=== PATIENT | female | born 1970 | race African-American/Black ===

== ENCOUNTER 2016-06-04 11:02 | Emergency (ER) | payer MEDICARE, MEDICAID ==
[2016-06-04] MEDS ORDERED: ASPIRIN 81 MG TABLET, CHEWABLE PO ONE (11:30)
--- NOTE | 2016-06-04 11:31 | ER Document Report ---
ED Medical Screen (RME) - General Stated Complaint: CHEST PAIN Time seen by provider: 11:28 Mode of Arrival: Wheelchair Information source: Patient TRAVEL OUTSIDE OF THE [place] IN LAST 30 DAYS: No - HPI Patient complains to provider of: CHEST PAIN, VOMITING AND DIARRHEA Onset: Other - CHEST PAIN THIS WEEKEND, VOMTING, DIARRHEA YESTERDAY Onset/Duration: Sudden Quality of pain: Pressure Severity: Moderate Pain Level: 4 Associated Symptoms: Chest pain, Diarrhea, Nausea, Shortness of breath, Vomiting. denies: Fever Exacerbated by: Denies Relieved by: Denies Similar symptoms previously: Yes Recently seen / treated by doctor: Yes - DIALYSIS YESTERDAY - Related Data Smoking: Non-smoker Frequency of alcohol use: None Drug Abuse: None Pertinent History: DM I HTN KIDNEY DISEASE/DIALYSIS Allergies/Adverse Reactions: sulfamethoxazole [From Septra] Allergy (Severe, Verified 06/04/16 11:31) Hives trimethoprim [From Septra] Allergy (Severe, Verified 06/04/16 11:31) Hives adhesive tape [Adhesive Tape] Adverse Reaction (Verified 06/04/16 11:31) Bruising/Rash Past Medical History - Past Medical History Cardiac Medical History: Reports: Hx Hypercholesterolemia, Hx Hypertension Denies: Hx Coronary Artery Disease, Hx Heart Attack Pulmonary Medical History: Denies: Hx Asthma, Hx Bronchitis, Hx COPD, Hx Pneumonia Neurological Medical History: Denies: Hx Cerebrovascular Accident, Hx Seizures Endocrine Medical History: Reports: Hx Diabetes Mellitus Type 1, Hx Diabetes Mellitus Type 2 Renal/ Medical History: Reports: Hx End Stage Renal Disease, Hx Hemodialysis, Hx Renal Insufficiency Musculoskeltal Medical History: Denies Hx Arthritis Skin Medical History: Reports Hx MRSA Psychiatric Medical History: Reports: Hx Depression Traumatic Medical History: Reports: Hx Fractures - Right ankle fracture Infectious Medical History: Reports: Hx MRSA Past Surgical History: Reports: Hx Section, Hx Cholecystectomy, Hx Orthopedic Surgery - ORIF right ankle with subsequent MRSA infection and Right BKA., Hx Tubal Ligation, Hx Vascular Surgery - Right forearm AV fistula. PermCath right subclavian.. Denies: Hx Hysterectomy - Immunizations Hx Diphtheria, Pertussis, Tetanus Vaccination: Yes
--- NOTE | 2016-06-04 14:39 | ER Document Report ---
ED General <JIM VILLAREAL - Last Filed: 06/04/16 22:23> - General Mode of Arrival: Wheelchair Information source: Patient TRAVEL OUTSIDE OF THE [place] IN LAST 30 DAYS: No - HPI Onset: Other - 3 days Onset/Duration: Persistent, Waxing and waning - Diarrhea chest pain Quality of pain: Pressure Pain Level: 2 Associated symptoms: Chest pain, Nonproductive cough, Diarrhea, Nausea, Vomiting. denies: Fever Exacerbated by: Denies Relieved by: Denies Similar symptoms previously: Yes Recently seen / treated by doctor: No <ENRIQUE,AYDENLIOR - Last Filed: 06/07/16 07:21> - General Chief Complaint: Vomiting/Diarrhea Stated Complaint: CHEST PAIN Notes: Patient presents with a three-day history of vomiting and diarrhea. Patient states that she's vomited 3 times today and had numerous episodes of diarrhea. Patient also reports chest pain off and on since Friday that she describes as a pressure. Patient does report mild cough. Patient denies any urinary symptoms or fever. Patient reports some abdominal cramping that worsens prior to diarrhea and then improves. Patient states that her vomiting and diarrhea is what primarily brought her in. She reports that she has had a stress test a few months ago that was normal and had a heart catheterization one or 2 years ago that was normal as well. Patient states procedures were done in [place]. (ALLEY NUNEZ) - Related Data Allergies/Adverse Reactions: sulfamethoxazole [From Septra] Allergy (Severe, Verified 06/04/16 11:31) Hives trimethoprim [From Septra] Allergy (Severe, Verified 06/04/16 11:31) Hives adhesive tape [Adhesive Tape] Adverse Reaction (Verified 06/04/16 11:31) Bruising/Rash Past Medical History - General Information source: Patient - Social History Smoking Status: Unknown if Ever Smoked Chew tobacco use (# tins/day): No Frequency of alcohol use: None Drug Abuse: None Occupation: none Lives with: Family Family History: Reviewed & Not Pertinent Patient has suicidal ideation: No Patient has homicidal ideation: No - Past Medical History Cardiac Medical History: Reports: Hx Hypercholesterolemia, Hx Hypertension Denies: Hx Coronary Artery Disease, Hx Heart Attack Pulmonary Medical History: Denies: Hx Asthma, Hx Bronchitis, Hx COPD, Hx Pneumonia Neurological Medical History: Denies: Hx Cerebrovascular Accident, Hx Seizures Endocrine Medical History: Reports: Hx Diabetes Mellitus Type 1, Hx Diabetes Mellitus Type 2 Renal/ Medical History: Reports: Hx End Stage Renal Disease, Hx Hemodialysis, Hx Renal Insufficiency Musculoskeltal Medical History: Denies Hx Arthritis Skin Medical History: Reports Hx MRSA Psychiatric Medical History: Reports: Hx Depression Traumatic Medical History: Reports: Hx Fractures - Right ankle fracture Infectious Medical History: Reports: Hx MRSA Past Surgical History: Reports: Hx Section, Hx Cholecystectomy, Hx Orthopedic Surgery - ORIF right ankle with subsequent MRSA infection and Right BKA., Hx Tubal Ligation, Hx Vascular Surgery - Right forearm AV fistula. PermCath right subclavian.. Denies: Hx Hysterectomy - Immunizations Hx Diphtheria, Pertussis, Tetanus Vaccination: Yes Hx Pneumococcal Vaccination: 07/04/10 <ALLEY NUNEZ - Last Filed: 06/07/16 07:21> Review of Systems - Review of Systems Constitutional: No symptoms reported. denies: Fever, Recent illness EENT: No symptoms reported Cardiovascular: Chest pain. denies: Dyspnea Respiratory: Cough. denies: Short of breath Gastrointestinal: Abdominal pain, Diarrhea, Nausea, Vomiting. denies: Constipation, Blood streaked bowels Genitourinary: No symptoms reported. denies: Dysuria, Flank pain Female Genitourinary: No symptoms reported Musculoskeletal: No symptoms reported. denies: Back pain Skin: No symptoms reported Hematologic/Lymphatic: No symptoms reported Neurological/Psychological: No symptoms reported <ALLEY NUNEZ - Last Filed: 06/07/16 07:21> Physical Exam - General General appearance: Appears well, Alert In distress: None - HEENT Head: Normocephalic, Atraumatic Eyes: Normal Conjunctiva: Normal Nasal: Normal Mouth/Lips: Normal Mucous membranes: Normal Pharynx: Normal Neck: Normal, Supple. No: Lymphadenopathy - Respiratory Respiratory status: No respiratory distress Chest status: Tender Breath sounds: Normal. No: Rales, Rhonchi, Stridor, Wheezing Chest palpation: Tender - Anterior chest wall tenderness with palpation - Cardiovascular Rhythm: Regular Heart sounds: S1 appreciated, S2 appreciated Murmur: No - Abdominal Inspection: Morbidly Obese Distension: No distension Bowel sounds: Normal Tenderness: Nontender - Back Back: Normal, Nontender. No: CVA tenderness, Vertebra tenderness - Extremities General upper extremity: Normal strength, Other - Patient with AV fistula right forearm, left antecubital area General lower extremity: Normal strength, Other - Patient with right BKA - Neurological Neuro grossly intact: Yes Cognition: Normal Alondra Coma Scale Eye Opening: Spontaneous Alondra Coma Scale Verbal: Oriented Alondra Coma Scale Motor: Obeys Commands [place] Coma Scale Total: 15 - Psychological Associated symptoms: Normal affect, Normal mood - Skin Skin Temperature: Warm Skin Moisture: Dry Skin Color: Normal <ALLEY NUNEZ - Last Filed: 06/07/16 07:21> - Vital signs Vitals: Pulse Ox 99 06/04/16 14:30 Course - Laboratory Result Diagrams: 06/04/16 15:20 06/04/16 15:20 <JIM VILLAREAL - Last Filed: 06/04/16 22:23> - Laboratory Result Diagrams: 06/04/16 15:20 06/04/16 15:20 - Diagnostic Test Radiology reviewed: Reports reviewed - EKG Interpretation by Me EKG shows normal: Sinus rhythm Rate: Normal When compared to previous EKG there are: No significant change <ALLEY NUNEZ - Last Filed: 06/07/16 07:21> - Re-evaluation Re-evalutation: Repeat troponin is negative, I reevaluated patient, blood pressure has normalized, patient denies any current symptoms, she states she is ready to go home. She requests something for nausea and also for pain to take tonight, I did agree to give her a dose pack to go home with in addition to taking nausea medications, I advised her not to take them frequently to completely stop diarrhea because it is possible she has a viral syndrome and she needs to have some bowel movements/diarrhea during this course. Patient smiling, well- appearing, states she will follow closely with her provider, states she'll return if she worsens in any way. (JIM VILLAREAL) 06/04/16 14:30 Dr Ceballos to bedside to evaluate for possible IV access, recommends consultation with anesthesiology for peripheral IV placement. Consulted with anesthesiologist who states that they're in the middle of multiple surgical cases, and advises consultation with surgeon for IV access. Consulted with Dr. Wilder regarding patient presentation and need for IV access. Dr. Wilder agrees to come in and evaluate patient for IV access. 06/04/16 15:16 Dr Wilder to bedside for evaluation, recommends having a nurse attempt a peripheral IV stick on her right upper extremity above her old fistula site. 06/04/16 17:39 Patient states that abdominal pain has resolved at present but she still continues with some nausea. Patient reports that chest discomfort seems mildly worse. Vital signs continues stable. Patient very tender with palpation of sternal chest area. Medications ordered. 06/04/16 18:26 Patient reports that chest discomfort has completely resolved. Patient states that she did not take her morning blood pressure medication due to her vomiting. Patient's current blood pressure 170s over 90s. 06/04/16 18:33 Reviewed patient's list of medications as well as her dosages with patient. 06/04/16 19:12 Vital signs stable, bedside report and handoff given to Lay BENTLEY (ALLEY NUNEZ) - Vital Signs Vital signs: Temp Pulse Resp BP Pulse Ox 98.0 F 18 113/86 H 96 06/04/16 20:45 06/04/16 20:01 06/04/16 20:01 06/04/16 20:01 - Laboratory Laboratory results interpreted by me: 06/04/16 06/04/16 06/04/16 15:20 15:20 15:20 WBC 11.4 H Hgb 10.7 L Hct 34.0 L MCH 25.8 L MCHC 31.6 L RDW 16.6 H Absolute Neutrophils 8.3 H BUN 35 H Creatinine 6.66 H Est GFR ( Amer) 8 L Est GFR (Non-Af Amer) 7 L Glucose 244 H POC Glucose Calcium 7.5 L AST 12 L Lipase 458.0 H 06/04/16 19:02 WBC Hgb Hct MCH MCHC RDW Absolute Neutrophils BUN Creatinine Est GFR ( Amer) Est GFR (Non-Af Amer) Glucose POC Glucose 196 H Calcium AST Lipase 06/04/16 06/04/16 06/04/16 15:20 15:20 15:20 WBC 11.4 H Hgb 10.7 L Hct 34.0 L MCH 25.8 L MCHC 31.6 L RDW 16.6 H Absolute Neutrophils 8.3 H BUN 35 H Creatinine 6.66 H Est GFR ( Amer) 8 L Est GFR (Non-Af Amer) 7 L Glucose 244 H POC Glucose Calcium 7.5 L AST 12 L Lipase 458.0 H 06/04/16 19:02 WBC Hgb Hct MCH MCHC RDW Absolute Neutrophils BUN Creatinine Est GFR ( Amer) Est GFR (Non-Af Amer) Glucose POC Glucose 196 H Calcium AST Lipase 06/07/16 07:21 Labs- Entire Visit 06/04/16 06/04/16 06/04/16 15:20 15:20 15:20 WBC 11.4 H RBC 4.15 Hgb 10.7 L Hct 34.0 L MCV 82 MCH 25.8 L MCHC 31.6 L RDW 16.6 H Plt Count 241 Seg Neutrophils % 73.4 Lymphocytes % 19.2 Monocytes % 4.4 Eosinophils % 2.3 Basophils % 0.7 Absolute Neutrophils 8.3 H Absolute Lymphocytes 2.2 Absolute Monocytes 0.5 Absolute Eosinophils 0.3 Absolute Basophils 0.1 PT 13.0 INR 0.95 Sodium 138.8 Potassium 4.2 Chloride 99 Carbon Dioxide 23 Anion Gap 17 BUN 35 H Creatinine 6.66 H Est GFR ( Amer) 8 L Est GFR (Non-Af Amer) 7 L Glucose 244 H POC Glucose Calcium 7.5 L Total Bilirubin 0.5 Direct Bilirubin 0.0 AST 12 L ALT 10 Alkaline Phosphatase 80 Creatine Kinase 105 CK-MB (CK-2) Troponin I Total Protein 7.6 Albumin 4.0 Lipase 06/04/16 06/04/16 06/04/16 15:20 15:20 19:02 WBC RBC Hgb Hct MCV MCH MCHC RDW Plt Count Seg Neutrophils % Lymphocytes % Monocytes % Eosinophils % Basophils % Absolute Neutrophils Absolute Lymphocytes Absolute Monocytes Absolute Eosinophils Absolute Basophils PT INR Sodium Potassium Chloride Carbon Dioxide Anion Gap BUN Creatinine Est GFR ( Amer) Est GFR (Non-Af Amer) Glucose POC Glucose 196 H Calcium Total Bilirubin Direct Bilirubin AST ALT Alkaline Phosphatase Creatine Kinase CK-MB (CK-2) 0.33 Troponin I < 0.012 Total Protein Albumin Lipase 458.0 H 06/04/16 19:10 WBC RBC Hgb Hct MCV MCH MCHC RDW Plt Count Seg Neutrophils % Lymphocytes % Monocytes % Eosinophils % Basophils % Absolute Neutrophils Absolute Lymphocytes Absolute Monocytes Absolute Eosinophils Absolute Basophils PT INR Sodium Potassium Chloride Carbon Dioxide Anion Gap BUN Creatinine Est GFR ( Amer) Est GFR (Non-Af Amer) Glucose POC Glucose Calcium Total Bilirubin Direct Bilirubin AST ALT Alkaline Phosphatase Creatine Kinase CK-MB (CK-2) Troponin I < 0.012 Total Protein Albumin Lipase (ALLEY NUNEZ) Discharge <JIM VILLAREAL - Last Filed: 06/04/16 22:23> <ALLEY NUNEZ - Last Filed: 06/07/16 07:21> - Discharge Clinical Impression: Vomiting and diarrhea Chest pain Qualifiers: Chest pain type: unspecified Qualified Code(s): R07.9 - Chest pain, unspecified Condition: Stable Disposition: HOME, SELF-CARE Additional Instructions: The workup today did not show any heart or lung abnormalities. Rest, take the phenergan for nausea, take the medpack if needed for pain. Follow up with Primary Care. Return to the ED for any concerning or worsening symptoms including uncontrollable vomiting, difficulty breathing, severe pain, etc. Prescriptions: Promethazine HCl [Phenergan 25 mg Tablet] 1 - 2 tab PO Q6H PRN #20 tablet PRN Reason: Referrals: NICKY BARBOZA MD [Primary Care Provider] - Follow up as needed
[2016-06-04 15:33] LABS: ABSOLUTE BASOPHILS # (AUTO) 0.1 10^3/uL (0.0-0.2); ABSOLUTE EOSINOPHILS # (AUTO) 0.3 10^3/uL (0.0-0.6); ABSOLUTE LYMPHOCYTES (AUTO) 2.2 10^3/uL (0.5-4.7); ABSOLUTE MONOCYTES (AUTO) 0.5 10^3/uL (0.1-1.4); ABSOLUTE NEUT (AUTO) 8.3 10^3/uL (1.7-8.2); BASOPHILS % (AUTO) 0.7 % (0-2); EOSINOPHILS % (AUTO) 2.3 % (0-6); HEMOGLOBIN 10.7 g/dL (12.0-15.5); HGB HCT DIFFERENCE -1.9; LYMPHOCYTES % (AUTO) 19.2 % (13-45); MEAN CORPUSCULAR HEMOGLOBIN 25.8 pg (27.0-33.4); MEAN CORPUSCULAR HGB CONC 31.6 g/dL (32.0-36.0); MEAN CORPUSCULAR VOLUME 82 fl (80-97); MONOCYTES % (AUTO) 4.4 % (3-13); RED BLOOD COUNT 4.15 10^6/uL (3.72-5.28); RED CELL DISTRIBUTION WIDTH 16.6 % (11.5-14.0); SEGMENTED NEUTROPHILS % (AUTO) 73.4 % (42-78); WHITE BLOOD COUNT 11.4 10^3/uL (4.0-10.5)
[2016-06-04 15:46] LABS: ALANINE AMINOTRANSFERASE 10 U/L (9-52); ALKALINE PHOSPHATASE 80 U/L (38-126); ANION GAP 17 (5-19); ASPARTATE AMINO TRANSFERASE 12 U/L (14-36); BILIRUBIN,TOTAL 0.5 mg/dL (0.2-1.3); BLOOD UREA NITROGEN 35 mg/dL (7-20); CALCIUM 7.5 mg/dL (8.4-10.2); CARBON DIOXIDE 23 mmol/L (22-30); CHLORIDE 99 mmol/L (98-107); CREATINE KINASE 105 U/L (30-135); CREATININE RESULT 6.66 mg/dL (0.52-1.25); GLUCOSE 244 mg/dL (75-110); POTASSIUM 4.2 mmol/L (3.6-5.0); SODIUM 138.8 mmol/L (137-145); TOTAL PROTEIN 7.6 g/dL (6.3-8.2)
[2016-06-04 15:58] LABS: CREATINE KINASE MB 0.33 ng/mL (<4.55)
[2016-06-04 15:59] LABS: TROPONIN I < 0.012 ng/mL
[2016-06-04] MEDS ORDERED: ONDANSETRON HCL INJ/PF 4 MG/2 ML SDV IV ONE (17:27)
[2016-06-04] MEDS ORDERED: MORPHINE SULFATE 10 MG/ML INJ IV ONE (17:35)
[2016-06-04] MEDS ORDERED: CARVEDILOL 12.5 MG TABLET PO ONE (18:32)
[2016-06-04] MEDS ORDERED: HYDRALAZINE HCL 25 MG TABLET PO ONE (18:32)
--- NOTE | 2016-06-04 18:32 | EKG REPORT ---
SEVERITY:- BORDERLINE ECG - SINUS RHYTHM BORDERLINE PROLONGED QT INTERVAL : Confirmed by: Otilio Lacy MD 04-Jun-2016 18:31:29
[2016-06-04] MEDS ORDERED: HYDROCODONE/ACETAMINOPHEN 5-325 MG 6 TAB/DSPK PO PRN (20:07)
[2016-06-04] MEDS ORDERED: ONDANSETRON ODT 4 MG TAB (6 TAB/DSPK) PO PRN (20:11)
[2016-06-05 05:40] VITALS: BP 113/86
--- NOTE | 2016-06-05 08:31 | EKG REPORT ---
SEVERITY:- BORDERLINE ECG - SINUS RHYTHM BORDERLINE PROLONGED QT INTERVAL : Confirmed by: Otilio Lacy MD 05-Jun-2016 08:31:12
== END 2016-06-04 20:50 | disposition home or self-care (01) ==
LOC: ER 11:02
DX: R11.2 Nausea with vomiting, unspecified (principal); R19.7 Diarrhea, unspecified; R07.89 Other chest pain; R05 Cough; R10.9 Unspecified abdominal pain; I12.0 Hypertensive chronic kidney disease with stage 5 chronic kidney disease or end stage renal disease; E11.22 Type 2 diabetes mellitus with diabetic chronic kidney disease; N18.6 End stage renal disease; Z99.2 Dependence on renal dialysis; Z88.1 Allergy status to other antibiotic agents; Z86.14 Personal history of Methicillin resistant Staphylococcus aureus infection; Z89.511 Acquired absence of right leg below knee; Z79.899 Other long term (current) drug therapy
CPT/HCPCS: 93005; 99285; 96374; 96375; 36415; 82553; 82962; 82550; 83690; 85025; 85610; 80053; 84484; 71010; 93010; A9270 ×5; J2270; J2405; C1751; C1769

== ENCOUNTER 2016-07-26 14:47 | Emergency (ER) | payer MEDICARE, MEDICAID ==
[2016-07-26 14:52] VITALS: BP 141/101
[2016-07-26] MEDS ORDERED: OXYCODONE-ACETAMINOPHEN 5-325 MG TABLET PO ONE (15:33)
--- NOTE | 2016-07-26 15:35 | ER Document Report ---
ED Medical Screen (RME) - General Chief Complaint: Headache Stated Complaint: HEADACHES AND BLURRED VISION Notes: This 46-year-old female patient on hemodialysis comes emergency room complaining of headache for 5 days. She was seen 5 days ago and never diagnosed with urinary tract infection. She has continued to have headache. Headache starts in the posterior neck and shoulders and goes up over the top of her head and feels like her scalp is being squeezed and burning. She did dialyze today. Brief exam shows posterior cervical muscles and scalp muscles are quite tender to palpate consistent with a muscle tension/contraction headache. I have greeted and performed a rapid initial assessment of this patient. A comprehensive ED assessment and evaluation of the patient, analysis of test results and completion of the medical decision making process will be conducted by additional ED providers. TRAVEL OUTSIDE OF THE [place] IN LAST 30 DAYS: No - Related Data Allergies/Adverse Reactions: sulfamethoxazole [From Septra] Allergy (Severe, Verified 07/26/16 15:30) Hives trimethoprim [From Septra] Allergy (Severe, Verified 07/26/16 15:30) Hives adhesive tape [Adhesive Tape] Adverse Reaction (Verified 07/26/16 15:30) Bruising/Rash Past Medical History - Past Medical History Cardiac Medical History: Reports: Hx Hypercholesterolemia, Hx Hypertension Denies: Hx Coronary Artery Disease, Hx Heart Attack Pulmonary Medical History: Denies: Hx Asthma, Hx Bronchitis, Hx COPD, Hx Pneumonia Neurological Medical History: Denies: Hx Cerebrovascular Accident, Hx Seizures Endocrine Medical History: Reports: Hx Diabetes Mellitus Type 1, Hx Diabetes Mellitus Type 2 Renal/ Medical History: Reports: Hx End Stage Renal Disease, Hx Hemodialysis, Hx Renal Insufficiency. Denies: Hx Peritoneal Dialysis Musculoskeltal Medical History: Denies Hx Arthritis Skin Medical History: Reports Hx MRSA Psychiatric Medical History: Reports: Hx Depression Traumatic Medical History: Reports: Hx Fractures - Right ankle fracture Infectious Medical History: Reports: Hx MRSA Past Surgical History: Reports: Hx Section, Hx Cholecystectomy, Hx Orthopedic Surgery - ORIF right ankle with subsequent MRSA infection and Right BKA., Hx Tubal Ligation, Hx Vascular Surgery - Right forearm AV fistula. PermCath right subclavian.. Denies: Hx Hysterectomy - Immunizations Hx Diphtheria, Pertussis, Tetanus Vaccination: Yes Physical Exam - Vital signs Vitals: Temp Pulse Resp BP Pulse Ox 98.8 F 87 16 141/101 H 100 07/26/16 14:51 07/26/16 14:51 07/26/16 14:51 07/26/16 14:51 07/26/16 14:51 Course - Vital Signs Vital signs: Temp Pulse Resp BP Pulse Ox 98.8 F 87 16 141/101 H 100 07/26/16 14:51 07/26/16 14:51 07/26/16 14:51 07/26/16 14:51 07/26/16 14:51
[2016-07-26 16:29] LABS: ABSOLUTE BASOPHILS # (AUTO) 0.1 10^3/uL (0.0-0.2); ABSOLUTE EOSINOPHILS # (AUTO) 0.2 10^3/uL (0.0-0.6); ABSOLUTE LYMPHOCYTES (AUTO) 1.5 10^3/uL (0.5-4.7); ABSOLUTE MONOCYTES (AUTO) 0.4 10^3/uL (0.1-1.4); ABSOLUTE NEUT (AUTO) 6.1 10^3/uL (1.7-8.2); BASOPHILS % (AUTO) 0.8 % (0-2); EOSINOPHILS % (AUTO) 2.5 % (0-6); HEMATOCRIT 34.8 % (36.0-47.0); HEMOGLOBIN 11.1 g/dL (12.0-15.5); HGB HCT DIFFERENCE -1.5; LYMPHOCYTES % (AUTO) 18.4 % (13-45); MEAN CORPUSCULAR HEMOGLOBIN 26.4 pg (27.0-33.4); MEAN CORPUSCULAR VOLUME 82 fl (80-97); MONOCYTES % (AUTO) 4.3 % (3-13); RED BLOOD COUNT 4.22 10^6/uL (3.72-5.28); RED CELL DISTRIBUTION WIDTH 15.8 % (11.5-14.0); WHITE BLOOD COUNT 8.2 10^3/uL (4.0-10.5)
[2016-07-26 16:44] LABS: ALANINE AMINOTRANSFERASE 10 U/L (9-52); ALKALINE PHOSPHATASE 90 U/L (38-126); ANION GAP 17 (5-19); ASPARTATE AMINO TRANSFERASE 11 U/L (14-36); BILIRUBIN,DIRECT 0.5 mg/dL (0.0-0.4); BILIRUBIN,TOTAL 0.5 mg/dL (0.2-1.3); BLOOD UREA NITROGEN 22 mg/dL (7-20); CALCIUM 8.2 mg/dL (8.4-10.2); CARBON DIOXIDE 23 mmol/L (22-30); CHLORIDE 99 mmol/L (98-107); CREATININE RESULT 4.63 mg/dL (0.52-1.25); GLUCOSE 268 mg/dL (75-110); POTASSIUM 4.2 mmol/L (3.6-5.0); SODIUM 139.3 mmol/L (137-145); TOTAL PROTEIN 7.5 g/dL (6.3-8.2)
--- NOTE | 2016-07-26 18:49 | ER Document Report ---
HPI - HPI Patient complains to provider of: headache for 5 days Onset: Other - 5 days Onset/Duration: Gradual Pain Level: 4 Context: 46-year-old female complaining of a gradual onset of a posterior occipital headache Friday after dialysis that extends to posterior occiput.l Her neck also is sore. She was pivoted by Dr. Hung who felt that it was a muscle contraction headache. the patient said that she was supposed to get a head CT scan. She is a dialysis patient and she went today. No fever or chills. no Chest pain or shortness of breath. No nausea vomiting diarrhea. No abdominal pain. No paresthesias. No visual disturbance. Associated Symptoms: None Exacerbated by: Movement - of neck Relieved by: Other - Tylenol dose the headache Similar symptoms previously: Yes Recently seen / treated by doctor: Yes - she saw Dr. Lorenz on Friday who thought that it may be related to the urin - ROS ROS below otherwise negative: Yes Systems Reviewed and Negative: Yes All other systems reviewed and negative - REPRODUCTIVE Reproductive: DENIES: : - DERM Skin Color: Normal Past Medical History - General Information source: Patient - Social History Smoking Status: Never Smoker Frequency of alcohol use: None Drug Abuse: None Lives with: Family Family History: Reviewed & Not Pertinent Patient has suicidal ideation: No Patient has homicidal ideation: No - Past Medical History Cardiac Medical History: Reports: Hx Hypercholesterolemia, Hx Hypertension Endocrine Medical History: Reports: Hx Diabetes Mellitus Type 1, Hx Diabetes Mellitus Type 2 Renal/ Medical History: Reports: Hx End Stage Renal Disease, Hx Hemodialysis, Hx Renal Insufficiency Skin Medical History: Reports Hx MRSA Psychiatric Medical History: Reports: Hx Depression Traumatic Medical History: Reports: Hx Fractures - Right ankle fracture Infectious Medical History: Reports: Hx MRSA Past Surgical History: Reports: Hx Section, Hx Cholecystectomy, Hx Orthopedic Surgery - ORIF right ankle with subsequent MRSA infection and Right BKA., Hx Tubal Ligation, Hx Vascular Surgery - Right forearm AV fistula. PermCath right subclavian.. Denies: Hx Hysterectomy - Immunizations Hx Diphtheria, Pertussis, Tetanus Vaccination: Yes Hx Pneumococcal Vaccination: 07/04/10 Vertical Provider Document - CONSTITUTIONAL Agree With Documented VS: Yes Exam Limitations: No Limitations - INFECTION CONTROL TRAVEL OUTSIDE OF THE [place] IN LAST 30 DAYS: No - HEENT HEENT: Normocephalic, PERRLA - NECK Neck: Supple - Tender bilateral trapezius muscles to the occipital insertion. negative: Lymphadenopathy-Left, Lymphadenopathy-Right - RESPIRATORY Respiratory: Breath Sounds Normal, No Respiratory Distress O2 Sat by Pulse Oximetry: 100 - CARDIOVASCULAR Cardiovascular: Regular Rate, Regular Rhythm - BACK Back: Normal Inspection - MUSCULOSKELETAL/EXTREMETIES Musculoskeletal/Extremeties: MAEW, FROM, Tender - See above - NEURO Level of Consciousness: Awake, Alert, Appropriate Motor/Sensory: No Motor Deficit, No Sensory Deficit, Other - Gait stable - DERM Integumentary: Warm, Dry Course - Re-evaluation Re-evalutation: 07/26/16 18:57 ct of head is negative., Headache level 3/5. I added Benadryl and Reglan to be given at this time. I will give her referral to neurologist. - Vital Signs Vital signs: Temp Pulse Resp BP Pulse Ox 98.8 F 87 16 141/101 H 100 07/26/16 14:51 07/26/16 14:51 07/26/16 14:51 07/26/16 14:51 07/26/16 14:51 - Laboratory Result Diagrams: 07/26/16 16:21 07/26/16 16:21 Laboratory results interpreted by me: 07/26/16 07/26/16 16:21 16:21 Hgb 11.1 L Hct 34.8 L MCH 26.4 L RDW 15.8 H BUN 22 H Creatinine 4.63 H Est GFR ( Amer) 12 L Est GFR (Non-Af Amer) 10 L Glucose 268 H Calcium 8.2 L Direct Bilirubin 0.5 H AST 11 L Discharge - Discharge Clinical Impression: Neck muscle strain Qualifiers: Encounter type: initial encounter Qualified Code(s): S16.1XXA - Strain of muscle, fascia and tendon at neck level, initial encounter Headache Qualifiers: Headache type: unspecified Headache chronicity pattern: acute headache Intractability: not intractable Qualified Code(s): R51 - Headache Condition: Good Disposition: HOME, SELF-CARE Instructions: Headache ([facility]), Oral Narcotic Medication ([facility]), Use of Diphenhydramine, Reglan ([facility]), Warm Packs ([facility]) Additional Instructions: warm compress and massage to neck soft pillow to readjust for neck comfort copy of negative ct scan See neurologist referral given Return to the emergency room if worsening symptoms Please complete the patient satisfaction survey if you get one, and return it.. If you do not receive a survey, then you can go to the [facility] website, [email or web address] and place your comments about your very good care. Thank you very much. It was a pleasure being your medical provider today. Prescriptions: Oxycodone HCl/Acetaminophen [Percocet 5-325 mg Tablet] 1 - 2 tab PO ASDIR PRN # 10 tablet PRN Reason: Referrals: NIXON HESS MD [ACTIVE STAFF] - 07/29/16
[2016-07-26] MEDS ORDERED: METOCLOPRAMIDE HCL 10 MG TABLET PO ONE (18:56)
[2016-07-26] MEDS ORDERED: DIPHENHYDRAMINE HCL 25 MG CAPSULE PO ONE (18:56)
== END 2016-07-26 19:17 | disposition home or self-care (01) ==
LOC: ER 14:47
DX: S16.1XXA Strain of muscle, fascia and tendon at neck level, initial encounter (principal); R51 Headache; X58.XXXA Exposure to other specified factors, initial encounter; E78.00 Pure hypercholesterolemia, unspecified; E11.22 Type 2 diabetes mellitus with diabetic chronic kidney disease; I12.0 Hypertensive chronic kidney disease with stage 5 chronic kidney disease or end stage renal disease; N18.6 End stage renal disease; Z99.2 Dependence on renal dialysis; Z86.14 Personal history of Methicillin resistant Staphylococcus aureus infection; Z98.51 Tubal ligation status
CPT/HCPCS: 99284; 36415; 85025; 80053; 70450; A9270 ×3

== ENCOUNTER 2016-09-29 21:26 | Emergency (ER) | payer MEDICARE, MEDICAID ==
[2016-09-29] MEDS ORDERED: DIPHENHYDRAMINE HCL 50 MG/ML VIAL IV ONE (22:15)
[2016-09-29] MEDS ORDERED: METOCLOPRAMIDE HCL INJ/PF 10 MG/2 ML SDV IV ONE (22:15)
--- NOTE | 2016-09-29 22:18 | ER Document Report ---
ED General - General Chief Complaint: Dizziness, GUADALUPE Stated Complaint: HEAD PAIN/DIZZY Time Seen by Provider: 09/29/16 22:09 Notes: Patient is a 46-year-old female who presents with complaint of posterior headache and some dizziness. Patient says she can get these headaches off and on now for many months. She has been seen here in the past for them and referred her neurologist. She says she has not yet called the neurologist. She has had CT scan of brain which is negative. She says the headaches seem to be gradually got more intense. This headache has been ongoing since yesterday. She says now she certainly gets some dizziness so she with headaches. She says sometimes she has a vertigo or spinning type sensation. Sometimes she just feels "dizzy. No weakness or numbness into her arms or legs. No blurred vision. No vomiting. No diarrhea. No fevers. No recent trauma to her head or neck. She is on dialysis. Her last dialysis was Friday. Her dialysis is typically Friday. TRAVEL OUTSIDE OF THE [place] IN LAST 30 DAYS: No - Related Data Allergies/Adverse Reactions: sulfamethoxazole [From Septra] Allergy (Severe, Verified 07/26/16 15:30) Hives trimethoprim [From Septra] Allergy (Severe, Verified 07/26/16 15:30) Hives adhesive tape [Adhesive Tape] Adverse Reaction (Verified 07/26/16 15:30) Bruising/Rash Past Medical History - Social History Smoking Status: Unknown if Ever Smoked Frequency of alcohol use: None Drug Abuse: None Family History: Reviewed & Not Pertinent - Past Medical History Cardiac Medical History: Reports: Hx Hypercholesterolemia, Hx Hypertension Denies: Hx Coronary Artery Disease, Hx Heart Attack Pulmonary Medical History: Denies: Hx Asthma, Hx Bronchitis, Hx COPD, Hx Pneumonia Neurological Medical History: Denies: Hx Cerebrovascular Accident, Hx Seizures Endocrine Medical History: Reports: Hx Diabetes Mellitus Type 1, Hx Diabetes Mellitus Type 2 Renal/ Medical History: Reports: Hx End Stage Renal Disease, Hx Hemodialysis, Hx Renal Insufficiency. Denies: Hx Peritoneal Dialysis Musculoskeltal Medical History: Denies Hx Arthritis Skin Medical History: Reports Hx MRSA Psychiatric Medical History: Reports: Hx Depression Traumatic Medical History: Reports: Hx Fractures - Right ankle fracture Infectious Medical History: Reports: Hx MRSA Past Surgical History: Reports: Hx Section, Hx Cholecystectomy, Hx Orthopedic Surgery - ORIF right ankle with subsequent MRSA infection and Right BKA., Hx Tubal Ligation, Hx Vascular Surgery - Right forearm AV fistula. PermCath right subclavian.. Denies: Hx Hysterectomy - Immunizations Hx Diphtheria, Pertussis, Tetanus Vaccination: Yes Hx Pneumococcal Vaccination: 07/04/10 Review of Systems - Review of Systems Notes: My Normal Review Basic REVIEW OF SYSTEMS: CONSTITUTIONAL : Denies fever, chills, or sweats. Denies recent illness. RESPIRATORY: Denies cough, cold, or chest congestion. Denies shortness of breath, difficulty breathing, or wheezing. GASTROINTESTINAL: Denies abdominal pain. Denies nausea, vomiting, or diarrhea. Denies constipation. Last BM: MUSCULOSKELETAL: Denies neck or back pain or joint pain or swelling. SKIN: Denies rash or skin lesions. NEUROLOGICAL: Denies altered mental status or loss of consciousness. Has a headache. Denies weakness or paralysis or loss of use of either side. Denies problems with gait or speech. Denies sensory or motor loss. ALL OTHER SYSTEMS REVIEWED AND NEGATIVE. Physical Exam - Vital signs Vitals: Temp Pulse Resp BP Pulse Ox 98.8 F 95 20 150/90 H 97 09/29/16 21:31 09/29/16 21:31 09/29/16 21:31 09/29/16 21:31 09/29/16 21:31 - Notes Notes: General Appearance: Well nourished, alert, cooperative, no acute distress, no obvious discomfort. Well-appearing. Vitals: reviewed, See vital signs table. Head: no swelling or tenderness to the head Eyes: PERRL, EOMI, Conjuctiva clear Mouth: No decreasd moisture Neck: Supple, majority of his neck is nontender to palpation. Patient does have some tenderness to palpation at the base of the occiput. Lungs: No wheezing, No rales, No rhonci, No accessory muscle use, good air exchange bilaterally. Heart: Normal rate, Regular rythm, No murmur, no rub Abdomen: Normal BS, soft, No rigidity, No abdominal tenderness, No guarding, no rebound, no abdominal masses, no organomegaly Extremities: strength 5/5 in all extremities, amputation of right lower leg. Good pulses in all extremities, no swelling or tenderness in the extremities, no edema. Skin: warm, dry, appropriate color, no rash Neuro: speech clear, oriented x 3, normal affect, responds appropriately to questions. Cranial nerves II through XII are intact. Distal sensation intact. Patient was lower extremities without difficulty. No pronator drift. Normal finger-nose- to finger. Cerebellar signs intact on exam. Course - Re-evaluation Re-evalutation: 09/29/16 23:19 Patient says headache is almost completely gone. She says she still has just one small spot that is still bothering her. I will give her a small dose of morphine hopefully get rid of the remainder of the headache. - Vital Signs Vital signs: Temp Pulse Resp BP Pulse Ox 98.8 F 95 19 125/96 H 93 09/29/16 21:31 09/29/16 21:31 09/30/16 00:00 09/29/16 22:42 09/30/16 00:00 - Transfer of Care Notes: 09/30/16 00:47 Patient headache is resolved. When her headache is resolved her dizziness is resolved. She had a CT scan last week which is negative. I do not suspect cerebellar stroke at this time being that the patient has complete resolution of her symptoms with treatment of her headache and also because her cerebellar exam is negative. I did not test gait because the patient has a right above-the -knee amputation and therefore cannot walk. I strongly encouraged the patient again to follow-up with the neurologist to further workup the etiology behind her recurrent headaches. Encouraged to return to ER if she has worsening headache, fevers, vomiting, or new focal neurologic deficits. Patient agrees with plan will be discharged home. Dictation of this chart was performed using voice recognition software; therefore, there may be some unintended grammatical errors. Discharge - Discharge Clinical Impression: Dizziness Head ache Qualifiers: Headache type: unspecified Headache chronicity pattern: episodic headache Intractability: not intractable Qualified Code(s): R51 - Headache Condition: Good Disposition: HOME, SELF-CARE Additional Instructions: HEADACHE: The physician does not feel that the headache you are experiencing has a serious underlying cause. Most headaches are due to emotional stress, with resultant muscle tension (tension headache). Occasionally, headaches are secondary to changes in the blood vessels of the scalp (vascular headache and migraine headache). Sometimes, a headache is the first symptom of another developing illness, such as a viral infection. You have no evidence of stroke, bleeding, meningitis, or other serious cause of your headache. The treatment of headaches varies with the severity and cause of the pain. Not all headaches need pain shots. In fact, there is evidence that using narcotics for headaches may make them worse in the long run. The physician will determine the therapy that's in your best interest. If you develop a fever, if the headache is different from any you've previously experienced, or if the headache progressively worsens, then call your physician at once or go to the emergency room. REGLAN (METOCLOPRAMIDE): Reglan has been prescribed. This medicine affects the stomach and intestines. It can be used to treat nausea and vomiting, to prevent reflux of stomach acid up into the esophagus, or to increase the contractions of the stomach and intestines. It is often prescribed for esophagitis, and for paralysis of the stomach in diabetics. Reglan can cause either mild restlessness or drowsiness. You should contact the doctor at once if you become extremely restless, anxious, or cannot sleep, or if you develop uncontrollable motions of the lips, tongue, or jaw. Do not take alcohol with this medicine. Do not drive or operate machinery until you have been taking this medicine long enough to know how it affects you. Call the doctor if you develop abdominal pains, lightheadedness, black stool, or blood in the stool or vomitus. FOLLOW-UP CARE: If you have been referred to a physician for follow-up care, call the physician s office for an appointment as you were instructed or within the next two days. If you experience worsening or a significant change in your symptoms, notify the physician immediately or return to the Emergency Department at any time for re-evaluation. Please return to the ER immediately if you have worsening headaches not responding to benadryl and reglan, fevers, or worsening dizziness. Please follow up with the neurologist (either Dr. Hess or Dr. Tyson). Prescriptions: Metoclopramide HCl [Reglan 10 mg Tablet] 0.5 tab PO ASDIR PRN #25 tablet PRN Reason: Referrals: CHARO BARBOZA MD [Primary Care Provider] - Follow up in 3-5 days MARTHA TYSON MD [EMERITUS] - Follow up in 3-5 days NIXON HESS MD [ACTIVE STAFF] - Follow up in 3-5 days
[2016-09-29] MEDS ORDERED: MORPHINE SULFATE 10 MG/ML INJ IV ONE (23:19)
[2016-09-30 01:18] VITALS: BP 133/65
== END 2016-09-30 01:15 | disposition home or self-care (01) ==
LOC: ER 21:26
DX: R51 Headache (principal); R42 Dizziness and giddiness; N18.6 End stage renal disease; Z99.2 Dependence on renal dialysis; Z89.611 Acquired absence of right leg above knee
CPT/HCPCS: 99284; 96374; 96375; J1200; J2765; J2270

== ENCOUNTER 2016-12-18 18:49 | Emergency (ER) | payer MEDICARE, MEDICAID ==
--- NOTE | 2016-12-18 19:28 | ER Document Report ---
ED Medical Screen (RME) - General Chief Complaint: Weakness Stated Complaint: TROUBLE BREATHING Time Seen by Provider: 12/18/16 19:26 Mode of Arrival: Wheelchair Information source: Patient TRAVEL OUTSIDE OF THE [place] IN LAST 30 DAYS: No - HPI Patient complains to provider of: weakness; SOB Onset: This afternoon - pt with ESRD had full HD earlier today -- went home and felt weak and SOB - Related Data Allergies/Adverse Reactions: sulfamethoxazole [From Septra] Allergy (Severe, Verified 12/18/16 19:03) Hives trimethoprim [From Septra] Allergy (Severe, Verified 12/18/16 19:03) Hives adhesive tape [Adhesive Tape] Adverse Reaction (Verified 12/18/16 19:03) Bruising/Rash Past Medical History - Past Medical History Cardiac Medical History: Reports: Hx Hypercholesterolemia, Hx Hypertension Denies: Hx Coronary Artery Disease, Hx Heart Attack Pulmonary Medical History: Denies: Hx Asthma, Hx Bronchitis, Hx COPD, Hx Pneumonia Neurological Medical History: Denies: Hx Cerebrovascular Accident, Hx Seizures Endocrine Medical History: Reports: Hx Diabetes Mellitus Type 1, Hx Diabetes Mellitus Type 2 Renal/ Medical History: Reports: Hx End Stage Renal Disease, Hx Hemodialysis, Hx Renal Insufficiency. Denies: Hx Peritoneal Dialysis Musculoskeltal Medical History: Denies Hx Arthritis Skin Medical History: Reports Hx MRSA Psychiatric Medical History: Reports: Hx Depression Traumatic Medical History: Reports: Hx Fractures - Right ankle fracture Infectious Medical History: Reports: Hx MRSA Past Surgical History: Reports: Hx Section, Hx Cholecystectomy, Hx Orthopedic Surgery - ORIF right ankle with subsequent MRSA infection and Right BKA., Hx Tubal Ligation, Hx Vascular Surgery - Right forearm AV fistula. PermCath right subclavian.. Denies: Hx Hysterectomy - Immunizations Hx Diphtheria, Pertussis, Tetanus Vaccination: Yes Physical Exam - Vital signs Vitals: Temp Pulse Resp BP Pulse Ox 98.7 F 94 14 150/91 H 98 12/18/16 19:03 12/18/16 19:03 12/18/16 19:03 12/18/16 19:03 12/18/16 19:03 Course - Vital Signs Vital signs: Temp Pulse Resp BP Pulse Ox 98.7 F 94 14 150/91 H 98 12/18/16 19:03 12/18/16 19:03 12/18/16 19:03 12/18/16 19:03 12/18/16 19:03
[2016-12-18 20:16] LABS: ABSOLUTE BASOPHILS # (AUTO) 0.1 10^3/uL (0.0-0.2); ABSOLUTE EOSINOPHILS # (AUTO) 0.3 10^3/uL (0.0-0.6); ABSOLUTE LYMPHOCYTES (AUTO) 1.7 10^3/uL (0.5-4.7); ABSOLUTE MONOCYTES (AUTO) 0.4 10^3/uL (0.1-1.4); ABSOLUTE NEUT (AUTO) 7.3 10^3/uL (1.7-8.2); BASOPHILS % (AUTO) 0.6 % (0-2); EOSINOPHILS % (AUTO) 2.9 % (0-6); HEMATOCRIT 36.7 % (36.0-47.0); HEMOGLOBIN 11.9 g/dL (12.0-15.5); LYMPHOCYTES % (AUTO) 17.5 % (13-45); MEAN CORPUSCULAR HEMOGLOBIN 27.3 pg (27.0-33.4); MEAN CORPUSCULAR HGB CONC 32.4 g/dL (32.0-36.0); MEAN CORPUSCULAR VOLUME 84 fl (80-97); MONOCYTES % (AUTO) 3.8 % (3-13); RED BLOOD COUNT 4.35 10^6/uL (3.72-5.28); RED CELL DISTRIBUTION WIDTH 15.5 % (11.5-14.0); SEGMENTED NEUTROPHILS % (AUTO) 75.2 % (42-78); WHITE BLOOD COUNT 9.6 10^3/uL (4.0-10.5)
--- NOTE | 2016-12-18 20:25 | RADIOLOGY REPORT (SQ) ---
EXAM DESCRIPTION: CHEST PA/LAT COMPLETED DATE/TIME: 12/18/2016 8:18 pm REASON FOR STUDY: SOB COMPARISON: 06/04/2016 EXAM PARAMETERS: NUMBER OF VIEWS: two views TECHNIQUE: Digital Frontal and Lateral radiographic views of the chest acquired. RADIATION DOSE: NA LIMITATIONS: none FINDINGS: LUNGS AND PLEURA: No opacities, masses or pneumothorax. No pleural effusion. MEDIASTINUM AND HILAR STRUCTURES: No masses or contour abnormalities. HEART AND VASCULAR STRUCTURES: Heart normal size. No evidence for failure. BONES: No acute findings. HARDWARE: None in the chest. OTHER: No other significant finding. IMPRESSION: NO SIGNIFICANT RADIOGRAPHIC FINDING IN THE CHEST. TECHNICAL DOCUMENTATION: JOB ID: [id number] [employer]- All Rights Reserved
[2016-12-18 20:37] LABS: ALANINE AMINOTRANSFERASE 18 U/L (9-52); ALBUMIN 4.2 g/dL (3.5-5.0); ALKALINE PHOSPHATASE 82 U/L (38-126); ANION GAP 15 (5-19); ASPARTATE AMINO TRANSFERASE 13 U/L (14-36); BILIRUBIN,DIRECT 0.4 mg/dL (0.0-0.4); BILIRUBIN,TOTAL 0.4 mg/dL (0.2-1.3); BLOOD UREA NITROGEN 25 mg/dL (7-20); CALCIUM 9.9 mg/dL (8.4-10.2); CARBON DIOXIDE 24 mmol/L (22-30); CHLORIDE 97 mmol/L (98-107); CREATINE KINASE 82 U/L (30-135); GLUCOSE 221 mg/dL (75-110); POTASSIUM 4.7 mmol/L (3.6-5.0); SODIUM 135.9 mmol/L (137-145); TOTAL PROTEIN 7.6 g/dL (6.3-8.2)
[2016-12-18 20:47] LABS: CREATINE KINASE MB 0.41 ng/mL (<4.55); TROPONIN I < 0.012 ng/mL
--- NOTE | 2016-12-18 22:58 | EKG REPORT ---
SEVERITY:- BORDERLINE ECG - SINUS RHYTHM PROBABLE LEFT ATRIAL ABNORMALITY : Confirmed by: Jah Reed 18-Dec-2016 22:58:01
--- NOTE | 2016-12-18 23:17 | ER Document Report ---
ED General - General Chief Complaint: Weakness Stated Complaint: TROUBLE BREATHING Time Seen by Provider: 12/18/16 19:26 Mode of Arrival: Wheelchair Notes: Patient is a 46-year-old female who presents with complaint of body aches that started immediately after dialysis. She says she gets these symptoms frequently after dialysis however they usually go away within a few hours and this time they have continued on longer throughout the day. She says dialysis is a normal amount of dialysis today. She does not remember any complications during dialysis. She denies any vomiting but did have some nausea. She says with the body aches she does have some chest tightness. She denies any recent fevers or infections. She has no other complaints at this time. TRAVEL OUTSIDE OF THE [place] IN LAST 30 DAYS: No - Related Data Allergies/Adverse Reactions: sulfamethoxazole [From Septra] Allergy (Severe, Verified 12/18/16 19:03) Hives trimethoprim [From Septra] Allergy (Severe, Verified 12/18/16 19:03) Hives adhesive tape [Adhesive Tape] Adverse Reaction (Verified 12/18/16 19:03) Bruising/Rash Past Medical History - General Information source: Patient - Social History Smoking Status: Never Smoker Chew tobacco use (# tins/day): No Frequency of alcohol use: None Drug Abuse: None Family History: Reviewed & Not Pertinent - Past Medical History Cardiac Medical History: Reports: Hx Hypercholesterolemia, Hx Hypertension Denies: Hx Coronary Artery Disease, Hx Heart Attack Pulmonary Medical History: Denies: Hx Asthma, Hx Bronchitis, Hx COPD, Hx Pneumonia Neurological Medical History: Denies: Hx Cerebrovascular Accident, Hx Seizures Endocrine Medical History: Reports: Hx Diabetes Mellitus Type 1, Hx Diabetes Mellitus Type 2 Renal/ Medical History: Reports: Hx End Stage Renal Disease, Hx Hemodialysis, Hx Renal Insufficiency. Denies: Hx Peritoneal Dialysis Musculoskeltal Medical History: Denies Hx Arthritis Skin Medical History: Reports Hx MRSA Psychiatric Medical History: Reports: Hx Depression Traumatic Medical History: Reports: Hx Fractures - Right ankle fracture Infectious Medical History: Reports: Hx MRSA Past Surgical History: Reports: Hx Section, Hx Cholecystectomy, Hx Orthopedic Surgery - ORIF right ankle with subsequent MRSA infection and Right BKA., Hx Tubal Ligation, Hx Vascular Surgery - Right forearm AV fistula. PermCath right subclavian.. Denies: Hx Hysterectomy - Immunizations Hx Diphtheria, Pertussis, Tetanus Vaccination: Yes Hx Pneumococcal Vaccination: 07/04/10 Review of Systems - Review of Systems Notes: My Normal Review Basic REVIEW OF SYSTEMS: CONSTITUTIONAL : Denies fever, chills, or sweats. Denies recent illness. EENT: Denies eye, ear, throat, or mouth pain or symptoms. Denies nasal or sinus congestion. CARDIOVASCULAR: Chest tightness. RESPIRATORY: Denies cough, cold, or chest congestion. Denies shortness of breath, difficulty breathing, or wheezing. GASTROINTESTINAL: Denies abdominal pain. Denies nausea, vomiting, or diarrhea. Denies constipation. Last BM: MUSCULOSKELETAL: Body aches. SKIN: Denies rash or skin lesions. NEUROLOGICAL: Denies altered mental status or loss of consciousness. Denies headache. Denies weakness or paralysis or loss of use of either side. Denies problems with gait or speech. Denies sensory or motor loss. ALL OTHER SYSTEMS REVIEWED AND NEGATIVE. Physical Exam - Vital signs Vitals: Temp Pulse Resp BP Pulse Ox 98.7 F 94 14 150/91 H 98 12/18/16 19:03 12/18/16 19:03 12/18/16 19:03 12/18/16 19:03 12/18/16 19:03 - Notes Notes: General Appearance: Well nourished, alert, cooperative, no acute distress, no obvious discomfort. No apparent. Vitals: reviewed, See vital signs table. Head: no swelling or tenderness to the head Eyes: PERRL, EOMI, Conjuctiva clear Mouth: No decreasd moisture Throat: No tonsillar inflammation, No airway obstruction, No lymphadenopathy Lungs: No wheezing, No rales, No rhonci, No accessory muscle use, good air exchange bilaterally. Heart: Normal rate, Regular rythm, No murmur, no rub Abdomen: Normal BS, soft, No rigidity, No abdominal tenderness, No guarding, no rebound, no abdominal masses, no organomegaly Extremities: good pulses in upper extremities, no swelling or tenderness in the extremities, Skin: warm, dry, appropriate color, no rash Neuro: speech clear, oriented x 3, normal affect, responds appropriately to questions. Course - Re-evaluation Re-evalutation: 12/19/16 05:29 Patient's blood work is normal-appearing. Patient will be discharged home. I suspect that she may have had too much fluid taken off during dialysis. Vital signs are normal at this time. She is gradually started to feel improved. I do not suspect coronary disease. Her cardiac enzymes are negative. Patient encouraged to return to ER immediately if she has worsening of her symptoms, difficulty breathing, or feels unwell. Patient agrees with plan and will be discharged home. Dictation of this chart was performed using voice recognition software; therefore, there may be some unintended grammatical errors. - Vital Signs Vital signs: Temp Pulse Resp BP Pulse Ox 98.7 F 94 14 112/65 100 12/18/16 19:03 12/18/16 19:03 12/18/16 19:03 12/18/16 23:38 12/18/16 23:38 - Laboratory Result Diagrams: 12/18/16 20:00 12/18/16 20:00 Laboratory results interpreted by me: 12/18/16 12/18/16 12/18/16 20:00 20:00 20:00 Hgb 11.9 L RDW 15.5 H Sodium 135.9 L Chloride 97 L BUN 25 H Creatinine 5.70 H Est GFR ( Amer) 10 L Est GFR (Non-Af Amer) 8 L Glucose 221 H AST 13 L NT-Pro-B Natriuret Pep 1930 H Discharge - Discharge Clinical Impression: ESRD (end stage renal disease), Body aches Condition: Good Disposition: HOME, SELF-CARE Additional Instructions: PLease return to the ER tomorrow if you have worsening pain, difficulty breathing, fever,s or feel that you are worsening. Please continue with your dialysis on Friday and be sure to tell them how you felt today after dialysis in case the corporate travel expert wants to make any adjustments. Referrals: NICKY BARBOZA MD [Primary Care Provider] - Follow up as needed
[2016-12-18 23:42] VITALS: BP 112/65
== END 2016-12-18 23:42 | disposition home or self-care (01) ==
LOC: ER 18:49
DX: N18.6 End stage renal disease (principal); R53.1 Weakness; M79.1 Myalgia; Z99.2 Dependence on renal dialysis
CPT/HCPCS: 36415; 71020; 80053; 82550; 82553; 83880; 84484; 85025; 93005; 93010; 99285

== ENCOUNTER 2016-12-26 00:01 | Emergency (ER) | payer MEDICARE, MEDICAID ==
[2016-12-26] MEDS ORDERED: DOXYCYCLINE HYCLATE 100 MG TABLET PO ONE (04:14)
[2016-12-26] MEDS ORDERED: LIDOCAINE 1% INJ-PF (10 MG/ML) 30 ML SDV INJ ONE (04:14)
[2016-12-26] MEDS ORDERED: OXYCODONE-ACETAMINOPHEN 5-325 MG TABLET PO ONE ×2 (04:14→05:02)
--- NOTE | 2016-12-26 04:16 | ER Document Report ---
ED General - General Chief Complaint: Abscess Stated Complaint: POSSIBLE BOILS Time Seen by Provider: 12/26/16 04:02 Notes: Patient is a 46-year-old female comes emergency department for chief complaint of "boils" on her groin areas and also a very sore anus with possible hemorrhoids. She states that she had a lot of diarrhea, has been seen by gastroenterology, diarrhea has improved but now her rectum is very sore and she thinks she has hemorrhoids. She states she is regular with her insulin and does not believe her blood sugars have been elevated. She denies any fever or chills, denies vomiting. She states some of the boils are draining. She has had these many times in the past. Past medical history of type 2 diabetes, hypertension, and right BKA. TRAVEL OUTSIDE OF THE [place] IN LAST 30 DAYS: No - Related Data Allergies/Adverse Reactions: sulfamethoxazole [From Septra] Allergy (Severe, Verified 12/18/16 19:03) Hives trimethoprim [From Septra] Allergy (Severe, Verified 12/18/16 19:03) Hives adhesive tape [Adhesive Tape] Adverse Reaction (Verified 12/18/16 19:03) Bruising/Rash Past Medical History - General Information source: Patient - Social History Smoking Status: Never Smoker Frequency of alcohol use: None Drug Abuse: None Lives with: Family Family History: Reviewed & Not Pertinent Patient has suicidal ideation: No Patient has homicidal ideation: No - Past Medical History Cardiac Medical History: Reports: Hx Hypercholesterolemia, Hx Hypertension Denies: Hx Coronary Artery Disease, Hx Heart Attack Pulmonary Medical History: Denies: Hx Asthma, Hx Bronchitis, Hx COPD, Hx Pneumonia Neurological Medical History: Denies: Hx Cerebrovascular Accident, Hx Seizures Endocrine Medical History: Reports: Hx Diabetes Mellitus Type 2 Renal/ Medical History: Reports: Hx End Stage Renal Disease, Hx Hemodialysis, Hx Renal Insufficiency. Denies: Hx Peritoneal Dialysis Musculoskeltal Medical History: Denies Hx Arthritis Skin Medical History: Reports Hx MRSA Psychiatric Medical History: Reports: Hx Depression Traumatic Medical History: Reports: Hx Fractures - Right ankle fracture Infectious Medical History: Reports: Hx MRSA Past Surgical History: Reports: Hx Section, Hx Cholecystectomy, Hx Orthopedic Surgery - ORIF right ankle with subsequent MRSA infection and Right BKA., Hx Tubal Ligation, Hx Vascular Surgery - Right forearm AV fistula. PermCath right subclavian.. Denies: Hx Hysterectomy - Immunizations Hx Diphtheria, Pertussis, Tetanus Vaccination: Yes Hx Pneumococcal Vaccination: 07/04/10 Review of Systems - Review of Systems Constitutional: No symptoms reported EENT: No symptoms reported Cardiovascular: No symptoms reported Respiratory: No symptoms reported Gastrointestinal: See HPI Genitourinary: No symptoms reported Female Genitourinary: No symptoms reported Musculoskeletal: No symptoms reported Skin: See HPI Hematologic/Lymphatic: No symptoms reported Neurological/Psychological: No symptoms reported Physical Exam - Vital signs Vitals: Temp Pulse Resp BP Pulse Ox 99.2 F 94 18 130/70 H 97 12/26/16 00:46 12/26/16 00:46 12/26/16 00:46 12/26/16 00:46 12/26/16 00:46 Interpretation: Normal - General General appearance: Appears well, Alert In distress: None - HEENT Head: Normocephalic, Atraumatic Eyes: Normal Conjunctiva: Normal Extraocular movements intact: Yes Eyelashes: Normal Pupils: PERRL Nasal: Normal Mouth/Lips: Normal Mucous membranes: Normal Pharynx: Normal Neck: Normal - Respiratory Respiratory status: No respiratory distress Chest status: Nontender Breath sounds: Normal. No: Decreased air movement Chest palpation: Normal - Cardiovascular Rhythm: Regular. No: Tachycardia Heart sounds: Normal auscultation, S1 appreciated, S2 appreciated Murmur: No - Abdominal Inspection: Normal Distension: No distension Bowel sounds: Normal Tenderness: Nontender. No: Tender, Guarding Organomegaly: No organomegaly - Rectal Stool: No: Black, Bloody Hemorrhoids: Internal. No: External, Anal fissure, Mass - Back Back: Normal, Nontender. No: Tender - Extremities General upper extremity: Normal inspection, Nontender, Normal color, Normal ROM , Normal temperature General lower extremity: Other - right BKA - Neurological Neuro grossly intact: Yes Cognition: Normal Orientation: AAOx4 [place] Coma Scale Eye Opening: Spontaneous [place] Coma Scale Verbal: Oriented [place] Coma Scale Motor: Obeys Commands [place] Coma Scale Total: 15 Speech: Normal Motor strength normal: LUE, RUE, LLE, RLE Sensory: Normal - Psychological Associated symptoms: Normal affect, Normal mood - Skin Skin Temperature: Warm Skin Moisture: Dry Skin Color: Normal Skin irregularity: Abscess - Patient has 3 abscesses on the groin, 2 on the right and one on the left, 2 of them are already draining slightly, one on the right is indurated but not draining. No surrounding cellulitis. Course - Re-evaluation Re-evalutation: Rectal examination is unremarkable, shows an internal hemorrhoid but no concerning abnormalities otherwise. Patient with multiple abscesses of the groin. Patient actually tolerated incision and drainage extremely well. One abscess packed. No fever, tachycardia, or hypotension. Started on doxycycline. I did provide patient with pain management because of multiple painful abscesses. Discussed abscess care, follow-up recommendations, and return precautions. Patient states that she will have these evaluated in the next couple of days and she will return if she worsens in any way. - Vital Signs Vital signs: Temp Pulse Resp BP Pulse Ox 98.4 F 84 16 126/68 H 97 12/26/16 06:05 12/26/16 06:05 12/26/16 06:05 12/26/16 06:05 12/26/16 06:05 Procedures - Incision and Drainage Right groin #1 Type: Single Anesthetic type: 1% Lidocaine mL's of anesthetic: 1 I&D procedure: Shurclens applied - Surgical cleanser Incision Method: Incision made by scalpel - Moderate amount of purulent drainage , cleaned, explored, dressed. Tanya PCT present during procedure Right groin #2 Type: Single Anesthetic type: 1% Lidocaine mL's of anesthetic: 4 Blade size: 11 I&D procedure: Shurclens applied - Surgical cleanser, Iodoform packing placed Incision Method: Incision made by scalpel - Large amount of purulent drainage, cleaned, explored, dressed. Tanya PCT present during procedure Left groin Type: Single Anesthetic type: 1% Lidocaine mL's of anesthetic: 1 I&D procedure: Shurclens applied - surgical cleanser Incision Method: Incision made by scalpel - Moderate amount of purulent drainage , cleaned, explored, dressed. Tanya PCT present during procedure Discharge - Discharge Clinical Impression: Abscess, Internal hemorrhoid Condition: Stable Disposition: HOME, SELF-CARE Additional Instructions: Packing in the right groin area needs to come out in 2 days. Keep absorbing dressing over the draining areas, clean with soap and water, keep dry. Take doxycycline as prescribed. Follow up with your provider closely for a recheck of the healing abscess areas. Return to the ED for any concerning symptoms - spreading redness, fever, vomiting, etc. Prescriptions: Morphine Sulfate [Morphine Ir 15 Mg Tablet] 15 mg PO Q4HP PRN #12 tablet PRN Reason: Doxycycline Hyclate 100 mg PO BID #14 capsule Referrals: NICKY BARBOZA MD [Primary Care Provider] - Follow up as needed
[2016-12-26 06:25] VITALS: BP 126/68
== END 2016-12-26 06:05 | disposition home or self-care (01) ==
LOC: ER 00:01
PROC: 0Y963ZZ Drainage of Left Inguinal Region, Percutaneous Approach (ICD-10-PCS; principal; 2016-12-26)
PROC: 0Y953ZZ Drainage of Right Inguinal Region, Percutaneous Approach (ICD-10-PCS; 2016-12-26)
DX: L02.214 Cutaneous abscess of groin (principal); K64.8 Other hemorrhoids; R19.7 Diarrhea, unspecified; E11.22 Type 2 diabetes mellitus with diabetic chronic kidney disease; I12.0 Hypertensive chronic kidney disease with stage 5 chronic kidney disease or end stage renal disease; N18.6 End stage renal disease; Z99.2 Dependence on renal dialysis; Z88.1 Allergy status to other antibiotic agents; Z86.14 Personal history of Methicillin resistant Staphylococcus aureus infection; Z89.511 Acquired absence of right leg below knee
CPT/HCPCS: 99283; 10061; A6266; A9270 ×2; J3490

== ENCOUNTER → 2016-12-28 | Outpatient (CLI) | payer MEDICARE, MEDICAID | LOC: OD 09:56 | PROVIDERS: ATTEND Physician Assistant Medical | DX: E87.5 Hyperkalemia (principal) | CPT/HCPCS: 36415; 84132 ==

== ENCOUNTER 2017-01-23 22:36 | Inpatient (IN) | payer MEDICARE, MEDICAID ==
[2017-01-23] MEDS ORDERED: OXYCODONE-ACETAMINOPHEN 5-325 MG TABLET PO ONE (23:38)
[2017-01-23] MEDS ORDERED: FAMOTIDINE 20 MG TABLET PO ONE (23:39)
[2017-01-23] MEDS ORDERED: PROMETHAZINE HCL 25 MG TABLET PO ONE (23:39)
--- NOTE | 2017-01-23 23:40 | ER Document Report ---
ED General - General Chief Complaint: Back Pain Stated Complaint: BACK PAIN,DIFFICULTY BREATHING Time Seen by Provider: 01/23/17 23:28 Notes: Patient is a 46-year-old female that comes emergency department for chief complaint of flank pain on both sides, abdominal discomfort intermittently, and a sensation of difficulty breathing when lying flat. When sitting up or moving she denies dyspnea, she denies chest pain, she denies cough, fever, vomiting. She also states she is belching frequently, she states she was started on Reglan and Imodium and has stopped having normal bowel movements regularly. She is a dialysis patient, had dialysis on Friday, is due Friday, also has history of diabetes, hypertension, right BKA. TRAVEL OUTSIDE OF THE [place] IN LAST 30 DAYS: No - Related Data Allergies/Adverse Reactions: sulfamethoxazole [From Decra] Allergy (Severe, Verified 12/18/16 19:03) Hives trimethoprim [From Decra] Allergy (Severe, Verified 12/18/16 19:03) Hives adhesive tape [Adhesive Tape] Adverse Reaction (Verified 12/18/16 19:03) Bruising/Rash Past Medical History - General Information source: Patient - Social History Smoking Status: Never Smoker Frequency of alcohol use: None Drug Abuse: None Lives with: Family Family History: Reviewed & Not Pertinent Patient has suicidal ideation: No Patient has homicidal ideation: No - Past Medical History Cardiac Medical History: Reports: Hx Hypercholesterolemia, Hx Hypertension Denies: Hx Coronary Artery Disease, Hx Heart Attack Pulmonary Medical History: Denies: Hx Asthma, Hx Bronchitis, Hx COPD, Hx Pneumonia Neurological Medical History: Denies: Hx Cerebrovascular Accident, Hx Seizures Endocrine Medical History: Reports: Hx Diabetes Mellitus Type 1, Hx Diabetes Mellitus Type 2 Renal/ Medical History: Reports: Hx End Stage Renal Disease, Hx Hemodialysis, Hx Renal Insufficiency. Denies: Hx Peritoneal Dialysis Musculoskeltal Medical History: Denies Hx Arthritis Skin Medical History: Reports Hx MRSA Psychiatric Medical History: Reports: Hx Depression Traumatic Medical History: Reports: Hx Fractures - Right ankle fracture Infectious Medical History: Reports: Hx MRSA Past Surgical History: Reports: Hx Section, Hx Cholecystectomy, Hx Orthopedic Surgery - ORIF right ankle with subsequent MRSA infection and Right BKA., Hx Tubal Ligation, Hx Vascular Surgery - Right forearm AV fistula. PermCath right subclavian.. Denies: Hx Hysterectomy - Immunizations Hx Diphtheria, Pertussis, Tetanus Vaccination: Yes Hx Pneumococcal Vaccination: 07/04/10 Review of Systems - Review of Systems Constitutional: No symptoms reported EENT: No symptoms reported Cardiovascular: No symptoms reported Respiratory: No symptoms reported Gastrointestinal: See HPI Genitourinary: See HPI Female Genitourinary: No symptoms reported Musculoskeletal: No symptoms reported Skin: No symptoms reported Hematologic/Lymphatic: No symptoms reported Neurological/Psychological: No symptoms reported Physical Exam - Vital signs Vitals: Temp Pulse Resp BP Pulse Ox 98.8 F 107 H 19 183/81 H 99 01/23/17 23:08 01/23/17 23:08 01/23/17 23:08 01/23/17 23:08 01/23/17 23:08 Interpretation: Normal - General General appearance: Appears well, Alert In distress: None - Patient calm and well-appearing on my exam - HEENT Head: Normocephalic, Atraumatic Eyes: Normal Pupils: PERRL - Respiratory Respiratory status: No respiratory distress Chest status: Nontender Breath sounds: Normal Chest palpation: Normal - Cardiovascular Rhythm: Regular. No: Tachycardia Heart sounds: Normal auscultation, S1 appreciated, S2 appreciated Murmur: No - Abdominal Inspection: Normal Distension: No distension Bowel sounds: Normal Tenderness: Tender - Very mild generalized tenderness with no guarding, rigidity , or rebound tenderness. No: Guarding Organomegaly: No organomegaly - Back Back: Normal, Nontender. No: Tender, CVA tenderness - Extremities General upper extremity: Normal inspection, Nontender, Normal color, Normal ROM , Normal temperature General lower extremity: Other - Right BKA - Neurological Neuro grossly intact: Yes Cognition: Normal Orientation: AAOx4 [place] Coma Scale Eye Opening: Spontaneous [place] Coma Scale Verbal: Oriented [place] Coma Scale Motor: Obeys Commands [place] Coma Scale Total: 15 Speech: Normal Motor strength normal: LUE, RUE, LLE, RLE Sensory: Normal - Psychological Associated symptoms: Normal affect, Normal mood - Skin Skin Temperature: Warm Skin Moisture: Dry Skin Color: Normal Course - Re-evaluation Re-evalutation: Patient is not tachycardic on my exam. She is well-appearing. X-ray does not show any vascular congestion, no concerning findings on acute abdominal series, patient wanted this because of uncertain status with bowel movements along with taking Imodium. Recommended she not take Imodium for now. Soft unremarkable abdomen with minimal generalized tenderness which is mild. No leukocytosis, patient is not tachycardic on my exam, no fever or hypotension. No evidence of acute abdominal abnormality. Chemistry shows elevated potassium at 6.7, there are mildly peaked T waves, as a result patient given 10 units of insulin along with calcium gluconate, withholding dextrose at this time because of glucose greater than 250 ( rechecked just prior to administration of medication). Discussed with Dr. Diego, recommended recheck of potassium levels to help with disposition. Urine as showing infection, patient's examination, history, presentation does not suggest obstructive pathology such as a stone. Given Keflex antibiotic. Potassium is actually elevated compared to prior, now at 7.1. Will call and speak with Dr. Fernandez, patient's rn long term care. 01/24/17 04:40 Called and spoke with Dr. Fernandez, patient's rn long term care, recommendation is for an additional 10 units of insulin along with dextrose, additional calcium gluconate, albuterol nebulizer, and admission to the hospital for dialysis. He states he will call to arrange this to be performed. Called and spoke with Dr. Lorenz, patient's primary provider, he will admit the patient to the hospital. - Vital Signs Vital signs: Temp Pulse Resp BP Pulse Ox 98.8 F 107 H 17 158/86 H 100 01/23/17 23:08 01/23/17 23:08 01/24/17 04:00 01/24/17 01:38 01/24/17 04:00 - Laboratory Result Diagrams: 01/24/17 00:09 01/24/17 03:46 Laboratory results interpreted by me: 01/24/17 01/24/17 01/24/17 00:09 00:37 01:59 RBC 3.68 L Hgb 10.3 L Hct 31.4 L RDW 15.8 H Sodium Potassium 6.7 H* BUN 41 H Creatinine 7.10 H Est GFR ( Amer) 8 L Est GFR (Non-Af Amer) 6 L Glucose 312 H POC Glucose 265 H AST 12 L Albumin 3.4 L Lipase 381.3 H Urine Protein Urine Glucose (UA) Urine Blood Ur Leukocyte Esterase 01/24/17 01/24/17 02:05 03:46 RBC Hgb Hct RDW Sodium 136.7 L Potassium 7.1 H* BUN 42 H Creatinine 7.31 H Est GFR ( Amer) 7 L Est GFR (Non-Af Amer) 6 L Glucose 268 H POC Glucose AST Albumin Lipase Urine Protein 100 H Urine Glucose (UA) >=500 H Urine Blood SMALL H Ur Leukocyte Esterase LARGE H Discharge - Discharge Clinical Impression: Flank pain, Hyperkalemia, ESRD (end stage renal disease) Urinary tract infection Qualifiers: Urinary tract infection type: site unspecified Hematuria presence: without hematuria Qualified Code(s): N39.0 - Urinary tract infection, site not specified Condition: Serious Disposition: ADMITTED INPATIENT Admitting Provider: Lorenz Unit Admitted: ICU
[2017-01-24 00:19] LABS: ABSOLUTE BASOPHILS # (AUTO) 0.1 10^3/uL (0.0-0.2); ABSOLUTE EOSINOPHILS # (AUTO) 0.4 10^3/uL (0.0-0.6); ABSOLUTE LYMPHOCYTES (AUTO) 2.1 10^3/uL (0.5-4.7); ABSOLUTE MONOCYTES (AUTO) 0.4 10^3/uL (0.1-1.4); ABSOLUTE NEUT (AUTO) 6.5 10^3/uL (1.7-8.2); BASOPHILS % (AUTO) 0.9 % (0-2); EOSINOPHILS % (AUTO) 3.9 % (0-6); HEMATOCRIT 31.4 % (36.0-47.0); HEMOGLOBIN 10.3 g/dL (12.0-15.5); HGB HCT DIFFERENCE -0.5; LYMPHOCYTES % (AUTO) 21.9 % (13-45); MEAN CORPUSCULAR HEMOGLOBIN 27.9 pg (27.0-33.4); MEAN CORPUSCULAR HGB CONC 32.8 g/dL (32.0-36.0); MEAN CORPUSCULAR VOLUME 85 fl (80-97); MONOCYTES % (AUTO) 4.7 % (3-13); RED BLOOD COUNT 3.68 10^6/uL (3.72-5.28); RED CELL DISTRIBUTION WIDTH 15.8 % (11.5-14.0); SEGMENTED NEUTROPHILS % (AUTO) 68.6 % (42-78); WHITE BLOOD COUNT 9.5 10^3/uL (4.0-10.5)
[2017-01-24 01:05] LABS: ALANINE AMINOTRANSFERASE 17 U/L (9-52); ALBUMIN 3.4 g/dL (3.5-5.0); ALKALINE PHOSPHATASE 69 U/L (38-126); ANION GAP 13 (5-19); ASPARTATE AMINO TRANSFERASE 12 U/L (14-36); BILIRUBIN,DIRECT 0.4 mg/dL (0.0-0.4); BILIRUBIN,TOTAL 0.4 mg/dL (0.2-1.3); BLOOD UREA NITROGEN 41 mg/dL (7-20); CALCIUM 9.1 mg/dL (8.4-10.2); CARBON DIOXIDE 23 mmol/L (22-30); CHLORIDE 102 mmol/L (98-107); GLUCOSE 312 mg/dL (75-110); LIPASE 381.3 U/L (23-300); SODIUM 137.9 mmol/L (137-145); TOTAL PROTEIN 6.6 g/dL (6.3-8.2)
[2017-01-24 01:07] LABS: POTASSIUM 6.7 mmol/L (3.6-5.0)
--- NOTE | 2017-01-24 01:38 | RADIOLOGY REPORT (SQ) ---
EXAM DESCRIPTION: ACUTE ABDOMEN SERIES COMPLETED DATE/TIME: 01/24/2017 1:21 am REASON FOR STUDY: orthopnea, ?vascular congestion; abd pain COMPARISON: Chest x-ray 06/04/2016. Abdominal x-ray 01/24/2015. CT abdomen and pelvis 01/13/2016. NUMBER OF VIEWS: Three views. TECHNIQUE: Frontal chest, supine abdomen and upright/decubitus abdomen radiographic images acquired. LIMITATIONS: None. FINDINGS: CHEST: Lungs clear of infiltrates. FREE AIR: None. BOWEL GAS PATTERN: Nonobstructive pattern. No dilated loops or air fluid levels. CALCIFICATIONS: No suspicious calcifications. HARDWARE: None in the abdomen. SOFT TISSUES: No gross mass or suggestion of organomegaly. BONES: Degenerative changes in the spine . IMPRESSION: Nonobstructive bowel gas pattern. TECHNICAL DOCUMENTATION: JOB ID: [id number] 2010 [employer]- All Rights Reserved
[2017-01-24] MEDS ORDERED: CALCIUM GLUCONATE 1000 MG/10 ML INJ IV ONE ×2 (01:47→04:51)
[2017-01-24] MEDS ORDERED: INSULIN REG, HUMAN 100 UNIT/ML 3 ML VIAL (PYX) IV ONE ×2 (01:47→04:51)
[2017-01-24 03:12] LABS: APPEARANCE,URINE CLOUDY; BILIRUBIN,URINE NEGATIVE (NEGATIVE); GLUCOSE, URINE >=500 mg/dL (NEGATIVE); KETONES,URINE NEGATIVE (NEGATIVE); LEUKOCYTE ESTERASE,URINE LARGE (NEGATIVE); NITRITE,URINE NEGATIVE (NEGATIVE); PROTEIN,URINE 100 mg/dL (NEGATIVE); UROBILINOGEN,URINE NEGATIVE mg/dL (<2.0)
[2017-01-24 04:20] LABS: ANION GAP 13 (5-19); BLOOD UREA NITROGEN 42 mg/dL (7-20); CALCIUM 9.2 mg/dL (8.4-10.2); CARBON DIOXIDE 22 mmol/L (22-30); CHLORIDE 102 mmol/L (98-107); CREATININE RESULT 7.31 mg/dL (0.52-1.25); GLUCOSE 268 mg/dL (75-110); SODIUM 136.7 mmol/L (137-145)
[2017-01-24 04:28] LABS: POTASSIUM 7.1 mmol/L (3.6-5.0)
[2017-01-24] MEDS ORDERED: DEXTROSE 50%-WATER 25 GM/50 ML DISP.SYRIN IV ONE (04:51)
[2017-01-24] MEDS ORDERED: ALBUTEROL SULFATE 0.083% NEB 2.5 MG/3 ML AMPUL NEB ONE (04:51)
[2017-01-24] MEDS ORDERED: CEPHALEXIN 500 MG CAPSULE PO ONE (04:51)
[2017-01-24] MEDS ORDERED: INSULIN REG, HUMAN 100 UNIT/ML 3 ML VIAL (PYX) ONE (05:31)
[2017-01-24] MEDS ORDERED: ACETAMINOPHEN 325 MG TABLET PO PRN (06:20)
[2017-01-24] MEDS ORDERED: IPRATROPIUM/ALBUTEROL 0.5-2.5 MG/3 ML AMPUL NEB PRN (06:20)
[2017-01-24] MEDS ORDERED: ONDANSETRON HCL INJ/PF 4 MG/2 ML SDV IV PRN (06:20)
[2017-01-24] MEDS ORDERED: DEXTROSE 40% GEL 15 GM TUBE PO PRN ×2 (06:26)
[2017-01-24] MEDS ORDERED: GLUCAGON,HUMAN RECOMB 1 MG INJ IM PRN (06:26)
[2017-01-24] MEDS ORDERED: DEXTROSE 50%-WATER 25 GM/50 ML DISP.SYRIN IV PRN ×2 (06:26)
--- NOTE | 2017-01-24 07:47 | RADIOLOGY REPORT (SQ) ---
EXAM DESCRIPTION: CT ABD/PELVIS NO ORAL OR IV COMPLETED DATE/TIME: 01/24/2017 7:14 am REASON FOR STUDY: abd pain , left lower quadrant pain. Prior cholecystectomy. COMPARISON: CT abdomen and pelvis 01/13/2016, 11/07/2015. TECHNIQUE: CT scan of the abdomen and pelvis performed without intravenous or oral contrast. Images reviewed with lung, soft tissue, and bone windows. Reconstructed coronal and sagittal MPR images revi ewed. All images stored on PACS. All CT scanners at this facility use dose modulation, iterative reconstruction, and/or weight based d osing when appropriate to reduce radiation dose to as low as reasonably achievable (ALARA). [facility]: Dose Right [facility]: CareDose [facility]: Dose Right [facility]: Teradose 4D [facility]: [employer] RADIATION DOSE: Up-to-date CT equipment and radiation dose reduction techniques were employed. CTDIv ol: 27.2 mGy. DLP: 1493 mGy-cm.mGy. LIMITATIONS: None. FINDINGS: LOWER CHEST: No consolidation or pleural effusion. NON-CONTRASTED LIVER, SPLEEN, ADRENALS: Evaluation limited by lack of IV contrast. The liver is enla rged measuring 21.6 cm on craniocaudal dimension. There is a 1.4 cm fat density nodule at the right adrenal gland, probably a small myelolipoma. PANCREAS: No peripancreatic inflammatory changes. GALLBLADDER: Surgically absent. RIGHT KIDNEY AND URETER: Assessment for masses limited by lack of IV contrast. No significant calci fications. No hydronephrosis or hydroureter. LEFT KIDNEY AND URETER: Assessment for masses limited by lack of IV contrast. No significant calcif ications. No hydronephrosis or hydroureter. AORTA AND RETROPERITONEUM: No abdominal aortic aneurysm. No retroperitoneal masses or hemorrhage. BOWEL AND PERITONEAL CAVITY: No dilated bowel loops or inflammatory changes. No free fluid. APPENDIX: Normal. PELVIS, BLADDER, AND ABDOMINAL WALL:The urinary bladder is partially distended. The uterus has a lob ulated contour, suggestive of fibroids no free fluid. There is a small fat containing right inguinal hernia. BONES: Degenerative changes in the spine. IMPRESSION: No acute findings in the abdomen or pelvis on unenhanced CT. Hepatomegaly. Small right adrenal myelolipoma. Fibroid uterus. COMMENT: Quality ID # [id number]: Final reports with documentation of one or more dose reduction techniques (e.g., Automated exposure control, adjustment of the mA and/or kV according to patient size, use of iterative reconstruction technique) TECHNICAL DOCUMENTATION: JOB ID: [id number] 2010 [employer]- All Rights Reserved
[2017-01-24] MEDS ORDERED: HEPARIN SOD (PORCINE) 1,000 UNIT/ML 10 ML VIAL IV PRN (09:29)
[2017-01-24] MEDS ORDERED: NORMAL SALINE 200 ML IV PRN (09:29)
--- NOTE | 2017-01-24 10:17 | PDOC CONSULTATION ---
Consultation Consult Date: 01/24/17 Consult reason:: Severe hyperkalemia and heart failure for urgent hemodialysis History of Present Illness Admission Date/PCP: 01/24/17 06:20 NICKY BARBOZA MD History of Present Illness: SEGUN NG is a 46 year old female with a history of ESRD on hemodialysis in the background of hypertension and diabetes mellitus was admitted yesterday with history of bilateral flank pains and shortness of breath with exertion of a days duration.Patient has been having diarrhea for quite a few months and was recently seen by GI at [place] who began on Reglan and Imodium.This then led to severe constipation over the last 1 week or so. Patient has had history of noncompliance with diet and medications and fluids but of lately has been trying harder.She denies any history of chest pain no history of any fevers chills or riders Currently she is on dialysis in the ICU where she was admitted because of early congestive heart failure and severe hyperkalemia of 7.1 with early EKG changes.Undergoing dialysis without any issues. Orders were discussed with the treating nurse Monica. 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 PermCath right subclavian. Denies: Hysterectomy Social History Lives with: Family Smoking Status: Never Smoker Frequency of Alcohol Use: None Hx Recreational Drug Use: No Drugs: None Hx Prescription Drug Abuse: No - Advance Directive Resuscitation Status: Full Code Family History Parental Family History Reviewed: Yes - Negative for ESRD Children Family History Reviewed: No Sibling(s) Family History Reviewed.: No Medication/Allergy Home Medications: Clonidine HCl [Catapres 0.2 mg Tablet] 0.2 mg PO DAILY 10/20/17 Hydralazine HCl [Apresoline 50 mg Tablet] 50 mg PO Q8 01/24/17 Losartan Potassium [Cozaar 100 mg Tablet] 100 mg PO DAILY 01/24/17 Metoclopramide HCl [Reglan] 5 mg PO ACHS 01/24/17 Promethazine HCl 12.5 mg PO Q6HP PRN 01/24/17 Allergies/Adverse Reactions: sulfamethoxazole [From Septra] Allergy (Severe, Verified 12/18/16 19:03) Hives trimethoprim [From Septra] Allergy (Severe, Verified 12/18/16 19:03) Hives adhesive tape [Adhesive Tape] Adverse Reaction (Verified 12/18/16 19:03) Bruising/Rash Review of Systems Constitutional: PRESENT: fatigue, weakness. ABSENT: fever(s), headache(s), night sweats Cardiovascular: PRESENT: dyspnea on exertion. ABSENT: chest pain, edema, orthropnea, palpitations Respiratory: PRESENT: cough. ABSENT: dyspnea, hemoptysis Gastrointestinal: PRESENT: abdominal pain, bloating, constipation, nausea. ABSENT: diarrhea, dysphagia, heartburn, hematemesis, hematochezia, melena, vomiting Genitourinary: ABSENT: dysuria, hematuria Integumentary: ABSENT: erythema, lesions, pruritus, rash Neurological: ABSENT: confusion, convulsions, dizziness Hematologic/Lymphatic: ABSENT: easy bruising, lymphadenopathy Physical Exam Vital Signs: Temp Pulse Resp BP Pulse Ox 98.8 F 94 17 159/65 H 97 01/23/17 23:08 01/24/17 07:58 01/24/17 06:00 01/24/17 06:00 01/24/17 06:00 General appearance: PRESENT: no acute distress, obese Eye exam: PRESENT: conjunctiva pink, EOMI, PERRLA. ABSENT: scleral icterus Ear exam: PRESENT: normal external ear exam Mouth exam: PRESENT: moist, neck supple Neck exam: ABSENT: lymphadenopathy, meningismus, tenderness, thyromegaly, tracheal deviation Respiratory exam: PRESENT: clear to auscultation alexandr, crackles - Fine, in the basis, symmetrical. ABSENT: rhonchi, stridor Cardiovascular exam: PRESENT: +S1, +S2, systolic murmur GI/Abdominal exam: PRESENT: normal bowel sounds, soft. ABSENT: diminished bowel sounds, organomegaly, tenderness Extremities exam: PRESENT: pedal edema Neurological exam: PRESENT: alert, awake, oriented to person, oriented to place , oriented to time Skin exam: PRESENT: dry. ABSENT: cyanosis, erythema, mottled, pallor, petechiae , rash Results Impressions: Acute Abdomen Series 01/23/17 23:37 IMPRESSION: Nonobstructive bowel gas pattern. Abdomen/Pelvis CT 01/24/17 00:00 IMPRESSION: No acute findings in the abdomen or pelvis on unenhanced CT. Hepatomegaly. Small right adrenal myelolipoma. Fibroid uterus. Assessment & Plan - Diagnosis (1) Congestive heart failure Plan: Clinically she has mild early fluid overload in association with constipation that is severe producing her dyspnea on exertion.Should respond to hemodialysis.After dialysis and ultrafiltration she should be on a laxative regimen which should help her bowels and that should also help her with her dyspnea. (2) ESRD (end stage renal disease) Plan: Urgent hemodialysis has been instituted for severe hyperkalemia of 7.1 with early EKG changes and early congestive heart failure she is going to go on a 1K bath for 3-1/2 hours. Orders were discussed with Monica the treating dialysis nurse. Dialysis is being supervised to ensure safe and smooth procedure. Vital signs are stable. Labs were reviewed with patient and the nurse. (4) Hyperkalemia Plan: Combination of dietary indiscretion and constipation. She should respond to urgent hemodialysis. (5) Diabetes Plan: Advised tight diabetic control. 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 I do not believe Reglan would be an appropriate medication for this patient started recently by GI. Advised her to hold it off and bring it to my attention about the dosing. Differentials here in the face of a negative colonoscopy would include diabetic enteropathy, small bowel bacterial overgrowth and such to produce chronic diarrhea.Appropriate treatments to regulate these disorders should be undertaken or at least thought off.I do not believe Reglan would be an appropriate choice given the fact that it is better used for upper bowel enteropathy rather than lower bowels especially given his neurotoxicity in the face of ESRD. (6) Constipation Plan: Iatrogenic. Treat appropriately. Withhold Imodium.
--- NOTE | 2017-01-24 12:30 | EKG REPORT ---
SEVERITY:- BORDERLINE ECG - SINUS TACHYCARDIA BORDERLINE R WAVE PROGRESSION, ANTERIOR LEADS : Confirmed by: Grazyna Kathleen MD 24-Jan-2017 12:29:21
--- NOTE | 2017-01-24 13:06 | PDOC H&P ---
History of Present Illness Admission Date/PCP: 01/24/17 06:20 NICKY BARBOZA MD Patient complains of: Flank painAnd constipations History of Present Illness: SEGUN NG is a 46 year old female with a history of ESRD on hemodialysis in the background of hypertension and diabetes mellitus was admitted yesterday with history of bilateral flank pains and shortness of breath with exertion of a days duration.Patient has been having diarrhea for quite a few months and was recently seen by GI at [place] who began on Reglan and Imodium.This then led to severe constipation over the last 1 week or so. Patient has had history of noncompliance with diet and medications and fluids but of lately has been trying harder.She denies any history of chest pain no history of any fevers chills or riders Currently she is on dialysis in the ICU where she was admitted because of early congestive heart failure and severe hyperkalemia of 7.1 with early EKG changes.Undergoing dialysis without any issues. Orders were discussed with the treating nurse Monica. Patient also have a several GI workup doneFor the gastroparesis including to Dr. Burnham here locally and patient see the [place] Patient's currently denied any chest pain without any shortness of the breath Since just finished the dialysis when I saw the patient in ICU Patient's last potassium was 5.9 Past Medical History Cardiac Medical History: Reports: Hyperlipidema, Hypertension Denies: Coronary Artery Disease, Myocardial Infarction Pulmonary Medical History: Denies: Asthma, Bronchitis, Chronic Obstructive Pulmonary Disease (COPD), Pneumonia Neurological Medical History: Denies: Seizures Endocrine Medical History: Reports: Diabetes Mellitus Type 2 Renal/ Medical History: Reports: End Stage Renal Disease Musculoskeltal Medical History: Denies: Arthritis Psychiatric Medical History: Reports: Depression Hematology: Reports: Anemia Infectious Medical History: Reports: Methicillin-Resistant Staph Aureus Past Surgical History Past Surgical History: Reports: Section, Cholecystectomy, Orthopedic Surgery - ORIF right ankle with subsequent MRSA infection and Right BKA., Tubal Ligation, Vascular Surgery - Right forearm AV fistula. PermCath right subclavian. Denies: Hysterectomy Social History Lives with: Family Smoking Status: Never Smoker Frequency of Alcohol Use: None Hx Recreational Drug Use: No Drugs: None Hx Prescription Drug Abuse: No - Advance Directive Resuscitation Status: Full Code Family History Family History: Reviewed & Not Pertinent Parental Family History Reviewed: Yes Children Family History Reviewed: Yes Sibling(s) Family History Reviewed.: Yes Medication/Allergy Home Medications: RX: Clonidine HCl [Catapres 0.2 mg Tablet] 0.2 mg PO DAILY 01/24/17 RX: Hydralazine HCl [Apresoline 50 mg Tablet] 50 mg PO Q8 01/24/17 RX: Losartan Potassium [Cozaar 100 mg Tablet] 100 mg PO DAILY 01/24/17 RX: Metoclopramide HCl [Reglan] 5 mg PO ACHS 01/24/17 RX: Promethazine HCl 12.5 mg PO Q6HP PRN 01/24/17 Allergies/Adverse Reactions: sulfamethoxazole [From ] Allergy (Severe, Verified 12/18/16 19:03) Hives trimethoprim [From ] Allergy (Severe, Verified 12/18/16 19:03) Hives adhesive tape [Adhesive Tape] Adverse Reaction (Verified 12/18/16 19:03) Bruising/Rash Review of Systems Constitutional: ABSENT: chills, fever(s), headache(s), weight gain, weight loss Eyes: ABSENT: visual disturbances Ears: ABSENT: hearing changes Cardiovascular: PRESENT: dyspnea on exertion. ABSENT: chest pain, edema, orthropnea, palpitations Respiratory: ABSENT: cough, hemoptysis Gastrointestinal: PRESENT: constipation, nausea, vomiting. ABSENT: abdominal pain, diarrhea, hematemesis, hematochezia Genitourinary: ABSENT: dysuria, hematuria Musculoskeletal: ABSENT: joint swelling Integumentary: ABSENT: rash, wounds Neurological: ABSENT: abnormal gait, abnormal speech, confusion, dizziness, focal weakness, syncope Psychiatric: ABSENT: anxiety, depression, homidical ideation, suicidal ideation Endocrine: ABSENT: cold intolerance, heat intolerance, menstrual abnormalities, polydipsia, polyuria Hematologic/Lymphatic: ABSENT: easy bleeding, easy bruising, lymphadenopathy Physical Exam Vital Signs: Temp Pulse Resp BP Pulse Ox 98.0 F 98 14 167/84 H 100 01/24/17 07:58 01/24/17 11:46 01/24/17 11:46 01/24/17 07:58 01/24/17 11:46 Intake & Output 01/23/17 01/24/17 01/25/17 06:59 06:59 06:59 Output Total 0 Balance 0 Weight 137.4 kg General appearance: PRESENT: no acute distress, well-developed, well-nourished Head exam: PRESENT: atraumatic, normocephalic Eye exam: PRESENT: conjunctiva pink, EOMI, PERRLA. ABSENT: scleral icterus Ear exam: PRESENT: normal external ear exam Mouth exam: PRESENT: moist, tongue midline Neck exam: PRESENT: full ROM. ABSENT: carotid bruit, JVD, lymphadenopathy, thyromegaly Respiratory exam: PRESENT: clear to auscultation alexandr Cardiovascular exam: PRESENT: RRR. ABSENT: diastolic murmur, rubs, systolic murmur Pulses: PRESENT: normal dorsalis pedis pul, +2 pedal pulses bilateral Vascular exam: PRESENT: normal capillary refill GI/Abdominal exam: PRESENT: normal bowel sounds, soft. ABSENT: distended, guarding, mass, organolmegaly, rebound, tenderness Rectal exam: PRESENT: deferred Extremities exam: ABSENT: pedal edema Neurological exam: PRESENT: alert, awake, oriented to person, oriented to place , oriented to time, oriented to situation, CN II-XII grossly intact. ABSENT: motor sensory deficit Psychiatric exam: PRESENT: appropriate affect, normal mood. ABSENT: homicidal ideation, suicidal ideation Skin exam: PRESENT: dry, intact, warm. ABSENT: cyanosis, rash Results Laboratory Results: 01/24/17 08:40 01/24/17 08:40 Potassium 5.9 H D Impressions: Acute Abdomen Series 01/23/17 23:37 IMPRESSION: Nonobstructive bowel gas pattern. Abdomen/Pelvis CT 01/24/17 00:00 IMPRESSION: No acute findings in the abdomen or pelvis on unenhanced CT. Hepatomegaly. Small right adrenal myelolipoma. Fibroid uterus. Assessment & Plan - Diagnosis (1) Congestive heart failure Qualifiers: Congestive heart failure type: diastolic Is this a current diagnosis for this admission?: Yes Plan: Most likely to overload pretty much resolved after the dialysis we will get the 2D echo today with his hyperkalemia EKG change (2) Constipation Qualifiers: Constipation type: other constipation type Qualified Code(s): K59.09 - Other constipation Is this a current diagnosis for this admission?: Yes Plan: Most likely due to the Reglan and the Imodium currently hold the medications and give her Colace and MiraLAX as needed (3) ESRD (end stage renal disease) Is this a current diagnosis for this admission?: Yes Plan: Currently on hemodialysis Urgently per nephrology (4) Hyperkalemia Is this a current diagnosis for this admission?: Yes Plan: Status post hemodialysis now will recheck the 2 hours the potassiums (5) Urinary tract infection Qualifiers: Urinary tract infection type: site unspecified Hematuria presence: without hematuria Qualified Code(s): N39.0 - Urinary tract infection, site not specified Is this a current diagnosis for this admission?: Yes Plan: We will wait for the urine culture and give IV Rocephin (6) Diabetes Qualifiers: Diabetes mellitus type: type 2 Is this a current diagnosis for this admission?: Yes Plan: Continues to Lantus and sliding scale (7) Gastroparesis Is this a current diagnosis for this admission?: Yes Plan: With ongoing chronic problems with the medication side effect will continues to hold the Reglan and continues Zofran and omeprazole (8) Hypertension Qualifiers: Hypertension type: essential hypertension Qualified Code(s): I10 - Essential (primary) hypertension Is this a current diagnosis for this admission?: Yes Plan: We continues to hold the losartan due to the hyperkalemia and continues to other medications - Time Time Spent: 30 to 50 Minutes Medications reviewed and adjusted accordingly: Yes Anticipated discharge: Home Within: Other - Inpatient Certification Medical Necessity: Need Close Monitoring Due to Risk of Patient Decompensation, Need for IV Antibiotics Post Hospital Care: D/C Courtroom Clerk Documentation - Plan Summary Plan Summary: Discussed with the patient about the all the test reports and follow-up plans discussed with the ICU nurse about to check the 2 hours potassiums after finishing the dialysis and repeat the EKG and order the echocardiogram
[2017-01-24] MEDS: HEPARIN SOD (PORCINE) 5,000 UNIT/ML 1 ML SYRINGE SUBCUT SCH ×2 (13:18→21:12)
[2017-01-24] MEDS: DOCUSATE SODIUM 100 MG CAPSULE PO SCH ×2 (13:26→17:34)
[2017-01-24] MEDS ORDERED: CEFTRIAXONE 1 GM/D5W RTU 1 GM/50 ML RTUPB IV ONE (13:30)
[2017-01-24] MEDS: HYDRALAZINE HCL 50 MG TABLET PO SCH ×2 (14:48→21:12)
[2017-01-24 15:53] LABS: ANION GAP 13 (5-19); CALCIUM 8.8 mg/dL (8.4-10.2); CARBON DIOXIDE 30 mmol/L (22-30); CHLORIDE 96 mmol/L (98-107); CREATININE RESULT 3.98 mg/dL (0.52-1.25); GLUCOSE 208 mg/dL (75-110); SODIUM 138.7 mmol/L (137-145)
[2017-01-24 16:23] LABS: BLOOD UREA NITROGEN 20 mg/dL (7-20); POTASSIUM 4.5 mmol/L (3.6-5.0)
[2017-01-24] MEDS: INSULIN LISPRO 100 UNIT/ML 3 ML VIAL SUBCUT PRN ×2 (17:34→21:12)
[2017-01-24] MEDS: LANSOPRAZOLE 15 MG TAB.RAP.DR PO SCH (17:34)
--- NOTE | 2017-01-24 18:13 | XCELERA REPORT ---
[address] [address] Transthoracic Echocardiogram Report Name: SEGNU NG I Age: 46 yrs Gender: Female : 1970 Patient Status: Inpatient Patient Location: ICU^[id number]^A Study Date: 01/24/2017 01:14 PM Height: 65 in Weight: 302 lb BSA: 2.4 m2 Procedure: A complete two-dimensional transthoracic echocardiogram was performed (2D, M-mode, spectral and color flow Doppler). The study was technically difficult with many images being suboptimal in quality. Reason For Study: ekg chage/chf/esrd Ordering Physician: NICKY BARBOZA Performed By: Aisha aRo Interpretation Summary The left ventricular ejection fraction is normal. There is moderate concentric left ventricular hypertrophy. The left ventricle is grossly normal size. Doppler measurements suggest pseudonormalized left ventricular relaxation, which is associated with grade II/IV or mild to moderate diastolic dysfunction Wall motion cannot be accurately commented on, but no definite regional wall motion abnormalities noted. The right ventricle is mildly dilated. The left atrium is mildly dilated. The right atrium is normal in size There is a trace amount of mitral regurgitation There is no mitral valve stenosis. There is no aortic valve stenosis No aortic regurgitation is present. There is a trace or physiologic amount of tricuspid regurgitation Tricuspid regurgitation jet envelope not well defined to measure RV systolic pressure accurately. The aortic root is not well visualized. The inferior vena cava was not well visualized Minimal pericardial effusion. MMode/2D Measurements & Calculations RVDd: 3.1 cm LVIDd: 3.8 cm FS: 36.0 % Ao root diam: 2.5 cm IVSd: 1.5 cm LVIDs: 2.4 cm EDV(Teich): 62.6 ml LVPWd: 1.5 cm ESV(Teich): 21.0 ml Ao root area: 4.7 cm2 EF(Teich): 66.4 % LA dimension: 3.7 cm Doppler Measurements & Calculations MV E max joby: MV P1/2t max joby: Ao V2 max: LV V1 max P.7 cm/sec 126.5 cm/sec 150.7 cm/sec 6.6 mmHg MV A max joby: MV P1/2t: 57.3 msec Ao max PG: LV V1 max: 169.7 cm/sec 9.1 mmHg 128.3 cm/sec MV E/A: 0.75 MVA(P1/2t): 3.8 cm2 MV dec slope: 646.3 cm/sec2 PA V2 max: 108.6 cm/sec PA max P.7 mmHg Left Ventricle The left ventricle is grossly normal size. There is moderate concentric left ventricular hypertrophy. The left ventricular ejection fraction is normal. Doppler measurements suggest pseudonormalized left ventricular relaxation, which is associated with grade II/IV or mild to moderate diastolic dysfunction. Wall motion cannot be accurately commented on, but no definite regional wall motion abnormalities noted. Right Ventricle The right ventricle is mildly dilated. There is normal right ventricular wall thickness. The right ventricular systolic function is normal. Atria The right atrium is normal in size. The left atrium is mildly dilated. Interarterial septum not well visualized and not well dopplered. Cannot comment on ASD/PFO presence. Mitral Valve There is mild mitral annular calcification. There is no mitral valve stenosis. There is a trace amount of mitral regurgitation. Aortic Valve The aortic valve is not well visualized secondary to technical limitations. There is no aortic valve stenosis. No aortic regurgitation is present. Tricuspid Valve The tricuspid valve is not well visualized secondary to technical limitations. There is no tricuspid stenosis. There is a trace or physiologic amount of tricuspid regurgitation. Tricuspid regurgitation jet envelope not well defined to measure RV systolic pressure accurately. Pulmonic Valve The pulmonic valve is not well visualized. Great Vessels The aortic root is not well visualized. The inferior vena cava was not well visualized. Effusions Minimal pericardial effusion. : NICKY BARBOZA > Jah Reed
[2017-01-25 04:59] LABS: ABSOLUTE BASOPHILS # (AUTO) 0.1 10^3/uL (0.0-0.2); ABSOLUTE EOSINOPHILS # (AUTO) 0.4 10^3/uL (0.0-0.6); ABSOLUTE LYMPHOCYTES (AUTO) 2.5 10^3/uL (0.5-4.7); ABSOLUTE MONOCYTES (AUTO) 0.6 10^3/uL (0.1-1.4); ABSOLUTE NEUT (AUTO) 6.6 10^3/uL (1.7-8.2); BASOPHILS % (AUTO) 1.2 % (0-2); EOSINOPHILS % (AUTO) 3.5 % (0-6); HEMATOCRIT 30.6 % (36.0-47.0); HEMOGLOBIN 9.8 g/dL (12.0-15.5); HGB HCT DIFFERENCE -1.2; LYMPHOCYTES % (AUTO) 24.3 % (13-45); MEAN CORPUSCULAR HEMOGLOBIN 27.3 pg (27.0-33.4); MEAN CORPUSCULAR HGB CONC 32.1 g/dL (32.0-36.0); MEAN CORPUSCULAR VOLUME 85 fl (80-97); MONOCYTES % (AUTO) 5.5 % (3-13); RED CELL DISTRIBUTION WIDTH 15.2 % (11.5-14.0); SEGMENTED NEUTROPHILS % (AUTO) 65.5 % (42-78); WHITE BLOOD COUNT 10.1 10^3/uL (4.0-10.5)
[2017-01-25 05:14] LABS: ALANINE AMINOTRANSFERASE 27 U/L (9-52); ALBUMIN 3.4 g/dL (3.5-5.0); ALKALINE PHOSPHATASE 83 U/L (38-126); ANION GAP 14 (5-19); ASPARTATE AMINO TRANSFERASE 12 U/L (14-36); BILIRUBIN,DIRECT 0.4 mg/dL (0.0-0.4); BILIRUBIN,TOTAL 0.4 mg/dL (0.2-1.3); BLOOD UREA NITROGEN 31 mg/dL (7-20); CALCIUM 8.7 mg/dL (8.4-10.2); CARBON DIOXIDE 28 mmol/L (22-30); CHLORIDE 98 mmol/L (98-107); CREATININE RESULT 5.57 mg/dL (0.52-1.25); GLUCOSE 253 mg/dL (75-110); SODIUM 139.5 mmol/L (137-145); TOTAL PROTEIN 6.6 g/dL (6.3-8.2)
[2017-01-25] MEDS: HYDRALAZINE HCL 50 MG TABLET PO SCH (05:44)
[2017-01-25] MEDS: HEPARIN SOD (PORCINE) 5,000 UNIT/ML 1 ML SYRINGE SUBCUT SCH (05:44)
[2017-01-25] MEDS: LANSOPRAZOLE 15 MG TAB.RAP.DR PO SCH (05:44)
[2017-01-25] MEDS: INSULIN LISPRO 100 UNIT/ML 3 ML VIAL SUBCUT PRN ×2 (09:02→13:05)
[2017-01-25] MEDS: DOCUSATE SODIUM 100 MG CAPSULE PO SCH (09:14)
[2017-01-25] MEDS ORDERED: CLONIDINE HCL 0.2 MG TABLET PO SCH (10:00)
--- NOTE | 2017-01-25 10:42 | EKG REPORT ---
SEVERITY:- BORDERLINE ECG - SINUS TACHYCARDIA BORDERLINE PROLONGED QT INTERVAL : Confirmed by: Grazyna Kathleen MD 25-Jan-2017 10:41:36
--- NOTE | 2017-01-25 11:22 | PDOC DISCHARGE SUMMARY ---
General - Admit/Disc Date/PCP Admission Date/Primary Care Provider: 01/24/17 06:20 NICKY BARBOZA MD Discharge Date: 01/25/17 - Discharge Diagnosis (1) Congestive heart failure Is this a current diagnosis for this admission?: Yes Summary: Patient echocardiogram is currently all stable (2) Constipation Is this a current diagnosis for this admission?: Yes Summary: Continues use the Colace and MiraLAX and stop the Imodium and the Reglan (3) ESRD (end stage renal disease) Is this a current diagnosis for this admission?: Yes Summary: Currently on hemodialysis (4) Hyperkalemia Is this a current diagnosis for this admission?: Yes Summary: Currently all resolved (5) Urinary tract infection Is this a current diagnosis for this admission?: Yes Summary: Culture is negative (6) Diabetes Is this a current diagnosis for this admission?: Yes Summary: Continues to Lantus 40 units twice a day (7) Gastroparesis Is this a current diagnosis for this admission?: Yes Summary: Use of as needed Zofran do not use any Reglan (8) Hypertension Is this a current diagnosis for this admission?: Yes Summary: Currently hold the losartan with the recent hyperkalemia follow with the Dr. Fernandez on a Friday - Additional Information Resuscitation Status: Full Code Discharge Activity: Activity As Tolerated Home Medications: Clonidine HCl [Catapres 0.2 mg Tablet] 0.2 mg PO DAILY 01/24/17 Hydralazine HCl [Apresoline 50 mg Tablet] 50 mg PO Q8 01/24/17 Metoclopramide HCl [Reglan] 5 mg PO ACHS 01/24/17 Promethazine HCl 12.5 mg PO Q6HP PRN 01/24/17 Cephalexin Monohydrate [Keflex 500 mg Capsule] 500 mg PO BID #10 capsule Insulin Glargine,Hum.rec.anlog [Lantus Solostar] 40 unit SQ BID #3 insuln.pen History of Present Illness History of Present Illness: SEGUN NG is a 46 year old female with a history of ESRD on hemodialysis in the background of hypertension and diabetes mellitus was admitted yesterday with history of bilateral flank pains and shortness of breath with exertion of a days duration.Patient has been having diarrhea for quite a few months and was recently seen by GI at [facility] who began on Reglan and Imodium.This then led to severe constipation over the last 1 week or so. Patient has had history of noncompliance with diet and medications and fluids but of lately has been trying harder.She denies any history of chest pain no history of any fevers chills or riders Currently she is on dialysis in the ICU where she was admitted because of early congestive heart failure and severe hyperkalemia of 7.1 with early EKG changes.Undergoing dialysis without any issues. Orders were discussed with the treating nurse Monica. Patient also have a several GI workup doneFor the gastroparesis including to Dr. Burnham here locally and patient see the [facility] Patient's currently denied any chest pain without any shortness of the breath Since just finished the dialysis when I saw the patient in ICU Patient's last potassium was 5.9 Hospital Course Hospital Course: This is a 46-year-old female with multiple medical problem as able with the history of the gastroparesis came to the emergency departments with the complaint of nausea vomiting and constipations issues with the recent start of Imodium and the Reglan by the GI. An initial x-ray and a CT of the abdomen and pelvis was all stable Patients underwent for the hemodialysis and also underwent for the echocardiogram was all stable pt otherwise doing well some mild EKG changes due to the hyperkalemia is currently all stable pt denied any chest pain denied any shortness of the breath Patient at this point so discharged home with the stable conditions as per discussed with the nephrology okay to discharge and follow Friday Physical Exam Vital Signs: Temp Pulse Resp BP Pulse Ox 98.1 F 97 16 112/52 L 100 01/25/17 07:35 01/25/17 08:59 01/25/17 08:59 01/25/17 07:35 01/25/17 08:59 Intake & Output 01/24/17 01/25/17 01/26/17 06:59 06:59 06:59 Intake Total 170 Output Total 4100 Balance -3930 Weight 137.4 kg 137.4 kg General appearance: PRESENT: no acute distress, well-developed, well-nourished Head exam: PRESENT: atraumatic, normocephalic Eye exam: PRESENT: conjunctiva pink, EOMI, PERRLA. ABSENT: scleral icterus Ear exam: PRESENT: normal external ear exam Mouth exam: PRESENT: moist, tongue midline Neck exam: PRESENT: full ROM. ABSENT: carotid bruit, JVD, lymphadenopathy, thyromegaly Respiratory exam: PRESENT: clear to auscultation alexandr Cardiovascular exam: PRESENT: RRR. ABSENT: diastolic murmur, rubs, systolic murmur Pulses: PRESENT: normal dorsalis pedis pul, +2 pedal pulses bilateral Vascular exam: PRESENT: normal capillary refill GI/Abdominal exam: PRESENT: normal bowel sounds, soft. ABSENT: distended, guarding, mass, organolmegaly, rebound, tenderness Rectal exam: PRESENT: deferred Extremities exam: PRESENT: right BKA Neurological exam: PRESENT: alert, awake, oriented to person, oriented to place , oriented to time, oriented to situation, CN II-XII grossly intact. ABSENT: motor sensory deficit Psychiatric exam: PRESENT: appropriate affect, normal mood. ABSENT: homicidal ideation, suicidal ideation Skin exam: PRESENT: dry, intact, warm. ABSENT: cyanosis, rash Results Laboratory Results: 01/25/17 04:35 01/25/17 04:35 01/24/17 01/25/17 01/25/17 15:26 04:35 04:35 WBC 10.1 RBC 3.60 L Hgb 9.8 L Hct 30.6 L MCV 85 MCH 27.3 MCHC 32.1 RDW 15.2 H Plt Count 210 Seg Neutrophils % 65.5 Lymphocytes % 24.3 Monocytes % 5.5 Eosinophils % 3.5 Basophils % 1.2 Absolute Neutrophils 6.6 Absolute Lymphocytes 2.5 Absolute Monocytes 0.6 Absolute Eosinophils 0.4 Absolute Basophils 0.1 Sodium 138.7 139.5 Potassium 4.5 D 5.0 Chloride 96 L 98 Carbon Dioxide 30 28 Anion Gap 13 14 BUN 20 D 31 H Creatinine 3.98 H 5.57 H Est GFR ( Amer) 15 L 10 L Est GFR (Non-Af Amer) 12 L 8 L Glucose 208 H 253 H Calcium 8.8 8.7 Total Bilirubin 0.4 AST 12 L ALT 27 Alkaline Phosphatase 83 Total Protein 6.6 Albumin 3.4 L Impressions: Acute Abdomen Series 01/23/17 23:37 IMPRESSION: Nonobstructive bowel gas pattern. Abdomen/Pelvis CT 01/24/17 00:00 IMPRESSION: No acute findings in the abdomen or pelvis on unenhanced CT. Hepatomegaly. Small right adrenal myelolipoma. Fibroid uterus. Plan Time Spent: Greater than 30 Minutes - Discussed with the patient and the family at the bedside with all conditions all test results and all follow-up a low potassium diet and hold the losartan and the Reglan and Imodium Use of Colace and MiraLAX [id number]
[2017-01-25] MEDS ORDERED: CEFTRIAXONE 1 GM/D5W RTU 1 GM/50 ML RTUPB IV SCH (12:00)
[2017-01-25 13:23] VITALS: BP 143/63
== END 2017-01-25 14:13 | disposition home or self-care (01) | DRG 291 ==
LOC: ER 22:36 → UNDOADMIN 01-24 05:15 → EH 01-24 05:15 → ICU 01-24 08:24 → 4S 01-24 14:21
PROVIDERS: ADMIT Family Medicine; ATTEND Family Medicine
PROC: 5A1D70Z Performance of Urinary Filtration, Intermittent, Less than 6 Hours Per Day (ICD-10-PCS; principal; 2017-01-24)
DX: I13.2 Hypertensive heart and chronic kidney disease with heart failure and with stage 5 chronic kidney disease, or end stage renal disease (principal); N18.6 End stage renal disease; N39.0 Urinary tract infection, site not specified; I50.9 Heart failure, unspecified; I12.0 Hypertensive chronic kidney disease with stage 5 chronic kidney disease or end stage renal disease; E87.5 Hyperkalemia; E11.22 Type 2 diabetes mellitus with diabetic chronic kidney disease; E78.5 Hyperlipidemia, unspecified; E78.00 Pure hypercholesterolemia, unspecified; I10 Essential (primary) hypertension; F32.9 Major depressive disorder, single episode, unspecified; K59.00 Constipation, unspecified; E11.43 Type 2 diabetes mellitus with diabetic autonomic (poly)neuropathy; K31.84 Gastroparesis; Z89.511 Acquired absence of right leg below knee; Z99.2 Dependence on renal dialysis; Z86.14 Personal history of Methicillin resistant Staphylococcus aureus infection; Z88.2 Allergy status to sulfonamides; Z88.8 Allergy status to other drugs, medicaments and biological substances
CPT/HCPCS: 36415; 74022; 74176; 80048; 80053; 81001; 82962; 83690; 84132; 85025; 87040; 87086; 93005; 93010; 93306; 96365; 99285; J0610; J0696; J1644; J1815; J2405; J3490

== ENCOUNTER 2017-03-05 05:40 | Emergency (ER) | payer MEDICARE, MEDICAID ==
--- NOTE | 2017-03-05 06:21 | ER Document Report ---
ED Cardiac - General Chief Complaint: Chest Pain Stated Complaint: DIFFICULTY BREATHING, CHEST PAIN Time Seen by Provider: 03/05/17 06:03 Notes: Is a 46-year-old female, past medical history ESRD (MWF), who presents with several days of a dry cough and a burning substernal sensation. She has chronic GI issues with chronic nausea, vomiting and diarrhea. She follows with GI for this. Patient's uncle earlier today that she did not want to go to dialysis this morning because of the stress. Patient had a full course of dialysis 2 days ago. She denies fevers, cough, hemoptysis, back pain, abdominal pain, increased swelling or headache. TRAVEL OUTSIDE OF THE [place] IN LAST 30 DAYS: No - Related Data Allergies/Adverse Reactions: sulfamethoxazole [From Decra] Allergy (Severe, Verified 12/18/16 19:03) Hives trimethoprim [From Decra] Allergy (Severe, Verified 12/18/16 19:03) Hives adhesive tape [Adhesive Tape] Adverse Reaction (Verified 12/18/16 19:03) Bruising/Rash Past Medical History - General Information source: Patient - Social History Smoking Status: Unknown if Ever Smoked Family History: Reviewed & Not Pertinent - Past Medical History Cardiac Medical History: Reports: Hx Hypercholesterolemia, Hx Hypertension Denies: Hx Coronary Artery Disease, Hx Heart Attack Pulmonary Medical History: Denies: Hx Asthma, Hx Bronchitis, Hx COPD, Hx Pneumonia Neurological Medical History: Denies: Hx Cerebrovascular Accident, Hx Seizures Endocrine Medical History: Reports: Hx Diabetes Mellitus Type 1, Hx Diabetes Mellitus Type 2 Renal/ Medical History: Reports: Hx End Stage Renal Disease, Hx Hemodialysis, Hx Renal Insufficiency. Denies: Hx Peritoneal Dialysis Musculoskeltal Medical History: Denies Hx Arthritis Skin Medical History: Reports Hx MRSA Psychiatric Medical History: Reports: Hx Depression Traumatic Medical History: Reports: Hx Fractures - Right ankle fracture Infectious Medical History: Reports: Hx MRSA Past Surgical History: Reports: Hx Section, Hx Cholecystectomy, Hx Orthopedic Surgery - ORIF right ankle with subsequent MRSA infection and Right BKA., Hx Tubal Ligation, Hx Vascular Surgery - Right forearm AV fistula. PermCath right subclavian.. Denies: Hx Hysterectomy - Immunizations Hx Diphtheria, Pertussis, Tetanus Vaccination: Yes Hx Pneumococcal Vaccination: 07/04/10 Review of Systems - Review of Systems Notes: REVIEW OF SYSTEMS: CONSTITUTIONAL: -fevers, -chills EENT: -eye pain, -difficulty swallowing, -nasal congestion CARDIOVASCULAR: +chest pain, -syncope. RESPIRATORY: +cough, +SOB GASTROINTESTINAL: +epigastric abdominal pain, +nausea, -vomiting, -diarrhea MUSCULOSKELETAL: -back pain, -neck pain SKIN: -rash or skin lesions. HEMATOLOGIC: -easy bruising or bleeding. LYMPHATIC: -swollen, enlarged glands. NEUROLOGICAL: -altered mental status or loss of consciousness, -headache, - neurologic symptoms PSYCHIATRIC: -anxiety, -depression. ALL OTHER SYSTEMS REVIEWED AND NEGATIVE. Physical Exam - Vital signs Vitals: Temp Pulse Resp BP Pulse Ox 97.9 F 98 20 208/94 H 99 03/05/17 05:50 03/05/17 05:50 03/05/17 05:50 03/05/17 05:50 03/05/17 05:50 - Notes Notes: PHYSICAL EXAMINATION: GENERAL: Well-appearing, well-nourished and in no acute distress. HEAD: Atraumatic, normocephalic. EYES: Pupils equal round and reactive to light, extraocular movements intact, sclera anicteric, conjunctiva are normal. ENT: nares patent, oropharynx clear without exudates. Moist mucous membranes. NECK: Normal range of motion, supple without lymphadenopathy LUNGS: No respiratory distress. Breath sounds clear to auscultation bilaterally and equal. No wheezes rales or rhonchi. HEART: Regular rate and rhythm without murmurs ABDOMEN: Soft, nontender, normoactive bowel sounds. No guarding, no rebound. No masses appreciated. EXTREMITIES: No edema. NEUROLOGICAL: Cranial nerves grossly intact. Normal speech, normal gait. Normal sensory and motor exams. PSYCH: Normal mood, normal affect. SKIN: Warm, Dry, normal turgor, no rashes or lesions noted. Course - Re-evaluation Re-evalutation: Patient is in no respiratory distress. Her chest x-ray does not show any evidence of fluid overload or pneumonia. Labs are unremarkable and EKG does not show ischemic or hyperkalemic changes. Patient's chest pain is described as a burning substernal pain that feels similar to her prior reflux episodes. Her lipase is elevated, but she has no epigastric tenderness, her pain is under control and she is able to eat and drink without pain. Looking through prior records, her lipase is frequently elevated. Patient has no signs of pancreatitis at this time. She has dialysis scheduled this morning, so will send to outpatient dialysis upon discharge. Instructed her to follow with her primary care for further evaluation and treatment. - Vital Signs Vital signs: Temp Pulse Resp BP Pulse Ox 97.9 F 98 27 H 202/83 H 100 03/05/17 05:50 03/05/17 05:50 03/05/17 07:09 03/05/17 07:09 03/05/17 07:09 - Laboratory Result Diagrams: 03/05/17 06:45 03/05/17 06:45 Laboratory results interpreted by me: 03/05/17 03/05/17 06:45 06:45 WBC 10.6 H RBC 3.48 L Hgb 9.6 L Hct 29.5 L RDW 14.7 H Carbon Dioxide 20 L BUN 36 H Creatinine 7.34 H Est GFR ( Amer) 7 L Est GFR (Non-Af Amer) 6 L Glucose 275 H Calcium 8.0 L AST 10 L Albumin 3.4 L Lipase 722.2 H - Diagnostic Test Radiology reviewed: Image reviewed, Reports reviewed Radiology results interpreted by me: CXR: NAD - EKG Interpretation by Me EKG shows normal: Sinus rhythm, J[place], Intervals, QRS Complexes, ST-T Waves Rate: Normal When compared to previous EKG there are: No significant change Additional EKG results interpreted by me: No hyperkalemic changes. Discharge - Discharge Clinical Impression: Shortness of breath Chest pain Qualifiers: Chest pain type: unspecified Qualified Code(s): R07.9 - Chest pain, unspecified Condition: Stable Disposition: HOME, SELF-CARE Additional Instructions: SHORTNESS OF BREATH OR DYSPNEA: You were evaluated for shortness of breath, or dyspnea. Dyspnea has many causes, and some are more serious than others. Sometimes it's impossible to diagnose the cause of dyspnea with the tests that are available on an emergency basis. Based on our evaluation today, you do not need hospitalization now. We found no evidence of pneumonia, collapsed lung, blood clots in the lung, tumors , or heart failure. Causes of non-specific dyspnea can include asthma or bronchospasm, hyperventilation, emotional distress, heart disease, emphysema, fibrosis of the lung, and stiffness of the chest wall. In healthy individuals with a single episode, it's sometimes reasonable to do nothing but wait to see if the problem occurs again. Additional tests used to evaluate dyspnea can include cardiac stress testing, echocardiography, pulmonary function testing, CAT scan of the chest, bronchoscopy or pulmonary biopsy. Return if shortness of breath persists or worsens, or if you develop chest pain, fever, cough, confusion, or fainting. NORMAL EXAM AND WORKUP: At this time, your examination and workup show no significant abnormality. No significant abnormal physical findings were noted. All laboratory, EKG, and imaging (x-ray, CT scans, ultrasound) studies that were ordered show no significant abnormality. Although your examination and all studies that were ordered showed no significant abnormal finding, there are no examinations and no studies that are 100% accurate. There is always the possibility that some abnormality could exist and not be detected with physical examination or within the limits and capabilities of laboratory and other studies. You should return or follow up as you were instructed on your visit today for further evaluation if your symptoms do not resolve. FOLLOW-UP CARE: If you have been referred to a physician for follow-up care, call the physician s office for an appointment as you were instructed or within the next two days. If you experience worsening or a significant change in your symptoms, notify the physician immediately or return to the Emergency Department at any time for re-evaluation. CHEST PAIN OF UNCLEAR CAUSE: The exact cause of your chest pain isn't clear. Fortunately, there is no evidence of a dangerous medical condition. Further testing may be required to find the source of the pain. Most often, we find that this pain is coming from the chest wall -- the muscles or rib joints in the chest. But chest pain can come from the lung and lung lining, the esophagus, the heart valves or heart lining, and even the stomach or gallbladder. Rest. Eat lightly until the pain is gone. We may prescribe medicine for pain and inflammation. You should call the physician immediately if the pain radiates to the shoulder, jaw or arms; if you start to run a fever or develop a cough; or if you develop shortness of breath, or other new or alarming symptoms. NORMAL EXAM AND WORKUP: At this time, your examination and workup show no significant abnormality. No significant abnormal physical findings were noted. All laboratory, EKG, and imaging (x-ray, CT scans, ultrasound) studies that were ordered show no significant abnormality. Although your examination and all studies that were ordered showed no significant abnormal finding, there are no examinations and no studies that are 100% accurate. There is always the possibility that some abnormality could exist and not be detected with physical examination or within the limits and capabilities of laboratory and other studies. You should return or follow up as you were instructed on your visit today for further evaluation if your symptoms do not resolve. CHEST WALL PAIN: Your chest pain may be coming from the chest wall. This is often caused by straining the muscles or joints in the chest during physical activity, direct trauma, coughing, or vigorous vomiting. Persons with arthritis are especially prone to this type of pain, due to inflammation of the cartilage joints near the breast bone. Occasionally, no cause can be found. Rest from strenuous physical activity. This kind of chest pain is usually made worse by movement of the chest. Depending on the symptoms, we may prescribe medicine for pain, muscle relaxation, and antiinflammatory effects. If the pain is new, and seems to be due to muscle strain, cold packs can help. Otherwise, apply gentle warmth to the painful area for 15 minutes every hour or two. You should call contact the doctor immediately if things change. Further evaluation is needed if you develop a fever or cough, if the nature of the pain changes, or if you become short of breath. ANGINA EPISODE: Your physician has diagnosed the pain you experienced as an episode of angina. Angina occurs when a portion of the heart muscle temporarily lacks oxygen. It does not cause any permanent heart damage, but serves as a warning. Hospitalization is not necessary now. Evaluation of your cardiac condition , and medical therapy for angina will be necessary. It's important you be sure to keep all appointments and take medication exactly as prescribed. Angina is usually treated with a type of "nitrate" medication. This is available as ointment, pills, or sublingual (under the tongue) tablets. Depending on your clinical situation, other medications may be added to help control angina. These may include beta blockers or calcium blockers. If episodes of angina are occurring with increased frequency, or if chest pain lasts longer than 15 minutes or does not respond to nitroglycerin, you must seek emergency medical care immediately. ACID REFLUX DISEASE (GERD): Gastro-Esophageal Reflux Disease (GERD) is caused by stomach acid refluxing back up into the esophagus. The valve at the end of the esophagus may be weak. This is common in persons with a hiatal hernia. GERD symptoms can include indigestion, chest pain, heartburn, or food "sticking." Certain foods, alcohol, and aspirin can make GERD worse. Treatment depends on the severity. Usually, antacids or acid-suppressing medicines are used. When the esophagus is acutely inflamed, the physician will often prescribe membrane-protective drugs such as Carafate. Some patients benefit from medication such as Reglan that tightens the valve at the top of the stomach. Avoid those foods that bring on your symptoms. For many people, these foods are coffee, chocolate, onions, garlic, and carbonated drinks. Don't use alcohol, aspirin, caffeine, or tobacco. Don't eat late at night -- within 4 hours of bedtime. Don't over-eat. If necessary, elevate the head of your bed about 4 inches so that stomach acid will not roll up into your esophagus. Call the doctor if you develop severe chest pain, inability to swallow fluids, fever, or worsening symptoms. FOLLOW-UP CARE: If you have been referred to a physician for follow-up care, call the physician s office for an appointment as you were instructed or within the next two days. If you experience worsening or a significant change in your symptoms, notify the physician immediately or return to the Emergency Department at any time for re-evaluation. Referrals: NICKY BARBOZA MD [Primary Care Provider] - Follow up as needed
[2017-03-05] MEDS ORDERED: ONDANSETRON 4 MG TAB.RAPDIS PO ONE (06:31)
[2017-03-05 07:14] VITALS: BP 202/83
[2017-03-05 07:21] LABS: ABSOLUTE BASOPHILS # (AUTO) 0.1 10^3/uL (0.0-0.2); ABSOLUTE EOSINOPHILS # (AUTO) 0.4 10^3/uL (0.0-0.6); ABSOLUTE LYMPHOCYTES (AUTO) 1.7 10^3/uL (0.5-4.7); ABSOLUTE MONOCYTES (AUTO) 0.4 10^3/uL (0.1-1.4); ABSOLUTE NEUT (AUTO) 8.1 10^3/uL (1.7-8.2); BASOPHILS % (AUTO) 0.6 % (0-2); EOSINOPHILS % (AUTO) 3.3 % (0-6); HEMATOCRIT 29.5 % (36.0-47.0); HEMOGLOBIN 9.6 g/dL (12.0-15.5); HGB HCT DIFFERENCE -0.7; MEAN CORPUSCULAR HEMOGLOBIN 27.6 pg (27.0-33.4); MEAN CORPUSCULAR HGB CONC 32.6 g/dL (32.0-36.0); MEAN CORPUSCULAR VOLUME 85 fl (80-97); MONOCYTES % (AUTO) 3.8 % (3-13); RED BLOOD COUNT 3.48 10^6/uL (3.72-5.28); RED CELL DISTRIBUTION WIDTH 14.7 % (11.5-14.0); SEGMENTED NEUTROPHILS % (AUTO) 76.3 % (42-78); WHITE BLOOD COUNT 10.6 10^3/uL (4.0-10.5)
[2017-03-05 07:39] LABS: ALANINE AMINOTRANSFERASE 19 U/L (9-52); ALBUMIN 3.4 g/dL (3.5-5.0); ALKALINE PHOSPHATASE 77 U/L (38-126); ANION GAP 16 (5-19); ASPARTATE AMINO TRANSFERASE 10 U/L (14-36); BILIRUBIN,DIRECT 0.4 mg/dL (0.0-0.4); BILIRUBIN,TOTAL 0.4 mg/dL (0.2-1.3); BLOOD UREA NITROGEN 36 mg/dL (7-20); CARBON DIOXIDE 20 mmol/L (22-30); CHLORIDE 102 mmol/L (98-107); CREATININE RESULT 7.34 mg/dL (0.52-1.25); GLUCOSE 275 mg/dL (75-110); LIPASE 722.2 U/L (23-300); SODIUM 137.6 mmol/L (137-145); TOTAL PROTEIN 6.6 g/dL (6.3-8.2)
--- NOTE | 2017-03-05 07:39 | RADIOLOGY REPORT (SQ) ---
EXAM DESCRIPTION: CHEST PA/LAT COMPLETED DATE/TIME: 03/05/2017 7:12 am REASON FOR STUDY: chest pain COMPARISON: Chest x-ray 12/18/2016. EXAM PARAMETERS: NUMBER OF VIEWS: two views TECHNIQUE: Digital Frontal and Lateral radiographic views of the chest acquired. RADIATION DOSE: NA LIMITATIONS: none FINDINGS: LUNGS AND PLEURA: No consolidation, pneumothorax or pleural effusion. MEDIASTINUM AND HILAR STRUCTURES: No masses or contour abnormalities. HEART AND VASCULAR STRUCTURES: Heart normal size. No evidence for failure. BONES: No acute findings. HARDWARE: None in the chest. IMPRESSION: No acute radiographic finding in the chest. TECHNICAL DOCUMENTATION: JOB ID: [id number] [employer]- All Rights Reserved
--- NOTE | 2017-03-05 08:21 | EKG REPORT ---
SEVERITY:- BORDERLINE ECG - SINUS RHYTHM BORDERLINE R WAVE PROGRESSION, ANTERIOR LEADS BORDERLINE PROLONGED QT INTERVAL : Confirmed by: Otilio Lacy MD 05-Mar-2017 08:21:17
== END 2017-03-05 08:15 | disposition home or self-care (01) ==
LOC: ER 05:40
DX: R07.89 Other chest pain (principal); R06.02 Shortness of breath; R05 Cough; R10.13 Epigastric pain; R11.2 Nausea with vomiting, unspecified; R19.7 Diarrhea, unspecified; I12.0 Hypertensive chronic kidney disease with stage 5 chronic kidney disease or end stage renal disease; E11.22 Type 2 diabetes mellitus with diabetic chronic kidney disease; N18.6 End stage renal disease; Z99.2 Dependence on renal dialysis; Z88.1 Allergy status to other antibiotic agents; Z86.14 Personal history of Methicillin resistant Staphylococcus aureus infection; Z90.49 Acquired absence of other specified parts of digestive tract
CPT/HCPCS: 93005; 99285; 36415; 83690; 85025; 80053; 84484; 71020; 93010; A9270; S0119

== ENCOUNTER 2017-04-03 18:36 | Emergency (ER) | payer MEDICARE, MEDICAID ==
[2017-04-03] MEDS ORDERED: OXYCODONE-ACETAMINOPHEN 5-325 MG TABLET PO ONE ×2 (18:47→23:43)
[2017-04-03] MEDS ORDERED: ONDANSETRON 4 MG TAB.RAPDIS PO ONE (18:47)
--- NOTE | 2017-04-03 18:51 | ER Document Report ---
ED Medical Screen (RME) - General Chief Complaint: Abdominal Pain Stated Complaint: SIDE PAIN Time Seen by Provider: 04/03/17 18:43 Notes: 46-year-old female patient reports waking up this morning with nausea vomiting right lower quadrant pain going into the back. Blood pressure is elevated here, however it is commonly elevated at this level when she is seen here. She is a Friday dialysis patient. She did have a noncontrast CT scan of the abdomen and pelvis just over 2 months ago, there was no nephrolithiasis, and no aortic aneurysm seen. Her liver was enlarged. I have greeted and performed a rapid initial assessment of this patient. A comprehensive ED assessment and evaluation of the patient, analysis of test results and completion of the medical decision making process will be conducted by additional ED providers. TRAVEL OUTSIDE OF THE [place] IN LAST 30 DAYS: No - Related Data Allergies/Adverse Reactions: sulfamethoxazole [From Decra] Allergy (Severe, Verified 12/18/16 19:03) Hives trimethoprim [From Decra] Allergy (Severe, Verified 12/18/16 19:03) Hives adhesive tape [Adhesive Tape] Adverse Reaction (Verified 12/18/16 19:03) Bruising/Rash Past Medical History - Social History Chew tobacco use (# tins/day): No Frequency of alcohol use: None Drug Abuse: None - Past Medical History Cardiac Medical History: Reports: Hx Hypercholesterolemia, Hx Hypertension Denies: Hx Coronary Artery Disease, Hx Heart Attack Pulmonary Medical History: Denies: Hx Asthma, Hx Bronchitis, Hx COPD, Hx Pneumonia Neurological Medical History: Denies: Hx Cerebrovascular Accident, Hx Seizures Endocrine Medical History: Reports: Hx Diabetes Mellitus Type 1, Hx Diabetes Mellitus Type 2 Renal/ Medical History: Reports: Hx End Stage Renal Disease, Hx Hemodialysis, Hx Renal Insufficiency. Denies: Hx Peritoneal Dialysis Musculoskeltal Medical History: Denies Hx Arthritis Skin Medical History: Reports Hx MRSA Psychiatric Medical History: Reports: Hx Depression Traumatic Medical History: Reports: Hx Fractures - Right ankle fracture Infectious Medical History: Reports: Hx MRSA Past Surgical History: Reports: Hx Section, Hx Cholecystectomy, Hx Orthopedic Surgery - ORIF right ankle with subsequent MRSA infection and Right BKA., Hx Tubal Ligation, Hx Vascular Surgery - Right forearm AV fistula. PermCath right subclavian.. Denies: Hx Hysterectomy - Immunizations Hx Diphtheria, Pertussis, Tetanus Vaccination: Yes History of Influenza Vaccine for 01/2017 - 06/2017 Season: Yes Influenza Administration Date for 01/2017 Season: 01/05/17
--- NOTE | 2017-04-03 19:45 | ER Document Report ---
ED General - General Chief Complaint: Abdominal Pain Stated Complaint: SIDE PAIN Time Seen by Provider: 04/03/17 18:43 Notes: Patient is a 46 year old female who presents to the ED complaining of sudden right lower quadrant abdominal pain that is sharp stabbing and different then her baseline abdominal pain. Regarding her chronic abdominal pain, she describes it as a generalized gassy/ache with reflux symptoms, she denies any focalized RLQ pain before. She denies vomiting but admits to nausea. Admits to diarrhea but states that is normal per her baseline. She denies any fevers. PMH: HDS on MWF right AC fistula, HTN, HLD, DM PSH: tubal, mirena placement SH: denies tobacco, etoh or drug use PCP: Kelechi Neph: Jim TRAVEL OUTSIDE OF THE [place] IN LAST 30 DAYS: No - Related Data Allergies/Adverse Reactions: sulfamethoxazole [From Septra] Allergy (Severe, Verified 04/03/17 19:02) Hives trimethoprim [From Septra] Allergy (Severe, Verified 04/03/17 19:02) Hives adhesive tape [Adhesive Tape] Adverse Reaction (Verified 04/03/17 19:02) Bruising/Rash Past Medical History - Social History Smoking Status: Never Smoker Chew tobacco use (# tins/day): No Frequency of alcohol use: None Drug Abuse: None Family History: Reviewed & Not Pertinent Patient has suicidal ideation: No Patient has homicidal ideation: No - Past Medical History Cardiac Medical History: Reports: Hx Hypercholesterolemia, Hx Hypertension Denies: Hx Atrial Fibrillation, Hx Congestive Heart Failure, Hx Coronary Artery Disease, Hx Heart Attack Pulmonary Medical History: Denies: Hx Asthma, Hx Bronchitis, Hx COPD, Hx Pneumonia, Hx Tuberculosis Neurological Medical History: Denies: Hx Cerebrovascular Accident, Hx Migraine, Hx Seizures Endocrine Medical History: Reports: Hx Diabetes Mellitus Type 1, Hx Diabetes Mellitus Type 2 Renal/ Medical History: Reports: Hx End Stage Renal Disease, Hx Hemodialysis, Hx Renal Insufficiency. 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 PermCath right subclavian.. Denies: Hx Hysterectomy - Immunizations Hx Diphtheria, Pertussis, Tetanus Vaccination: Yes Hx Pneumococcal Vaccination: 07/04/10 Review of Systems - Review of Systems Constitutional: No symptoms reported Cardiovascular: No symptoms reported Respiratory: No symptoms reported Gastrointestinal: See HPI Genitourinary: No symptoms reported -: Yes All other systems reviewed and negative Physical Exam - Vital signs Vitals: Temp Pulse Resp BP Pulse Ox 98.6 F 98 18 200/106 H 100 04/03/17 18:43 04/03/17 18:43 04/03/17 18:43 04/03/17 18:43 04/03/17 18:43 - Notes Notes: PHYSICAL EXAM GENERAL: Alert, interacts well. HEAD: Normocephalic, atraumatic. LUNGS: Clear to auscultation bilaterally, no wheezes, rales, or rhonchi. No respiratory distress. HEART: Regular rate and rhythm. No murmurs, gallops, or rubs. ABDOMEN: Morbidly obese, soft, nondistended, RLQ tenderness. No guarding, rebound, or rigidity.. Bowel sounds present in all 4 quadrants. FEMALE : Normal external exam. No evidence of lesions, lacerations, bruising or vesicles. Speculum exam normal cervix closed. No evidence of vaginal discharge with odor. No evidence of lesions. No vaginal bleeding. Bimanual exam normal no cervical motion tenderness. No adnexal mass or adnexal tenderness. EXTREMITIES: Moves all 4 extremities spontaneously. No edema, radial and dorsalis pedis pulses 2/4 bilaterally. No cyanosis. NEUROLOGICAL: Alert and oriented x4. Normal speech. PSYCH: Normal affect, normal mood. SKIN: Warm, dry, normal turgor. No rashes or lesions noted. Course - Re-evaluation Re-evalutation: 04/03/17 23:04 Patient is a 46 year old female who is hemodynamically stable, no acute distress and afebrile. CBC stable without evidence of leukocytosis or anemia. Chesitry with kidney function stable per patients baseline and no evidence of hyperkalemia. Patient states she makes very little urine and only in the AM. CT shows evidence of normal appendix, hydrouteronephrosis without stone. Tolerating PO without any difficulty. Based on these findings, patient stable for discharge home to follow up with nephrology and dialysis tomorrow. Repeat exams do not show concerns for an acute abdomen or PID. Patient is agreeable with discharge. - Vital Signs Vital signs: Temp Pulse Resp BP Pulse Ox 98.5 F 88 16 180/91 H 99 04/03/17 23:50 04/03/17 23:50 04/03/17 23:50 04/03/17 23:50 04/03/17 23:50 - Laboratory Result Diagrams: 04/03/17 19:25 04/03/17 19:25 Laboratory results interpreted by me: 04/03/17 04/03/17 19:25 19:25 Hgb 11.3 L Hct 35.3 L MCHC 31.9 L RDW 14.8 H BUN 29 H Creatinine 6.10 H Est GFR ( Amer) 9 L Est GFR (Non-Af Amer) 7 L Glucose 202 H AST 13 L - Diagnostic Test Radiology reviewed: Image reviewed, Reports reviewed Discharge - Discharge Clinical Impression: Hydroureteronephrosis Condition: Good Disposition: HOME, SELF-CARE Additional Instructions: KIDNEY STONE: You are passing or have passed a kidney stone. These stones are usually due to increased calcium or uric acid concentrations in your urine. Stones within the kidney itself are not painful. The pain occurs as the stone leaves the kidney to pass down the long tube, called the ureter, leading to the bladder. If the stone is small, it will usually pass by itself. Most patients can pass the stone at home. You will usually receive medications for pain, nausea or vomiting, and sometimes a medication to assist in passing the kidney stone. However, if the pain is very severe or if vomiting prevents you from taking oral pain medications, you may need to return for further treatment. Drink three or four quarts of fluids per day. You will be given pain medication (if needed) and urine strainers. Strain all your urine to see if the stone passes. If your doctor has asked you to bring the stone in for analysis, return with the stone once it has passed. Return if pain or vomiting become severe, if you develop a high fever, if you are unable to pass your urine, or if other unusual symptoms occur. ORAL NARCOTIC MEDICATION: You have been given a prescription for pain control. This medication is a narcotic. It's best taken with food, as nausea can result if taken on an empty stomach. Don't operate machinery or drive within six hours of taking this medication. Do not combine this medicine with alcohol, or with any medication which can cause sedation (such as cold tablets or sleeping pills) unless you get permission from the physician. Narcotics tend to cause constipation. If possible, drink plenty of fluids and eat a diet high in fiber and fruits. Please be aware that prescription narcotics also have the potential for abuse. People become addicted to these medications because of the general sense of wellbeing that they induce. This feeling along with a significant reduction in tension, anxiety, and aggression provides a stimulating seductive quality to these drugs. Once your pain is under control, we encourage you to discard your unused narcotics. FOLLOW-UP CARE: If you have been referred to a physician for follow-up care, call the physician s office for an appointment as you were instructed or within the next two days. If you experience worsening or a significant change in your symptoms, notify the physician immediately or return to the Emergency Department at any time for re-evaluation. Prescriptions: Oxycodone HCl/Acetaminophen [Percocet 5-325 mg Tablet] 1 tab PO Q6HP PRN #15 tab PRN Reason: Referrals: NICKY BARBOZA MD [Primary Care Provider] - Follow up in 3-5 days
[2017-04-03 19:47] LABS: ABSOLUTE BASOPHILS # (AUTO) 0.1 10^3/uL (0.0-0.2); ABSOLUTE EOSINOPHILS # (AUTO) 0.3 10^3/uL (0.0-0.6); ABSOLUTE LYMPHOCYTES (AUTO) 1.5 10^3/uL (0.5-4.7); ABSOLUTE MONOCYTES (AUTO) 0.4 10^3/uL (0.1-1.4); ABSOLUTE NEUT (AUTO) 6.2 10^3/uL (1.7-8.2); BASOPHILS % (AUTO) 1.1 % (0-2); HEMATOCRIT 35.3 % (36.0-47.0); HEMOGLOBIN 11.3 g/dL (12.0-15.5); LYMPHOCYTES % (AUTO) 18.3 % (13-45); MEAN CORPUSCULAR HGB CONC 31.9 g/dL (32.0-36.0); MEAN CORPUSCULAR VOLUME 85 fl (80-97); MONOCYTES % (AUTO) 4.6 % (3-13); PLATELET COUNT 265 10^3/uL (150-450); RED BLOOD COUNT 4.17 10^6/uL (3.72-5.28); RED CELL DISTRIBUTION WIDTH 14.8 % (11.5-14.0); TOTAL CELLS COUNTED % (AUTO) 100 %; WHITE BLOOD COUNT 8.4 10^3/uL (4.0-10.5)
[2017-04-03 20:02] LABS: ALANINE AMINOTRANSFERASE 22 U/L (9-52); ALBUMIN 4.1 g/dL (3.5-5.0); ALKALINE PHOSPHATASE 85 U/L (38-126); ANION GAP 16 (5-19); ASPARTATE AMINO TRANSFERASE 13 U/L (14-36); BILIRUBIN,DIRECT 0.4 mg/dL (0.0-0.4); BILIRUBIN,TOTAL 0.4 mg/dL (0.2-1.3); BLOOD UREA NITROGEN 29 mg/dL (7-20); CALCIUM 8.6 mg/dL (8.4-10.2); CARBON DIOXIDE 25 mmol/L (22-30); CHLORIDE 99 mmol/L (98-107); GLUCOSE 202 mg/dL (75-110); MAGNESIUM 1.9 mg/dL (1.6-2.3); POTASSIUM 4.1 mmol/L (3.6-5.0); SODIUM 139.7 mmol/L (137-145); TOTAL PROTEIN 7.4 g/dL (6.3-8.2)
--- NOTE | 2017-04-03 22:34 | RADIOLOGY REPORT (SQ) ---
EXAM DESCRIPTION: CT ABD/PELVIS WITH IV ONLY COMPLETED DATE/TIME: 04/03/2017 9:45 pm REASON FOR STUDY: rlq pain, previous inguinal fat hernia on 01/21 CT COMPARISON: 01/24/2017 TECHNIQUE: CT scan of the abdomen and pelvis performed using helical scanning technique with dynamic intravenous contrast injection. No oral contrast. Images reviewed with lung, soft tissue, and bone windows. Reconstructed coronal and sagittal MPR images reviewed. Delayed images for evaluation of the urinary system also acquired. All images stored on PACS. All CT scanners at this facility use dose modulation, iterative reconstruction, and/or weight based d osing when appropriate to reduce radiation dose to as low as reasonably achievable (ALARA). [facility]: Dose Right [facility]: CareDose [facility]: Dose Right [facility]: Teradose 4D [facility]: [employer] CONTRAST TYPE AND DOSE: contrast/concentration: Isovue 370.00 mg/ml; Total Contrast Delivered: 98.0 ml; Total Saline Delivered: 53.0 ml RENAL FUNCTION: Dialysis patient. Creatinine 6.1 RADIATION DOSE: CT Rad equipment meets quality standard of care and radiation dose reduction techniq ues were employed. CTDIvol: 21.0 - 21.1 mGy. DLP: 2527 mGy-cm.. LIMITATIONS: None. FINDINGS: LOWER CHEST: No significant findings. No nodules or infiltrates. LIVER: Normal size. No masses. No dilated ducts. SPLEEN: Normal size. No focal lesions. PANCREAS: No masses. No significant calcifications. No adjacent inflammation or peripancreatic fluid collections. Pancreatic duct not dilated. GALLBLADDER: Surgically absent. ADRENAL GLANDS: No significant masses or asymmetry. RIGHT KIDNEY AND URETER: No solid masses. No significant calcifications. Mild hydronephrosis - hy droureter. LEFT KIDNEY AND URETER: No solid masses. No significant calcifications. No hydronephrosis or hydr oureter. AORTA AND VESSELS: No aneurysm. No dissection. Renal arteries, SMA, celiac without stenosis. RETROPERITONEUM: No retroperitoneal adenopathy, hemorrhage or masses. BOWEL AND PERITONEAL CAVITY: No masses or inflammatory changes. No free fluid or peritoneal masses. APPENDIX: Normal. PELVIS: No mass. No free fluid. Normal bladder. ABDOMINAL WALL: No masses. No hernias. BONES: No significant or acute findings. OTHER: No other significant finding. IMPRESSION: Mild right hydroureteronephrosis. No calcified obstructing stones identified. Otherwise, no acute inflammatory changes. TECHNICAL DOCUMENTATION: JOB ID: [id number] Quality ID # [id number]: Final reports with documentation of one or more dose reduction techniques (e.g., Au tomated exposure control, adjustment of the mA and/or kV according to patient size, use of iterative reconstruction technique) 2010 [employer]- All Rights Reserved
[2017-04-04] VITALS: BP 180/91
== END 2017-04-04 | disposition home or self-care (01) ==
LOC: ER 18:36
DX: N13.30 Unspecified hydronephrosis (principal); R10.31 Right lower quadrant pain; G89.29 Other chronic pain; R11.0 Nausea; R19.7 Diarrhea, unspecified
CPT/HCPCS: 99284; 36415; 87040; 83735; 85025; 80053; 74177; A9270 ×2; S0119

== ENCOUNTER → 2017-05-01 | Outpatient (CLI) | payer MEDICARE, MEDICAID ==
--- NOTE | 2017-05-01 11:32 | RADIOLOGY REPORT (SQ) ---
EXAM DESCRIPTION: CT HEAD WITHOUT COMPLETED DATE/TIME: 05/01/2017 11:10 am REASON FOR STUDY: TRAUMATIC INJURY OF HEAD (S09.90XA) S09.90XA UNSPECIFIED INJURY OF HEAD, INITIAL ENCOUNTER COMPARISON: 07/26/2016. TECHNIQUE: Axial images acquired through the brain without intravenous contrast. Images reviewed wi th bone, brain and subdural windows. Images stored on PACS. All CT scanners at this facility use dose modulation, iterative reconstruction, and/or weight based d osing when appropriate to reduce radiation dose to as low as reasonably achievable (ALARA). [facility]: Dose Right [facility]: CareDose [facility]: Dose Right [facility]: Teradose 4D [facility]: [employer] RADIATION DOSE: CT Rad equipment meets quality standard of care and radiation dose reduction techniq ues were employed. CTDIvol: 49.0 mGy. DLP: 783 mGy-cm. mGy. LIMITATIONS: None. FINDINGS: VENTRICLES: Normal size and contour. CEREBRUM: No masses. No hemorrhage. No midline shift. No evidence for acute infarction. Normal gra y/white matter differentiation. Incidental physiologic calcifications in the basal ganglia. No area s of low density in the white matter. CEREBELLUM: No masses. No hemorrhage. No alteration of density. No evidence for acute infarction. EXTRAAXIAL SPACES: No fluid collections. No masses. ORBITS AND GLOBE: No intra- or extraconal masses. Normal contour of globe without masses. CALVARIUM: No fracture. PARANASAL SINUSES: No fluid or mucosal thickening. SOFT TISSUES: No mass or hematoma. OTHER: No other significant finding. IMPRESSION: NORMAL BRAIN CT WITHOUT CONTRAST. EVIDENCE OF ACUTE STROKE: NO. COMMENT: Quality ID # [id number]: Final reports with documentation of one or more dose reduction techniques (e.g., Automated exposure control, adjustment of the mA and/or kV according to patient size, use of iterative reconstruction technique) TECHNICAL DOCUMENTATION: JOB ID: [id number] [employer]- All Rights Reserved
== END ==
LOC: RAD 10:47
PROVIDERS: ATTEND Physician Assistant
DX: S09.90XA Unspecified injury of head, initial encounter (principal); X58.XXXA Exposure to other specified factors, initial encounter
CPT/HCPCS: 70450

== ENCOUNTER 2017-05-24 21:05 | Emergency (ER) | payer MEDICARE, MEDICAID ==
--- NOTE | 2017-05-24 22:28 | ER Document Report ---
ED Medical Screen (RME) - General Chief Complaint: Flank Pain Stated Complaint: ABDOMINAL PAIN Time Seen by Provider: 05/24/17 22:26 Mode of Arrival: Wheelchair Information source: Patient Notes: 46-year-old female presents to ED for an abscess to the left lower abdomen 2 weeks with the history of renal failure diabetes and kidney stones. She states she also has having severe pain from her kidney stone. She states last time she had a abscess she ended up going to infectious disease and ended up with the amputation of her leg. Her blood pressure is 198/83. Temp is 100.1 is a large palpable painful abscess to the left lower abdomen. I have greeted and performed a rapid initial assessment of this patient. A comprehensive ED assessment and evaluation of the patient, analysis of test results and completion of medical decision making process will be conducted by an additional ED providers. TRAVEL OUTSIDE OF THE [place] IN LAST 30 DAYS: No - Related Data Allergies/Adverse Reactions: sulfamethoxazole [From Septra] Allergy (Severe, Verified 04/03/17 19:02) Hives trimethoprim [From Septra] Allergy (Severe, Verified 04/03/17 19:02) Hives adhesive tape [Adhesive Tape] Adverse Reaction (Verified 04/03/17 19:02) Bruising/Rash Past Medical History - Past Medical History Cardiac Medical History: Reports: Hx Hypercholesterolemia, Hx Hypertension Denies: Hx Atrial Fibrillation, Hx Congestive Heart Failure, Hx Coronary Artery Disease, Hx Heart Attack Pulmonary Medical History: Denies: Hx Asthma, Hx Bronchitis, Hx COPD, Hx Pneumonia, Hx Tuberculosis Neurological Medical History: Denies: Hx Cerebrovascular Accident, Hx Migraine, Hx Seizures Endocrine Medical History: Reports: Hx Diabetes Mellitus Type 1, Hx Diabetes Mellitus Type 2 Renal/ Medical History: Reports: Hx End Stage Renal Disease, Hx Hemodialysis, Hx Renal Insufficiency. 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 PermCath right subclavian.. Denies: Hx Hysterectomy - Immunizations Hx Diphtheria, Pertussis, Tetanus Vaccination: Yes History of Influenza Vaccine for 01/2017 - 06/2017 Season: Yes Influenza Administration Date for 01/2017 - 06/2017 Season: 01/05/17 Physical Exam - Vital signs Vitals: Temp Pulse Resp BP Pulse Ox 100.1 F 105 H 20 198/83 H 97 05/24/17 21:30 05/24/17 21:30 05/24/17 21:30 05/24/17 21:30 05/24/17 21:30 Course - Vital Signs Vital signs: Temp Pulse Resp BP Pulse Ox 100.1 F 105 H 20 198/83 H 97 05/24/17 21:30 05/24/17 21:30 05/24/17 21:30 05/24/17 21:30 05/24/17 21:30
[2017-05-24 23:16] LABS: ABSOLUTE BASOPHILS # (AUTO) 0.1 10^3/uL (0.0-0.2); ABSOLUTE EOSINOPHILS # (AUTO) 0.2 10^3/uL (0.0-0.6); ABSOLUTE LYMPHOCYTES (AUTO) 1.4 10^3/uL (0.5-4.7); ABSOLUTE MONOCYTES (AUTO) 0.4 10^3/uL (0.1-1.4); ABSOLUTE NEUT (AUTO) 10.5 10^3/uL (1.7-8.2); BASOPHILS % (AUTO) 0.7 % (0-2); EOSINOPHILS % (AUTO) 1.9 % (0-6); HEMATOCRIT 34.7 % (36.0-47.0); HEMOGLOBIN 10.9 g/dL (12.0-15.5); LYMPHOCYTES % (AUTO) 11.2 % (13-45); MEAN CORPUSCULAR HEMOGLOBIN 25.9 pg (27.0-33.4); MEAN CORPUSCULAR HGB CONC 31.5 g/dL (32.0-36.0); MEAN CORPUSCULAR VOLUME 82 fl (80-97); MONOCYTES % (AUTO) 3.5 % (3-13); PLATELET COUNT 241 10^3/uL (150-450); RED BLOOD COUNT 4.21 10^6/uL (3.72-5.28); RED CELL DISTRIBUTION WIDTH 15.7 % (11.5-14.0); SEGMENTED NEUTROPHILS % (AUTO) 82.7 % (42-78); TOTAL CELLS COUNTED % (AUTO) 100 %; WHITE BLOOD COUNT 12.7 10^3/uL (4.0-10.5)
--- NOTE | 2017-05-24 23:27 | RADIOLOGY REPORT (SQ) ---
EXAM DESCRIPTION: U/S ABDOMEN LTD W/DOPPLER CLINICAL HISTORY: 46 years, Female, Large probable abscess left lower abdomen COMPARISON: CT, 04/03/2017 LIMITATIONS: None. FINDINGS: 3.9 x 3.1 x 2.1 cm complex cystic mass with encapsulation and no significant vascularity anterior left lower abdomen closely associated with the abdominal wall. IMPRESSION: 3.9 cm complex cystic mass of the left lower abdomen; differential diagnosis includes abscess, hematoma, and neoplasm. Consider further evaluation with CT of the abdomen pelvis (using oral contrast, with and without IV contrast).
[2017-05-24 23:42] LABS: ALANINE AMINOTRANSFERASE 14 U/L (9-52); ALBUMIN 4.1 g/dL (3.5-5.0); ALKALINE PHOSPHATASE 78 U/L (38-126); ANION GAP 16 (5-19); ASPARTATE AMINO TRANSFERASE 11 U/L (14-36); BILIRUBIN,DIRECT 0.3 mg/dL (0.0-0.4); BILIRUBIN,TOTAL 0.3 mg/dL (0.2-1.3); BLOOD UREA NITROGEN 40 mg/dL (7-20); CARBON DIOXIDE 22 mmol/L (22-30); CHLORIDE 95 mmol/L (98-107); GLUCOSE 338 mg/dL (75-110); LIPASE 602.6 U/L (23-300); POTASSIUM 4.9 mmol/L (3.6-5.0); SODIUM 133.4 mmol/L (137-145); TOTAL PROTEIN 7.3 g/dL (6.3-8.2)
[2017-05-25] MEDS ORDERED: DOXYCYCLINE HYCLATE 100 MG TABLET PO ONE (00:33)
[2017-05-25] MEDS ORDERED: HYDROMORPHONE HCL INJ/PF 2 MG/ML AMPULE IM ONE (00:34)
[2017-05-25] MEDS ORDERED: DIPHENHYDRAMINE HCL 50 MG/ML VIAL IM ONE (01:52)
[2017-05-25] MEDS ORDERED: ONDANSETRON 4 MG TAB.RAPDIS PO ONE (01:54)
[2017-05-25] MEDS ORDERED: ONDANSETRON 4 MG TAB.RAPDIS ONE (01:56)
[2017-05-25] MEDS ORDERED: ONDANSETRON ODT 4 MG TAB (6 TAB/ER DISP) PO PRN (02:19)
--- NOTE | 2017-05-25 02:20 | ER Document Report ---
ED General - General Chief Complaint: Flank Pain Stated Complaint: ABDOMINAL PAIN Time Seen by Provider: 05/24/17 22:26 Mode of Arrival: Wheelchair Notes: Patient is a pleasant 46-year-old male presents with complaint of a abscess in her abdominal wall. Says it has been there for over a week. She said sometimes she will come and go but this 1 has progressively gotten larger. She did have low-grade fever tonight therefore she came to the ER. She is diabetic. She does have end-stage renal disease. Patient's other complaint is that she has chronic pressure in her kidney and her side. She said she had a ultrasound done in March which showed some hydronephrosis. She was told it could be kidney stone. She says she has another test performed but does not remember the results of that. She wants to make sure that she does not have a chronic indwelling kidney stone. I was able to review the follow-up CT scan that was done at the end of March. The CT scan shows that she has chronic mild hydronephrosis without evidence of kidney stone. TRAVEL OUTSIDE OF THE [place] IN LAST 30 DAYS: No - Related Data Allergies/Adverse Reactions: sulfamethoxazole [From Septra] Allergy (Severe, Verified 04/03/17 19:02) Hives trimethoprim [From Septra] Allergy (Severe, Verified 04/03/17 19:02) Hives adhesive tape [Adhesive Tape] Adverse Reaction (Verified 04/03/17 19:02) Bruising/Rash Past Medical History - General Information source: Patient - Social History Smoking Status: Never Smoker Chew tobacco use (# tins/day): No Frequency of alcohol use: None Drug Abuse: None Family History: Reviewed & Not Pertinent Patient has suicidal ideation: No Patient has homicidal ideation: No - Past Medical History Cardiac Medical History: Reports: Hx Hypercholesterolemia, Hx Hypertension Denies: Hx Atrial Fibrillation, Hx Congestive Heart Failure, Hx Coronary Artery Disease, Hx Heart Attack Pulmonary Medical History: Denies: Hx Asthma, Hx Bronchitis, Hx COPD, Hx Pneumonia, Hx Tuberculosis Neurological Medical History: Denies: Hx Cerebrovascular Accident, Hx Migraine, Hx Seizures Endocrine Medical History: Reports: Hx Diabetes Mellitus Type 1, Hx Diabetes Mellitus Type 2 Renal/ Medical History: Reports: Hx End Stage Renal Disease, Hx Hemodialysis, Hx Renal Insufficiency. 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 PermCath right subclavian.. Denies: Hx Hysterectomy - Immunizations Hx Diphtheria, Pertussis, Tetanus Vaccination: Yes Hx Pneumococcal Vaccination: 07/04/10 Review of Systems - Review of Systems Notes: My Normal Review Basic REVIEW OF SYSTEMS: CONSTITUTIONAL : Fever EENT: Denies eye, ear, throat, or mouth pain or symptoms. Denies nasal or sinus congestion. RESPIRATORY: Denies cough, cold, or chest congestion. Denies shortness of breath, difficulty breathing, or wheezing. GASTROINTESTINAL: Denies abdominal pain. Denies nausea, vomiting, or diarrhea. Denies constipation. Last BM: MUSCULOSKELETAL: Denies neck or back pain or joint pain or swelling. SKIN: Abscess over left lower abdominal wall. NEUROLOGICAL: Denies altered mental status or loss of consciousness. Denies headache. Denies weakness or paralysis or loss of use of either side. Denies problems with gait or speech. Denies sensory or motor loss. ALL OTHER SYSTEMS REVIEWED AND NEGATIVE. Physical Exam - Vital signs Vitals: Temp Pulse Resp BP Pulse Ox 100.1 F 105 H 20 198/83 H 97 05/24/17 21:30 05/24/17 21:30 05/24/17 21:30 05/24/17 21:30 05/24/17 21:30 - Notes Notes: General Appearance: Well nourished, alert, cooperative, no acute distress, moderate obvious discomfort. Vitals: reviewed, See vital signs table. Eyes: PERRL, EOMI, Conjuctiva clear Mouth: No decreasd moisture Lungs: No wheezing, No rales, No rhonci, No accessory muscle use, good air exchange bilaterally. Heart: Normal rate, Regular rythm, No murmur, no rub Abdomen: Normal BS, soft, No rigidity, patient has abdominal tenderness over only over the area of the abscess. Abscesses over the left lower abdominal wall. Abscess is superficial appears to be only in the subcutaneous tissue itself on exam. Small amount of surrounding erythema. Abscess approximately 3 cm in diameter. Extremities: strength 5/5 in all extremities, good pulses in all extremities, no swelling or tenderness in the extremities, no edema. Skin: warm, dry, appropriate color, no rash Neuro: speech clear, oriented x 3, normal affect, responds appropriately to questions. Course - Re-evaluation Re-evalutation: 05/26/17 03:18 Abscess was incised and drained. Moderate amount of purulent drainage was expressed from the abscess. Void was then flushed with sterile saline. Abscess was then packed with iodoform gauze. Dressing was applied over this. I informed patient of her follow-up CT scan that she had previously which showed no evidence of kidney stones. I informed patient that she needs to return to the ER in 48 hrs. for recheck of the abscess and to have the packing possibly removed if it is time for its removal. Encouraged her return to ER immediately she has fevers, worsening redness or swelling, or she feels unwell. Patient agrees with plan will be discharged home. Dictation of this chart was performed using voice recognition software; therefore, there may be some unintended grammatical errors. 05/26/17 03:19 - Vital Signs Vital signs: Temp Pulse Resp BP Pulse Ox 99.1 F 95 20 185/94 H 95 05/25/17 02:36 05/25/17 02:36 05/25/17 02:36 05/25/17 02:36 05/25/17 02:36 - Laboratory Result Diagrams: 05/24/17 22:54 05/24/17 22:54 Laboratory results interpreted by me: 05/24/17 05/24/17 22:54 22:54 WBC 12.7 H Hgb 10.9 L Hct 34.7 L MCH 25.9 L MCHC 31.5 L RDW 15.7 H Seg Neutrophils % 82.7 H Lymphocytes % 11.2 L Absolute Neutrophils 10.5 H Sodium 133.4 L Chloride 95 L BUN 40 H Creatinine 6.32 H Est GFR ( Amer) 9 L Est GFR (Non-Af Amer) 7 L Glucose 338 H AST 11 L Lipase 602.6 H Procedures - Incision and Drainage abdominal wall Type: Simple Blade size: 11 I&D procedure: Chlorprep applied Incision Method: Incision made by scalpel Amount/type of drainage: 6mls of purulent drainage Discharge - Discharge Clinical Impression: Abscess Condition: Good Disposition: HOME, SELF-CARE Additional Instructions: ABSCESS: You have an abscess (boil). This a pus-forming infection, usually due to staph. Some boils may be left to drain on their own, but most require lancing. From the time the tender lump first appears, it may be three or four days before the abscess is ready to jian. Local heat and rest help at this stage of treatment. An antibiotic may prevent spread of the infection. Once the abscess is opened, packing may be placed into it. This is done so pus is not sealed inside by premature closure of the cavity. The packing will be removed at your follow-up visit or you may be advised to remove it yourself at home. Sometimes this packing must be replaced a few times during healing. The wound will heal with surprisingly little scar. Depending on the size and location of an abscess, healing can take one to four weeks. You may shower and wash the area around the incision site two or three times a day. Antibiotics may be prescribed, but are usually not necessary after an abscess has been drained. If you develop fever, chills, worsening pain, or increasing swelling in the area, call the doctor or return immediately. POST INCISION AND DRAINAGE: You have had an incision made to allow drainage of an abscess. The incision must remain open so that pus and debris can drain from the wound. If the abscess cavity is large, packing is placed. This keeps the tissues from collapsing and trapping pus inside, while the body shrinks the cavity. The packing may need to be replaced every day or two. The physician will instruct you on the packing. Keep a bulky dressing over the area. Replace it if it becomes saturated with blood or pus. Do not disturb the packing (if present). You may shower and cleanse the area with gentle soap and warm water two or three times a day. Local warmth may be soothing, and may promote faster healing. Return if you develop high fever or chills, or if you note spreading redness, increasing swelling, or increasing tenderness. DOXYCYCLINE: Doxycycline (Vibramycin, Doryx) is an antibiotic of the tetracycline family. This type of drug is useful for infections of the respiratory tract and genital tract, and is sometimes used for intestinal infections. Unlike most tetracyclines, doxycycline can be taken with food. It is longer acting, and (usually) less prone to side effects than regular tetracycline. Tetracycline antibiotics can stain immature teeth and SHOULD NOT BE TAKEN BY CHILDREN, NURSING MOTHERS, OR WOMEN. Tetracyclines can make you more prone to sunburn. Abdominal cramping, nausea, and diarrhea are occasional side effects. Women may experience vaginal yeast infections. Call the doctor at once if you develop hives, itching, shortness of breath , or lightheadedness. FOLLOW-UP CARE: Most simple abscesses will not require a follow up visit. If you had packing placed in the abscess, remove it as instructed by the physician. If you have been referred to a physician for follow-up care, call the physicians office for an appointment as you were instructed or within the next two days. If you experience worsening or a significant change in your symptoms, return to the Emergency Department at any time for re-evaluation. Please return to the ER immediately if you have spreading redness on your abdomen, fevers, intractable vomiting, or recurrence of swelling. Please return to the ER in 2 days for reevaluation and recheck of the wound. Prescriptions: Doxycycline Hyclate 100 mg PO BID #14 capsule
[2017-05-25 02:39] VITALS: BP 185/94
== END 2017-05-25 02:31 | disposition home or self-care (01) ==
LOC: ER 21:05
PROC: 0H97XZZ Drainage of Abdomen Skin, External Approach (ICD-10-PCS; principal; 2017-05-24)
DX: L02.211 Cutaneous abscess of abdominal wall (principal); R10.9 Unspecified abdominal pain; R50.9 Fever, unspecified; N18.6 End stage renal disease; E11.9 Type 2 diabetes mellitus without complications
CPT/HCPCS: 99284; 96372; 36415; 87040; 83690; 85025; 80053; 83605; 76705; 93976; 10060; A6266; J1200; A9270 ×3; J1170; S0119

== ENCOUNTER 2017-05-26 16:11 | Emergency (ER) | payer MEDICARE, MEDICAID ==
[2017-05-26 16:25] VITALS: BP 163/78
--- NOTE | 2017-05-26 17:15 | ER Document Report ---
HPI - HPI Patient complains to provider of: abscess wound check Context: Patient is a 46-year-old female who returns the ER after abscess drained 2 days ago. For wound check. She states that the packing felt this morning when she is taking shower but otherwise denies any worsening drainage, tenderness at the site. Been taking antibiotics as directed. Denies any fevers - REPRODUCTIVE Reproductive: DENIES: : Past Medical History - Social History Smoking Status: Smoker,Current Status Unk Family History: Reviewed & Not Pertinent - Past Medical History Cardiac Medical History: Reports: Hx Hypercholesterolemia, Hx Hypertension Denies: Hx Atrial Fibrillation, Hx Congestive Heart Failure, Hx Coronary Artery Disease, Hx Heart Attack Pulmonary Medical History: Denies: Hx Asthma, Hx Bronchitis, Hx COPD, Hx Pneumonia, Hx Tuberculosis Neurological Medical History: Denies: Hx Cerebrovascular Accident, Hx Migraine, Hx Seizures Endocrine Medical History: Reports: Hx Diabetes Mellitus Type 1, Hx Diabetes Mellitus Type 2 Renal/ Medical History: Reports: Hx End Stage Renal Disease, Hx Hemodialysis, Hx Renal Insufficiency. 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 PermCath right subclavian.. Denies: Hx Hysterectomy - Immunizations Hx Diphtheria, Pertussis, Tetanus Vaccination: Yes Hx Pneumococcal Vaccination: 07/04/10 Vertical Provider Document - CONSTITUTIONAL Agree With Documented VS: Yes Notes: PHYSICAL EXAM GENERAL: Alert, interacts well. ABDOMEN: Soft, nondistended, nontender. No guarding, rebound, or rigidity.. Bowel sounds present in all 4 quadrants. EXTREMITIES: Moves all 4 extremities spontaneously. No edema, radial and dorsalis pedis pulses 2/4 bilaterally. No cyanosis. NEUROLOGICAL: Alert and oriented x4. Normal speech. PSYCH: Normal affect, normal mood. SKIN: Warm, dry, normal turgor. Incision done in the left lower quadrant underneath the patient's pannus that is draining clearish yellow fluid with some surrounding cellulitis but no palpable fluctuance separate than the draining area. - INFECTION CONTROL TRAVEL OUTSIDE OF THE [place] IN LAST 30 DAYS: No - RESPIRATORY O2 Sat by Pulse Oximetry: 99 Course - Re-evaluation Re-evalutation: 05/26/17 19:53 Patient is a 46-year-old female is hemodynamically stable, no acute distress and afebrile. Site was repacked and patient educated to return in 2-3 days for another wound check. Otherwise discussed wound care at home. Patient is stable for discharge home - Vital Signs Vital signs: Temp Pulse Resp BP Pulse Ox 98.7 F 87 20 163/78 H 99 05/26/17 16:24 05/26/17 16:24 05/26/17 16:24 05/26/17 16:24 05/26/17 16:24 Discharge - Discharge Clinical Impression: Wound check, abscess Condition: Good Disposition: HOME, SELF-CARE Additional Instructions: Your wound was repacked today. Please return to the ER in 2-3 days for wound check to have your packing reassessed and your wound reexamined. Otherwise please return to the ER with any worsening swelling, redness, fevers or chills. Referrals: NICKY BARBOZA MD [Primary Care Provider] - Follow up in 3-5 days
== END 2017-05-26 17:20 | disposition home or self-care (01) ==
LOC: ER 16:11
DX: L02.01 Cutaneous abscess of face (principal); F17.200 Nicotine dependence, unspecified, uncomplicated; E78.00 Pure hypercholesterolemia, unspecified; I12.0 Hypertensive chronic kidney disease with stage 5 chronic kidney disease or end stage renal disease; E11.22 Type 2 diabetes mellitus with diabetic chronic kidney disease; N18.6 End stage renal disease; Z99.2 Dependence on renal dialysis; Z86.14 Personal history of Methicillin resistant Staphylococcus aureus infection; Z90.49 Acquired absence of other specified parts of digestive tract; Z89.511 Acquired absence of right leg below knee; Z98.51 Tubal ligation status
CPT/HCPCS: 99282; A6266

== ENCOUNTER 2017-06-19 18:30 | Emergency (ER) | payer MEDICARE, MEDICAID ==
[2017-06-19] MEDS ORDERED: ONDANSETRON HCL INJ/PF 4 MG/2 ML SDV IV ONE (19:24)
[2017-06-19] MEDS ORDERED: FENTANYL CITRATE INJ/PF 100 MCG/2 ML AMPUL IV ONE (19:24)
--- NOTE | 2017-06-19 19:28 | ER Document Report ---
ED Skin Rash/Insect Bite/Abscs - General Chief Complaint: Abscess Stated Complaint: ABSCESS Time Seen by Provider: 06/19/17 19:15 Notes: Patient is a 47-year-old female who comes emergency department for chief complaint of an abscess on her left lower abdominal wall, she states that she was seen 1 month ago, had the area incised, drained, packed, she states that she came back and got repacked, she states that area never went away over the past week it is started to drain again, she states that it now has a foul smell and is more tender. She is a diabetic, she also has dialysis. She states today she started feeling nauseated as well. She denies vomiting, fever. TRAVEL OUTSIDE OF THE [place] IN LAST 30 DAYS: No - Related Data Allergies/Adverse Reactions: sulfamethoxazole [From Septra] Allergy (Severe, Verified 06/19/17 18:32) Hives trimethoprim [From Septra] Allergy (Severe, Verified 06/19/17 18:32) Hives adhesive tape [Adhesive Tape] Adverse Reaction (Verified 06/19/17 18:32) Bruising/Rash Past Medical History - General Information source: Patient - Social History Smoking Status: Never Smoker Frequency of alcohol use: None Drug Abuse: None Lives with: Family Family History: Reviewed & Not Pertinent - Past Medical History Cardiac Medical History: Reports: Hx Hypercholesterolemia, Hx Hypertension Denies: Hx Atrial Fibrillation, Hx Congestive Heart Failure, Hx Coronary Artery Disease, Hx Heart Attack Pulmonary Medical History: Denies: Hx Asthma, Hx Bronchitis, Hx COPD, Hx Pneumonia, Hx Tuberculosis Neurological Medical History: Denies: Hx Cerebrovascular Accident, Hx Migraine, Hx Seizures Endocrine Medical History: Reports: Hx Diabetes Mellitus Type 2 Renal/ Medical History: Reports: Hx End Stage Renal Disease, Hx Hemodialysis, Hx Renal Insufficiency. 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 PermCath right subclavian.. Denies: Hx Hysterectomy - Immunizations Hx Diphtheria, Pertussis, Tetanus Vaccination: Yes Hx Pneumococcal Vaccination: 07/04/10 Review of Systems - Review of Systems Constitutional: No symptoms reported EENT: No symptoms reported Cardiovascular: No symptoms reported Respiratory: No symptoms reported Gastrointestinal: No symptoms reported Genitourinary: No symptoms reported Female Genitourinary: No symptoms reported Musculoskeletal: No symptoms reported Skin: See HPI Hematologic/Lymphatic: No symptoms reported Neurological/Psychological: No symptoms reported Physical Exam - Vital signs Vitals: Temp Pulse BP Pulse Ox 98.9 F 96 179/91 H 96 06/19/17 18:50 06/19/17 18:50 06/19/17 18:50 06/19/17 18:50 Interpretation: Normal - General General appearance: Appears well, Alert In distress: None - HEENT Head: Normocephalic, Atraumatic Eyes: Normal Pupils: PERRL - Respiratory Respiratory status: No respiratory distress Chest status: Nontender Breath sounds: Normal Chest palpation: Normal - Cardiovascular Rhythm: Regular Heart sounds: Normal auscultation Murmur: No - Abdominal Inspection: Other - Left lower abdomen with a approximately 4 cm indurated area with a fluctuant head with purulent drainage coming out, no surrounding erythema noted, nontender abdomen otherwise, unremarkable examination of the abdomen otherwise Distension: No distension Bowel sounds: Normal Organomegaly: No organomegaly - Back Back: Normal, Nontender - Extremities General upper extremity: Normal inspection, Nontender, Normal strength, Normal temperature - Neurological Neuro grossly intact: Yes Cognition: Normal Orientation: AAOx4 [place] Coma Scale Eye Opening: Spontaneous Alondra Coma Scale Verbal: Oriented Alondra Coma Scale Motor: Obeys Commands Alondra Coma Scale Total: 15 Speech: Normal Motor strength normal: LUE, RUE, LLE, RLE Sensory: Normal - Psychological Associated symptoms: Normal affect, Normal mood - Skin Skin Temperature: Warm Skin Moisture: Dry Skin Color: Normal Course - Re-evaluation Re-evalutation: CBC unremarkable with no leukocytosis. Chemistry shows hyperglycemia but no acidosis, she has a dialysis patient without elevated potassium. Patient is afebrile, not tachycardic, not hypotensive, she is talkative and well-appearing. On physical examination patient has an indurated fluctuant abscess that is already opened and draining slightly. I recommended incision and drainage with packing, patient declines, patient states that she wants to be evaluated by a surgeon for their opinion because it has been present for 1 month without resolving. I did call and speak with Dr. Vail, he graciously agrees to come evaluate the patient. At bedside he recommends incision and drainage, packing daily, outpatient follow-up. He discussed this with patient. She states agreement. Afterwards patient did consent to incision and drainage which was performed by myself, I demonstrated to her how to pack the wound/abscess, discussed follow-up. Patient does not want referral to wound clinic, wants to follow-up with primary care instead. Discussed return precautions, patient states understanding and agreement. - Vital Signs Vital signs: Temp Pulse Resp BP Pulse Ox 98.3 F 89 20 165/89 H 97 06/19/17 22:33 06/19/17 22:33 06/19/17 22:33 06/19/17 22:33 06/19/17 22:33 - Laboratory Result Diagrams: 06/19/17 20:47 06/19/17 20:47 Laboratory results interpreted by me: 06/19/17 06/19/17 20:47 20:47 Hgb 10.4 L Hct 32.7 L MCH 26.2 L MCHC 31.8 L RDW 16.4 H Sodium 132.7 L Chloride 94 L BUN 42 H Creatinine 6.20 H Est GFR ( Amer) 9 L Est GFR (Non-Af Amer) 7 L Glucose 343 H Calcium 8.1 L Procedures - Incision and Drainage Left lower abdomen Type: Single mL's of anesthetic: 0 - Patient declined I&D procedure: Shurclens applied, Iodoform packing placed Incision Method: Incision made by scalpel Amount/type of drainage: Moderate amount of purulent drainage and blood Discharge - Discharge Clinical Impression: Abscess Condition: Stable Disposition: HOME, SELF-CARE Additional Instructions: The abscess has been drained and packed. Repack daily as instructed by Dr. Vail (remove current packing, clean well, dry, and then apply new packing, apply new dressing). Follow-up with your provider for additional evaluation and management as we discussed. Return if you worsen including fever, spreading redness, or any other concerning or worsening symptoms. Prescriptions: Hydrocodone/Acetaminophen [[place] 5-325 mg Tablet] 1 - 2 tab PO ASDIR #10 tablet Forms: Elevated Blood Pressure Referrals: NICKY BARBOZA MD [Primary Care Provider] - Follow up as needed
[2017-06-19] MEDS ORDERED: ONDANSETRON 4 MG TAB.RAPDIS PO ONE (19:47)
[2017-06-19] MEDS ORDERED: HYDROMORPHONE HCL INJ/PF 2 MG/ML AMPULE IM ONE (19:47)
[2017-06-19] MEDS ORDERED: LIDOCAINE 1%/EPINEPHRINE INJ 20 ML VIAL INJ ONE (20:07)
[2017-06-19 20:57] LABS: ABSOLUTE BASOPHILS # (AUTO) 0.1 10^3/uL (0.0-0.2); ABSOLUTE EOSINOPHILS # (AUTO) 0.3 10^3/uL (0.0-0.6); ABSOLUTE LYMPHOCYTES (AUTO) 1.8 10^3/uL (0.5-4.7); ABSOLUTE MONOCYTES (AUTO) 0.4 10^3/uL (0.1-1.4); ABSOLUTE NEUT (AUTO) 5.3 10^3/uL (1.7-8.2); BASOPHILS % (AUTO) 1.2 % (0-2); EOSINOPHILS % (AUTO) 4.2 % (0-6); HEMATOCRIT 32.7 % (36.0-47.0); HEMOGLOBIN 10.4 g/dL (12.0-15.5); LYMPHOCYTES % (AUTO) 22.6 % (13-45); MEAN CORPUSCULAR HEMOGLOBIN 26.2 pg (27.0-33.4); MEAN CORPUSCULAR HGB CONC 31.8 g/dL (32.0-36.0); MEAN CORPUSCULAR VOLUME 83 fl (80-97); MONOCYTES % (AUTO) 5.6 % (3-13); PLATELET COUNT 232 10^3/uL (150-450); RED BLOOD COUNT 3.97 10^6/uL (3.72-5.28); RED CELL DISTRIBUTION WIDTH 16.4 % (11.5-14.0); SEGMENTED NEUTROPHILS % (AUTO) 66.4 % (42-78); TOTAL CELLS COUNTED % (AUTO) 100 %
[2017-06-19 21:09] LABS: ANION GAP 15 (5-19); BLOOD UREA NITROGEN 42 mg/dL (7-20); CALCIUM 8.1 mg/dL (8.4-10.2); CARBON DIOXIDE 24 mmol/L (22-30); CHLORIDE 94 mmol/L (98-107); GLUCOSE 343 mg/dL (75-110); POTASSIUM 4.5 mmol/L (3.6-5.0); SODIUM 132.7 mmol/L (137-145)
[2017-06-19] MEDS ORDERED: HYDROCODONE/ACETAMINOPHEN 5-325 MG (6 TAB/ER DISP) PO PRN (22:03)
[2017-06-19 22:35] VITALS: BP 165/89
== END 2017-06-19 22:33 | disposition home or self-care (01) ==
LOC: ER 18:30
DX: L02.211 Cutaneous abscess of abdominal wall (principal); I12.0 Hypertensive chronic kidney disease with stage 5 chronic kidney disease or end stage renal disease; E11.22 Type 2 diabetes mellitus with diabetic chronic kidney disease; E11.65 Type 2 diabetes mellitus with hyperglycemia; N18.6 End stage renal disease; Z99.2 Dependence on renal dialysis; Z86.14 Personal history of Methicillin resistant Staphylococcus aureus infection; R11.0 Nausea; Z88.1 Allergy status to other antibiotic agents
CPT/HCPCS: 99283; 96372; 36415; 85025; 80048; 10060; A9270 ×2; J3490; J1170; S0119

== ENCOUNTER 2017-07-09 00:19 | Observation (INO) | payer MEDICARE, MEDICAID ==
[2017-07-09 01:49] LABS: ABSOLUTE BASOPHILS # (AUTO) 0.1 10^3/uL (0.0-0.2); ABSOLUTE EOSINOPHILS # (AUTO) 0.3 10^3/uL (0.0-0.6); ABSOLUTE LYMPHOCYTES (AUTO) 2.3 10^3/uL (0.5-4.7); ABSOLUTE MONOCYTES (AUTO) 0.4 10^3/uL (0.1-1.4); ABSOLUTE NEUT (AUTO) 6.1 10^3/uL (1.7-8.2); BASOPHILS % (AUTO) 1.3 % (0-2); EOSINOPHILS % (AUTO) 3.6 % (0-6); HEMATOCRIT 35.3 % (36.0-47.0); HEMOGLOBIN 11.2 g/dL (12.0-15.5); LYMPHOCYTES % (AUTO) 24.9 % (13-45); MEAN CORPUSCULAR HEMOGLOBIN 26.7 pg (27.0-33.4); MEAN CORPUSCULAR HGB CONC 31.8 g/dL (32.0-36.0); MEAN CORPUSCULAR VOLUME 84 fl (80-97); MONOCYTES % (AUTO) 4.2 % (3-13); PLATELET COUNT 240 10^3/uL (150-450); RED BLOOD COUNT 4.21 10^6/uL (3.72-5.28); RED CELL DISTRIBUTION WIDTH 16.5 % (11.5-14.0); TOTAL CELLS COUNTED % (AUTO) 100 %; WHITE BLOOD COUNT 9.3 10^3/uL (4.0-10.5)
--- NOTE | 2017-07-09 01:55 | RADIOLOGY REPORT (SQ) ---
EXAM DESCRIPTION: CHEST SINGLE VIEW CLINICAL HISTORY: chest pain COMPARISON: 03/05/2017 FINDINGS: Single frontal view of the chest. The cardiomediastinal silhouette has normal size and contour. No consolidation, pneumothorax, or pleural effusion. No displaced rib fractures identified. Upper abdominal soft tissues are unremarkable. IMPRESSION: 1. No acute pulmonary process identified.
[2017-07-09 02:08] LABS: ANION GAP 16 (5-19); BLOOD UREA NITROGEN 48 mg/dL (7-20); CALCIUM 7.9 mg/dL (8.4-10.2); CARBON DIOXIDE 25 mmol/L (22-30); CHLORIDE 101 mmol/L (98-107); GLUCOSE 232 mg/dL (75-110); POTASSIUM 4.6 mmol/L (3.6-5.0)
--- NOTE | 2017-07-09 02:44 | ER Document Report ---
ED General - General Chief Complaint: Chest Pain Stated Complaint: CHEST PAIN Time Seen by Provider: 07/09/17 01:31 Notes: Patient is a 47 year old female with a past medical history of morbid obesity, diabetes with insulin dependence, dialysis dependence, peripheral arterial disease, hypertension, hyperlipidemia, who presents with left-sided chest pain. She describes this as a pressure-like sensation over her left chest with intermittent radiation into the left jaw and left upper extremity. States the pain came on abruptly while she was driving her car has been intermittent since that time. Nothing seemed to improve or worsen her symptoms. She denies a history of similar symptoms in the past. She had a stress test in December or January 2017 which she states was normal. She denies any pain at the time of my assessment. She has not seen her primary doctor regarding today's concerns. She has no known history of coronary artery disease. TRAVEL OUTSIDE OF THE [place] IN LAST 30 DAYS: No - Related Data Allergies/Adverse Reactions: sulfamethoxazole [From Septra] Allergy (Severe, Verified 06/19/17 18:32) Hives trimethoprim [From Septra] Allergy (Severe, Verified 06/19/17 18:32) Hives adhesive tape [Adhesive Tape] Adverse Reaction (Verified 06/19/17 18:32) Bruising/Rash Past Medical History - General Information source: Patient - Social History Smoking Status: Never Smoker Chew tobacco use (# tins/day): No Frequency of alcohol use: None Drug Abuse: None Lives with: Family Family History: Reviewed & Not Pertinent Patient has suicidal ideation: No Patient has homicidal ideation: No - Past Medical History Cardiac Medical History: Reports: Hx Hypercholesterolemia, Hx Hypertension Denies: Hx Atrial Fibrillation, Hx Congestive Heart Failure, Hx Coronary Artery Disease, Hx Heart Attack Pulmonary Medical History: Denies: Hx Asthma, Hx Bronchitis, Hx COPD, Hx Pneumonia, Hx Tuberculosis Neurological Medical History: Denies: Hx Cerebrovascular Accident, Hx Migraine, Hx Seizures Endocrine Medical History: Reports: Hx Diabetes Mellitus Type 1, Hx Diabetes Mellitus Type 2 Renal/ Medical History: Reports: Hx End Stage Renal Disease, Hx Hemodialysis, Hx Renal Insufficiency. 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 PermCath right subclavian.. Denies: Hx Hysterectomy - Immunizations Hx Diphtheria, Pertussis, Tetanus Vaccination: Yes Hx Pneumococcal Vaccination: 07/04/10 Review of Systems - Review of Systems Notes: Constitutional: Negative for fever. HENT: Negative for sore throat. Eyes: Negative for visual changes. Cardiovascular: Positive for chest pain. Respiratory: Negative for shortness of breath. Gastrointestinal: Negative for abdominal pain, vomiting or diarrhea. Genitourinary: Negative for dysuria. Musculoskeletal: Negative for back pain. Skin: Negative for rash. Neurological: Negative for headaches, weakness or numbness. 10 point ROS negative except as marked above and in HPI. Physical Exam - Vital signs Vitals: Temp Pulse Resp BP Pulse Ox 98.6 F 90 18 178/87 H 100 07/09/17 00:36 07/09/17 00:36 07/09/17 00:36 07/09/17 00:36 07/09/17 00:36 Interpretation: Hypertensive Notes: PHYSICAL EXAMINATION: GENERAL: Morbidly obese female, well-appearing, well-nourished and in no acute distress. HEAD: Atraumatic, normocephalic. EYES: Pupils equal round and reactive to light, extraocular movements intact, sclera anicteric, conjunctiva are normal. ENT: nares patent, oropharynx clear without exudates. Moist mucous membranes. NECK: Normal range of motion, supple without lymphadenopathy LUNGS: Breath sounds clear to auscultation bilaterally and equal. No wheezes rales or rhonchi. HEART: Regular rate and rhythm without murmurs ABDOMEN: Soft, morbidly obese abdomen, nontender, normoactive bowel sounds. No guarding, no rebound. No masses appreciated. EXTREMITIES: Right BKA, no other notable findings. NEUROLOGICAL: No focal neurological deficits. Moves all extremities spontaneously and on command. PSYCH: Normal mood, normal affect. SKIN: Warm, Dry, normal turgor, no rashes or lesions noted. Course - Re-evaluation Re-evalutation: 07/09/17 02:41 Patient presents with intermittent left-sided chest pain described as a pressure with radiation into her left jaw and arm. Nothing seems to improve or worsen her pain. EKG without ischemic changes. Initial troponin is normal. Patient has almost every risk factor for coronary artery disease including morbid obesity with a BMI of 50, hypertension, hyperlipidemia, dialysis dependence, peripheral artery disease with a history of a right lower extremity BKA. Given this multitude of risk factors and patient's description of the pain , am concerned that she is not safe for discharge as her heart score is 4. Will discuss with her primary doctor Dr. Lorenz for consideration of stress testing 07/09/17 04:[address] Lorenz and he has agreed to accept the patient for hospitalization given her elevated risk factors and clinical history. Repeat troponin remains normal. - Vital Signs Vital signs: Temp Pulse Resp BP Pulse Ox 98.6 F 90 18 172/118 H 99 07/09/17 00:36 07/09/17 00:36 07/09/17 02:03 07/09/17 02:03 07/09/17 02:03 - Laboratory Result Diagrams: 07/09/17 01:34 07/09/17 01:34 Laboratory results interpreted by me: 07/09/17 07/09/17 01:34 01:34 Hgb 11.2 L Hct 35.3 L MCH 26.7 L MCHC 31.8 L RDW 16.5 H BUN 48 H Creatinine 6.91 H Est GFR ( Amer) 8 L Est GFR (Non-Af Amer) 6 L Glucose 232 H Calcium 7.9 L - Diagnostic Test Radiology reviewed: Image reviewed, Reports reviewed Radiology results interpreted by me: 07/09/17 03:14 Chest x-ray: No acute infiltrate or pneumothorax - EKG Interpretation by Me Additional EKG results interpreted by me: 07/09/17 03:16 Sinus rhythm. Rate 88. No ST elevations or depressions. QTC prolonged at 513. Discharge - Discharge Clinical Impression: Essential hypertension Chest pain Qualifiers: Chest pain type: unspecified Qualified Code(s): R07.9 - Chest pain, unspecified Condition: Fair Disposition: ADMITTED OBSERVATION Admitting Provider: [facility] Unit Admitted: [facility]
[2017-07-09] MEDS: ACETAMINOPHEN 325 MG TABLET PO PRN ×2 (07:05→20:15)
[2017-07-09 08:46] LABS: CREATINE KINASE MB 0.58 ng/mL (<4.55)
--- NOTE | 2017-07-09 08:52 | PDOC H&P ---
History of Present Illness Admission Date/PCP: 07/09/17 04:25 Patient complains of: Chest pain History of Present Illness: SEGUN NG is a 47 year old female There is a 47-year-old female with a history of end-stage renal disease on hemodialysis history of severe gastroparesis and history of the type 2 diabetes with multiple complications and multiple other comorbidity came to ER yesterday with a complaint of left-sided chest pain and radiating to the jaw and upper extremityAnd the patient's initial EKG and a cardiac enzymes 2 was negative Patient on multiple risk factors decided to admit for the further evaluations I saw the patient's denied any upper extremity pain joint pain in the denied any chest pain right now patient denied any shortness of the breath Patient have a stress test was done in February at [facility] and was all negative patient had a cardiac cath done couple of years back in [place] according to the patient's was all stable And have a significant GI issues with the chronic gastroparesis several GI workup done including the [facility] and the patient also seen the [facility] [facility] Patient's currently scheduled for hemodialysis today Past Medical History Cardiac Medical History: Reports: Hyperlipidema, Hypertension Denies: Atrial Fibrillation, Congestive Heart Failure, Coronary Artery Disease, Myocardial Infarction Pulmonary Medical History: Denies: Asthma, Bronchitis, Chronic Obstructive Pulmonary Disease (COPD), Pneumonia, Tuberculosis Neurological Medical History: Denies: Migraine, Seizures Endocrine Medical History: Reports: Diabetes Mellitus Type 1, Diabetes Mellitus Type 2 Renal/ Medical History: Reports: End Stage Renal Disease GI Medical History: Reports: Gastroesophageal Reflux Disease Musculoskeltal Medical History: Denies: Arthritis Psychiatric Medical History: Reports: Depression Denies: Attention Deficit Hyperactivity Disorder, Bipolar Disorder Hematology: Reports: Anemia Denies: Sickle Cell Disease Infectious Medical History: Reports: Methicillin-Resistant Staph Aureus Past Surgical History Past Surgical History: Reports: Section, Cholecystectomy, Orthopedic Surgery - ORIF right ankle with subsequent MRSA infection and Right BKA., Tubal Ligation, Vascular Surgery - Right forearm AV fistula. PermCath right subclavian. Denies: Hysterectomy Social History Lives with: Family Smoking Status: Never Smoker Frequency of Alcohol Use: None Hx Recreational Drug Use: No Drugs: None Hx Prescription Drug Abuse: No Family History Family History: Reviewed & Not Pertinent Parental Family History Reviewed: Yes Children Family History Reviewed: Yes Sibling(s) Family History Reviewed.: Yes Medication/Allergy Home Medications: Carvedilol [Coreg 25 mg Tablet] 1 tab PO Q12 07/09/17 Clonidine HCl [Catapres 0.2 mg Tablet] 0.2 mg PO Q12 07/09/17 Hydralazine HCl 100 mg PO Q8 07/09/17 Insulin Glargine,Hum.rec.anlog [Lantus Solostar] 40 unit SQ Q12 07/09/17 Levofloxacin [Levaquin 250 mg Tablet] 250 mg PO DAILY 07/09/17 Losartan Potassium [Cozaar 100 mg Tablet] 100 mg PO DAILY 07/09/17 Omeprazole 20 mg PO Q6AM 07/09/17 Promethazine HCl [Phenergan 25 mg Tablet] 12.5 mg PO Q6HP PRN 07/09/17 Allergies/Adverse Reactions: sulfamethoxazole [From ] Allergy (Severe, Verified 06/19/17 18:32) Hives trimethoprim [From ] Allergy (Severe, Verified 06/19/17 18:32) Hives adhesive tape [Adhesive Tape] Adverse Reaction (Verified 06/19/17 18:32) Bruising/Rash Review of Systems Constitutional: ABSENT: chills, fever(s), headache(s), weight gain, weight loss Eyes: ABSENT: visual disturbances Ears: ABSENT: hearing changes Cardiovascular: PRESENT: chest pain. ABSENT: dyspnea on exertion, edema, orthropnea, palpitations Respiratory: ABSENT: cough, hemoptysis Gastrointestinal: ABSENT: abdominal pain, constipation, diarrhea, hematemesis, hematochezia, nausea, vomiting Genitourinary: ABSENT: dysuria, hematuria Musculoskeletal: ABSENT: joint swelling Integumentary: ABSENT: rash, wounds Neurological: ABSENT: abnormal gait, abnormal speech, confusion, dizziness, focal weakness, syncope Psychiatric: ABSENT: anxiety, depression, homidical ideation, suicidal ideation Endocrine: ABSENT: cold intolerance, heat intolerance, menstrual abnormalities, polydipsia, polyuria Hematologic/Lymphatic: ABSENT: easy bleeding, easy bruising, lymphadenopathy Physical Exam Vital Signs: Temp Pulse Resp BP Pulse Ox 98.6 F 90 17 156/83 H 100 07/09/17 00:36 07/09/17 00:36 07/09/17 05:01 07/09/17 05:01 07/09/17 05:01 General appearance: PRESENT: no acute distress, well-developed, well-nourished Head exam: PRESENT: atraumatic, normocephalic Eye exam: PRESENT: conjunctiva pink, EOMI, PERRLA. ABSENT: scleral icterus Ear exam: PRESENT: normal external ear exam Mouth exam: PRESENT: moist, tongue midline Neck exam: PRESENT: full ROM. ABSENT: carotid bruit, JVD, lymphadenopathy, thyromegaly Respiratory exam: PRESENT: clear to auscultation alexandr Cardiovascular exam: PRESENT: RRR. ABSENT: diastolic murmur, rubs, systolic murmur Pulses: PRESENT: normal dorsalis pedis pul, +2 pedal pulses bilateral Vascular exam: PRESENT: normal capillary refill GI/Abdominal exam: PRESENT: normal bowel sounds, soft. ABSENT: distended, guarding, mass, organolmegaly, rebound, tenderness Rectal exam: PRESENT: deferred Extremities exam: ABSENT: pedal edema Neurological exam: PRESENT: alert, awake, oriented to person, oriented to place , oriented to time, oriented to situation, CN II-XII grossly intact. ABSENT: motor sensory deficit Psychiatric exam: PRESENT: appropriate affect, normal mood. ABSENT: homicidal ideation, suicidal ideation Skin exam: PRESENT: dry, intact, warm. ABSENT: cyanosis, rash Results Laboratory Results: 07/09/17 07:52 Creatine Kinase 162 H Impressions: Chest X-Ray 07/09/17 01:31 IMPRESSION: 1. No acute pulmonary process identified. Assessment & Plan - Diagnosis (1) Chest pain Qualifiers: Chest pain type: unspecified Qualified Code(s): R07.9 - Chest pain, unspecified Is this a current diagnosis for this admission?: Yes Plan: Get the serial cardiac enzyme consult the cardiology (2) Essential hypertension Is this a current diagnosis for this admission?: Yes Plan: Currently all stable (3) Congestive heart failure Qualifiers: Heart failure type: diastolic Is this a current diagnosis for this admission?: Yes Plan: Continues on hemodialysis (4) Diabetes Qualifiers: Diabetes mellitus complication status: with unspecified complications Is this a current diagnosis for this admission?: Yes Plan: Sliding scales (5) ESRD (end stage renal disease) Is this a current diagnosis for this admission?: Yes Plan: Consult Dr. 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
[2017-07-09 08:59] LABS: TROPONIN I < 0.012 ng/mL
[2017-07-09] MEDS ORDERED: DEXTROSE 50%-WATER SYRINGE 25 GM/50 ML DOSE IV PRN (09:18)
[2017-07-09] MEDS ORDERED: DEXTROSE 50%-WATER SYRINGE 12.5 GM/25 ML DOSE IV PRN (09:18)
[2017-07-09] MEDS ORDERED: GLUCAGON,HUMAN RECOMB 1 MG INJ IM PRN ×2 (09:18→09:43)
[2017-07-09] MEDS ORDERED: DEXTROSE 40% GEL 15 GM TUBE PO PRN ×3 (09:18→09:43)
[2017-07-09] MEDS ORDERED: DEXTROSE 40% GEL 15 GM TUBE X 2 PO PRN (09:18)
--- NOTE | 2017-07-09 09:40 | EKG REPORT ---
SEVERITY:- ABNORMAL ECG - SINUS RHYTHM PROLONGED QT INTERVAL : Confirmed by: Jah Reed 09-Jul-2017 09:39:13
[2017-07-09] MEDS ORDERED: CALCIUM ACETATE 667 MG CAPSULE PO PRN (09:42)
[2017-07-09] MEDS ORDERED: DEXTROSE 50%-WATER 25 GM/50 ML DISP.SYRIN IV PRN ×2 (09:43)
[2017-07-09] MEDS ORDERED: DOXERCALCIFEROL IV SCH (09:45)
[2017-07-09] MEDS ORDERED: EPOETIN ALFA INJ 20000 UNIT/1 ML VIAL (RENAL) IV SCH (09:45)
[2017-07-09] MEDS: INSULIN LISPRO 100 UNIT/ML 3 ML VIAL SUBCUT PRN ×3 (10:07→18:55)
[2017-07-09] MEDS: PROMETHAZINE HCL 25 MG TABLET PO PRN (10:36)
[2017-07-09] MEDS: CLONIDINE HCL 0.2 MG TABLET PO SCH (10:40)
[2017-07-09] MEDS: AMLODIPINE BESYLATE 10 MG TABLET PO SCH (10:41)
[2017-07-09] MEDS ORDERED: LOSARTAN POTASSIUM 50 MG TABLET PO ONE (11:00)
[2017-07-09] MEDS ORDERED: LEVOFLOXACIN 250 MG TABLET PO ONE (11:00)
[2017-07-09] MEDS ORDERED: CARVEDILOL 12.5 MG TABLET PO ONE (11:00)
[2017-07-09] MEDS: INSULIN GLARGINE,HUM.REC.ANLOG 300 UNIT/3 ML INSULN.PEN SUBCUT SCH (11:20)
[2017-07-09] MEDS: CALCIUM ACETATE 667 MG CAPSULE PO SCH ×2 (11:24→18:55)
[2017-07-09 13:38] LABS: CREATINE KINASE MB 0.64 ng/mL (<4.55)
[2017-07-09 13:41] LABS: TROPONIN I < 0.012 ng/mL
[2017-07-09] MEDS: LANSOPRAZOLE 15 MG TAB.RAP.DR PO SCH (18:55)
[2017-07-09] MEDS: HEPARIN SOD (PORCINE) 5,000 UNIT/ML 1 ML SYRINGE SUBCUT SCH (19:02)
[2017-07-09] MEDS: HYDRALAZINE HCL 50 MG TABLET PO SCH (19:02)
[2017-07-09 19:41] LABS: CREATINE KINASE MB 0.56 ng/mL (<4.55)
[2017-07-09 19:42] LABS: TROPONIN I < 0.012 ng/mL
--- NOTE | 2017-07-09 21:17 | PDOC CONSULTATION ---
Consultation Consult Date: 07/09/17 Attending physician:: NICKY BARBOZA Consult reason:: Chest pain History of Present Illness Admission Date/PCP: 07/09/17 04:25 Patient complains of: Shortness of breath and chest pain History of Present Illness: SEGUN NG is a 47 year old female with a history of complicated diabetes mellitus with history of ESRD on hemodialysis, neuropathy and gastroparesis, end -stage renal disease on hemodialysis was admitted yesterday with a complaint of left-sided chest pain and radiating to the jaw and upper extremity. Patient has been admitted to be ruled out for acute ischemic heart disease.She has had extensive workup for ischemic heart disease including cardiac cath. She is currently being seen by she is undergoing dialysis.She denies any specific complaints of the moment. Vital signs are stable. Orders were discussed with the treating dialysis nurse.Labs and medications were reviewed. This history was reviewed and confirmed. Patient describes history of nuclear stress test about a year ago which was relatively unremarkable. Past Medical History Cardiac Medical History: Reports: Hyperlipidema, Hypertension Denies: Atrial Fibrillation, Congestive Heart Failure, Coronary Artery Disease, Myocardial Infarction Pulmonary Medical History: Denies: Asthma, Bronchitis, Chronic Obstructive Pulmonary Disease (COPD), Pneumonia, Tuberculosis Neurological Medical History: Denies: Migraine, Seizures Endocrine Medical History: Reports: Diabetes Mellitus Type 1, Diabetes Mellitus Type 2 Renal/ Medical History: Reports: End Stage Renal Disease GI Medical History: Reports: Gastroesophageal Reflux Disease Musculoskeltal Medical History: Denies: Arthritis Psychiatric Medical History: Reports: Depression Denies: Attention Deficit Hyperactivity Disorder, Bipolar Disorder Hematology: Reports: Anemia Denies: Sickle Cell Disease Infectious Medical History: Reports: Methicillin-Resistant Staph Aureus Past Surgical History Past Surgical History: Reports: Section, Cholecystectomy, Orthopedic Surgery - ORIF right ankle with subsequent MRSA infection and Right BKA., Tubal Ligation, Vascular Surgery - Right forearm AV fistula. PermCath right subclavian. Denies: Hysterectomy Social History Information Source: Patient Lives with: Family Smoking Status: Never Smoker Frequency of Alcohol Use: None Hx Recreational Drug Use: No Drugs: None Hx Prescription Drug Abuse: No - Advance Directive Resuscitation Status: Full Code Family History Family History: DM, Hypertension Parental Family History Reviewed: Yes Children Family History Reviewed: Yes Sibling(s) Family History Reviewed.: Yes Medication/Allergy Home Medications: Amlodipine Besylate [Norvasc 10 mg Tablet] 10 mg PO DAILY 07/09/17 Calcium Acetate [Phoslo 667 Mg Capsule] 1,334 mg PO BIDP PRN 07/09/17 Calcium Acetate [Phoslo 667 Mg Capsule] 2,668 mg PO MEALS 07/09/17 Carvedilol [Coreg 25 mg Tablet] 1 tab PO Q12 07/09/17 Clonidine HCl [Catapres 0.2 mg Tablet] 0.2 mg PO Q12 07/09/17 Doxercalciferol [Hectorol] 2 mcg IV .DIALYSIS 07/09/17 Epoetin Aubrey [Epogen] 5,000 unit IV .DIALYSIS 07/09/17 Hydralazine HCl 100 mg PO Q8 07/09/17 Insulin Glargine,Hum.rec.anlog [Lantus Solostar] 40 unit SQ Q12 07/09/17 Iron Sucrose Complex [Venofer] 50 mg IV MO@1000 07/09/17 Levofloxacin [Levaquin 250 mg Tablet] 250 mg PO DAILY 07/09/17 Losartan Potassium [Cozaar 100 mg Tablet] 100 mg PO DAILY 07/09/17 Omeprazole 20 mg PO Q6AM 07/09/17 Promethazine HCl [Phenergan 25 mg Tablet] 12.5 mg PO Q6HP PRN 07/09/17 Allergies/Adverse Reactions: sulfamethoxazole [From Septra] Allergy (Severe, Verified 06/19/17 18:32) Hives trimethoprim [From Septra] Allergy (Severe, Verified 06/19/17 18:32) Hives adhesive tape [Adhesive Tape] Adverse Reaction (Verified 06/19/17 18:32) Bruising/Rash Review of Systems Review of Systems: Please see history of present illness and past medical history as wall. Constitutional: No fever or chills reported. Head : No recent chronic headaches, recent head injury. Eyes: No recent eye pain, diplopia, redness, discharge, acute visual changes. Ears: No recent chronic ear pain, acute hearing loss, ear discharge. Oral cavity: No recent ulcerations, bleeding, oral cavity discomfort. Neck: No recent acute neck pain reported. Hematologic: No recent easy bruising or bleeding or hematologic malignancy reported. Lymphatic: No recent lymphatic malignancy, chronic lymphadenopathy reported yet Cardiovascular system review: See history of present illness. Respiratory system review: No recent chronic cough, hemoptysis, blood clots in the lungs reported. Shortness of breath on exertion Gastrointestinal system review: Negative for any recent acute or chronic abdominal pain, hematemesis, melena, recent change in bowel habits. Genitourinary system review: No recent acute or chronic hematuria, flank pain, UTI etc. reported. Skin system review: Negative for any recent abnormal bruising, no rash, no pruritus reported. Neurologic: No prior history of strokes, mini strokes, seizure disorder. Psychologic: No history of major psychosis or major depression reported. Musculoskeletal: Minor aches and pains reported. No acute joint swelling reported. Patient has amputation below knee of the right lower extremity secondary to an accidental injury and nonhealing wound. Endocrine: No recent polyuria, polydipsia, recent heat or cold intolerance. Physical Exam Vital Signs: Temp Pulse Resp BP Pulse Ox 98.6 F 90 21 H 164/99 H 90 L 07/09/17 00:36 07/09/17 00:36 07/09/17 12:00 07/09/17 10:38 07/09/17 12:00 Intake & Output 07/08/17 07/09/17 07/10/17 06:59 06:59 06:59 Output Total 3700 Balance -3700 Exam: GENERAL: well-nourished and in no acute distress. Alert and oriented x3 HEAD: Atraumatic, normocephalic. EYES: Pupils equal round and reactive to light, extraocular movements intact, sclera anicteric, conjunctiva are normal. ENT: TMs normal, nares patent, oropharynx clear without exudates. Moist mucous membranes. No oral ulcerations or bleeding gums noted NECK: supple without lymphadenopathy. Trachea is central. No cervical or axillary lymphadenopathy noted. Carotids are 2+, JVD WNL LUNGS: Respiration seems nonlabored, no significant accessory muscle action noted. Breath sounds clear to auscultation bilaterally and equal noted. No wheezes rales or rhonchi noted. No significant dullness noted on percussion. CHEST: Palpation of the chest wall shows significant chest wall tenderness. No other significant abnormalities noted. HEART: [place] [employer] C[employer], No PSH, 1/6 UMU aortic area, 1/6 infante systolic murmur mitral area, no rubs, no gallops. ABDOMEN: Soft, no significant tenderness appreciated, normoactive bowel sounds. No guarding, no rebound. No rigidity noted . No masses appreciated. EXTREMITIES: Pedal pulses are 1-2+, no calf tenderness noted. No clubbing or cyanosis. negative pedal edema noted NEUROLOGICAL: Focused neurological exam showed no significant neurologic deficit. Normal speech, no focal weakness appreciated. PSYCH: Normal mood, normal affect. Judgment and insight within normal limits. SKIN: No significant ecchymosis, skin is noted to be warm. MUSCULOSKELETAL EXAM: No significant acute joint swelling noted. Status post amputation below knee right lower extremity. Results Laboratory Results: 07/09/17 07/09/17 07/09/17 07:52 07:52 12:41 Creatine Kinase 162 H 137 H CK-MB (CK-2) 0.58 Troponin I < 0.012 07/09/17 07/09/17 07/09/17 12:41 18:44 18:44 Creatine Kinase 135 CK-MB (CK-2) 0.64 0.56 Troponin I < 0.012 < 0.012 EKG Comments: Shows sinus rhythm, no acute ST-T wave changes noted. Impressions: Chest X-Ray 07/09/17 01:31 IMPRESSION: 1. No acute pulmonary process identified. Assessment & Plan - Diagnosis (1) Chest pain Qualifiers: Chest pain type: unspecified Qualified Code(s): R07.9 - Chest pain, unspecified Is this a current diagnosis for this admission?: Yes (2) Diabetes Qualifiers: Diabetes mellitus type: type 2 Diabetes mellitus assisted insulin use: unspecified assisted insulin use status Diabetes mellitus complication status : with unspecified complications Qualified Code(s): E11.8 - Type 2 diabetes mellitus with unspecified complications Is this a current diagnosis for this admission?: Yes (3) Essential hypertension Is this a current diagnosis for this admission?: Yes (4) ESRD (end stage renal disease) Is this a current diagnosis for this admission?: Yes (5) Hypertension Qualifiers: Hypertension type: essential hypertension Qualified Code(s): I10 - Essential (primary) hypertension (6) Shortness of breath Is this a current diagnosis for this admission?: Yes - Notes Notes: 2D echocardiogram scheduled. Nuclear stress test scheduled EKG is ordered. Currently stable. Patient to report any recurrence of chest pain. Other problems reasonably stable. Patient to go for dialysis later on today. - Time Time Spent: 30 to 50 Minutes - CODE STATUS was discussed, patient remains full code. More than 50% of the time spent coordinating care, discussing management plans with involved caregivers. Management plans discussed with involved personnels. Medical decision making was of moderate to high complexity, patient 's has multiple comorbidities.. Medications reviewed and adjusted accordingly: Yes
[2017-07-10] MEDS: HYDRALAZINE HCL 50 MG TABLET PO SCH ×4 (00:17→21:14)
[2017-07-10] MEDS: CARVEDILOL 12.5 MG TABLET PO SCH ×3 (00:17→21:14)
[2017-07-10] MEDS: CLONIDINE HCL 0.2 MG TABLET PO SCH ×3 (00:17→21:14)
[2017-07-10] MEDS: INSULIN GLARGINE,HUM.REC.ANLOG 300 UNIT/3 ML INSULN.PEN SUBCUT SCH ×3 (00:22→21:21)
[2017-07-10] MEDS: HEPARIN SOD (PORCINE) 5,000 UNIT/ML 1 ML SYRINGE SUBCUT SCH ×4 (00:22→21:14)
[2017-07-10] MEDS: INSULIN LISPRO 100 UNIT/ML 3 ML VIAL SUBCUT PRN ×3 (00:24→21:21)
[2017-07-10] MEDS: LANSOPRAZOLE 15 MG TAB.RAP.DR PO SCH ×2 (07:37→18:49)
--- NOTE | 2017-07-10 09:14 | EKG REPORT ---
SEVERITY:- ABNORMAL ECG - SINUS RHYTHM PROLONGED QT INTERVAL : Confirmed by: Jah Reed 10-Jul-2017 09:13:37
[2017-07-10] MEDS ORDERED: LEVOFLOXACIN 250 MG TABLET PO SCH (10:00)
--- NOTE | 2017-07-10 11:14 | XCELERA REPORT ---
[address] [address] Transthoracic Echocardiogram Report Name: SEGUN NG I Age: 47 yrs Gender: Female : 1970 Patient Status: Inpatient Patient Location: [address] [place] [address] Study Date: 07/10/2017 09:52 AM Height: 65 in Weight: 295 lb BSA: 2.3 m2 Procedure: A complete two-dimensional transthoracic echocardiogram was performed (2D, M-mode, spectral and color flow Doppler). The study was technically difficult with many images being suboptimal in quality. Reason For Study: Chest pain, dyspnea Ordering Physician: JAH FIELDS Performed By: Nancy Hanks Interpretation Summary The left ventricular ejection fraction is normal. There is mild concentric left ventricular hypertrophy. Doppler measurements suggest pseudonormalized left ventricular relaxation, which is associated with grade II/IV or mild to moderate diastolic dysfunction The left ventricle is grossly normal size. Wall motion cannot be accurately commented on, but no definite regional wall motion abnormalities noted. The right ventricle is borderline dilated. The right ventricular systolic function is normal. The left atrium is mildly dilated. Borderline right atrial enlargement. There is a trace amount of mitral regurgitation There is no mitral valve stenosis. There is no aortic valve stenosis No aortic regurgitation is present. There is a trace or physiologic amount of tricuspid regurgitation Tricuspid regurgitation jet envelope not well defined to measure RV systolic pressure accurately. The aortic root is not well visualized but is probably normal size. The inferior vena cava appeared normal and decreased > 50% with respiration (RAP 5-10 mmHg) Minimal pericardial effusion. MMode/2D Measurements & Calculations RVDd: 2.7 cm LVIDd: 4.3 cm FS: 27.3 % Ao root diam: 2.6 cm IVSd: 1.3 cm LVIDs: 3.1 cm EDV(Teich): 83.5 ml LVPWd: 1.3 cm ESV(Teich): 38.9 ml Ao root area: 5.4 cm2 EF(Teich): 53.4 % LA dimension: 4.0 cm Doppler Measurements & Calculations MV E max joby: MV P1/2t max joby: Ao V2 max: LV V1 max P.8 cm/sec 130.8 cm/sec 165.9 cm/sec 5.2 mmHg MV A max joby: MV P1/2t: 86.2 msec Ao max PG: LV V1 max: 140.2 cm/sec 11.0 mmHg 114.0 cm/sec MV E/A: 0.93 MVA(P1/2t): 2.6 cm2 MV dec slope: 444.2 cm/sec2 MV dec time: 0.29 sec PA V2 max: 100.7 cm/sec PA max P.1 mmHg Left Ventricle The left ventricle is grossly normal size. There is mild concentric left ventricular hypertrophy. The left ventricular ejection fraction is normal. Doppler measurements suggest pseudonormalized left ventricular relaxation, which is associated with grade II/IV or mild to moderate diastolic dysfunction. Wall motion cannot be accurately commented on, but no definite regional wall motion abnormalities noted. Right Ventricle The right ventricle is borderline dilated. The right ventricle appears to be hypertrophied. The right ventricular systolic function is normal. Atria Borderline right atrial enlargement. The left atrium is mildly dilated. Interarterial septum not well visualized and not well dopplered. Cannot comment on ASD/PFO presence. Mitral Valve The mitral valve is grossly normal. There is no mitral valve stenosis. There is a trace amount of mitral regurgitation. Aortic Valve The aortic valve is grossly normal. There is no aortic valve stenosis. No aortic regurgitation is present. Tricuspid Valve The tricuspid valve is not well visualized, but is grossly normal. There is no tricuspid stenosis. There is a trace or physiologic amount of tricuspid regurgitation. Tricuspid regurgitation jet envelope not well defined to measure RV systolic pressure accurately. Pulmonic Valve The pulmonic valve is not well visualized. Great Vessels The aortic root is not well visualized but is probably normal size. The inferior vena cava appeared normal and decreased > 50% with respiration (RAP 5-10 mmHg). Effusions Minimal pericardial effusion. : JAH FIELDS > Jah Fields
--- NOTE | 2017-07-10 11:43 | PDOC PROGRESS REPORT ---
Subjective Progress Note for:: 07/10/17 Subjective:: Patient is currently doing well Patient's denied any shortness of the breath in patients chest pain mostly with the muscles when patients move her shoulder Patient's initial all cardiac workup and EKG is stable this patient scheduled for the stress test and echo Reason For Visit: CHEST PAIN Physical Exam Vital Signs: Temp Pulse Resp BP Pulse Ox 98.5 F 79 20 123/49 L 100 07/10/17 03:39 07/10/17 03:39 07/10/17 03:39 07/10/17 03:39 07/10/17 03:39 Intake & Output 07/09/17 07/10/17 07/11/17 06:59 06:59 06:59 Intake Total 350 Output Total 3700 Balance -3350 Weight 130.2 kg General appearance: PRESENT: no acute distress, well-developed, well-nourished Head exam: PRESENT: atraumatic, normocephalic Eye exam: PRESENT: conjunctiva pink, EOMI, PERRLA. ABSENT: scleral icterus Ear exam: PRESENT: normal external ear exam Mouth exam: PRESENT: moist, tongue midline Neck exam: PRESENT: full ROM. ABSENT: carotid bruit, JVD, lymphadenopathy, thyromegaly Respiratory exam: PRESENT: chest wall tenderness, clear to auscultation alexandr Cardiovascular exam: PRESENT: RRR. ABSENT: diastolic murmur, rubs, systolic murmur Pulses: PRESENT: normal dorsalis pedis pul, +2 pedal pulses bilateral Vascular exam: PRESENT: normal capillary refill GI/Abdominal exam: PRESENT: normal bowel sounds, soft. ABSENT: distended, guarding, mass, organolmegaly, rebound, tenderness Rectal exam: PRESENT: deferred Musculoskeletal exam: PRESENT: ambulatory Neurological exam: PRESENT: alert, awake, oriented to person, oriented to place , oriented to time, oriented to situation, CN II-XII grossly intact. ABSENT: motor sensory deficit Psychiatric exam: PRESENT: appropriate affect, normal mood. ABSENT: homicidal ideation, suicidal ideation Skin exam: PRESENT: dry, intact, warm. ABSENT: cyanosis, rash Results Laboratory Results: 07/09/17 07/09/17 07/09/17 07:52 07:52 12:41 Creatine Kinase 162 H 137 H CK-MB (CK-2) 0.58 Troponin I < 0.012 07/09/17 07/09/17 07/09/17 12:41 18:44 18:44 Creatine Kinase 135 CK-MB (CK-2) 0.64 0.56 Troponin I < 0.012 < 0.012 Impressions: Chest X-Ray 07/09/17 01:31 IMPRESSION: 1. No acute pulmonary process identified. Assessment & Plan - Diagnosis (1) Chest pain Qualifiers: Chest pain type: unspecified Qualified Code(s): R07.9 - Chest pain, unspecified Is this a current diagnosis for this admission?: Yes Plan: Most likely a musculoskeletal will wait for the cardiac workup (2) Essential hypertension Is this a current diagnosis for this admission?: Yes Plan: Currently all stable (3) Congestive heart failure Qualifiers: Heart failure type: diastolic Is this a current diagnosis for this admission?: Yes Plan: Continues on hemodialysis (4) Diabetes Qualifiers: Diabetes mellitus complication status: with unspecified complications Is this a current diagnosis for this admission?: Yes Plan: Sliding scales (5) ESRD (end stage renal disease) Is this a current diagnosis for this admission?: Yes Plan: Consult Dr. 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
[2017-07-10 11:57] LABS: ANION GAP 17 (5-19); BLOOD UREA NITROGEN 42 mg/dL (7-20); CALCIUM 8.4 mg/dL (8.4-10.2); CARBON DIOXIDE 27 mmol/L (22-30); CHLORIDE 95 mmol/L (98-107); GLUCOSE 321 mg/dL (75-110); POTASSIUM 4.6 mmol/L (3.6-5.0); SODIUM 138.5 mmol/L (137-145)
--- NOTE | 2017-07-10 12:19 | DRAGON STRESS TEST REPORT ---
INTRAVENOUS LEXISCAN CARDIOLITE STRESS TEST USING SINGLE PHOTON EMMISION COMPUTERIZED TOMOGRAPHIC. DATE OF PROCEDURE: July 10, 2017, INDICATION : Chest pain CARDIAC RISK FACTORS: End-stage renal disease, hypertension, diabetes RESTING EKG: Sinus rhythm without any baseline ST segment changes. STRESS EKG: No significant ST segment changes noted with LexiScan bolus REASON FOR TERMINATION: Protocol. PROCEDURE REPORT: Baseline heart rate 82 beats per minute with blood pressure of 101/63. Patient had no significant complaints. Patient was bolused with Lexiscan 0.4 mg intravenously followed by saline bolus. Heart rate at 2 minutes post bolus 91 with a blood pressure of 136/69. 3 minutes post bolus heart rate 89 with blood pressure of 149/71. No significant EKG changes were noted. Patient had no significant complaints during the procedure or postprocedure. Patient injected with Aminophyllin 75 mg at 3 minutes or later after Lexiscan bolus. CONCLUSIONS: Normal EKG and hemodynamic response to IV LexiScan. NUCLEAR DATA: At rest the patient was given 14.47 millicuries of technetium 99 sestamibi injected intravenously. As per protocol rest gated SPECT images were obtained. On day of stress test, the patient was given intravenous LexiScan at a dose of 0.4 mg in 5 mL intravenously, followed by flush with normal saline. Subsequently the stress dose of 48.0 millicuries of technetium 99 sestamibi was injected intravenously. As per protocol stress gated images were obtained. NUCLEAR INTERPRETATION: Both raw and processed data were used for interpretation. Visual, qualitative, computer-generated quantitative data was used. There was good myocardial uptake of technetium compound. Motion artifact and soft tissue attenuations were noted. Marked increased breast attenuation artifact was also noted. Increased motion artifact also noted with stress imaging. Increased visceral uptake was noted. No definitive areas of transient perfusion defect noted, except for borderline decreased uptake, in the stress imaging, in the distal and mid anterior wall but felt to be related to differences in breast attenuation artifact rather than true defect., No definitive areas of fixed perfusion defect or scars noted. EKG gated imaging showed LV EF at 57 %, rest and stress gated EF similar visually. T. I D. ratio was 1.12. Lung heart ratio noted to be within normal limits 0.31. No significant extracardiac and abnormal radiotracer activities were noted. RV free wall uptake was noted to be WNL. IMPRESSION: Also refer to comments under nuclear interpretation. Also test results needs to be interpreted in the context of pretest probability. 1. No definitive areas of transient perfusion defect noted. 2. There is no definitive scintigraphic evidence of myocardial infarction/scar. 3. EKG gated imaging shows left ventricular ejection fraction of approx. 57 %. 4. Clinical correlation requested as occasionally single vessel disease or balanced ischemia could be missed. In approximately 10% of the cases Lexiscan may not cause adequate vasodilatory stress. RECOMMENDATIONS: Aggressive risk factor modification and medical management. Further evaluation may be needed if continued symptoms or other high risk indicators are noted on clinical evaluation. Close cardiology follow-up is also recommended. Clinical correlation with echocardiogram derived ejection fraction. Inability to exercise by itself can lead to increased cardiovascular event risks. Consider cardiology consultation and or follow-up if clinically indicated. I am available for cardiology evaluation and consultation if requested by the owner operator tanker truck driver, unless patient already has a investigative shopper. BRITTANY
[2017-07-10] MEDS ORDERED: AMINOPHYLLINE INJ/PF 250 MG/10 ML SDV IV ONE (14:27)
[2017-07-10] MEDS ORDERED: REGADENOSON INJ 0.4 MG/5 ML DISP.SYRIN IV ONE (14:27)
[2017-07-10] MEDS: AMLODIPINE BESYLATE 10 MG TABLET PO SCH (15:07)
[2017-07-10] MEDS: CALCIUM ACETATE 667 MG CAPSULE PO SCH (15:09)
[2017-07-10] MEDS: LOSARTAN POTASSIUM 50 MG TABLET PO SCH (15:09)
[2017-07-10] MEDS: ACETAMINOPHEN 325 MG TABLET PO PRN (15:48)
[2017-07-10] MEDS ORDERED: LEVOFLOXACIN 250 MG TABLET PO ONE (16:15)
[2017-07-10] MEDS ORDERED: ACETAMINOPHEN 325 MG TABLET PO ONE (21:00)
--- NOTE | 2017-07-10 22:05 | PDOC PROGRESS REPORT ---
Subjective Progress Note for:: 07/10/17 Subjective:: Patient seems to be doing better with gradual improvement. Patient still has some left-sided chest pain but is felt to be musculoskeletal. Patient denying any PND, orthopnea. Patient denied any sustained palpitations, dizziness, syncope, near syncope. Patient denying any fever chills. Patient denying any other significant discomfort. Patient is maintaining sinus rhythm. In the morning nuclear stress test procedure was explained to the patient in detail risk benefits were discussed. Review of systems: Rest review of systems negative. Medications: Medications have been reviewed. Reason For Visit: CHEST PAIN Physical Exam Vital Signs: Temp Pulse Resp BP Pulse Ox 98.1 F 82 21 H 130/64 H 98 07/10/17 15:48 07/10/17 16:45 07/10/17 15:48 07/10/17 15:48 07/10/17 15:48 Intake & Output 07/09/17 07/10/17 07/11/17 06:59 06:59 06:59 Intake Total 350 480 Output Total 3700 0 Balance -3350 480 Weight 130.2 kg 130.2 kg Exam: GENERAL: well-nourished and in no acute distress. Alert and oriented x3 HEAD: Atraumatic, normocephalic. EYES: Pupils equal round and reactive to light, extraocular movements intact, sclera anicteric, conjunctiva are normal. ENT: TMs normal, nares patent, oropharynx clear without exudates. Moist mucous membranes. No oral ulcerations or bleeding gums noted NECK: supple without lymphadenopathy. Trachea is central. No cervical or axillary lymphadenopathy noted. Carotids are 2+, JVD WNL LUNGS: Respiration seems nonlabored, no significant accessory muscle action noted. Breath sounds clear to auscultation bilaterally and equal noted. No wheezes rales or rhonchi noted. No significant dullness noted on percussion. CHEST: Palpation of the chest wall shows left chest wall significant chest wall tenderness. No other significant abnormalities noted. 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 ABDOMEN: Soft, no significant tenderness appreciated, normoactive bowel sounds. No guarding, no rebound. No rigidity noted . No masses appreciated. EXTREMITIES: Pedal pulses are 1-2+, no calf tenderness noted. No clubbing or cyanosis. Trace to 1+ pedal edema noted left side, right side below knee amputation noted. NEUROLOGICAL: Focused neurological exam showed no significant neurologic deficit. Normal speech, no focal weakness appreciated. PSYCH: Normal mood, normal affect. Judgment and insight within normal limits. SKIN: No significant ecchymosis, skin is noted to be warm. MUSCULOSKELETAL EXAM: No significant acute joint swelling noted. Results Laboratory Results: 07/10/17 11:03 07/10/17 11:03 Sodium 138.5 Potassium 4.6 Chloride 95 L Carbon Dioxide 27 Anion Gap 17 BUN 42 H Creatinine 6.93 H Est GFR ( Amer) 8 L Est GFR (Non-Af Amer) 6 L Glucose 321 H Calcium 8.4 07/09/17 07/09/17 07/09/17 07:52 07:52 12:41 Creatine Kinase 162 H 137 H CK-MB (CK-2) 0.58 Troponin I < 0.012 07/09/17 07/09/17 07/09/17 12:41 18:44 18:44 Creatine Kinase 135 CK-MB (CK-2) 0.64 0.56 Troponin I < 0.012 < 0.012 EKG Comments: Showed sinus rhythm without any significant ST-T wave changes Impressions: Chest X-Ray 07/09/17 01:31 IMPRESSION: 1. No acute pulmonary process identified. Assessment & Plan - Diagnosis (1) Chest pain Qualifiers: Chest pain type: unspecified Qualified Code(s): R07.9 - Chest pain, unspecified Is this a current diagnosis for this admission?: Yes (2) Diabetes Qualifiers: Diabetes mellitus type: type 2 Diabetes mellitus alf insulin use: unspecified alf insulin use status Diabetes mellitus complication status : with unspecified complications Qualified Code(s): E11.8 - Type 2 diabetes mellitus with unspecified complications Is this a current diagnosis for this admission?: Yes (3) Essential hypertension Is this a current diagnosis for this admission?: Yes (4) ESRD (end stage renal disease) Is this a current diagnosis for this admission?: Yes (5) Hypertension Qualifiers: Hypertension type: essential hypertension Qualified Code(s): I10 - Essential (primary) hypertension (6) Shortness of breath Is this a current diagnosis for this admission?: Yes - Notes Notes: NST Negative for ischemia. Echocardiogram negative. Patient has significant chest wall tenderness, consider NSAIDS, cymblata, lidodem patch etc order uric acid level. Chest pain: Patient claims chest pain is improved. This was evaluated with a nuclear stress test. Nuclear stress test was negative for any significant areas of ischemia or any significant areas of scar. The nuclear stress test is felt to be relatively low risk. Patient informed that occasionally single- vessel disease and balanced ischemia could be missed. Patient advised aggressive risk factor modification and medical therapy. Patient informed that further evaluation may become necessary if symptoms worsens or there is a development of new symptoms indicative of angina or angina equivalent symptom. Hypertension: Reasonably well controlled. Blood pressure goal in this patient is 135/85 or less. This was discussed with the patient. Currently blood pressure under reasonable control. Better medication for this patient are ROLANDO inhibitor/ARB/beta marco etc. discussed side effects of uncontrolled hypertension and also severe hypotension. Hyperlipidemia: LDL goal is less than 70. Recommend statin therapy at least intermediate or high dose, of high potency status. Periodic lipid panel and liver panel is indicated. Patient to report any significant muscle discomfort or other side effects. Obesity: Patient encouraged in weight loss. Sleep apnea syndrome: Patient encouraged in weight loss and is scheduling a sleep study as an outpatient. End-stage renal disease: Recent being managed by automobile mechanic supervisor and is on chronic dialysis therapy. Patient encouraged to report any further problems. - Time Time with patient: Greater than 35 minutes - Patient was seen multiple times. Total time exceeds 40 minutes. In the morning nuclear stress test procedure, risks benefits, alternatives were discussed. Patient seen during the stress test. Patient also seen after stress test when results were discussed with the patient in detail. Patient's questions were answered. Nuclear stress test results were discussed with the patient. Patient was informed that no definitive evidence of pharmacologic stress-induced ischemia noted. No definite fixed defects were noted. Patient informed that occasionally significant single vessel disease or balanced ischemia could be missed. However based on the current study results, would recommend aggressive risk factor modification and medical therapy. It may also be worthwhile to consider evaluation or empiric management of other causes of chest pain. Should no other cause be found and if persistent in having chest pain, then cardiac catheterization should be considered. Right now, recommendations are for aggressive risk factor modification and medical management. More than 50% of the time spent coordinating care, discussing management plans with involved caregivers. Management plans discussed with involved personnels. Medical decision making was of moderate to high complexity, patient's has multiple comorbidities. Medications reviewed and adjusted accordingly: Yes
[2017-07-11] MEDS: ACETAMINOPHEN 325 MG TABLET PO PRN ×2 (02:56→17:34)
[2017-07-11] MEDS: HEPARIN SOD (PORCINE) 5,000 UNIT/ML 1 ML SYRINGE SUBCUT SCH ×2 (05:39→13:44)
[2017-07-11] MEDS: LANSOPRAZOLE 15 MG TAB.RAP.DR PO SCH ×2 (05:39→17:34)
[2017-07-11] MEDS: HYDRALAZINE HCL 50 MG TABLET PO SCH ×2 (05:40→15:34)
[2017-07-11] MEDS: INSULIN LISPRO 100 UNIT/ML 3 ML VIAL SUBCUT PRN (06:05)
[2017-07-11 07:50] LABS: ABSOLUTE BASOPHILS # (AUTO) 0.1 10^3/uL (0.0-0.2); ABSOLUTE EOSINOPHILS # (AUTO) 0.2 10^3/uL (0.0-0.6); ABSOLUTE LYMPHOCYTES (AUTO) 1.9 10^3/uL (0.5-4.7); ABSOLUTE MONOCYTES (AUTO) 0.3 10^3/uL (0.1-1.4); ABSOLUTE NEUT (AUTO) 4.2 10^3/uL (1.7-8.2); BASOPHILS % (AUTO) 1.2 % (0-2); EOSINOPHILS % (AUTO) 3.2 % (0-6); HEMATOCRIT 29.7 % (36.0-47.0); HEMOGLOBIN 9.5 g/dL (12.0-15.5); LYMPHOCYTES % (AUTO) 28.4 % (13-45); MEAN CORPUSCULAR HEMOGLOBIN 26.7 pg (27.0-33.4); MEAN CORPUSCULAR VOLUME 84 fl (80-97); MONOCYTES % (AUTO) 5.1 % (3-13); PLATELET COUNT 199 10^3/uL (150-450); RED BLOOD COUNT 3.55 10^6/uL (3.72-5.28); RED CELL DISTRIBUTION WIDTH 16.5 % (11.5-14.0); SEGMENTED NEUTROPHILS % (AUTO) 62.1 % (42-78); TOTAL CELLS COUNTED % (AUTO) 100 %; WHITE BLOOD COUNT 6.8 10^3/uL (4.0-10.5)
[2017-07-11 08:16] LABS: ANION GAP 17 (5-19); BLOOD UREA NITROGEN 54 mg/dL (7-20); CALCIUM 8.1 mg/dL (8.4-10.2); CARBON DIOXIDE 23 mmol/L (22-30); CHLORIDE 95 mmol/L (98-107); GLUCOSE 293 mg/dL (75-110); POTASSIUM 4.6 mmol/L (3.6-5.0); SODIUM 135.1 mmol/L (137-145)
--- NOTE | 2017-07-11 10:32 | EKG REPORT ---
SEVERITY:- BORDERLINE ECG - SINUS RHYTHM BORDERLINE PROLONGED QT INTERVAL : Confirmed by: Jah Reed 11-Jul-2017 10:31:45
--- NOTE | 2017-07-11 11:13 | PDOC DISCHARGE SUMMARY ---
General - Admit/Disc Date/PCP Admission Date/Primary Care Provider: 07/09/17 04:25 Discharge Date: 07/11/17 - Discharge Diagnosis (1) Chest pain Is this a current diagnosis for this admission?: Yes Summary: With the negative cardiac workup with a negative stress test most likely a chest wall pain (2) Essential hypertension Is this a current diagnosis for this admission?: Yes Summary: Currently all stable (3) Congestive heart failure Is this a current diagnosis for this admission?: Yes Summary: Currently on hemodialysis (4) Diabetes Is this a current diagnosis for this admission?: Yes Summary: Currently all stable (5) ESRD (end stage renal disease) Is this a current diagnosis for this admission?: Yes Summary: Currently on hemodialysis (6) Gastroparesis Is this a current diagnosis for this admission?: Yes Summary: Currently follow with the GI - Additional Information Resuscitation Status: Full Code Discharge Diet: Cardiac, Diabetic Discharge Activity: Activity As Tolerated Home Medications: Amlodipine Besylate [Norvasc 10 mg Tablet] 10 mg PO DAILY 07/09/17 Calcium Acetate [Phoslo 667 mg Capsule] 1,334 mg PO BIDP PRN 07/09/17 Calcium Acetate [Phoslo 667 mg Capsule] 2,668 mg PO MEALS 07/09/17 Carvedilol [Coreg 25 mg Tablet] 1 tab PO Q12 07/09/17 Clonidine HCl [Catapres 0.2 mg Tablet] 0.2 mg PO Q12 07/09/17 Doxercalciferol [Hectorol] 2 mcg IV .DIALYSIS 07/09/17 Epoetin Aubrey [Epogen] 5,000 unit IV .DIALYSIS 07/09/17 Hydralazine HCl 100 mg PO Q8 07/09/17 Insulin Glargine,Hum.rec.anlog [Lantus Solostar] 40 unit SQ Q12 07/09/17 Iron Sucrose Complex [Venofer] 50 mg IV MO@1000 07/09/17 Levofloxacin [Levaquin 250 mg Tablet] 250 mg PO DAILY 07/09/17 Losartan Potassium [Cozaar 100 mg Tablet] 100 mg PO DAILY 07/09/17 Omeprazole 20 mg PO Q6AM 07/09/17 Promethazine HCl [Phenergan 25 mg Tablet] 12.5 mg PO Q6HP PRN 07/09/17 History of Present Illness History of Present Illness: SEGUN NG is a 47 year old female There is a 47-year-old female with a history of end-stage renal disease on hemodialysis history of severe gastroparesis and history of the type 2 diabetes with multiple complications and multiple other comorbidity came to ER yesterday with a complaint of left-sided chest pain and radiating to the jaw and upper extremityAnd the patient's initial EKG and a cardiac enzymes 2 was negative Patient on multiple risk factors decided to admit for the further evaluations I saw the patient's denied any upper extremity pain joint pain in the denied any chest pain right now patient denied any shortness of the breath Patient have a stress test was done in February at [facility] and was all negative patient had a cardiac cath done couple of years back in [place] according to the patient's was all stable And have a significant GI issues with the chronic gastroparesis several GI workup done including the [facility] and the patient also seen the [place] [facility] Patient's currently scheduled for hemodialysis today Hospital Course Hospital Course: This is a 47-year-old females with the multiple medical problem as able present in the emergency department with a complaint of left-sided chest pain and shoulder pain patient admitting in the hospital for further evaluation Patient underwent for the echo and stress test was all stable and all cardiac enzyme is negative And have a reproducible pain on the left shoulder in the left chest just more consistence with the chest wall pain Also underwent for the hemodialysis per nephrology patient's discharge home Patient of a cardiac cath done 2 years back was all stable [address] Reed cardiology and Dr. Fernandez Physical Exam Vital Signs: Temp Pulse Resp BP Pulse Ox 98.1 F 88 20 125/52 L 98 07/11/17 00:00 07/11/17 05:35 07/11/17 00:00 07/11/17 05:35 07/11/17 00:00 Intake & Output 07/10/17 07/11/17 07/12/17 06:59 06:59 06:59 Intake Total 350 818 Output Total 3700 0 Balance -3350 818 Weight 130.2 kg 136.9 kg General appearance: PRESENT: no acute distress, well-developed, well-nourished Head exam: PRESENT: atraumatic, normocephalic Eye exam: PRESENT: conjunctiva pink, EOMI, PERRLA. ABSENT: scleral icterus Ear exam: PRESENT: normal external ear exam Mouth exam: PRESENT: moist, tongue midline Neck exam: PRESENT: full ROM. ABSENT: carotid bruit, JVD, lymphadenopathy, thyromegaly Respiratory exam: PRESENT: chest wall tenderness, clear to auscultation alexandr Cardiovascular exam: PRESENT: RRR. ABSENT: diastolic murmur, rubs, systolic murmur Pulses: PRESENT: normal dorsalis pedis pul, +2 pedal pulses bilateral Vascular exam: PRESENT: normal capillary refill GI/Abdominal exam: PRESENT: normal bowel sounds, soft. ABSENT: distended, guarding, mass, organolmegaly, rebound, tenderness Rectal exam: PRESENT: deferred Extremities exam: ABSENT: pedal edema Musculoskeletal exam: PRESENT: ambulatory Neurological exam: PRESENT: alert, awake, oriented to person, oriented to place , oriented to time, oriented to situation, CN II-XII grossly intact. ABSENT: motor sensory deficit Psychiatric exam: PRESENT: appropriate affect, normal mood. ABSENT: homicidal ideation, suicidal ideation Skin exam: PRESENT: dry, intact, warm. ABSENT: cyanosis, rash Results Laboratory Results: 07/11/17 07:33 07/11/17 07:33 07/10/17 07/11/17 07/11/17 11:03 07:33 07:33 WBC 6.8 RBC 3.55 L Hgb 9.5 L Hct 29.7 L MCV 84 MCH 26.7 L MCHC 32.0 RDW 16.5 H Plt Count 199 Seg Neutrophils % 62.1 Lymphocytes % 28.4 Monocytes % 5.1 Eosinophils % 3.2 Basophils % 1.2 Absolute Neutrophils 4.2 Absolute Lymphocytes 1.9 Absolute Monocytes 0.3 Absolute Eosinophils 0.2 Absolute Basophils 0.1 Sodium 138.5 135.1 L Potassium 4.6 4.6 Chloride 95 L 95 L Carbon Dioxide 27 23 Anion Gap 17 17 BUN 42 H 54 H Creatinine 6.93 H 8.19 H Est GFR ( Amer) 8 L 6 L Est GFR (Non-Af Amer) 6 L 5 L Glucose 321 H 293 H Calcium 8.4 8.1 L 07/09/17 07/09/17 07/09/17 07:52 07:52 12:41 Creatine Kinase 162 H 137 H CK-MB (CK-2) 0.58 Troponin I < 0.012 07/09/17 07/09/17 07/09/17 12:41 18:44 18:44 Creatine Kinase 135 CK-MB (CK-2) 0.64 0.56 Troponin I < 0.012 < 0.012 Impressions: Chest X-Ray 07/09/17 01:31 IMPRESSION: 1. No acute pulmonary process identified. Qualifiers - * PATEINT BEING DISCHARGED WITH ANY OF THE FOLLOWING DIAGNOSIS?: No VTE patient discharged on overlapping Therapy?: Yes Plan Time Spent: Greater than 30 Minutes - Patient's discharge home with the stable conditions follow-up outpatients cardiology will try some Voltaren gel for the left shoulder and outpatients make arrangement to see the ortho
[2017-07-11] MEDS: CLONIDINE HCL 0.2 MG TABLET PO SCH (11:25)
[2017-07-11] MEDS: CARVEDILOL 12.5 MG TABLET PO SCH (11:25)
[2017-07-11] MEDS: LOSARTAN POTASSIUM 50 MG TABLET PO SCH (11:25)
[2017-07-11] MEDS: AMLODIPINE BESYLATE 10 MG TABLET PO SCH (11:25)
[2017-07-11] MEDS: CALCIUM ACETATE 667 MG CAPSULE PO SCH ×3 (11:25→17:34)
[2017-07-11] MEDS: INSULIN GLARGINE,HUM.REC.ANLOG 300 UNIT/3 ML INSULN.PEN SUBCUT SCH (12:50)
[2017-07-11] MEDS ORDERED: EPOETIN ALFA 5,000 UNIT in SYRINGE, DISPOSABLE, 1 EACH IV PRN (14:16)
--- NOTE | 2017-07-11 14:25 | PDOC PROGRESS REPORT ---
Subjective Progress Note for:: 07/11/17 Reason For Visit: Patient seen on dialysis today. She is undergoing dialysis without any issues. Vital signs are stable. She denies any chest pain or shortness of breath. On further description the chest pain that she had earlier was pleuritic in nature.Labs and medications were reviewed. Orders were discussed with the treating dialysis nurse. Physical Exam Vital Signs: Temp Pulse Resp BP Pulse Ox 98.1 F 87 20 125/52 L 98 07/11/17 00:00 07/11/17 07:00 07/11/17 00:00 07/11/17 05:35 07/11/17 00:00 Intake & Output 07/10/17 07/11/17 07/12/17 06:59 06:59 06:59 Intake Total 350 818 Output Total 3700 0 Balance -3350 818 Weight 130.2 kg 136.9 kg General appearance: PRESENT: no acute distress Respiratory exam: PRESENT: clear to auscultation alexandr. ABSENT: crackles Cardiovascular exam: PRESENT: +S1, +S2, systolic murmur GI/Abdominal exam: PRESENT: normal bowel sounds, soft. ABSENT: organomegaly, tenderness Neurological exam: PRESENT: awake, oriented to person, oriented to place Results Laboratory Results: 07/11/17 07:33 07/11/17 07:33 07/11/17 07/11/17 07:33 07:33 WBC 6.8 RBC 3.55 L Hgb 9.5 L Hct 29.7 L MCV 84 MCH 26.7 L MCHC 32.0 RDW 16.5 H Plt Count 199 Seg Neutrophils % 62.1 Lymphocytes % 28.4 Monocytes % 5.1 Eosinophils % 3.2 Basophils % 1.2 Absolute Neutrophils 4.2 Absolute Lymphocytes 1.9 Absolute Monocytes 0.3 Absolute Eosinophils 0.2 Absolute Basophils 0.1 Sodium 135.1 L Potassium 4.6 Chloride 95 L Carbon Dioxide 23 Anion Gap 17 BUN 54 H Creatinine 8.19 H Est GFR ( Amer) 6 L Est GFR (Non-Af Amer) 5 L Glucose 293 H Calcium 8.1 L 07/09/17 07/09/17 07/09/17 07:52 07:52 12:41 Creatine Kinase 162 H 137 H CK-MB (CK-2) 0.58 Troponin I < 0.012 07/09/17 07/09/17 07/09/17 12:41 18:44 18:44 Creatine Kinase 135 CK-MB (CK-2) 0.64 0.56 Troponin I < 0.012 < 0.012 Impressions: Chest X-Ray 07/09/17 01:31 IMPRESSION: 1. No acute pulmonary process identified. Assessment & Plan - Diagnosis (1) Chest pain Qualifiers: Chest pain type: unspecified Qualified Code(s): R07.9 - Chest pain, unspecified Is this a current diagnosis for this admission?: Yes Plan: Pleuritic in nature. Currently resolved. Follow with Dr. Lorenz. (2) ESRD (end stage renal disease) Is this a current diagnosis for this admission?: Yes Plan: Patient undergoing dialysis without any issues. Orders were discussed with the treating nurse. Dialysis is being supervised to ensure safe and smooth procedure. Vital signs are stable. Remove approximately 2 L as tolerated. (3) Essential hypertension Is this a current diagnosis for this admission?: Yes Plan: Controlled. Monitor. (5) Diabetes Qualifiers: Diabetes mellitus complication status: with unspecified complications Is this a current diagnosis for this admission?: Yes Plan: Advised tight control.
--- NOTE | 2017-07-11 14:29 | PDOC CONSULTATION ---
Consultation Consult Date: 07/09/17 Consult reason:: Hemodialysis History of Present Illness Admission Date/PCP: 07/09/17 04:25 History of Present Illness: SEGUN NG is a 47 year old female with a history of complicated diabetes mellitus with history of ESRD on hemodialysis, neuropathy and gastroparesis, end -stage renal disease on hemodialysis was admitted yesterday with a complaint of left-sided chest pain, which was pleuritic in nature and radiating to the jaw and upper extremity. Patient has been admitted to be ruled out for acute ischemic heart disease.She has had extensive workup for ischemic heart disease including cardiac cath. She is currently being seen as she is undergoing dialysis.She denies any specific complaints of the moment. Vital signs are stable. Orders were discussed with the treating dialysis nurse.Labs and medications were reviewed. Past Medical History Cardiac Medical History: Reports: Hyperlipidemia, Hypertension-primary Denies: Atrial Fibrillation, Coronary Artery Disease, Myocardial Infarction Pulmonary Medical History: Denies: Asthma, Bronchitis, Chronic Obstructive Pulmonary Disease (COPD), Pneumonia, Tuberculosis Neurological Medical History: Denies: Migraine, Seizures Endocrine Medical History: Reports: Diabetes Mellitus Type 2 Renal/ Medical History: Reports: End Stage Renal Disease, Secondary Hyperparathyroidism GI Medical History: Reports: Gastroesophageal Reflux Disease Musculoskeltal Medical History: Denies: Arthritis Psychiatric Medical History: Reports: Depression Denies: Attention Deficit Hyperactivity Disorder, Bipolar Disorder Infectious Medical History: Reports: Methicillin-resist Staph Aureus Hematology Medical History: Reports Anemia of Chronic Kidney Disease Past Surgical History Past Surgical History: Reports: Section, Cholecystectomy, Orthopedic Surgery - ORIF right ankle with subsequent MRSA infection and Right BKA., Tubal Ligation, Vascular Surgery - Right forearm AV fistula. PermCath right subclavian. Denies: Hysterectomy Social History Lives with: Family Smoking Status: Never Smoker Frequency of Alcohol Use: None Hx Recreational Drug Use: No Drugs: None Hx Prescription Drug Abuse: No Family History Parental Family History Reviewed: Yes - Negative for ESRD Children Family History Reviewed: No Sibling(s) Family History Reviewed.: No Medication/Allergy Home Medications: Amlodipine Besylate [Norvasc 10 mg Tablet] 10 mg PO DAILY 07/09/17 Calcium Acetate [Phoslo 667 mg Capsule] 1,334 mg PO BIDP PRN 07/09/17 Calcium Acetate [Phoslo 667 mg Capsule] 2,668 mg PO MEALS 07/09/17 Carvedilol [Coreg 25 mg Tablet] 1 tab PO Q12 07/09/17 Clonidine HCl [Catapres 0.2 mg Tablet] 0.2 mg PO Q12 07/09/17 Doxercalciferol [Hectorol] 2 mcg IV .DIALYSIS 07/09/17 Epoetin Aubrey [Epogen] 5,000 unit IV .DIALYSIS 07/09/17 Hydralazine HCl 100 mg PO Q8 07/09/17 Insulin Glargine,Hum.rec.anlog [Lantus Solostar] 40 unit SQ Q12 07/09/17 Iron Sucrose Complex [Venofer] 50 mg IV MO@1000 07/09/17 Levofloxacin [Levaquin 250 mg Tablet] 250 mg PO DAILY 07/09/17 Losartan Potassium [Cozaar 100 mg Tablet] 100 mg PO DAILY 07/09/17 Omeprazole 20 mg PO Q6AM 07/09/17 Promethazine HCl [Phenergan 25 mg Tablet] 12.5 mg PO Q6HP PRN 07/09/17 Allergies/Adverse Reactions: sulfamethoxazole [From Septra] Allergy (Severe, Verified 06/19/17 18:32) Hives trimethoprim [From Septra] Allergy (Severe, Verified 06/19/17 18:32) Hives adhesive tape [Adhesive Tape] Adverse Reaction (Verified 06/19/17 18:32) Bruising/Rash Review of Systems Constitutional: PRESENT: fatigue, weakness. ABSENT: fever(s), headache(s) Cardiovascular: PRESENT: chest pain, dyspnea on exertion, edema Respiratory: ABSENT: dyspnea, hemoptysis Gastrointestinal: PRESENT: constipation. ABSENT: abdominal pain, bloating, diarrhea, dysphagia, heartburn, hematemesis, melena Genitourinary: ABSENT: dysuria, hematuria Neurological: ABSENT: abnormal movements, abnormal speech, confusion, focal weakness Psychiatric: ABSENT: anxiety, depression Endocrine: ABSENT: heat intolerance, polydipsia Hematologic/Lymphatic: ABSENT: easy bruising, lymphadenopathy Physical Exam Vital Signs: Temp Pulse Resp BP Pulse Ox 98.6 F 90 21 H 164/99 H 90 L 07/09/17 00:36 07/09/17 00:36 07/09/17 12:00 07/09/17 10:38 07/09/17 12:00 General appearance: PRESENT: no acute distress Eye exam: PRESENT: EOMI, PERRLA. ABSENT: conjunctiva pink Ear exam: PRESENT: normal external ear exam Mouth exam: PRESENT: moist, neck supple Neck exam: ABSENT: lymphadenopathy, meningismus, tenderness, thyromegaly, tracheal deviation Respiratory exam: PRESENT: clear to auscultation alexandr. ABSENT: crackles, rhonchi Cardiovascular exam: PRESENT: +S1, +S2, systolic murmur GI/Abdominal exam: PRESENT: normal bowel sounds, soft. ABSENT: organomegaly, tenderness Extremities exam: PRESENT: pedal edema Neurological exam: PRESENT: awake, oriented to person, oriented to place Psychiatric exam: PRESENT: appropriate affect Skin exam: ABSENT: cyanosis, erythema Results Laboratory Results: 07/09/17 07/09/17 07/09/17 07:52 07:52 12:41 Creatine Kinase 162 H 137 H CK-MB (CK-2) 0.58 Troponin I < 0.012 07/09/17 12:41 Creatine Kinase CK-MB (CK-2) 0.64 Troponin I < 0.012 Impressions: Chest X-Ray 07/09/17 01:31 IMPRESSION: 1. No acute pulmonary process identified. Assessment & Plan - Diagnosis (1) Chest pain Qualifiers: Chest pain type: unspecified Qualified Code(s): R07.9 - Chest pain, unspecified Is this a current diagnosis for this admission?: Yes Plan: Pleuritic in nature. Follow with Dr. Lorenz. (2) ESRD (end stage renal disease) Is this a current diagnosis for this admission?: Yes Plan: Patient undergoing dialysis without any issues. Orders were discussed with the treating nurse. Dialysis is being supervised to ensure safe and smooth procedure. Vital signs are stable. Remove approximately 2 L as tolerated. (3) Essential hypertension Is this a current diagnosis for this admission?: Yes Plan: Controlled. Monitor. (4) Abscess of cellulitis of buttock Plan: She finished her course of antibiotics as an outpatient. Apparently resolved. (5) Diabetes Qualifiers: Diabetes mellitus complication status: with unspecified complications Is this a current diagnosis for this admission?: Yes Plan: Poorly controlled. Advised the need for tight control for obvious reasons.
[2017-07-11] MEDS: PROMETHAZINE HCL 25 MG TABLET PO PRN (17:54)
[2017-07-11 19:40] VITALS: BP 98/65
--- NOTE | 2017-07-11 20:12 | PDOC PROGRESS REPORT ---
Subjective Progress Note for:: 07/11/17 Subjective:: Patient seems to be doing better with gradual improvement. Patient still has some left-sided chest pain but is felt to be musculoskeletal. Patient denying any PND, orthopnea. Patient denied any sustained palpitations, dizziness, syncope, near syncope. Patient denying any fever chills. Patient denying any other significant discomfort. Patient is maintaining sinus rhythm. Review of systems: Rest review of systems negative. Medications: Medications have been reviewed. Reason For Visit: CHEST PAIN Physical Exam Vital Signs: Temp Pulse Resp BP Pulse Ox 98.6 F 82 20 98/65 L 100 07/11/17 17:18 07/11/17 17:18 07/11/17 17:18 07/11/17 17:18 07/11/17 17:18 Intake & Output 07/10/17 07/11/17 07/12/17 06:59 06:59 06:59 Intake Total 350 818 Output Total 3700 0 4600 Balance -3350 818 -4600 Weight 130.2 kg 136.9 kg Exam: GENERAL: well-nourished and in no acute distress. Alert and oriented x3 HEAD: Atraumatic, normocephalic. EYES: Pupils equal round and reactive to light, extraocular movements intact, sclera anicteric, conjunctiva are normal. ENT: TMs normal, nares patent, oropharynx clear without exudates. Moist mucous membranes. No oral ulcerations or bleeding gums noted NECK: supple without lymphadenopathy. Trachea is central. No cervical or axillary lymphadenopathy noted. Carotids are 2+, JVD WNL LUNGS: Respiration seems nonlabored, no significant accessory muscle action noted. Breath sounds clear to auscultation bilaterally and equal noted. No wheezes rales or rhonchi noted. No significant dullness noted on percussion. CHEST: Palpation of the chest wall shows left-sided significant chest wall tenderness. No other significant abnormalities noted. HEART: [employer], No PSH, 1/6 UMU aortic area, 1/6 infante systolic murmur mitral area, no rubs, no gallops. ABDOMEN: Soft, no significant tenderness appreciated, normoactive bowel sounds. No guarding, no rebound. No rigidity noted . No masses appreciated. EXTREMITIES: Pedal pulses are 1-2+, no calf tenderness noted. No clubbing or cyanosis. Trace to 1+ pedal edema noted left leg, right leg has below-knee amputation. NEUROLOGICAL: Focused neurological exam showed no significant neurologic deficit. Normal speech, no focal weakness appreciated. PSYCH: Normal mood, normal affect. Judgment and insight within normal limits. SKIN: No significant ecchymosis, skin is noted to be warm. MUSCULOSKELETAL EXAM: No significant acute joint swelling noted. Below knee amputation noted right lower extremity. Results Laboratory Results: 07/11/17 07:33 07/11/17 07:33 07/11/17 07/11/17 07:33 07:33 WBC 6.8 RBC 3.55 L Hgb 9.5 L Hct 29.7 L MCV 84 MCH 26.7 L MCHC 32.0 RDW 16.5 H Plt Count 199 Seg Neutrophils % 62.1 Lymphocytes % 28.4 Monocytes % 5.1 Eosinophils % 3.2 Basophils % 1.2 Absolute Neutrophils 4.2 Absolute Lymphocytes 1.9 Absolute Monocytes 0.3 Absolute Eosinophils 0.2 Absolute Basophils 0.1 Sodium 135.1 L Potassium 4.6 Chloride 95 L Carbon Dioxide 23 Anion Gap 17 BUN 54 H Creatinine 8.19 H Est GFR ( Amer) 6 L Est GFR (Non-Af Amer) 5 L Glucose 293 H Calcium 8.1 L 07/09/17 07/09/17 07/09/17 07:52 07:52 12:41 Creatine Kinase 162 H 137 H CK-MB (CK-2) 0.58 Troponin I < 0.012 07/09/17 07/09/17 07/09/17 12:41 18:44 18:44 Creatine Kinase 135 CK-MB (CK-2) 0.64 0.56 Troponin I < 0.012 < 0.012 EKG Comments: Telemetry shows sinus rhythm without any sustained tachycardia or bradycardia. Impressions: Chest X-Ray 07/09/17 01:31 IMPRESSION: 1. No acute pulmonary process identified. Assessment & Plan - Diagnosis (1) Chest pain Qualifiers: Chest pain type: unspecified Qualified Code(s): R07.9 - Chest pain, unspecified Is this a current diagnosis for this admission?: Yes (2) Diabetes Qualifiers: Diabetes mellitus type: type 2 Diabetes mellitus [facility] insulin use: unspecified [facility] insulin use status Diabetes mellitus complication status : with unspecified complications Qualified Code(s): E11.8 - Type 2 diabetes mellitus with unspecified complications Is this a current diagnosis for this admission?: Yes (3) Essential hypertension Is this a current diagnosis for this admission?: Yes (4) ESRD (end stage renal disease) Is this a current diagnosis for this admission?: Yes (5) Hypertension Qualifiers: Hypertension type: essential hypertension Qualified Code(s): I10 - Essential (primary) hypertension (6) Shortness of breath Is this a current diagnosis for this admission?: Yes (7) Sleep apnea syndrome Qualifiers: Sleep apnea type: unspecified type Qualified Code(s): G47.30 - Sleep apnea , unspecified Is this a current diagnosis for this admission?: Yes - Notes Notes: Chest pain: This is felt to be musculoskeletal in etiology. Nuclear stress test results were reviewed with the patient in detail. This was also discussed with Dr. Lorenz and he is going to treated with analgesics. Diabetes: Currently stable being well managed by mass spec. Hypertension: Currently well controlled. End-stage renal disease: Patient being followed by tightener. Shortness of breath: Possibly related to diastolic dysfunction, obesity etc. Sleep apnea syndrome: Patient will benefit from scheduling a sleep study and going on CPAP therapy. She prefers to do this as an outpatient. - Time Time with patient: 15-25 minutes - CODE STATUS was discussed, patient remains full code. Surrogate decision-maker unchanged. Multiple medical problems were addressed. More than 50% of the time spent coordinating care, discussing management plans with involved caregivers. Management plans discussed with involved personnels. Medical decision making was of moderate to high complexity , patient's has multiple comorbidities. Medications reviewed and adjusted accordingly: Yes
== END 2017-07-11 19:35 | disposition home or self-care (01) ==
LOC: ER 00:19 → EH 04:25 → 5 17:49
PROVIDERS: ADMIT Family Medicine; ATTEND Family Medicine
DX: R06.02 Shortness of breath (principal); R07.9 Chest pain, unspecified; I13.2 Hypertensive heart and chronic kidney disease with heart failure and with stage 5 chronic kidney disease, or end stage renal disease; E11.22 Type 2 diabetes mellitus with diabetic chronic kidney disease; N18.6 End stage renal disease; I50.30 Unspecified diastolic (congestive) heart failure; K31.84 Gastroparesis; I73.9 Peripheral vascular disease, unspecified; L02.31 Cutaneous abscess of buttock; E78.5 Hyperlipidemia, unspecified; E66.01 Morbid (severe) obesity due to excess calories; Z68.43 Body mass index [BMI] 50.0-59.9, adult; Z79.4 Long term (current) use of insulin; Z99.2 Dependence on renal dialysis
CPT/HCPCS: 93005 ×3; 99285; 36415 ×3; 82553; 82962 ×3; 82550; 85025 ×2; 80048 ×3; 84484; 93306; 93017; 71045; 78452; 93010 ×3; A9500; A9270 ×27; J2785; J1644 ×2; Q4081; J3490; J0280; Q9969; J1815

== ENCOUNTER → 2017-07-21 | Outpatient (CLI) | payer MEDICARE, MEDICAID ==
--- NOTE | 2017-07-21 12:36 | RADIOLOGY REPORT (SQ) ---
EXAM DESCRIPTION: SHOULDER LEFT 2 OR MORE VIEWS COMPLETED DATE/TIME: 07/21/2017 11:26 am REASON FOR STUDY: PAIN IN LEFT SHOULDER M25.512 PAIN IN LEFT SHOULDER COMPARISON: None. NUMBER OF VIEWS: Three views. TECHNIQUE: Internal rotation, external rotation, and Y view images acquired of the left shoulder. LIMITATIONS: None. FINDINGS: MINERALIZATION: Normal. BONES: No acute fracture or dislocation. No worrisome bone lesions. JOINTS: No dislocation. VISUALIZED LUNGS AND RIBS: No pneumothorax. No rib fracture. SOFT TISSUES: No radiopaque foreign body. OTHER: No other significant finding. IMPRESSION: NEGATIVE STUDY OF THE LEFT SHOULDER. NO RADIOGRAPHIC EVIDENCE OF ACUTE INJURY. TECHNICAL DOCUMENTATION: JOB ID: [id number] [employer]- All Rights Reserved Reading location - IP/workstation name: [email or web address]
== END ==
LOC: OD 11:07
PROVIDERS: ATTEND Family Medicine
DX: M25.512 Pain in left shoulder (principal)

== ENCOUNTER 2017-09-30 12:55 | Emergency (ER) | payer MEDICARE, MEDICAID ==
[2017-09-30] MEDS ORDERED: ACETAMINOPHEN 325 MG TABLET PO ONE (13:29)
[2017-09-30] MEDS ORDERED: ONDANSETRON 4 MG TAB.RAPDIS PO ONE (13:29)
--- NOTE | 2017-09-30 13:32 | ER Document Report ---
ED Medical Screen (RME) - General Chief Complaint: Abdominal Pain Stated Complaint: EAR PAIN,ABDOMINAL PAIN,ABSCESS ON BUTTOCK Time Seen by Provider: 09/30/17 13:24 Notes: RAPID MEDICAL EVALUATION DISCLOSURE I have seen this patient as part of a Rapid Medical Evaluation and, if applicable, placed any initially appropriate orders. The patient will be seen and fully evaluated, including a full history and physical exam, by a provider ( in Main ED or Fast Track) when a room becomes available. 47-year-old female PMH ESRD MWF (last dialysis Friday but only 2 hours out of 3 hours 45 minutes due to feeling sick) here with complaints of continued epigastric abdominal burning pain ongoing for over a year now as well as diarrhea "every time I eat or drink anything". She also complains of "a boil" that she noticed yesterday evening. There is no drainage. EXAM No lower quadrant TTP Mild epigastric TTP Mild RUQ TTP No peritoneal signs TRAVEL OUTSIDE OF THE [place] IN LAST 30 DAYS: No - Related Data Allergies/Adverse Reactions: sulfamethoxazole [From Decra] Allergy (Severe, Verified 09/30/17 12:56) Hives trimethoprim [From Decra] Allergy (Severe, Verified 09/30/17 12:56) Hives adhesive tape [Adhesive Tape] Adverse Reaction (Verified 09/30/17 12:56) Bruising/Rash Past Medical History - Past Medical History Cardiac Medical History: Reports: Hx Hypercholesterolemia, Hx Hypertension Denies: Hx Atrial Fibrillation, Hx Congestive Heart Failure, Hx Coronary Artery Disease, Hx Heart Attack Pulmonary Medical History: Denies: Hx Asthma, Hx Bronchitis, Hx COPD, Hx Pneumonia, Hx Tuberculosis Neurological Medical History: Denies: Hx Cerebrovascular Accident, Hx Migraine, Hx Seizures Endocrine Medical History: Reports: Hx Diabetes Mellitus Type 1, Hx Diabetes Mellitus Type 2 Renal/ Medical History: Reports: Hx End Stage Renal Disease, Hx Hemodialysis, Hx Renal Insufficiency. 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 PermCath right subclavian.. Denies: Hx Hysterectomy - Immunizations Hx Diphtheria, Pertussis, Tetanus Vaccination: Yes History of Influenza Vaccine for 01/2017 - 06/2017 Season: Yes Influenza Administration Date for 01/2017 - 06/2017 Season: 01/05/17 Physical Exam - Vital signs Vitals: Temp Pulse Resp BP Pulse Ox 99.1 F 94 17 164/89 H 98 09/30/17 12:59 09/30/17 12:59 09/30/17 12:59 09/30/17 12:59 09/30/17 12:59 Course - Vital Signs Vital signs: Temp Pulse Resp BP Pulse Ox 99.1 F 94 17 164/89 H 98 09/30/17 12:59 09/30/17 12:59 09/30/17 12:59 09/30/17 12:59 09/30/17 12:59 Doctor's Discharge - Discharge Referrals: NICKY BARBOZA MD [Primary Care Provider] - Follow up as needed
[2017-09-30 14:32] LABS: ABSOLUTE BASOPHILS # (AUTO) 0.1 10^3/uL (0.0-0.2); ABSOLUTE EOSINOPHILS # (AUTO) 0.3 10^3/uL (0.0-0.6); ABSOLUTE LYMPHOCYTES (AUTO) 1.6 10^3/uL (0.5-4.7); ABSOLUTE MONOCYTES (AUTO) 0.3 10^3/uL (0.1-1.4); ABSOLUTE NEUT (AUTO) 6.9 10^3/uL (1.7-8.2); BASOPHILS % (AUTO) 0.7 % (0-2); EOSINOPHILS % (AUTO) 3.6 % (0-6); HEMATOCRIT 37.3 % (36.0-47.0); HEMOGLOBIN 11.7 g/dL (12.0-15.5); LYMPHOCYTES % (AUTO) 17.4 % (13-45); MEAN CORPUSCULAR HEMOGLOBIN 26.2 pg (27.0-33.4); MEAN CORPUSCULAR HGB CONC 31.3 g/dL (32.0-36.0); MEAN CORPUSCULAR VOLUME 84 fl (80-97); MONOCYTES % (AUTO) 3.1 % (3-13); PLATELET COUNT 228 10^3/uL (150-450); RED BLOOD COUNT 4.47 10^6/uL (3.72-5.28); RED CELL DISTRIBUTION WIDTH 16.7 % (11.5-14.0); SEGMENTED NEUTROPHILS % (AUTO) 75.2 % (42-78); TOTAL CELLS COUNTED % (AUTO) 100 %; WHITE BLOOD COUNT 9.1 10^3/uL (4.0-10.5)
[2017-09-30 14:39] LABS: ALANINE AMINOTRANSFERASE 18 U/L (9-52); ALBUMIN 4.1 g/dL (3.5-5.0); ALKALINE PHOSPHATASE 70 U/L (38-126); ANION GAP 18 (5-19); ASPARTATE AMINO TRANSFERASE 11 U/L (14-36); BILIRUBIN,DIRECT 0.5 mg/dL (0.0-0.4); BILIRUBIN,TOTAL 0.5 mg/dL (0.2-1.3); BLOOD UREA NITROGEN 38 mg/dL (7-20); CALCIUM 7.6 mg/dL (8.4-10.2); CARBON DIOXIDE 22 mmol/L (22-30); CHLORIDE 102 mmol/L (98-107); GLUCOSE 226 mg/dL (75-110); SODIUM 142.4 mmol/L (137-145); TOTAL PROTEIN 7.7 g/dL (6.3-8.2)
[2017-09-30] MEDS ORDERED: LIDOCAINE 1% INJ-PF (10 MG/ML) 30 ML SDV INJ ONE (15:57)
--- NOTE | 2017-09-30 15:57 | ER Document Report ---
ED General <KANU RAM - Last Filed: 09/30/17 17:34> - General Mode of Arrival: Ambulatory Information source: Patient TRAVEL OUTSIDE OF THE [place] IN LAST 30 DAYS: No <QIAN AGUILERA - Last Filed: 09/30/17 20:08> - General Chief Complaint: Abdominal Pain Stated Complaint: EAR PAIN,ABDOMINAL PAIN,ABSCESS ON BUTTOCK Time Seen by Provider: 09/30/17 13:24 Notes: 47 y.o. female with a PMHx of end-stage renal disease on hemodialysis, severe gastroparesis and type 2 DM with multiple complications presents to the ED with abd pain that has been ongoing for the past year now. She also complains of RT ear pain and a boil on her RT buttocks, both of which began yesterday. (QIAN AGUILERA) - Related Data Allergies/Adverse Reactions: sulfamethoxazole [From Decra] Allergy (Severe, Verified 09/30/17 12:56) Hives trimethoprim [From Decra] Allergy (Severe, Verified 09/30/17 12:56) Hives adhesive tape [Adhesive Tape] Adverse Reaction (Verified 09/30/17 12:56) Bruising/Rash Past Medical History - General Information source: Patient - Social History Smoking Status: Never Smoker Chew tobacco use (# tins/day): No Frequency of alcohol use: None Drug Abuse: None Family History: DM, Hypertension Patient has suicidal ideation: No Patient has homicidal ideation: No - Past Medical History Cardiac Medical History: Reports: Hx Hypercholesterolemia, Hx Hypertension Endocrine Medical History: Reports: Hx Diabetes Mellitus Type 1, Hx Diabetes Mellitus Type 2 Renal/ Medical History: Reports: Hx End Stage Renal Disease, Hx Hemodialysis, Hx Renal Insufficiency GI Medical History: Reports: Hx Gastroesophageal Reflux Disease, Hx Ulcer Skin Medical History: Reports Hx MRSA Psychiatric Medical History: Reports: Hx Depression Traumatic Medical History: Reports: Hx Fractures - Right ankle fracture Infectious Medical History: Reports: Hx MRSA Past Surgical History: Reports: Hx Section, Hx Cholecystectomy, Hx Orthopedic Surgery - ORIF right ankle with subsequent MRSA infection and Right BKA., Hx Tubal Ligation, Hx Vascular Surgery - Right forearm AV fistula. PermCath right subclavian. - Immunizations Hx Diphtheria, Pertussis, Tetanus Vaccination: Yes Hx Pneumococcal Vaccination: 07/04/10 <QIAN AGUILERA - Last Filed: 09/30/17 20:08> Review of Systems - Review of Systems Constitutional: No symptoms reported EENT: See HPI, Ear pain - LT ear Cardiovascular: No symptoms reported Respiratory: No symptoms reported Gastrointestinal: See HPI, Abdominal pain, Diarrhea Genitourinary: No symptoms reported Female Genitourinary: No symptoms reported Musculoskeletal: No symptoms reported Skin: Other - Boil to RT buttock Hematologic/Lymphatic: No symptoms reported Neurological/Psychological: No symptoms reported -: Yes All other systems reviewed and negative <QIAN AGUILERA - Last Filed: 09/30/17 20:08> Physical Exam <KANU RAM - Last Filed: 09/30/17 17:34> <QIAN AGUILERA - Last Filed: 09/30/17 20:08> - Vital signs Vitals: Temp Pulse Resp BP Pulse Ox 99.1 F 94 17 164/89 H 98 09/30/17 12:59 09/30/17 12:59 09/30/17 12:59 09/30/17 12:59 09/30/17 12:59 - Notes Notes: Physical Exam: General: Alert, appears well. HEENT: Normocephalic. Atraumatic. PERRL. Extraocular movements intact. Oropharynx clear. RT ear TM a little bulging, LT TM a little retracted. Neck: Supple. Non-tender. Respiratory: No respiratory distress. Clear and equal breath sounds bilaterally. Cardiovascular: Regular rate and rhythm. Abdominal: Epigastric tenderness to palpation. Morbidly Obese. No distension. Back: Non-tender. No deformity or step off. Extremities: RT BKA, moves all other extremities. No edema. RT forearm fistula. Neurological: Normal cognition. AAOx3. Normal speech. Psychological: Normal affect. Normal Mood. Skin: Warm. Dry. Normal color. Firm mass to inferior RT butt cheek, below the anus region. (QIAN AGUILERA) Course - Laboratory Result Diagrams: 09/30/17 13:55 09/30/17 13:55 <KANU RAM - Last Filed: 09/30/17 17:34> - Laboratory Result Diagrams: 09/30/17 13:55 09/30/17 13:55 <QIAN AGUILERA - Last Filed: 09/30/17 20:08> - Vital Signs Vital signs: Temp Pulse Resp BP Pulse Ox 98.4 F 97 20 155/70 H 99 09/30/17 18:09 09/30/17 18:09 09/30/17 18:09 09/30/17 18:09 09/30/17 18:09 - Laboratory Laboratory results interpreted by me: 09/30/17 09/30/17 13:55 13:55 Hgb 11.7 L MCH 26.2 L MCHC 31.3 L RDW 16.7 H BUN 38 H Creatinine 8.22 H Est GFR ( Amer) 6 L Est GFR (Non-Af Amer) 5 L Glucose 226 H Calcium 7.6 L Direct Bilirubin 0.5 H AST 11 L Lipase 1104.0 H Discharge <KANU RAM - Last Filed: 09/30/17 17:34> <QIAN AGUILERA - Last Filed: 09/30/17 20:08> - Discharge Clinical Impression: Abscess of buttock, right Condition: Stable Disposition: HOME, SELF-CARE Additional Instructions: Abscess; You have an abscess (boil). This a pus-forming infection, usually due to staph. Some boils may be left to drain on their own, but most require lancing. From the time the tender lump first appears, it may be three or four days before the abscess is ready to jian. Local heat and rest help at this stage of treatment. An antibiotic may prevent spread of the infection. Once the abscess is opened, packing may be placed into it. This is done so pus is not sealed inside by premature closure of the cavity. The packing will be removed at your follow-up visit or you may be advised to remove it yourself at home. Sometimes this packing must be replaced a few times during healing. The wound will heal with surprisingly little scar. Depending on the size and location of an abscess, healing can take one to four weeks. You may shower and wash the area around the incision site two or three times a day. Antibiotics may be prescribed, but are usually not necessary after an abscess has been drained. If you develop fever, chilling, worsening pain, or increasing swelling in the area, call the doctor or return immediately. Take medication as prescribed. You may soak in a warm tub. Call [facility] [place] [facility] in the morning for follow-up appointment in 1-2 days to check the abscess and remove the gauze packing. Prescriptions: Clindamycin HCl 300 mg PO QID #28 capsule Oxycodone HCl/Acetaminophen [Percocet 5-325 mg Tablet] 1 - 2 tab PO ASDIR PRN # 15 tablet PRN Reason: Referrals: NICKY BARBOZA MD [Primary Care Provider] - Follow up as needed [facility] [Provider Group] - Follow up tomorrow (Call tomorrow morning for an appointment either tomorrow or for wound check and packing removal.) Scribe Attestation: 09/30/17 16:51 I personally performed the services described in the documentation, reviewed and edited the documentation which was dictated to the scribe in my presence, and it accurately records my words and actions. (KANU RAM) Scribe Documentation - Scribe Written by Gregg:: Gregg Elder 09/30/17 1556 acting as scribe for :: Abhilash <QIAN AGUILERA - Last Filed: 09/30/17 20:08>
[2017-09-30] MEDS ORDERED: CLINDAMYCIN 600 MG/D5W RTU 600 MG/50 ML RTUPB IV ONE (16:01)
[2017-09-30] MEDS ORDERED: FENTANYL CITRATE INJ/PF 100 MCG/2 ML AMPUL IV ONE ×2 (16:01→16:02)
[2017-09-30 18:11] VITALS: BP 155/70
== END 2017-09-30 18:09 | disposition home or self-care (01) ==
LOC: ER 12:55
DX: R10.9 Unspecified abdominal pain (principal); L02.31 Cutaneous abscess of buttock; E11.22 Type 2 diabetes mellitus with diabetic chronic kidney disease; I12.0 Hypertensive chronic kidney disease with stage 5 chronic kidney disease or end stage renal disease; N18.6 End stage renal disease; Z99.2 Dependence on renal dialysis; Z86.14 Personal history of Methicillin resistant Staphylococcus aureus infection; Z90.49 Acquired absence of other specified parts of digestive tract
CPT/HCPCS: 99284; 96375; 96365; 36415; 87070; 83690; 85025; 87075; 87077; 80053; A9270 ×2; J3010; J3490; 87205; S0119

== ENCOUNTER 2017-10-02 19:48 | Inpatient (IN) | payer MEDICARE, MEDICAID ==
[2017-10-02] MEDS ORDERED: ONDANSETRON 4 MG TAB.RAPDIS PO ONE (21:22)
--- NOTE | 2017-10-02 21:24 | ER Document Report ---
ED Medical Screen (RME) - General Chief Complaint: Wound Recheck Stated Complaint: WOUND RECHECK Time Seen by Provider: 10/02/17 21:22 Mode of Arrival: Wheelchair Information source: Patient Notes: Patient presents complaining of needing a wound recheck from an abscess that she had incised and drained with packing placed. Patient feels as though the infection is worsening. Patient complains of nausea and vomiting 4 episodes today. Patient complains of generalized body aches. hx: Diabetes, dialysis, hypertension, hyperlipidemia I have greeted and performed a rapid initial assessment of this patient. A comprehensive ED assessment and evaluation of the patient, analysis of test results and completion of the medical decision making process will be conducted by additional ED providers. TRAVEL OUTSIDE OF THE [place] IN LAST 30 DAYS: No - Related Data Allergies/Adverse Reactions: sulfamethoxazole [From Septra] Allergy (Severe, Verified 10/02/17 19:50) Hives trimethoprim [From Septra] Allergy (Severe, Verified 10/02/17 19:50) Hives adhesive tape [Adhesive Tape] Adverse Reaction (Verified 10/02/17 19:50) Bruising/Rash Past Medical History - Past Medical History Cardiac Medical History: Reports: Hx Hypercholesterolemia, Hx Hypertension Denies: Hx Atrial Fibrillation, Hx Congestive Heart Failure, Hx Coronary Artery Disease, Hx Heart Attack Pulmonary Medical History: Denies: Hx Asthma, Hx Bronchitis, Hx COPD, Hx Pneumonia, Hx Tuberculosis Neurological Medical History: Denies: Hx Cerebrovascular Accident, Hx Migraine, Hx Seizures Endocrine Medical History: Reports: Hx Diabetes Mellitus Type 1, Hx Diabetes Mellitus Type 2 Renal/ Medical History: Reports: Hx End Stage Renal Disease, Hx Hemodialysis, Hx Renal Insufficiency. 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 PermCath right subclavian.. Denies: Hx Hysterectomy - Immunizations Hx Diphtheria, Pertussis, Tetanus Vaccination: Yes History of Influenza Vaccine for 01/2017 - 06/2017 Season: Yes Influenza Administration Date for 01/2017 - 06/2017 Season: 01/05/17 Physical Exam - Vital signs Vitals: Temp Pulse Resp BP Pulse Ox 99.7 F 102 H 20 189/93 H 99 10/02/17 19:56 10/02/17 19:56 10/02/17 19:56 10/02/17 19:56 10/02/17 19:56 - General General appearance: Appears well, Alert In distress: None Course - Vital Signs Vital signs: Temp Pulse Resp BP Pulse Ox 99.7 F 102 H 20 189/93 H 99 10/02/17 19:56 10/02/17 19:56 10/02/17 19:56 10/02/17 19:56 10/02/17 19:56 Doctor's Discharge - Discharge Referrals: NICKY BARBOZA MD [Primary Care Provider] - Follow up as needed
--- NOTE | 2017-10-02 23:33 | ER Document Report ---
ED General - General Chief Complaint: Wound Recheck Stated Complaint: WOUND RECHECK Time Seen by Provider: 10/02/17 21:22 Mode of Arrival: Wheelchair Notes: Patient is a 47-year-old female with a history of diabetes and dialysis who presents with complaint of still having pain over the area where she had an abscess incised and drained 2 days ago. She is on clindamycin. Said she has had some body aches and just has not felt as well. She denies any fevers. No vomiting. No diarrhea. She was given Percocet but says is not fully controlling her pain. She has no other complaints this time. TRAVEL OUTSIDE OF THE [place] IN LAST 30 DAYS: No - Related Data Allergies/Adverse Reactions: sulfamethoxazole [From Decra] Allergy (Severe, Verified 10/02/17 19:50) Hives trimethoprim [From Septra] Allergy (Severe, Verified 10/02/17 19:50) Hives adhesive tape [Adhesive Tape] Adverse Reaction (Verified 10/02/17 19:50) Bruising/Rash Past Medical History - General Information source: Patient - Social History Smoking Status: Unknown if Ever Smoked Frequency of alcohol use: None Drug Abuse: None Family History: DM, Hypertension Patient has suicidal ideation: No Patient has homicidal ideation: No - Past Medical History Cardiac Medical History: Reports: Hx Hypercholesterolemia, Hx Hypertension Denies: Hx Atrial Fibrillation, Hx Congestive Heart Failure, Hx Coronary Artery Disease, Hx Heart Attack Pulmonary Medical History: Denies: Hx Asthma, Hx Bronchitis, Hx COPD, Hx Pneumonia, Hx Tuberculosis Neurological Medical History: Denies: Hx Cerebrovascular Accident, Hx Migraine, Hx Seizures Endocrine Medical History: Reports: Hx Diabetes Mellitus Type 1, Hx Diabetes Mellitus Type 2 Renal/ Medical History: Reports: Hx End Stage Renal Disease, Hx Hemodialysis, Hx Renal Insufficiency. 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 PermCath right subclavian.. Denies: Hx Hysterectomy - Immunizations Hx Diphtheria, Pertussis, Tetanus Vaccination: Yes Hx Pneumococcal Vaccination: 07/04/10 Review of Systems - Review of Systems Notes: My Normal Review Basic REVIEW OF SYSTEMS: CONSTITUTIONAL : Denies fever, chills, or sweats. Denies recent illness. RESPIRATORY: Denies cough, cold, or chest congestion. Denies shortness of breath, difficulty breathing, or wheezing. GASTROINTESTINAL: Denies abdominal pain. Denies nausea, vomiting, or diarrhea. FEMALE GENITOURINARY: Denies vaginal bleeding, abnormal or irregular periods. MUSCULOSKELETAL: Some body aches SKIN: Pain over area of incise abscess. NEUROLOGICAL: Denies altered mental status or loss of consciousness. ALL OTHER SYSTEMS REVIEWED AND NEGATIVE. Physical Exam - Vital signs Vitals: Temp Pulse Resp BP Pulse Ox 99.7 F 102 H 20 189/93 H 99 10/02/17 19:56 10/02/17 19:56 10/02/17 19:56 10/02/17 19:56 10/02/17 19:56 - Notes Notes: General Appearance: Well nourished, alert, cooperative, no acute distress, mild obvious discomfort. Vitals: reviewed, See vital signs table. Eyes: PERRL, EOMI, Conjuctiva clear Mouth: No decreasd moisture Lungs: No wheezing, No rales, No rhonci, No accessory muscle use, good air exchange bilaterally. Heart: Normal rate, Regular rythm, No murmur, no rub Gluteal and rectal exam: Patient has area of incised abscess over the right gluteal cheek that is just inferior and lateral to the perirectal area. There is no palpable recurrent fluctuation at this time. Packing is still in place. No fluctuation or tenderness into the rectal area. No fluctuation into the perineum. Extremities: strength 5/5 in all extremities, good pulses in all extremities, no swelling or tenderness in the extremities, no edema. Skin: warm, dry, appropriate color, no rash Neuro: speech clear, oriented x 3, normal affect, responds appropriately to questions. Course - Re-evaluation Re-evalutation: 10/03/17 00:45 Patient does have cellulitis on CT scan. She does not have any drainable abscess at this time on CT scan. She has some phlegmonous changes. Patient clinically looks okay but she is a diabetic on end-stage renal disease and is due for dialysis in the morning does have leukocytosis with subcutaneous cellulitis and therefore I think is appropriate to admit her for observation and IV antibiotics. I did speak with the house nursing substation electrician supervisor and she says that we have plenty of dialysis beds. Her wire chief is Dr. Fernandez and therefore I will put in a consult for Dr. Fernandez to see her in the morning for dialysis. I did speak with her primary care doctor, Dr. Barboza, who agrees to admit the patient. Dictation of this chart was performed using voice recognition software; therefore, there may be some unintended grammatical errors. - Vital Signs Vital signs: Temp Pulse Resp BP Pulse Ox 99.7 F 102 H 20 189/93 H 99 10/02/17 19:56 10/02/17 19:56 10/02/17 19:56 10/02/17 19:56 10/02/17 19:56 - Laboratory Result Diagrams: 10/02/17 23:19 10/02/17 23:19 Laboratory results interpreted by me: 10/02/17 10/02/17 23:19 23:19 WBC 11.6 H Hgb 11.2 L Hct 35.7 L MCH 26.0 L MCHC 31.4 L RDW 16.3 H Absolute Neutrophils 9.0 H BUN 31 H Creatinine 7.04 H Est GFR ( Amer) 8 L Est GFR (Non-Af Amer) 6 L Glucose 237 H Calcium 8.0 L Discharge - Discharge Clinical Impression: ESRD (end stage renal disease) Cellulitis Qualifiers: Site of cellulitis: buttock Qualified Code(s): L03.317 - Cellulitis of buttock Diabetes Qualifiers: Diabetes mellitus type: type 2 Diabetes mellitus rat exterminator insulin use: unspecified penitentiary insulin use status Diabetes mellitus complication status: without complication Qualified Code(s): E11.9 - Type 2 diabetes mellitus without complications Condition: Stable Disposition: ADMITTED OBSERVATION Admitting Provider: Kelechi Referrals: NICKY BARBOZA MD [Primary Care Provider] - Follow up as needed
[2017-10-02 23:40] LABS: ABSOLUTE BASOPHILS # (AUTO) 0.1 10^3/uL (0.0-0.2); ABSOLUTE EOSINOPHILS # (AUTO) 0.3 10^3/uL (0.0-0.6); ABSOLUTE LYMPHOCYTES (AUTO) 1.7 10^3/uL (0.5-4.7); ABSOLUTE MONOCYTES (AUTO) 0.4 10^3/uL (0.1-1.4); BASOPHILS % (AUTO) 1.1 % (0-2); EOSINOPHILS % (AUTO) 2.9 % (0-6); HEMATOCRIT 35.7 % (36.0-47.0); HEMOGLOBIN 11.2 g/dL (12.0-15.5); LYMPHOCYTES % (AUTO) 14.4 % (13-45); MEAN CORPUSCULAR HGB CONC 31.4 g/dL (32.0-36.0); MEAN CORPUSCULAR VOLUME 83 fl (80-97); MONOCYTES % (AUTO) 3.8 % (3-13); PLATELET COUNT 241 10^3/uL (150-450); RED BLOOD COUNT 4.32 10^6/uL (3.72-5.28); RED CELL DISTRIBUTION WIDTH 16.3 % (11.5-14.0); SEGMENTED NEUTROPHILS % (AUTO) 77.8 % (42-78); TOTAL CELLS COUNTED % (AUTO) 100 %; WHITE BLOOD COUNT 11.6 10^3/uL (4.0-10.5)
[2017-10-02 23:57] LABS: ANION GAP 17 (5-19); BLOOD UREA NITROGEN 31 mg/dL (7-20); CARBON DIOXIDE 23 mmol/L (22-30); CHLORIDE 98 mmol/L (98-107); GLUCOSE 237 mg/dL (75-110); POTASSIUM 4.4 mmol/L (3.6-5.0)
--- NOTE | 2017-10-03 00:16 | RADIOLOGY REPORT (SQ) ---
EXAM DESCRIPTION: CT PELVIS WITHOUT IV CONTRAST COMPLETED DATE/TME: 10/02/2017 23:25 CLINICAL HISTORY: 47 years, Female, 2 days post perirectal abscess I D. COMPARISON: 04/03/2017. TECHNIQUE: [id number] Images stored on PACS. All CT scanners at this facility use dose modulation, iterative reconstruction, and/or weight based dosing when appropriate to reduce radiation dose to as low as reasonably achievable (ALARA). [facility]: Dose Right [facility]: CareDose [facility]: Dose Right [facility]: Teradose 4D [facility]: [employer] LIMITATIONS: None. FINDINGS: There is extensive vascular calcification in the pelvic vessels particularly around the uterus. The visual segments of the appendix appear unremarkable. Occasional diverticula. No free pelvic fluid is noted. Study is limited without the use of contrast. There is subcutaneous stranding along the perineum/perirectal region on the right extending into the medial right buttock inferiorly. There is underlying gas collection consistent with recent abscess drainage. Small amount of residual tissue may reflect residual abscess or phlegmon versus packing or hemorrhage. Additional area seen along the left aspect of the perineum and buttock which may reflect additional areas of abscess collection or phlegmon. Recommend contrast-enhanced exam. IMPRESSION: Findings consistent with cellulitis and abscess along the posterior right aspect of the rectum extending into the right buttock with a small amount of residual hyperdense tissue that could reflect some surgical packing or hemorrhage following I&D versus residual phlegmon There appears to be some abnormal soft tissue extending into the left buttock which May reflect phlegmon or developing abscess. This measures 1.8 cm with additional small collection along the gluteal cleft. Consider further evaluation with contrast-enhanced exam TECHNICAL DOCUMENTATION: Quality ID # [id number]: Final reports with documentation of one or more dose reduction techniques (e.g., Automated exposure control, adjustment of the mA and/or kV according to patient size, use of iterative reconstruction technique) 2010 [employer]- All Rights Reserved
[2017-10-03] MEDS ORDERED: VANCOMYCIN HCL INJ 1000 MG VIAL IV ONE (00:27)
[2017-10-03] MEDS ORDERED: HYDROMORPHONE HCL INJ/PF 2 MG/ML AMPULE IV ONE (00:28)
[2017-10-03] MEDS ORDERED: CEFTRIAXONE INJ 1000 MG VIAL IV ONE (00:28)
[2017-10-03] MEDS ORDERED: ONDANSETRON HCL INJ/PF 4 MG/2 ML SDV IV PRN (00:40)
[2017-10-03] MEDS ORDERED: DEXTROSE 50%-WATER 25 GM/50 ML DISP.SYRIN IV PRN ×2 (00:43)
[2017-10-03] MEDS ORDERED: DEXTROSE 40% GEL 15 GM TUBE PO PRN ×2 (00:43)
[2017-10-03] MEDS ORDERED: GLUCAGON,HUMAN RECOMB 1 MG INJ IM PRN (00:43)
[2017-10-03] MEDS: ONDANSETRON 4 MG TAB.RAPDIS PO PRN ×3 (04:16→12:38)
[2017-10-03] MEDS: HEPARIN SOD (PORCINE) 5,000 UNIT/ML 1 ML SYRINGE SUBCUT SCH ×3 (05:53→22:03)
[2017-10-03] MEDS: CLINDAMYCIN 600 MG/D5W RTU 600 MG/50 ML RTUPB IV SCH ×3 (05:53→22:03)
[2017-10-03] MEDS ORDERED: POLYETHYLENE GLYCOL 3350 POWDER 17 GM/1 PACKET PO PRN (09:45)
[2017-10-03] MEDS: ACETAMINOPHEN 325 MG TABLET PO PRN (11:26)
--- NOTE | 2017-10-03 12:48 | PDOC H&P ---
History of Present Illness Admission Date/PCP: 10/03/17 01:06 NICKY BARBOZA MD Patient complains of: Abscess on the buttock History of Present Illness: SEGUN NG is a 47 year old female This is a 47-year-old females with a type 2 diabetes mellitus And end-stage renal disease on hemodialysis hypertension's hyperlipidemia morbid obesity and a chronic gastroparesis several GI evaluations done came to the emergency department couple of days back's because of the right gluteal area of the abscess and was incision and drainage was donePatient was put on the clindamycin 's p.o. Patient was came emergency department last night because of the complaining of more pain on the areas and patient at this point decided to admit for possible cellulitis ongoing abscess on the perirectal area Patient's currently denied any chest pain denied any shortness of the breath except ongoing nausea from gastroparesis Past Medical History Cardiac Medical History: Reports: Hyperlipidema, Hypertension Denies: Atrial Fibrillation, Congestive Heart Failure, Coronary Artery Disease, Myocardial Infarction Pulmonary Medical History: Denies: Asthma, Bronchitis, Chronic Obstructive Pulmonary Disease (COPD), Pneumonia, Tuberculosis Neurological Medical History: Denies: Migraine, Seizures Endocrine Medical History: Reports: Diabetes Mellitus Type 2 Renal/ Medical History: Reports: End Stage Renal Disease GI Medical History: Reports: Gastroesophageal Reflux Disease Musculoskeltal Medical History: Denies: Arthritis Psychiatric Medical History: Reports: Depression Denies: Attention Deficit Hyperactivity Disorder, Bipolar Disorder Hematology: Reports: Anemia Denies: Sickle Cell Disease Infectious Medical History: Reports: Methicillin-Resistant Staph Aureus Past Surgical History Past Surgical History: Reports: Section, Cholecystectomy, Orthopedic Surgery - ORIF right ankle with subsequent MRSA infection and Right BKA., Tubal Ligation, Vascular Surgery - Right forearm AV fistula. PermCath right subclavian. Denies: Hysterectomy Social History Smoking Status: Never Smoker Frequency of Alcohol Use: None Hx Recreational Drug Use: No Drugs: None Hx Prescription Drug Abuse: No - Advance Directive Resuscitation Status: Full Code Family History Family History: Reviewed & Not Pertinent, DM, Hypertension Parental Family History Reviewed: Yes Children Family History Reviewed: Yes Sibling(s) Family History Reviewed.: Yes Medication/Allergy Home Medications: Clonidine HCl [Catapres 0.2 mg Tablet] 0.2 mg PO Q12 10/03/17 Hydralazine HCl 100 mg PO Q8 10/03/17 Polyethylene Glycol 3350 [Miralax Powder 17 gm/Packet] 17 gm PO DAILYP PRN 10/03 Allergies/Adverse Reactions: sulfamethoxazole [From Septra] Allergy (Severe, Verified 10/02/17 19:50) Hives trimethoprim [From Septra] Allergy (Severe, Verified 10/02/17 19:50) Hives adhesive tape [Adhesive Tape] Adverse Reaction (Verified 10/02/17 19:50) Bruising/Rash Review of Systems Constitutional: ABSENT: chills, fever(s), headache(s), weight gain, weight loss Eyes: ABSENT: visual disturbances Ears: ABSENT: hearing changes Cardiovascular: ABSENT: chest pain, dyspnea on exertion, edema, orthropnea, palpitations Respiratory: ABSENT: cough, hemoptysis Gastrointestinal: ABSENT: abdominal pain, constipation, diarrhea, hematemesis, hematochezia, nausea, vomiting Genitourinary: ABSENT: dysuria, hematuria Musculoskeletal: ABSENT: joint swelling Integumentary: ABSENT: rash, wounds Neurological: ABSENT: abnormal gait, abnormal speech, confusion, dizziness, focal weakness, syncope Psychiatric: ABSENT: anxiety, depression, homidical ideation, suicidal ideation Endocrine: ABSENT: cold intolerance, heat intolerance, menstrual abnormalities, polydipsia, polyuria Hematologic/Lymphatic: ABSENT: easy bleeding, easy bruising, lymphadenopathy Physical Exam Vital Signs: Temp Pulse Resp BP Pulse Ox 98.5 F 88 16 151/63 H 100 10/03/17 12:22 10/03/17 12:22 10/03/17 12:22 10/03/17 12:22 10/03/17 12:22 Intake & Output 10/02/17 10/03/17 10/04/17 06:59 06:59 06:59 Intake Total 50 Balance 50 Weight 132 kg General appearance: PRESENT: no acute distress, well-developed, well-nourished Head exam: PRESENT: atraumatic, normocephalic Eye exam: PRESENT: conjunctiva pink, EOMI, PERRLA. ABSENT: scleral icterus Ear exam: PRESENT: normal external ear exam Mouth exam: PRESENT: moist, tongue midline Neck exam: PRESENT: full ROM. ABSENT: carotid bruit, JVD, lymphadenopathy, thyromegaly Respiratory exam: PRESENT: clear to auscultation alexandr Cardiovascular exam: PRESENT: RRR. ABSENT: diastolic murmur, rubs, systolic murmur Pulses: PRESENT: normal dorsalis pedis pul, +2 pedal pulses bilateral Vascular exam: PRESENT: normal capillary refill GI/Abdominal exam: PRESENT: normal bowel sounds, soft. ABSENT: distended, guarding, mass, organolmegaly, rebound, tenderness Rectal exam: PRESENT: deferred Extremities exam: ABSENT: pedal edema Additional comments: On the right gluteal area mild draining and the tenderness and the dressing is intact Neurological exam: PRESENT: alert, awake, oriented to person, oriented to place , oriented to time, oriented to situation, CN II-XII grossly intact. ABSENT: motor sensory deficit Psychiatric exam: PRESENT: appropriate affect, normal mood. ABSENT: homicidal ideation, suicidal ideation Skin exam: PRESENT: dry, intact, warm. ABSENT: cyanosis, rash Results Impressions: Pelvis CT 10/02/17 23:25 IMPRESSION: Findings consistent with cellulitis and abscess along the posterior right aspect of the rectum extending into the right buttock with a small amount of residual hyperdense tissue that could reflect some surgical packing or hemorrhage following I&D versus residual phlegmon There appears to be some abnormal soft tissue extending into the left buttock which May reflect phlegmon or developing abscess. This measures 1.8 cm with additional small collection along the gluteal cleft. Consider further evaluation with contrast-enhanced exam TECHNICAL DOCUMENTATION: Quality ID # [id number]: Final reports with documentation of one or more dose reduction techniques (e.g., Automated exposure control, adjustment of the mA and/or kV according to patient size, use of iterative reconstruction technique) 2010 [employer]- All Rights Reserved Assessment & Plan - Diagnosis (1) Abscess of cellulitis of buttock Is this a current diagnosis for this admission?: Yes Plan: Will continues IV clindamycin some of the gram-negative coverage Discussed with the surgery to further evaluations (2) Gastroparesis Is this a current diagnosis for this admission?: Yes Plan: Continues as needed Zofran (3) Diabetes Qualifiers: Diabetes mellitus type: type 2 Diabetes mellitus senior care insulin use: unspecified senior care insulin use status Diabetes mellitus complication status : without complication Qualified Code(s): E11.9 - Type 2 diabetes mellitus without complications Is this a current diagnosis for this admission?: Yes Plan: Continues current medications and a sliding scale (4) ESRD (end stage renal disease) Is this a current diagnosis for this admission?: Yes Plan: Currently on hemodialysis follow with the Dr. Fernandez (5) Anemia Qualifiers: Anemia type: due to chronic kidney disease Chronic kidney disease stage: on chronic dialysis Qualified Code(s): N18.6 - End stage renal disease; D63.1 - Anemia in chronic kidney disease; D63.1 - Anemia in chronic kidney disease; Z99.2 - Dependence on renal dialysis; Z99.2 - Dependence on renal dialysis; Z99.2 - Dependence on renal dialysis; Z99.2 - Dependence on renal dialysis Is this a current diagnosis for this admission?: Yes Plan: Currently all stable (6) Congestive heart failure Qualifiers: Heart failure type: diastolic Is this a current diagnosis for this admission?: Yes Plan: Continues to monitor (7) Depression Qualifiers: Depression Type: major depressive disorder Is this a current diagnosis for this admission?: Yes (8) Sleep apnea syndrome Qualifiers: Sleep apnea type: unspecified type Qualified Code(s): G47.30 - Sleep apnea , unspecified Is this a current diagnosis for this admission?: Yes Plan: Continues to CPAP - Time Time Spent: 30 to 50 Minutes Medications reviewed and adjusted accordingly: Yes Anticipated discharge: Home Within: Other - Inpatient Certification Medical Necessity: Need Close Monitoring Due to Risk of Patient Decompensation, Need for IV Antibiotics Post Hospital Care: D/C First Officer Documentation - Plan Summary Plan Summary: See other MD order
[2017-10-03] MEDS: INSULIN LISPRO 100 UNIT/ML 3 ML VIAL SUBCUT PRN ×2 (12:49→22:03)
[2017-10-03] MEDS ORDERED: (PENDING PHARMACY ID) (Hydralazine Hcl [Hydralazine Hcl] 100 MG) PO SCH (14:00)
--- NOTE | 2017-10-03 17:22 | PDOC CONSULTATION ---
Consultation Consult Date: 10/03/17 Consult reason:: Hemodialysis History of Present Illness Admission Date/PCP: 10/03/17 01:06 NICKY BARBOZA MD History of Present Illness: SEGUN NG is a 47 year old femaleWith history of long-standing hypertension , complicated diabetes mellitus, morbid obesity, ESRD on hemodialysis comes in with history of pains around her back especially over the right buttocks. She had a recent abscess drained in that area. She denies any history of fever or chills. Labs and medications were reviewed.No complaints of any chest pain shortness of breath. No history of any focal neurological deficits affecting lower extremities.She is currently undergoing Dialysis without any issues. Past Medical History Cardiac Medical History: Reports: Hyperlipidemia, Hypertension-primary Denies: Atrial Fibrillation, Coronary Artery Disease, Myocardial Infarction Pulmonary Medical History: Denies: Asthma, Bronchitis, Chronic Obstructive Pulmonary Disease (COPD), Pneumonia, Tuberculosis Neurological Medical History: Denies: Migraine, Seizures Endocrine Medical History: Reports: Diabetes Mellitus Type 2 Renal/ Medical History: Reports: End Stage Renal Disease, Secondary Hyperparathyroidism GI Medical History: Reports: Gastroesophageal Reflux Disease Musculoskeltal Medical History: Denies: Arthritis Psychiatric Medical History: Reports: Depression Denies: Attention Deficit Hyperactivity Disorder, Bipolar Disorder Infectious Medical History: Reports: Methicillin-resist Staph Aureus Hematology Medical History: Reports Anemia of Chronic Kidney Disease Past Surgical History Past Surgical History: Reports: Section, Cholecystectomy, Orthopedic Surgery - ORIF right ankle with subsequent MRSA infection and Right BKA., Tubal Ligation, Vascular Surgery - Right forearm AV fistula. PermCath right subclavian. Denies: Hysterectomy Social History Smoking Status: Never Smoker Frequency of Alcohol Use: None Hx Recreational Drug Use: No Drugs: None Hx Prescription Drug Abuse: No - Advance Directive Resuscitation Status: Full Code Family History Parental Family History Reviewed: Yes - Denies any history of ESRD Children Family History Reviewed: No Sibling(s) Family History Reviewed.: No Medication/Allergy Home Medications: Clonidine HCl [Catapres 0.2 mg Tablet] 0.2 mg PO Q12 10/03/17 Hydralazine HCl 100 mg PO Q8 10/03/17 Insulin Glargine,Hum.rec.anlog [Lantus] 40 unit SQ BID 10/03/17 Polyethylene Glycol 3350 [Miralax Powder 17 gm/Packet] 17 gm PO DAILYP PRN 10/03 Allergies/Adverse Reactions: sulfamethoxazole [From Septra] Allergy (Severe, Verified 10/02/17 19:50) Hives trimethoprim [From Septra] Allergy (Severe, Verified 10/02/17 19:50) Hives adhesive tape [Adhesive Tape] Adverse Reaction (Verified 10/02/17 19:50) Bruising/Rash Review of Systems Constitutional: PRESENT: fatigue. ABSENT: fever(s), headache(s), night sweats, weakness Ears: ABSENT: hearing changes Nose, Mouth, and Throat: ABSENT: sore throat, vertigo Cardiovascular: PRESENT: dyspnea on exertion, edema. ABSENT: chest pain, orthropnea Gastrointestinal: ABSENT: abdominal pain, coffee ground emesis, diarrhea, dysphagia, hematemesis, hematochezia Genitourinary: ABSENT: dysuria Integumentary: ABSENT: pruritus Neurological: ABSENT: abnormal movements, focal weakness, memory loss Psychiatric: ABSENT: anxiety, depression Hematologic/Lymphatic: ABSENT: easy bruising, lymphadenopathy Physical Exam Vital Signs: Temp Pulse Resp BP Pulse Ox 98.6 F 86 18 136/52 H 98 10/03/17 08:00 10/03/17 08:00 10/03/17 08:00 10/03/17 08:00 10/03/17 08:00 Intake & Output 10/02/17 10/03/17 10/04/17 06:59 06:59 06:59 Intake Total 50 Balance 50 Weight 132 kg General appearance: PRESENT: no acute distress, morbidly obese Eye exam: PRESENT: conjunctiva pink, EOMI, PERRLA Ear exam: PRESENT: normal external ear exam Mouth exam: PRESENT: moist, neck supple Neck exam: ABSENT: lymphadenopathy, meningismus, tenderness, thyromegaly, tracheal deviation Respiratory exam: PRESENT: clear to auscultation alexandr. ABSENT: crackles, rhonchi Cardiovascular exam: PRESENT: +S1, +S2 GI/Abdominal exam: PRESENT: normal bowel sounds, soft. ABSENT: organomegaly, tenderness Extremities exam: PRESENT: pedal edema Neurological exam: PRESENT: alert, awake, oriented to person, oriented to place Psychiatric exam: PRESENT: appropriate affect Results Impressions: Pelvis CT 10/02/17 23:25 IMPRESSION: Findings consistent with cellulitis and abscess along the posterior right aspect of the rectum extending into the right buttock with a small amount of residual hyperdense tissue that could reflect some surgical packing or hemorrhage following I&D versus residual phlegmon There appears to be some abnormal soft tissue extending into the left buttock which May reflect phlegmon or developing abscess. This measures 1.8 cm with additional small collection along the gluteal cleft. Consider further evaluation with contrast-enhanced exam TECHNICAL DOCUMENTATION: Quality ID # [id number]: Final reports with documentation of one or more dose reduction techniques (e.g., Automated exposure control, adjustment of the mA and/or kV according to patient size, use of iterative reconstruction technique) 2010 [employer]- All Rights Reserved Assessment & Plan - Diagnosis (1) ESRD (end stage renal disease) Plan: She is currently undergoing dialysis without any issues.It is being supervised to ensure a safe and smooth procedure.VS are stable.Plan to remove 3-4 L as tolerated>orders were reviewed with treating bioinformatics specialist. (2) Abscess of buttock, right Plan: As per surgery.On antibiotics which are renally dosed. (4) Anemia Qualifiers: Anemia type: due to chronic kidney disease Chronic kidney disease stage: on chronic dialysis Qualified Code(s): N18.6 - End stage renal disease; D63.1 - Anemia in chronic kidney disease; D63.1 - Anemia in chronic kidney disease; Z99.2 - Dependence on renal dialysis; Z99.2 - Dependence on renal dialysis; Z99.2 - Dependence on renal dialysis; Z99.2 - Dependence on renal dialysis Plan: Stable.No indication for EPO. (5) Essential hypertension Plan: Controlled. 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
[2017-10-03] MEDS ORDERED: INSULIN GLARGINE,HUM.REC.ANLOG 1,000 UNIT/10 ML UNIT SUBCUT SCH ×2 (18:00)
[2017-10-03] MEDS: CLONIDINE HCL 0.2 MG TABLET PO SCH ×2 (18:46→22:01)
[2017-10-03] MEDS: HYDRALAZINE HCL 50 MG TABLET PO SCH ×2 (18:46→22:01)
[2017-10-03] MEDS: CEFTAZIDIME PENTAHYDRATE 2 GM in DEXTROSE 5%-WATER 100 ML IV SCH (22:00)
[2017-10-03] MEDS: INSULIN GLARGINE,HUM.REC.ANLOG 300 UNIT/3 ML INSULN.PEN SUBCUT SCH (22:01)
[2017-10-04] MEDS: MORPHINE SULFATE 10 MG/ML INJ IV PRN ×2 (02:06→09:48)
[2017-10-04] MEDS: CLINDAMYCIN 600 MG/D5W RTU 600 MG/50 ML RTUPB IV SCH (06:08)
[2017-10-04] MEDS: HYDRALAZINE HCL 50 MG TABLET PO SCH ×3 (06:14→21:42)
[2017-10-04] MEDS: INSULIN GLARGINE,HUM.REC.ANLOG 300 UNIT/3 ML INSULN.PEN SUBCUT SCH ×2 (06:14→17:08)
[2017-10-04] MEDS: HEPARIN SOD (PORCINE) 5,000 UNIT/ML 1 ML SYRINGE SUBCUT SCH ×3 (06:14→21:42)
[2017-10-04 06:19] LABS: HEMATOCRIT 31.3 % (36.0-47.0); HEMOGLOBIN 10.1 g/dL (12.0-15.5); MEAN CORPUSCULAR HEMOGLOBIN 26.7 pg (27.0-33.4); MEAN CORPUSCULAR HGB CONC 32.3 g/dL (32.0-36.0); MEAN CORPUSCULAR VOLUME 83 fl (80-97); PLATELET COUNT 239 10^3/uL (150-450); RED BLOOD COUNT 3.79 10^6/uL (3.72-5.28); WHITE BLOOD COUNT 7.6 10^3/uL (4.0-10.5)
[2017-10-04 06:40] LABS: ANION GAP 14 (5-19); BLOOD UREA NITROGEN 22 mg/dL (7-20); CALCIUM 7.8 mg/dL (8.4-10.2); CARBON DIOXIDE 26 mmol/L (22-30); CHLORIDE 99 mmol/L (98-107); GLUCOSE 342 mg/dL (75-110); POTASSIUM 4.2 mmol/L (3.6-5.0); SODIUM 138.5 mmol/L (137-145)
[2017-10-04] MEDS: INSULIN LISPRO 100 UNIT/ML 3 ML VIAL SUBCUT PRN ×4 (07:42→22:02)
[2017-10-04] MEDS: ONDANSETRON 4 MG TAB.RAPDIS PO PRN (07:48)
[2017-10-04] MEDS: CLONIDINE HCL 0.2 MG TABLET PO SCH ×2 (09:28→21:42)
[2017-10-04] MEDS: CLINDAMYCIN HCL 150 MG CAPSULE PO SCH ×2 (14:45→21:42)
--- NOTE | 2017-10-04 16:45 | PDOC PROGRESS REPORT ---
Subjective Progress Note for:: 10/04/17 Subjective:: Patient seen by the bedside she was admitted for the management of abscess in the buttock, status post I&D, end-stage renal disease on hemodialysis Reason For Visit: ABSCESS Physical Exam Vital Signs: Temp Pulse Resp BP Pulse Ox 98.9 F 88 14 120/43 L 97 10/04/17 15:04 10/04/17 15:04 10/04/17 15:04 10/04/17 15:04 10/04/17 15:04 Intake & Output 10/03/17 10/04/17 10/05/17 06:59 06:59 06:59 Intake Total 50 2081 Output Total 4000 Balance 50 -1919 Weight 132 kg 133.2 kg General appearance: PRESENT: no acute distress Eye exam: PRESENT: PERRLA Respiratory exam: PRESENT: clear to auscultation alexandr Cardiovascular exam: PRESENT: +S1, +S2 Murmur grade: 3 GI/Abdominal exam: PRESENT: soft Neurological exam: PRESENT: alert Results Laboratory Results: 10/04/17 05:58 10/04/17 05:58 10/04/17 10/04/17 05:58 05:58 WBC 7.6 RBC 3.79 Hgb 10.1 L Hct 31.3 L MCV 83 MCH 26.7 L MCHC 32.3 RDW 16.0 H Plt Count 239 Sodium 138.5 Potassium 4.2 Chloride 99 Carbon Dioxide 26 Anion Gap 14 BUN 22 H Creatinine 5.19 H Est GFR ( Amer) 11 L Est GFR (Non-Af Amer) 9 L Glucose 342 H Calcium 7.8 L Impressions: Pelvis CT 10/02/17 23:25 IMPRESSION: Findings consistent with cellulitis and abscess along the posterior right aspect of the rectum extending into the right buttock with a small amount of residual hyperdense tissue that could reflect some surgical packing or hemorrhage following I&D versus residual phlegmon There appears to be some abnormal soft tissue extending into the left buttock which May reflect phlegmon or developing abscess. This measures 1.8 cm with additional small collection along the gluteal cleft. Consider further evaluation with contrast-enhanced exam TECHNICAL DOCUMENTATION: Quality ID # [id number]: Final reports with documentation of one or more dose reduction techniques (e.g., Automated exposure control, adjustment of the mA and/or kV according to patient size, use of iterative reconstruction technique) 2010 [facility] [employer]- All Rights Reserved Assessment & Plan - Diagnosis (1) Abscess of buttock, right Is this a current diagnosis for this admission?: Yes Plan: Continue IV antibiotic (2) ESRD (end stage renal disease) Is this a current diagnosis for this admission?: Yes
--- NOTE | 2017-10-04 22:40 | PDOC CONSULTATION ---
History of Present Illness Admission Date/PCP: 10/03/17 01:06 NICKY BARBOZA MD Patient complains of: right maria g-anal pains at the I&D site History of Present Illness: SEGUN NG is a 47 year old female who is a diabetic with ends tage renal disease had an I&D of right maria g-anal abscess in the ED 09/30/17. I am being consulted for continued pain and some drainage from I&D site. Past Medical History Cardiac Medical History: Reports: Hyperlipidema, Hypertension Denies: Atrial Fibrillation, Congestive Heart Failure, Coronary Artery Disease, Myocardial Infarction Pulmonary Medical History: Denies: Asthma, Bronchitis, Chronic Obstructive Pulmonary Disease (COPD), Pneumonia, Tuberculosis Neurological Medical History: Denies: Migraine, Seizures Endocrine Medical History: Reports: Diabetes Mellitus Type 1, Diabetes Mellitus Type 2 Renal/ Medical History: Reports: End Stage Renal Disease GI Medical History: Reports: Gastroesophageal Reflux Disease Musculoskeltal Medical History: Denies: Arthritis Psychiatric Medical History: Reports: Depression Denies: Attention Deficit Hyperactivity Disorder, Bipolar Disorder Hematology: Reports: Anemia Denies: Sickle Cell Disease Infectious Medical History: Reports: Methicillin-Resistant Staph Aureus Past Surgical History Past Surgical History: Reports: Section, Cholecystectomy, Orthopedic Surgery - ORIF right ankle with subsequent MRSA infection and Right BKA., Tubal Ligation, Vascular Surgery - Right forearm AV fistula. PermCath right subclavian. Denies: Hysterectomy Social History Smoking Status: Never Smoker Frequency of Alcohol Use: None Hx Recreational Drug Use: No Drugs: None Hx Prescription Drug Abuse: No - Advance Directive Resuscitation Status: Full Code Family History Family History: Reviewed & Not Pertinent, DM, Hypertension Parental Family History Reviewed: Yes Children Family History Reviewed: No Sibling(s) Family History Reviewed.: No Medication/Allergy Home Medications: Clonidine HCl [Catapres 0.2 mg Tablet] 0.2 mg PO Q12 10/03/17 Hydralazine HCl 100 mg PO Q8 10/03/17 Insulin Glargine,Hum.rec.anlog [Lantus] 40 unit SQ BID 10/03/17 Polyethylene Glycol 3350 [Miralax Powder 17 gm/Packet] 17 gm PO DAILYP PRN 10/03 Allergies/Adverse Reactions: sulfamethoxazole [From ] Allergy (Severe, Verified 10/02/17 19:50) Hives trimethoprim [From Septra] Allergy (Severe, Verified 10/02/17 19:50) Hives adhesive tape [Adhesive Tape] Adverse Reaction (Verified 10/02/17 19:50) Bruising/Rash Review of Systems All systems: reviewed and no additional remarkable complaints except as stated - pains at the right maria g-anal area Physical Exam Vital Signs: Temp Pulse Resp BP Pulse Ox 98.7 F 85 16 135/47 H 100 10/04/17 19:29 10/04/17 19:29 10/04/17 19:29 10/04/17 19:29 10/04/17 19:29 Intake & Output 10/03/17 10/04/17 10/05/17 06:59 06:59 06:59 Intake Total 50 2081 556 Output Total 4000 1 Balance 50 -1919 555 Weight 132 kg 133.2 kg General appearance: PRESENT: mild distress Head exam: PRESENT: atraumatic Eye exam: PRESENT: conjunctiva pink Mouth exam: PRESENT: moist Neck exam: PRESENT: full ROM Respiratory exam: PRESENT: clear to auscultation alexandr Cardiovascular exam: PRESENT: RRR Pulses: PRESENT: normal radial pulses Vascular exam: PRESENT: normal capillary refill GI/Abdominal exam: PRESENT: soft Rectal exam: PRESENT: tenderness - at the I&D site right maria g-anal area with very small amount of light purulent material. Extremities exam: PRESENT: full ROM Musculoskeletal exam: PRESENT: ambulatory Neurological exam: PRESENT: alert, oriented to person, oriented to place, oriented to time, oriented to situation Psychiatric exam: PRESENT: anxious Skin exam: PRESENT: normal color, warm Results Laboratory Results: 10/04/17 05:58 10/04/17 05:58 10/04/17 10/04/17 05:58 05:58 WBC 7.6 RBC 3.79 Hgb 10.1 L Hct 31.3 L MCV 83 MCH 26.7 L MCHC 32.3 RDW 16.0 H Plt Count 239 Sodium 138.5 Potassium 4.2 Chloride 99 Carbon Dioxide 26 Anion Gap 14 BUN 22 H Creatinine 5.19 H Est GFR ( Amer) 11 L Est GFR (Non-Af Amer) 9 L Glucose 342 H Calcium 7.8 L Impressions: Pelvis CT 10/02/17 23:25 IMPRESSION: Findings consistent with cellulitis and abscess along the posterior right aspect of the rectum extending into the right buttock with a small amount of residual hyperdense tissue that could reflect some surgical packing or hemorrhage following I&D versus residual phlegmon There appears to be some abnormal soft tissue extending into the left buttock which May reflect phlegmon or developing abscess. This measures 1.8 cm with additional small collection along the gluteal cleft. Consider further evaluation with contrast-enhanced exam TECHNICAL DOCUMENTATION: Quality ID # 436: Final reports with documentation of one or more dose reduction techniques (e.g., Automated exposure control, adjustment of the mA and/or kV according to patient size, use of iterative reconstruction technique) 2010 [employer]- All Rights Reserved Assessment & Plan - Time Time Spent: 30 to 50 Minutes - Plan Summary Plan Summary: Told the nurse to pack the wound with quarter inch iodoform daily and continue IV antibiotics
[2017-10-05] MEDS: ONDANSETRON 4 MG TAB.RAPDIS PO PRN (04:01)
[2017-10-05 05:24] LABS: ANION GAP 13 (5-19); BLOOD UREA NITROGEN 34 mg/dL (7-20); CALCIUM 7.7 mg/dL (8.4-10.2); CARBON DIOXIDE 27 mmol/L (22-30); CHLORIDE 99 mmol/L (98-107); GLUCOSE 204 mg/dL (75-110); POTASSIUM 4.2 mmol/L (3.6-5.0); SODIUM 139.2 mmol/L (137-145)
[2017-10-05] MEDS: HEPARIN SOD (PORCINE) 5,000 UNIT/ML 1 ML SYRINGE SUBCUT SCH ×3 (06:36→21:56)
[2017-10-05] MEDS: CLINDAMYCIN HCL 150 MG CAPSULE PO SCH ×3 (06:36→21:52)
[2017-10-05] MEDS: INSULIN GLARGINE,HUM.REC.ANLOG 300 UNIT/3 ML INSULN.PEN SUBCUT SCH ×2 (06:36→17:34)
[2017-10-05] MEDS: HYDRALAZINE HCL 50 MG TABLET PO SCH ×3 (06:36→21:52)
[2017-10-05] MEDS: INSULIN LISPRO 100 UNIT/ML 3 ML VIAL SUBCUT PRN ×4 (06:36→21:52)
[2017-10-05] MEDS: CLONIDINE HCL 0.2 MG TABLET PO SCH ×3 (09:21→21:55)
--- NOTE | 2017-10-05 15:36 | PDOC PROGRESS REPORT ---
Subjective Progress Note for:: 10/05/17 Subjective:: Patient seen by the bedside she was admitted for the management of abscess in the buttock, status post I&D, end-stage renal disease on hemodialysis Reason For Visit: ABSCESS Physical Exam Vital Signs: Temp Pulse Resp BP Pulse Ox 98.7 F 90 21 H 115/58 L 99 10/05/17 11:17 10/05/17 14:00 10/05/17 11:17 10/05/17 11:17 10/05/17 11:17 Intake & Output 10/04/17 10/05/17 10/06/17 06:59 06:59 06:59 Intake Total 2081 1056 Output Total 4000 1 Balance -1918 1055 Weight 133.2 kg 133.2 kg General appearance: PRESENT: no acute distress Eye exam: PRESENT: PERRLA Respiratory exam: PRESENT: clear to auscultation alexandr Cardiovascular exam: PRESENT: +S2 Murmur grade: 3 GI/Abdominal exam: PRESENT: soft Results Laboratory Results: 10/04/17 05:58 10/05/17 04:52 10/05/17 04:52 Sodium 139.2 Potassium 4.2 Chloride 99 Carbon Dioxide 27 Anion Gap 13 BUN 34 H Creatinine 7.86 H Est GFR ( Amer) 7 L Est GFR (Non-Af Amer) 6 L Glucose 204 H Calcium 7.7 L Impressions: Pelvis CT 10/02/17 23:25 IMPRESSION: Findings consistent with cellulitis and abscess along the posterior right aspect of the rectum extending into the right buttock with a small amount of residual hyperdense tissue that could reflect some surgical packing or hemorrhage following I&D versus residual phlegmon There appears to be some abnormal soft tissue extending into the left buttock which May reflect phlegmon or developing abscess. This measures 1.8 cm with additional small collection along the gluteal cleft. Consider further evaluation with contrast-enhanced exam TECHNICAL DOCUMENTATION: Quality ID # 436: Final reports with documentation of one or more dose reduction techniques (e.g., Automated exposure control, adjustment of the mA and/or kV according to patient size, use of iterative reconstruction technique) 2010 [employer]- All Rights Reserved Assessment & Plan - Diagnosis (1) Abscess of buttock, right Is this a current diagnosis for this admission?: Yes (2) ESRD (end stage renal disease) Is this a current diagnosis for this admission?: Yes
[2017-10-05] MEDS: ACETAMINOPHEN 325 MG TABLET PO PRN (21:52)
[2017-10-06 05:21] LABS: ABSOLUTE BASOPHILS # (AUTO) 0.1 10^3/uL (0.0-0.2); ABSOLUTE EOSINOPHILS # (AUTO) 0.3 10^3/uL (0.0-0.6); ABSOLUTE LYMPHOCYTES (AUTO) 2.1 10^3/uL (0.5-4.7); ABSOLUTE MONOCYTES (AUTO) 0.5 10^3/uL (0.1-1.4); ABSOLUTE NEUT (AUTO) 5.2 10^3/uL (1.7-8.2); EOSINOPHILS % (AUTO) 4.2 % (0-6); HEMATOCRIT 29.5 % (36.0-47.0); HEMOGLOBIN 9.6 g/dL (12.0-15.5); LYMPHOCYTES % (AUTO) 25.2 % (13-45); MEAN CORPUSCULAR HEMOGLOBIN 26.7 pg (27.0-33.4); MEAN CORPUSCULAR HGB CONC 32.6 g/dL (32.0-36.0); MEAN CORPUSCULAR VOLUME 82 fl (80-97); MONOCYTES % (AUTO) 6.4 % (3-13); PLATELET COUNT 256 10^3/uL (150-450); RED CELL DISTRIBUTION WIDTH 16.2 % (11.5-14.0); SEGMENTED NEUTROPHILS % (AUTO) 63.2 % (42-78); TOTAL CELLS COUNTED % (AUTO) 100 %; WHITE BLOOD COUNT 8.2 10^3/uL (4.0-10.5)
[2017-10-06 05:59] LABS: ANION GAP 14 (5-19); BLOOD UREA NITROGEN 44 mg/dL (7-20); CALCIUM 7.8 mg/dL (8.4-10.2); CARBON DIOXIDE 24 mmol/L (22-30); CHLORIDE 99 mmol/L (98-107); GLUCOSE 187 mg/dL (75-110); POTASSIUM 4.1 mmol/L (3.6-5.0); SODIUM 136.9 mmol/L (137-145)
[2017-10-06] MEDS: INSULIN GLARGINE,HUM.REC.ANLOG 300 UNIT/3 ML INSULN.PEN SUBCUT SCH ×2 (06:25→17:50)
[2017-10-06] MEDS: HEPARIN SOD (PORCINE) 5,000 UNIT/ML 1 ML SYRINGE SUBCUT SCH ×3 (06:25→22:51)
[2017-10-06] MEDS: INSULIN LISPRO 100 UNIT/ML 3 ML VIAL SUBCUT PRN ×3 (06:25→23:03)
[2017-10-06] MEDS: CLINDAMYCIN HCL 150 MG CAPSULE PO SCH ×3 (06:26→22:50)
[2017-10-06] MEDS: HYDRALAZINE HCL 50 MG TABLET PO SCH ×3 (06:26→22:51)
[2017-10-06] MEDS: ACETAMINOPHEN 325 MG TABLET PO PRN ×2 (07:36→17:59)
[2017-10-06] MEDS: ONDANSETRON 4 MG TAB.RAPDIS PO PRN ×3 (07:37→18:01)
--- NOTE | 2017-10-06 07:47 | PDOC PROGRESS REPORT ---
Subjective Progress Note for:: 10/06/17 Subjective:: Patient is currently doing well No fever no chills Reason For Visit: ABSCESS Physical Exam Vital Signs: Temp Pulse Resp BP Pulse Ox 98.8 F 84 16 122/57 L 100 10/06/17 03:31 10/06/17 07:15 10/06/17 03:31 10/06/17 03:31 10/06/17 03:31 Intake & Output 10/05/17 10/06/17 10/07/17 06:59 06:59 06:59 Intake Total 1056 960 Output Total 1 0 Balance 1055 960 Weight 133.2 kg 133.2 kg General appearance: PRESENT: no acute distress, well-developed, well-nourished Head exam: PRESENT: atraumatic, normocephalic Eye exam: PRESENT: conjunctiva pink, EOMI, PERRLA. ABSENT: scleral icterus Ear exam: PRESENT: normal external ear exam Mouth exam: PRESENT: moist, tongue midline Neck exam: PRESENT: full ROM. ABSENT: carotid bruit, JVD, lymphadenopathy, thyromegaly Respiratory exam: PRESENT: clear to auscultation alexandr Cardiovascular exam: PRESENT: RRR. ABSENT: diastolic murmur, rubs, systolic murmur Murmur grade: 3 Pulses: PRESENT: normal dorsalis pedis pul, +2 pedal pulses bilateral Vascular exam: PRESENT: normal capillary refill GI/Abdominal exam: PRESENT: normal bowel sounds, soft. ABSENT: distended, guarding, mass, organolmegaly, rebound, tenderness Rectal exam: PRESENT: deferred Extremities exam: ABSENT: pedal edema Musculoskeletal exam: PRESENT: ambulatory Neurological exam: PRESENT: alert, awake, oriented to person, oriented to place , oriented to time, oriented to situation, CN II-XII grossly intact. ABSENT: motor sensory deficit Psychiatric exam: PRESENT: appropriate affect, normal mood. ABSENT: homicidal ideation, suicidal ideation Skin exam: PRESENT: dry, intact, warm. ABSENT: cyanosis, rash Results Laboratory Results: 10/06/17 04:58 10/06/17 04:58 10/06/17 10/06/17 04:58 04:58 WBC 8.2 RBC 3.60 L Hgb 9.6 L Hct 29.5 L MCV 82 MCH 26.7 L MCHC 32.6 RDW 16.2 H Plt Count 256 Seg Neutrophils % 63.2 Lymphocytes % 25.2 Monocytes % 6.4 Eosinophils % 4.2 Basophils % 1.0 Absolute Neutrophils 5.2 Absolute Lymphocytes 2.1 Absolute Monocytes 0.5 Absolute Eosinophils 0.3 Absolute Basophils 0.1 Sodium 136.9 L Potassium 4.1 Chloride 99 Carbon Dioxide 24 Anion Gap 14 BUN 44 H Creatinine 9.31 H Est GFR ( Amer) 6 L Est GFR (Non-Af Amer) 5 L Glucose 187 H Calcium 7.8 L 10/03/17 11:50 Buttocks - Abscess Gram Stain - Final 10/03/17 11:50 Buttocks - Abscess Wound Culture - Final Enterococcus Faecalis(Group D) Impressions: Pelvis CT 10/02/17 23:25 IMPRESSION: Findings consistent with cellulitis and abscess along the posterior right aspect of the rectum extending into the right buttock with a small amount of residual hyperdense tissue that could reflect some surgical packing or hemorrhage following I&D versus residual phlegmon There appears to be some abnormal soft tissue extending into the left buttock which May reflect phlegmon or developing abscess. This measures 1.8 cm with additional small collection along the gluteal cleft. Consider further evaluation with contrast-enhanced exam TECHNICAL DOCUMENTATION: Quality ID # 436: Final reports with documentation of one or more dose reduction techniques (e.g., Automated exposure control, adjustment of the mA and/or kV according to patient size, use of iterative reconstruction technique) 2010 [employer]- All Rights Reserved Assessment & Plan - Diagnosis (1) Abscess of cellulitis of buttock Is this a current diagnosis for this admission?: Yes Plan: Continues with dressing change and IV antibiotic (2) Gastroparesis Is this a current diagnosis for this admission?: Yes Plan: Continues as needed Zofran (3) Diabetes Qualifiers: Diabetes mellitus type: type 2 Diabetes mellitus nursing home insulin use: unspecified nursing home insulin use status Diabetes mellitus complication status : without complication Qualified Code(s): E11.9 - Type 2 diabetes mellitus without complications Is this a current diagnosis for this admission?: Yes Plan: Continues current medications and a sliding scale (4) ESRD (end stage renal disease) Is this a current diagnosis for this admission?: Yes Plan: Currently on hemodialysis follow with the Dr. Fernandez (5) Anemia Qualifiers: Anemia type: due to chronic kidney disease Chronic kidney disease stage: on chronic dialysis Qualified Code(s): N18.6 - End stage renal disease; D63.1 - Anemia in chronic kidney disease; D63.1 - Anemia in chronic kidney disease; Z99.2 - Dependence on renal dialysis; Z99.2 - Dependence on renal dialysis; Z99.2 - Dependence on renal dialysis; Z99.2 - Dependence on renal dialysis Is this a current diagnosis for this admission?: Yes Plan: Currently all stable (6) Congestive heart failure Qualifiers: Heart failure type: diastolic Is this a current diagnosis for this admission?: Yes Plan: Continues to monitor (7) Depression Qualifiers: Depression Type: major depressive disorder Is this a current diagnosis for this admission?: Yes (8) Sleep apnea syndrome Qualifiers: Sleep apnea type: unspecified type Qualified Code(s): G47.30 - Sleep apnea , unspecified Is this a current diagnosis for this admission?: Yes - Time Time Spent with patient: 15-24 minutes Medications reviewed and adjusted accordingly: Yes Anticipated discharge: Home Within: within 24 hours - Inpatient Certification Medical Necessity: Need Close Monitoring Due to Risk of Patient Decompensation 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
[2017-10-06] MEDS ORDERED: EPOETIN ALFA INJ 20000 UNIT/1 ML VIAL (RENAL) IV PRN (09:41)
--- NOTE | 2017-10-06 10:28 | PDOC PROGRESS REPORT ---
Subjective Progress Note for:: 10/06/17 Reason For Visit: Patient seen on dialysis today. She is undergoing dialysis without any issues. She denies any history of chest pain, shortness of breath, fever or chills. Labs and medications were reviewed with the patient. Dialysis orders were reviewed with the treating dialysis nurse. Physical Exam Vital Signs: Temp Pulse Resp BP Pulse Ox 98.4 F 82 18 163/66 H 100 10/06/17 08:00 10/06/17 08:00 10/06/17 08:00 10/06/17 08:00 10/06/17 08:00 Intake & Output 10/05/17 10/06/17 10/07/17 06:59 06:59 06:59 Intake Total 1056 960 Output Total 1 0 Balance 1055 960 Weight 133.2 kg 133.2 kg General appearance: PRESENT: no acute distress Respiratory exam: PRESENT: clear to auscultation alexandr. ABSENT: crackles Cardiovascular exam: PRESENT: +S1, +S2 GI/Abdominal exam: PRESENT: normal bowel sounds, soft. ABSENT: organomegaly, tenderness Neurological exam: PRESENT: alert, awake, oriented to person, oriented to place Results Laboratory Results: 10/06/17 04:58 10/06/17 04:58 10/06/17 10/06/17 04:58 04:58 WBC 8.2 RBC 3.60 L Hgb 9.6 L Hct 29.5 L MCV 82 MCH 26.7 L MCHC 32.6 RDW 16.2 H Plt Count 256 Seg Neutrophils % 63.2 Lymphocytes % 25.2 Monocytes % 6.4 Eosinophils % 4.2 Basophils % 1.0 Absolute Neutrophils 5.2 Absolute Lymphocytes 2.1 Absolute Monocytes 0.5 Absolute Eosinophils 0.3 Absolute Basophils 0.1 Sodium 136.9 L Potassium 4.1 Chloride 99 Carbon Dioxide 24 Anion Gap 14 BUN 44 H Creatinine 9.31 H Est GFR ( Amer) 6 L Est GFR (Non-Af Amer) 5 L Glucose 187 H Calcium 7.8 L 10/03/17 11:50 Buttocks - Abscess Gram Stain - Final 10/03/17 11:50 Buttocks - Abscess Wound Culture - Final Enterococcus Faecalis(Group D) Impressions: Pelvis CT 10/02/17 23:25 IMPRESSION: Findings consistent with cellulitis and abscess along the posterior right aspect of the rectum extending into the right buttock with a small amount of residual hyperdense tissue that could reflect some surgical packing or hemorrhage following I&D versus residual phlegmon There appears to be some abnormal soft tissue extending into the left buttock which May reflect phlegmon or developing abscess. This measures 1.8 cm with additional small collection along the gluteal cleft. Consider further evaluation with contrast-enhanced exam TECHNICAL DOCUMENTATION: Quality ID # 436: Final reports with documentation of one or more dose reduction techniques (e.g., Automated exposure control, adjustment of the mA and/or kV according to patient size, use of iterative reconstruction technique) 2010 [employer]- All Rights Reserved Assessment & Plan - Diagnosis (1) ESRD (end stage renal disease) Is this a current diagnosis for this admission?: Yes Plan: Patient undergoing dialysis without any issues. Vital signs are stable. Is being supervised to ensure safe and smooth procedure. Plan to remove 3-4 L as tolerated. Orders were discussed with the treating dialysis nurse. (2) Abscess of buttock, right Is this a current diagnosis for this admission?: Yes Plan: Currently on antibiotics. However wound cultures growing enterococcus and she needs to be changed to vancomycin this can be continued as an outpatient postdialysis as well. Also being followed by surgery. (3) Abscess of cellulitis of buttock Is this a current diagnosis for this admission?: Yes (4) Anemia Qualifiers: Anemia type: due to chronic kidney disease Chronic kidney disease stage: on chronic dialysis Qualified Code(s): N18.6 - End stage renal disease; D63.1 - Anemia in chronic kidney disease; D63.1 - Anemia in chronic kidney disease; Z99.2 - Dependence on renal dialysis; Z99.2 - Dependence on renal dialysis; Z99.2 - Dependence on renal dialysis; Z99.2 - Dependence on renal dialysis Is this a current diagnosis for this admission?: Yes Plan: Will start on 20 K of erythropoietin. Monitor. (5) Essential hypertension Plan: Relatively controlled. See response to dialysis. (6) Diabetes Qualifiers: Diabetes mellitus type: type 2 Diabetes mellitus senior living insulin use: unspecified terminal carman insulin use status Diabetes mellitus complication status : without complication Qualified Code(s): E11.9 - Type 2 diabetes mellitus without complications Is this a current diagnosis for this admission?: Yes Plan: Advised on the need of tight diabetic control.
[2017-10-06] MEDS ORDERED: VANCOMYCIN HCL 1,500 MG in DEXTROSE 5%-WATER 250 ML IV PRN (12:05)
[2017-10-06] MEDS: CLONIDINE HCL 0.2 MG TABLET PO SCH ×2 (13:23→22:51)
[2017-10-06] MEDS: CEFTAZIDIME PENTAHYDRATE 2 GM in DEXTROSE 5%-WATER 100 ML IV SCH (17:49)
[2017-10-06] MEDS: FLUCONAZOLE 100 MG TABLET PO SCH (17:50)
[2017-10-06] MEDS ORDERED: OXYCODONE-ACETAMINOPHEN 5-325 MG TABLET PO PRN (21:30)
[2017-10-07] MEDS: INSULIN GLARGINE,HUM.REC.ANLOG 300 UNIT/3 ML INSULN.PEN SUBCUT SCH ×2 (06:00→18:50)
[2017-10-07] MEDS: CLINDAMYCIN HCL 150 MG CAPSULE PO SCH (06:00)
[2017-10-07] MEDS: HYDRALAZINE HCL 50 MG TABLET PO SCH ×3 (06:00→22:20)
[2017-10-07] MEDS: HEPARIN SOD (PORCINE) 5,000 UNIT/ML 1 ML SYRINGE SUBCUT SCH ×3 (06:00→22:20)
[2017-10-07] MEDS: ONDANSETRON 4 MG TAB.RAPDIS PO PRN ×4 (06:14→19:44)
[2017-10-07] MEDS: ACETAMINOPHEN 325 MG TABLET PO PRN (08:01)
[2017-10-07] MEDS: INSULIN LISPRO 100 UNIT/ML 3 ML VIAL SUBCUT PRN ×3 (08:02→22:20)
[2017-10-07] MEDS: CLONIDINE HCL 0.2 MG TABLET PO SCH ×2 (10:04→22:20)
--- NOTE | 2017-10-07 13:14 | PDOC PROGRESS REPORT ---
Subjective Progress Note for:: 10/07/17 Subjective:: Patient is complaining some nausea and vomiting this morning She is denied any chest pain denied any shortness of the breath Patient's not very comfortable at this point going home due to this ongoing nausea which patient have ongoing osteoporosisSeveral GI workup is done Reason For Visit: ABSCESS Physical Exam Vital Signs: Temp Pulse Resp BP Pulse Ox 98.3 F 77 21 H 105/40 L 98 10/07/17 08:15 10/07/17 10:07 10/07/17 08:15 10/07/17 10:07 10/07/17 08:15 Intake & Output 10/06/17 10/07/17 10/08/17 06:59 06:59 06:59 Intake Total 960 616 Output Total 0 3300 Balance 960 -2684 Weight 133.2 kg 139.3 kg General appearance: PRESENT: no acute distress, well-developed, well-nourished Head exam: PRESENT: atraumatic, normocephalic Eye exam: PRESENT: conjunctiva pink, EOMI, PERRLA. ABSENT: scleral icterus Ear exam: PRESENT: normal external ear exam Mouth exam: PRESENT: moist, tongue midline Neck exam: PRESENT: full ROM. ABSENT: carotid bruit, JVD, lymphadenopathy, thyromegaly Respiratory exam: PRESENT: clear to auscultation alexandr Cardiovascular exam: PRESENT: RRR. ABSENT: diastolic murmur, rubs, systolic murmur Murmur grade: 3 Pulses: PRESENT: normal dorsalis pedis pul, +2 pedal pulses bilateral Vascular exam: PRESENT: normal capillary refill GI/Abdominal exam: PRESENT: normal bowel sounds, soft. ABSENT: distended, guarding, mass, organolmegaly, rebound, tenderness Rectal exam: PRESENT: deferred Neurological exam: PRESENT: alert, awake, oriented to person. ABSENT: motor sensory deficit Psychiatric exam: PRESENT: appropriate affect, normal mood. ABSENT: homicidal ideation, suicidal ideation Skin exam: PRESENT: dry, intact, warm. ABSENT: cyanosis, rash Results Laboratory Results: 10/06/17 04:58 10/06/17 04:58 Impressions: Pelvis CT 10/02/17 23:25 IMPRESSION: Findings consistent with cellulitis and abscess along the posterior right aspect of the rectum extending into the right buttock with a small amount of residual hyperdense tissue that could reflect some surgical packing or hemorrhage following I&D versus residual phlegmon There appears to be some abnormal soft tissue extending into the left buttock which May reflect phlegmon or developing abscess. This measures 1.8 cm with additional small collection along the gluteal cleft. Consider further evaluation with contrast-enhanced exam TECHNICAL DOCUMENTATION: Quality ID # 436: Final reports with documentation of one or more dose reduction techniques (e.g., Automated exposure control, adjustment of the mA and/or kV according to patient size, use of iterative reconstruction technique) 2010 [employer]- All Rights Reserved Assessment & Plan - Diagnosis (1) Abscess of cellulitis of buttock Is this a current diagnosis for this admission?: Yes Plan: Continues with dressing change and IV antibiotic (2) Gastroparesis Is this a current diagnosis for this admission?: Yes Plan: Continues as needed Zofran (3) Diabetes Qualifiers: Diabetes mellitus type: type 2 Diabetes 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 Fernandez (5) Anemia Qualifiers: Anemia type: due to chronic kidney disease Chronic kidney disease stage: on chronic dialysis Qualified Code(s): N18.6 - End stage renal disease; D63.1 - Anemia in chronic kidney disease; D63.1 - Anemia in chronic kidney disease; Z99.2 - Dependence on renal dialysis; Z99.2 - Dependence on renal dialysis; Z99.2 - Dependence on renal dialysis; Z99.2 - Dependence on renal dialysis Is this a current diagnosis for this admission?: Yes Plan: Currently all stable (6) Congestive heart failure Qualifiers: Heart failure type: diastolic Is this a current diagnosis for this admission?: Yes Plan: Continues to monitor (7) Depression Qualifiers: Depression Type: major depressive disorder Is this a current diagnosis for this admission?: Yes (8) Sleep apnea syndrome Qualifiers: Sleep apnea type: unspecified type Qualified Code(s): G47.30 - Sleep apnea , unspecified Is this a current diagnosis for this admission?: Yes - Time Time Spent with patient: 15-24 minutes Medications reviewed and adjusted accordingly: Yes Anticipated discharge: Other Within: Other - Inpatient Certification Medical Necessity: Need Close Monitoring Due to Risk of Patient Decompensation 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
[2017-10-07] MEDS: FLUCONAZOLE 100 MG TABLET PO SCH (18:50)
--- NOTE | 2017-10-07 18:56 | EKG REPORT ---
SEVERITY:- ABNORMAL ECG - SINUS RHYTHM PROBABLE LEFT ATRIAL ABNORMALITY PROLONGED QT INTERVAL : Confirmed by: Otilio aLcy MD 07-Oct-2017 18:55:24
[2017-10-07] MEDS ORDERED: MAG HYDROX/AL HYDROX/SIMETH SUSP 30 ML UDCUP PO PRN (20:27)
[2017-10-07] MEDS ORDERED: PROMETHAZINE HCL 25 MG TABLET PO PRN (20:28)
--- NOTE | 2017-10-08 05:05 | CONSULTATION REPORT E ---
Consultation Report NAME: SEGUN NG : 1970 AGE: 47Y DATE: 10/07/2017 435 A TO: SCOTT NAVARRO M.D. FROM: NICKY BARBOZA M.D. Requesting Physician The patient was seen at 1:00 p.m. on 10/07/2017. REASON FOR CONSULTATION: A run of nonsustained ventricular tachycardia. HISTORY: The patient is a 47-year-old -[place] female with a known history of end-stage renal disease, hypertension, morbid obesity, and diabetes mellitus type 2, insulin requiring, who was admitted for a right gluteal abscess, which was drained and the patient on antibiotics. The patient had a 6-beat run of nonsustained ventricular tachycardia this morning. She denied any symptoms of palpitations, dizziness, or near dizziness. There was no recurrence of that. She denies any history of syncope in the past. She denies any chest pain or discomfort. She has chronic orthopnea. She had no PND or chest pain or discomfort and no shortness of breath at rest. There are no TIA or CVA symptoms. There is no leg edema. PAST MEDICAL HISTORY: Positive for morbid obesity. The patient states that she was told that she snores loudly at night and her boyfriend said that she stops breathing at night. When she wakes up she is very tired and hence, she has symptomatic obstructive sleep apnea, but has not had a formal sleep study. She has a history of hypertension and a history of diabetes mellitus type 2, non-insulin dependent. She also has end-stage renal disease on dialysis. She has a history of gastroesophageal reflux disease and a history of depression and chronic anemia due to renal disease. She was admitted here in July of 2017 with chest pain. IL was ruled out and a stress test was negative for ischemia or scar. She had an echocardiogram which showed normal left ventricular systolic function with mild LV diastolic dysfunction. She had no significant valvular disease. There was trace tricuspid regurgitation, with inability to calculate right ventricular systolic pressure due to insufficient *------* jet. There was pericardial effusion. There is no history of thyroid disease. There is no history of TIA or CVA. There is a history of depression present. PAST SURGICAL HISTORY: Positive for: 1. Placement of AV fistula in the left arm. 2. I and D abscess. 3. . 4. Cholecystectomy. 5. 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 6. She had a tubal ligation. 7. Vascular surgery. 8. Right forearm AV fistula. 9. Perma-Cath in the right subclavian. ALLERGIES: 1. SULFA. 2. TRIMETHOPRIM. 3. ADHESIVE TAPE. MEDICATIONS: 1. Tylenol 650 mg p.o. q. 4 hours p.r.n. 2. Clonidine 0.2 mg p.o. q. 12 hours. 3. Hypoglycemic precaution with glucose 40% gel, 15 g and 30 g p.o. p.r.n. hypoglycemia. 4. Dextrose 50% 12.5 g and 25 g IV p.r.n. hypoglycemia. 5. Diflucan 100 mg p.o. q.p.m. 6. Glucagon 1 mg IM p.r.n. 7. Heparin 5000 units subcutaneously q. 8 hours. 8. Hydralazine 100 mg p.o. q. 8 hours. 9. Lantus insulin 40 units subcutaneously q. 12 hours. 10. Accu-Chek a.c. and t.i.d. and adjusted sliding scale insulin coverage. 11. Maalox Plus 15 mL p.o. q. 6 hours p.r.n. 12. Zofran 4 mg p.o. q. 4 hours p.r.n. 13. Oxycodone/acetaminophen 1 tablet p.o. q. 8 hours p.r.n. 14. MiraLax 17 g p.o. daily p.r.n. 15. Promethazine 12.5 mg p.o. q. 8 hours. REVIEW OF SYSTEMS: CONSTITUTIONAL: Denies any fever, chills, or rigors. Complains of generalized fatigue and generalized weakness. HEAD: Denies headaches or head injury. EYES: No history of amblyopia or diplopia. No history of amaurosis fugax. EARS: No history of hearing loss. No history of tinnitus. No recurrent ear infections. NOSE: No history of hay fever. No history of nosebleeds. No nasal polyps. MOUTH: No altered taste sensation. No dryness of the mouth. No bleeding from the gums. THROAT: No odynophagia or dysphagia. No history of recurrent sore throats. SKIN: There is no pruritus. There is no yellowish discoloration of the skin. No eczema. No psoriasis. NECK: No painful or painless swelling of the neck. No goiter. LUNGS: No history of asthma, COPD. No history of pulmonary embolism. She has symptoms suggestive of sleep apnea. Although she has not had a formal sleep study, she is known to have stopped breathing as per her boyfriend and also she snores at night, and she has all the symptoms of sleep apnea untreated. This needs to be treated as soon as possible. There is no history of hemoptysis. No history of pleuritic chest pain. There is no history of symptoms suggestive of upper respiratory tract infection or lower respiratory tract infection. CARDIAC: No history of congestive heart failure. History of hypertension present, well controlled as per patient. No history of angina or coronary artery disease. No history of IL. She has chronic orthopnea, but no PND or leg edema. She denies any palpitations or syncope. Her ejection fraction was normal. GASTROINTESTINAL: History of GERD present. No history of GI bleed. No history of hepatitis. No history of fatty food intolerance. No history of jaundice. No history of cirrhosis. No abdominal pain. History of gluteal abscess drained right buttock. Appetite is good. METABOLIC: History of morbid obesity present. No history of gout. No history of hyperlipidemia. RENAL: History of end-stage renal disease on dialysis. No history of hematuria, pyuria, or dysuria. Note that the patient is on hemodialysis 3 times a week. MUSCULOSKELETAL: Denies arthritis or collagen vascular disease. PSYCHIATRIC: No history of anxiety. History of depression present. No history of suicide ideation. No history of homicidal ideation. CENTRAL NERVOUS SYSTEM: No history of gait imbalance. HEMATOLOGICAL: History of anemia present. No history of bleeding diathesis. No history of clotting disorders. VASCULAR: No history of calf or buttock claudication. No history of DVT. PHYSICAL EXAMINATION: GENERAL: The patient is moderately obese, but well groomed at present. No acute distress. VITAL SIGNS: She is afebrile with a temperature of 97.8 degrees Fahrenheit, pulse of 79 beats per minute, blood pressure is 128/64, respirations are 14 per minute, O2 sat is 100% on room air. HEENT: Head is atraumatic, normocephalic. Eyes: Pupils are equal, round, regular, reactive to light and accommodation. There is no conjunctival pallor. There is no scleral icterus. Ears: Tympanic membranes are intact. External auditory canals are clear. Nose: There is no deviated nasal septum. There is no inflammation of the nasal mucous membranes. Mouth: Mucous membranes of the mouth are moist. Tongue is moist. There are no ulcers. There is no bleeding from the gums. Throat: There is no redness of the oropharynx. There are no exudates. SKIN: There are no skin rashes or skin lesions. There is no petechiae or ecchymosis. NECK: Supple. There is no JVD. Carotids are equal. There is no bruit. There is no lymphadenopathy. There is no goiter. Trachea is central. LUNGS: Clear to auscultation and percussion. There is no chest wall tenderness. HEART: S1 and S2 heard. There is no S4 gallop. There is no S3 gallop. There is a systolic murmur in the left sternal border at the apex without radiation. There is no rub. ABDOMEN: Soft, obese, nontender. There is no hepatosplenomegaly. Bowel sounds are well heard. There are no tender areas or masses. EXTREMITIES: There is a working AV fistula in the right arm/forearm. Femorals are deep. Femorals are diminished. There are no femoral bruits. Leg pulses are diminished. There is no pedal edema. There is no cyanosis or clubbing. There is right below-knee amputation present. There is no calf tenderness. There is no DVT or cellulitis. CENTRAL NERVOUS SYSTEM: The patient is conscious, awake, alert, oriented x3, with no focal deficits. PSYCHIATRIC: The patient's judgement and insight are intact. Her affect is normal. DIAGNOSTIC STUDIES: The patient's EKG shows sinus rhythm, within normal limits except for borderline increased prolonged QT interval. The present CT report has been reviewed. Her white count is 8200. Hemoglobin is 9.6. Hematocrit is 29.5 and a platelet count is 256,000. The patient's potassium is 4.0 today. Magnesium is 2.1 today. On 10/06, the patient's sodium was 136.9, potassium 4.1, chloride 99, CO2 was 24. The patient's BUN was 44, creatinine of 9.31. GFR was reduced at 6 mL. Glucose is 187. Calcium is 7.8. IMPRESSION: 1. Nonsustained ventricular tachycardia, a few beats on monitor. Strips have been reviewed and confirmed that this was nonsustained ventricular tachycardia. The patient has a normal LV ejection fraction and no prior history of syncope, which should put her at a low risk. In view of the patient's sleep apnea, would urgently treat her sleep apnea with CPAP since this could also cause arrhythmias and sudden . 2. End-stage renal disease on hemodialysis. 3. Right gluteal abscess status post I and D. 4. Hypertension. 5. Diabetes mellitus type 2, insulin dependent. 6. Symptoms and signs of sleep apnea. 7. GERD. 8. Depression. 9. Morbid obesity. 10. Depression. RECOMMENDATIONS: Will continue current treatment, including dialysis. Would have close cardiology followup. The patient is desirous of following up with me. I have given her my cell number to call me if there should be any problems. Would urgently schedule the patient for a sleep study and get the patient CPAP. Discussed with the patient. Note: Medical decision-making is of high complexity. Her medications have been reviewed and at present, no changes advised. Note: The patient is a full code. Her boyfriend is the surrogate healthcare decision maker. Medical decision-making is of high complexity. Will follow with you. Discussed with Dr. Barboza, the attending physician on record for the patient. We discussed with the patient also. Note: Sixty minutes spent on this patient, with more than 50% of the time spent in direct patient care. The patient was seen at 1:00 p.m. on 10/07/2017. Thanking you. DICTATING PHYSICIAN: SCOTT NAVARRO M.D. [id number] PHY#: [id number] ID: [id number] JOB#: [id number] ACCT: [id number] cc:SCOTT NAVARRO M.D. >
[2017-10-08] MEDS: INSULIN GLARGINE,HUM.REC.ANLOG 300 UNIT/3 ML INSULN.PEN SUBCUT SCH ×2 (05:53→17:54)
[2017-10-08] MEDS: INSULIN LISPRO 100 UNIT/ML 3 ML VIAL SUBCUT PRN ×2 (05:53→17:54)
[2017-10-08] MEDS: HEPARIN SOD (PORCINE) 5,000 UNIT/ML 1 ML SYRINGE SUBCUT SCH ×2 (05:54→15:13)
[2017-10-08] MEDS: ONDANSETRON 4 MG TAB.RAPDIS PO PRN (06:15)
[2017-10-08] MEDS: HYDRALAZINE HCL 50 MG TABLET PO SCH ×2 (06:16→15:14)
[2017-10-08 07:42] LABS: HEMATOCRIT 30.4 % (36.0-47.0); HEMOGLOBIN 9.8 g/dL (12.0-15.5); MEAN CORPUSCULAR HEMOGLOBIN 26.5 pg (27.0-33.4); MEAN CORPUSCULAR HGB CONC 32.2 g/dL (32.0-36.0); MEAN CORPUSCULAR VOLUME 82 fl (80-97); PLATELET COUNT 268 10^3/uL (150-450); RED CELL DISTRIBUTION WIDTH 16.3 % (11.5-14.0); WHITE BLOOD COUNT 9.3 10^3/uL (4.0-10.5)
[2017-10-08 07:48] LABS: ANION GAP 17 (5-19); BLOOD UREA NITROGEN 39 mg/dL (7-20); CALCIUM 7.7 mg/dL (8.4-10.2); CARBON DIOXIDE 24 mmol/L (22-30); CHLORIDE 96 mmol/L (98-107); GLUCOSE 239 mg/dL (75-110); POTASSIUM 3.7 mmol/L (3.6-5.0); SODIUM 136.7 mmol/L (137-145)
[2017-10-08 08:10] LABS: ABSOLUTE LYMPHOCYTES# (MANUAL) 1.8 10^3/uL (0.5-4.7); ABSOLUTE MONOCYTES # (MANUAL) 0.5 10^3/uL (0.1-1.4); ABSOLUTE NEUTROPHILS# (MANUAL) 6.5 10^3/uL (1.7-8.2); BASOPHILS % (MANUAL) 1 % (0-2); EOSINOPHILS % (MANUAL) 5 % (0-6); LYMPHOCYTES % (MANUAL) 19 % (13-45); MONOCYTES % (MANUAL) 5 % (3-13); SEGMENTED NEUTROPHILS % (MAN) 70 % (42-78); TOTAL CELLS COUNTED 100
[2017-10-08 08:12] LABS: ANISOCYTOSIS 1+
[2017-10-08 08:13] LABS: PLATELET COMMENT ADEQUATE
[2017-10-08] MEDS: CLONIDINE HCL 0.2 MG TABLET PO SCH (10:11)
--- NOTE | 2017-10-08 10:36 | PDOC PROGRESS REPORT ---
Subjective Progress Note for:: 10/08/17 Subjective:: pt is doing well denied any chest pain no sob no n/v no fever pt express to go home today Reason For Visit: ABSCESS Physical Exam Vital Signs: Temp Pulse Resp BP Pulse Ox 97.7 F 84 18 140/74 H 100 10/08/17 08:00 10/08/17 08:00 10/08/17 08:00 10/08/17 08:00 10/08/17 08:00 Intake & Output 10/07/17 10/08/17 10/09/17 06:59 06:59 06:59 Intake Total 616 1766 Output Total 3300 Balance -2684 1766 Weight 139.3 kg 139.3 kg General appearance: PRESENT: no acute distress, well-developed, well-nourished Head exam: PRESENT: atraumatic, normocephalic Eye exam: PRESENT: conjunctiva pink, EOMI, PERRLA. ABSENT: scleral icterus Ear exam: PRESENT: normal external ear exam Mouth exam: PRESENT: moist, tongue midline Neck exam: PRESENT: full ROM. ABSENT: carotid bruit, JVD, lymphadenopathy, thyromegaly Respiratory exam: PRESENT: decreased breath sounds Cardiovascular exam: PRESENT: RRR. ABSENT: diastolic murmur, rubs, systolic murmur Murmur grade: 3 Pulses: PRESENT: normal dorsalis pedis pul, +2 pedal pulses bilateral Vascular exam: PRESENT: normal capillary refill GI/Abdominal exam: PRESENT: normal bowel sounds, soft. ABSENT: distended, guarding, mass, organolmegaly, rebound, tenderness Rectal exam: PRESENT: deferred Neurological exam: PRESENT: alert, awake, oriented to person, oriented to place. ABSENT: motor sensory deficit Psychiatric exam: PRESENT: appropriate affect, normal mood. ABSENT: homicidal ideation, suicidal ideation Skin exam: PRESENT: dry, intact, warm. ABSENT: cyanosis, rash Results Laboratory Results: 10/08/17 05:43 10/08/17 05:43 10/07/17 10/08/17 10/08/17 14:47 05:43 05:43 WBC 9.3 RBC 3.70 L Hgb 9.8 L Hct 30.4 L MCV 82 MCH 26.5 L MCHC 32.2 RDW 16.3 H Plt Count 268 Seg Neutrophils % Not Reportable Lymphocytes % Not Reportable Monocytes % Not Reportable Eosinophils % Not Reportable Basophils % Not Reportable Absolute Neutrophils Not Reportable Absolute Lymphocytes Not Reportable Absolute Monocytes Not Reportable Absolute Eosinophils Not Reportable Absolute Basophils Not Reportable Sodium 136.7 L Potassium 4.0 3.7 Chloride 96 L Carbon Dioxide 24 Anion Gap 17 BUN 39 H Creatinine 9.26 H Est GFR ( Amer) 6 L Est GFR (Non-Af Amer) 5 L Glucose 239 H Calcium 7.7 L Magnesium 2.1 10/03/17 03:31 Blood Blood Culture - Final NO GROWTH IN 5 DAYS Impressions: Pelvis CT 10/02/17 23:25 IMPRESSION: Findings consistent with cellulitis and abscess along the posterior right aspect of the rectum extending into the right buttock with a small amount of residual hyperdense tissue that could reflect some surgical packing or hemorrhage following I&D versus residual phlegmon There appears to be some abnormal soft tissue extending into the left buttock which May reflect phlegmon or developing abscess. This measures 1.8 cm with additional small collection along the gluteal cleft. Consider further evaluation with contrast-enhanced exam TECHNICAL DOCUMENTATION: Quality ID # 436: Final reports with documentation of one or more dose reduction techniques (e.g., Automated exposure control, adjustment of the mA and/or kV according to patient size, use of iterative reconstruction technique) 2010 [employer]- All Rights Reserved Assessment & Plan - Diagnosis (1) Abscess of cellulitis of buttock Is this a current diagnosis for this admission?: Yes Plan: Continues with dressing change and IV antibiotic (2) Gastroparesis Is this a current diagnosis for this admission?: Yes Plan: Continues as needed Zofran (3) Diabetes Qualifiers: Diabetes mellitus type: type 2 Diabetes mellitus care home insulin use: unspecified care home insulin use status Diabetes mellitus complication status : without complication Qualified Code(s): E11.9 - Type 2 diabetes mellitus without complications Is this a current diagnosis for this admission?: Yes Plan: Continues current medications and a sliding scale (4) ESRD (end stage renal disease) Is this a current diagnosis for this admission?: Yes Plan: Currently on hemodialysis follow with the Dr. Fernandez (5) Anemia Qualifiers: Anemia type: due to chronic kidney disease Chronic kidney disease stage: on chronic dialysis Qualified Code(s): N18.6 - End stage renal disease; D63.1 - Anemia in chronic kidney disease; D63.1 - Anemia in chronic kidney disease; Z99.2 - Dependence on renal dialysis; Z99.2 - Dependence on renal dialysis; Z99.2 - Dependence on renal dialysis; Z99.2 - Dependence on renal dialysis Is this a current diagnosis for this admission?: Yes Plan: Currently all stable (6) Congestive heart failure Qualifiers: Heart failure type: diastolic Is this a current diagnosis for this admission?: Yes Plan: Continues to monitor (7) Depression Qualifiers: Depression Type: major depressive disorder Is this a current diagnosis for this admission?: Yes (8) Sleep apnea syndrome Qualifiers: Sleep apnea type: unspecified type Qualified Code(s): G47.30 - Sleep apnea , unspecified Is this a current diagnosis for this admission?: Yes Plan: pt need sleep study - Time Time Spent with patient: 15-24 minutes Medications reviewed and adjusted accordingly: Yes Anticipated discharge: Home Within: Other - Inpatient Certification Medical Necessity: Need Close Monitoring Due to Risk of Patient Decompensation, Need For IV Fluids Post Hospital Care: D/C Banquet Set Up Person Documentation - Plan Summary Plan Summary: cont curr med
--- NOTE | 2017-10-08 10:42 | PDOC DISCHARGE SUMMARY ---
General - Admit/Disc Date/PCP Admission Date/Primary Care Provider: 10/03/17 01:06 NICKY BARBOZA MD Discharge Date: 10/08/17 - Discharge Diagnosis (1) Abscess of cellulitis of buttock Is this a current diagnosis for this admission?: Yes Summary: Currently doing well continues a dressing change and follow outpatient wound care (2) Gastroparesis Is this a current diagnosis for this admission?: Yes Summary: Is currently see a GI at [place] (3) Diabetes Is this a current diagnosis for this admission?: Yes Summary: Continues to monitor the patient's current medications (4) ESRD (end stage renal disease) Is this a current diagnosis for this admission?: Yes Summary: Hemodialysis (5) Anemia Is this a current diagnosis for this admission?: Yes Summary: Clear all stable (6) Congestive heart failure Is this a current diagnosis for this admission?: Yes Summary: See if is normal most likely diastolic heart failure patient with nonsustained VT seen by the Dr. Kathleen and suggest the patient's discharge home and follow outpatients with him and the need a sleep study (7) Depression Is this a current diagnosis for this admission?: Yes Summary: Currently all stable (8) Sleep apnea syndrome Is this a current diagnosis for this admission?: Yes Summary: Since need a sleep study outpatient - Additional Information Resuscitation Status: Full Code Discharge Diet: Diabetic Discharge Activity: Activity As Tolerated Prescriptions: Fluconazole [Diflucan 100 mg Tablet] 100 mg PO QPM #3 tablet Home Medications: Clonidine HCl [Catapres 0.2 mg Tablet] 0.2 mg PO Q12 10/03/17 Hydralazine HCl 100 mg PO Q8 10/03/17 Insulin Glargine,Hum.rec.anlog [Lantus] 40 unit SQ BID 10/03/17 Polyethylene Glycol 3350 [Miralax Powder 17 gm/Packet] 17 gm PO DAILYP PRN 10/03 Fluconazole [Diflucan 100 mg Tablet] 100 mg PO QPM #3 tablet 10/07/17 History of Present Illness History of Present Illness: SEGUN NG is a 47 year old female This is a 47-year-old females with a type 2 diabetes mellitus And end-stage renal disease on hemodialysis hypertension's hyperlipidemia morbid obesity and a chronic gastroparesis several GI evaluations done came to the emergency department couple of days back's because of the right gluteal area of the abscess and was incision and drainage was donePatient was put on the clindamycin 's p.o. Patient was came emergency department last night because of the complaining of more pain on the areas and patient at this point decided to admit for possible cellulitis ongoing abscess on the perirectal area Patient's currently denied any chest pain denied any shortness of the breath except ongoing nausea from gastroparesis Hospital Course Hospital Course: This is a 47-year-old female with multiple medical problem as above came to the emergency department with the complaining of for right gluteal abscess was drained couple of days in the ER was increasing more pain patients at this point admitting in the hospital and surgery consult was placed and suggested continues IV antibiotics and dressing change Since seen by Dr. Fernandez and this continues to hemodialysis and the patient's grew out enterococcus and suggest the postdialysis vancomycin's treatments Is otherwise remain afebrile patient's white count is normal pt have ongoing osteoporosis was currently all stable Also having nonsustained ventricular tachycardia and Dr. Kathleen was consulted and suggest the patient's need a outpatient sleep study but other than that no other further workup at this point and follow-up outpatients with him The patient on the dialysis doing well patient's denied any chest pain denied any shortness of the breath Patients expressed to go homes This with the cardiology and nephrology and suggest outpatients follow-up as able and postdialysis vancomycin's treatments Outpatients follow with the wound care Physical Exam Vital Signs: Temp Pulse Resp BP Pulse Ox 97.7 F 84 18 140/74 H 100 10/08/17 08:00 10/08/17 08:00 10/08/17 08:00 10/08/17 08:00 10/08/17 08:00 Intake & Output 10/07/17 10/08/17 10/09/17 06:59 06:59 06:59 Intake Total 616 1766 Output Total 3300 Balance -9994 1766 Weight 139.3 kg 139.3 kg General appearance: PRESENT: no acute distress, well-developed, well-nourished Head exam: PRESENT: atraumatic, normocephalic Eye exam: PRESENT: conjunctiva pink, EOMI, PERRLA. ABSENT: scleral icterus Ear exam: PRESENT: normal external ear exam Mouth exam: PRESENT: moist, tongue midline Neck exam: PRESENT: full ROM. ABSENT: carotid bruit, JVD, lymphadenopathy, thyromegaly Respiratory exam: PRESENT: clear to auscultation alexandr Cardiovascular exam: PRESENT: RRR. ABSENT: diastolic murmur, rubs, systolic murmur Murmur grade: 3 Pulses: PRESENT: normal dorsalis pedis pul, +2 pedal pulses bilateral Vascular exam: PRESENT: normal capillary refill GI/Abdominal exam: PRESENT: normal bowel sounds, soft. ABSENT: distended, guarding, mass, organolmegaly, rebound, tenderness Additonal comments: Right gluteal area the wound is clean Rectal exam: PRESENT: deferred Neurological exam: PRESENT: alert, awake, oriented to person, oriented to place , oriented to time, oriented to situation, CN II-XII grossly intact. ABSENT: motor sensory deficit Psychiatric exam: PRESENT: appropriate affect, normal mood. ABSENT: homicidal ideation, suicidal ideation Skin exam: PRESENT: dry, intact, warm. ABSENT: cyanosis, rash Results Laboratory Results: 10/08/17 05:43 10/08/17 05:43 10/07/17 10/08/17 10/08/17 14:47 05:43 05:43 WBC 9.3 RBC 3.70 L Hgb 9.8 L Hct 30.4 L MCV 82 MCH 26.5 L MCHC 32.2 RDW 16.3 H Plt Count 268 Seg Neutrophils % Not Reportable Lymphocytes % Not Reportable Monocytes % Not Reportable Eosinophils % Not Reportable Basophils % Not Reportable Absolute Neutrophils Not Reportable Absolute Lymphocytes Not Reportable Absolute Monocytes Not Reportable Absolute Eosinophils Not Reportable Absolute Basophils Not Reportable Sodium 136.7 L Potassium 4.0 3.7 Chloride 96 L Carbon Dioxide 24 Anion Gap 17 BUN 39 H Creatinine 9.26 H Est GFR ( Amer) 6 L Est GFR (Non-Af Amer) 5 L Glucose 239 H Calcium 7.7 L Magnesium 2.1 10/03/17 03:31 Blood Blood Culture - Final NO GROWTH IN 5 DAYS Impressions: Pelvis CT 10/02/17 23:25 IMPRESSION: Findings consistent with cellulitis and abscess along the posterior right aspect of the rectum extending into the right buttock with a small amount of residual hyperdense tissue that could reflect some surgical packing or hemorrhage following I&D versus residual phlegmon There appears to be some abnormal soft tissue extending into the left buttock which May reflect phlegmon or developing abscess. This measures 1.8 cm with additional small collection along the gluteal cleft. Consider further evaluation with contrast-enhanced exam TECHNICAL DOCUMENTATION: Quality ID # 436: Final reports with documentation of one or more dose reduction techniques (e.g., Automated exposure control, adjustment of the mA and/or kV according to patient size, use of iterative reconstruction technique) 2010 [employer]- All Rights Reserved Qualifiers - * PATIENT BEING DISCHARGED WITH ANY OF THE FOLLOWING DIAGNOSIS: No VTE patient discharged on overlapping Therapy?: Yes Plan Time Spent: Greater than 30 Minutes - Following a one-week in office and was scheduled the outpatient sleep study Follow with the cardiology and follow with the nephrology and wound care
[2017-10-08] MEDS ORDERED: VANCOMYCIN HCL 1,250 MG in DEXTROSE 5%-WATER 250 ML IV PRN (11:15)
[2017-10-08] MEDS ORDERED: EPOETIN ALFA INJ 20000 UNIT/1 ML VIAL (RENAL) IV PRN (11:21)
--- NOTE | 2017-10-08 12:57 | PDOC PROGRESS REPORT ---
Subjective Progress Note for:: 10/08/17 Reason For Visit: Seen on dialysis today.Undergoing dialysis without any issues.She denies any chest pains, dyspnea , fever or chills. Labs and medications were reviewed with her. Dialysis orders were reviewed with RN. Physical Exam Vital Signs: Temp Pulse Resp BP Pulse Ox 97.7 F 84 18 140/74 H 100 10/08/17 08:00 10/08/17 08:00 10/08/17 08:00 10/08/17 08:00 10/08/17 08:00 Intake & Output 10/07/17 10/08/17 10/09/17 06:59 06:59 06:59 Intake Total 616 1766 Output Total 3300 Balance -2684 1766 Weight 139.3 kg 139.3 kg General appearance: PRESENT: no acute distress Respiratory exam: PRESENT: clear to auscultation alexandr. ABSENT: crackles Cardiovascular exam: PRESENT: +S1, +S2 GI/Abdominal exam: PRESENT: normal bowel sounds, soft. ABSENT: organomegaly, tenderness Extremities exam: ABSENT: pedal edema Neurological exam: PRESENT: alert, awake, oriented to person, oriented to place , oriented to time Skin exam: ABSENT: cyanosis, erythema, rash Results Laboratory Results: 10/08/17 05:43 10/08/17 05:43 10/07/17 10/08/17 10/08/17 14:47 05:43 05:43 WBC 9.3 RBC 3.70 L Hgb 9.8 L Hct 30.4 L MCV 82 MCH 26.5 L MCHC 32.2 RDW 16.3 H Plt Count 268 Seg Neutrophils % Not Reportable Lymphocytes % Not Reportable Monocytes % Not Reportable Eosinophils % Not Reportable Basophils % Not Reportable Absolute Neutrophils Not Reportable Absolute Lymphocytes Not Reportable Absolute Monocytes Not Reportable Absolute Eosinophils Not Reportable Absolute Basophils Not Reportable Sodium 136.7 L Potassium 4.0 3.7 Chloride 96 L Carbon Dioxide 24 Anion Gap 17 BUN 39 H Creatinine 9.26 H Est GFR ( Amer) 6 L Est GFR (Non-Af Amer) 5 L Glucose 239 H Calcium 7.7 L Magnesium 2.1 10/03/17 03:31 Blood Blood Culture - Final NO GROWTH IN 5 DAYS Impressions: Pelvis CT 10/02/17 23:25 IMPRESSION: Findings consistent with cellulitis and abscess along the posterior right aspect of the rectum extending into the right buttock with a small amount of residual hyperdense tissue that could reflect some surgical packing or hemorrhage following I&D versus residual phlegmon There appears to be some abnormal soft tissue extending into the left buttock which May reflect phlegmon or developing abscess. This measures 1.8 cm with additional small collection along the gluteal cleft. Consider further evaluation with contrast-enhanced exam TECHNICAL DOCUMENTATION: Quality ID # [id number]: Final reports with documentation of one or more dose reduction techniques (e.g., Automated exposure control, adjustment of the mA and/or kV according to patient size, use of iterative reconstruction technique) 2010 [employer]- All Rights Reserved Assessment & Plan - Diagnosis (1) ESRD (end stage renal disease) Is this a current diagnosis for this admission?: Yes Plan: Patient undergoing dialysis without any issues. Vital signs are stable. Is being supervised to ensure safe and smooth procedure. Plan to remove 3-4 L as tolerated. Orders were discussed with the treating dialysis nurse. (2) Abscess of buttock, right Is this a current diagnosis for this admission?: Yes Plan: Currently on antibiotics. wound cultures growing enterococcus and she is on vancomycin. This can be continued as an outpatient postdialysis as well. Also being followed by surgery. (3) Anemia Qualifiers: Anemia type: due to chronic kidney disease Chronic kidney disease stage: on chronic dialysis Qualified Code(s): N18.6 - End stage renal disease; D63.1 - Anemia in chronic kidney disease; D63.1 - Anemia in chronic kidney disease; Z99.2 - Dependence on renal dialysis; Z99.2 - Dependence on renal dialysis; Z99.2 - Dependence on renal dialysis; Z99.2 - Dependence on renal dialysis Is this a current diagnosis for this admission?: Yes Plan: On erythropoietin. Monitor. (4) Essential hypertension Plan: Relatively controlled. See response to dialysis. 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
[2017-10-08] MEDS ORDERED: AMOXICILLIN TRIHYD 250 MG CAPSULE PO ONE (17:15)
[2017-10-08] MEDS: FLUCONAZOLE 100 MG TABLET PO SCH (17:55)
[2017-10-08] MEDS ORDERED: AMOXICILLIN TRIHYDRATE 500 MG CAPSULE ONE (17:56)
[2017-10-08 20:30] VITALS: BP 146/72
== END 2017-10-08 21:00 | disposition home or self-care (01) | DRG 602 ==
LOC: ER 19:48 → EH 10-03 01:06 → 4S 10-03 03:02
PROVIDERS: ADMIT Family Medicine; ATTEND Family Medicine
PROC: 5A1D70Z Performance of Urinary Filtration, Intermittent, Less than 6 Hours Per Day (ICD-10-PCS; principal; 2017-10-03)
DX: L03.317 Cellulitis of buttock (principal); N18.6 End stage renal disease; Z68.43 Body mass index [BMI] 50.0-59.9, adult; I13.2 Hypertensive heart and chronic kidney disease with heart failure and with stage 5 chronic kidney disease, or end stage renal disease; I50.32 Chronic diastolic (congestive) heart failure; D63.1 Anemia in chronic kidney disease; K21.9 Gastro-esophageal reflux disease without esophagitis; E11.22 Type 2 diabetes mellitus with diabetic chronic kidney disease; E11.43 Type 2 diabetes mellitus with diabetic autonomic (poly)neuropathy; K31.84 Gastroparesis; R00.0 Tachycardia, unspecified; F32.89 Other specified depressive episodes; G47.30 Sleep apnea, unspecified; B95.2 Enterococcus as the cause of diseases classified elsewhere; E66.01 Morbid (severe) obesity due to excess calories; Z99.2 Dependence on renal dialysis; Z86.14 Personal history of Methicillin resistant Staphylococcus aureus infection; Z89.511 Acquired absence of right leg below knee; Z79.4 Long term (current) use of insulin
CPT/HCPCS: 36415; 72192; 80048; 80053; 82962; 83690; 83735; 84132; 85025; 85027; 87040; 87070; 87075; 87077; 87186; 87205; 93005; 93010; 96365; 96367; 96375; 99284; A6266; J0696; J0713; J1170; J1644; J1815; J2270; J3010; J3370; J3490; J7060; Q4081; S0119

== ENCOUNTER → 2018-04-16 | Outpatient (CLI) | payer MEDICARE, MEDICAID ==
--- NOTE | 2018-04-16 17:14 | RADIOLOGY REPORT (SQ) ---
EXAM DESCRIPTION: ACUTE ABDOMEN SERIES COMPLETED DATE/TIME: 04/16/2018 5:05 pm REASON FOR STUDY: NAUSEA;VOMITING; DIARRHEA R11.0 NAUSEA R11.10 VOMITING, UNSPECIFIED R19.7 DIARR HEA, UNSPECIFIED COMPARISON: 01/24/2017. NUMBER OF VIEWS: Three views. TECHNIQUE: Frontal chest, supine abdomen and upright/decubitus abdomen radiographic images acquired. LIMITATIONS: None. FINDINGS: CHEST: Lungs clear of infiltrates. FREE AIR: None. No abnormal gas collections. BOWEL GAS PATTERN: Nonobstructive pattern. No dilated loops or air fluid levels. CALCIFICATIONS: No suspicious calcifications. HARDWARE: None in the abdomen. SOFT TISSUES: No gross mass or suggestion of organomegaly. BONES: No acute fracture. No worrisome bone lesions. OTHER: No other significant finding. IMPRESSION: NO RADIOGRAPHIC EVIDENCE FOR ACUTE ABDOMINAL DISEASE. TECHNICAL DOCUMENTATION: JOB ID: [id number] [employer]- All Rights Reserved Reading location - IP/workstation name: [email or web address]
== END ==
LOC: OD 16:34
PROVIDERS: ATTEND Physician Assistant
DX: R19.7 Diarrhea, unspecified (principal); R11.2 Nausea with vomiting, unspecified
CPT/HCPCS: 74022

== ENCOUNTER 2018-04-28 08:42 | Emergency (ER) | payer MEDICARE, MEDICAID ==
--- NOTE | 2018-04-28 09:12 | ER Document Report ---
ED Medical Screen (RME) - General Chief Complaint: Skin Sore(s) Stated Complaint: SKIN PROBLEM Time Seen by Provider: 04/28/18 09:06 Primary Care Provider: BREANN BORDEN PA [Primary Care Provider] - Follow up as needed Mode of Arrival: Wheelchair Information source: Patient Notes: Patient is a 47-year-old female who presents the emergency department with multiple abscesses. Patient has abscesses to her groin, left hip, buttocks and under her pannus on the left side. The one under the pannus is currently draining. She states she has a history of abscesses in the past and has seen surgeons for them before. I have greeted and performed a rapid initial assessment of this patient. A comprehensive ED assessment and evaluation of the patient, analysis of test results and completion of the medical decision making process will be conducted by additional ED providers. Dictation of this chart was performed using voice recognition software; therefore, there may be some unintended grammatical errors. TRAVEL OUTSIDE OF THE [place] IN LAST 30 DAYS: No - Related Data Allergies/Adverse Reactions: sulfamethoxazole [From Septra] Allergy (Severe, Verified 04/28/18 08:44) Hives trimethoprim [From Septra] Allergy (Severe, Verified 04/28/18 08:44) Hives adhesive tape [Adhesive Tape] Adverse Reaction (Verified 04/28/18 08:44) Bruising/Rash Past Medical History - Past Medical History Cardiac Medical History: Reports: Hx Hypercholesterolemia, Hx Hypertension Denies: Hx Atrial Fibrillation, Hx Congestive Heart Failure, Hx Coronary Artery Disease, Hx Heart Attack Pulmonary Medical History: Denies: Hx Asthma, Hx Bronchitis, Hx COPD, Hx Pneumonia, Hx Tuberculosis Neurological Medical History: Denies: Hx Cerebrovascular Accident, Hx Migraine, Hx Seizures Endocrine Medical History: Reports: Hx Diabetes Mellitus Type 1, Hx Diabetes Mellitus Type 2 Renal/ Medical History: Reports: Hx End Stage Renal Disease, Hx Hemodialysis, Hx Renal Insufficiency. 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 PermCath right subclavian.. Denies: Hx Hysterectomy - Immunizations Hx Diphtheria, Pertussis, Tetanus Vaccination: Yes History of Influenza Vaccine for 01/2017 - 06/2017 Season: Yes Influenza Administration Date for 01/2017 - 06/2017 Season: 01/05/17 Doctor's Discharge - Discharge Referrals: BREANN BORDEN PA [Primary Care Provider] - Follow up as needed
[2018-04-28] MEDS ORDERED: LIDOCAINE 1% INJ-PF (10 MG/ML) 30 ML SDV INJ ONE (09:41)
[2018-04-28] MEDS ORDERED: ACETAMINOPHEN 325 MG TABLET PO ONE (09:45)
--- NOTE | 2018-04-28 09:48 | ER Document Report ---
ED General - General Chief Complaint: Skin Sore(s) Stated Complaint: SKIN PROBLEM Time Seen by Provider: 04/28/18 09:06 Primary Care Provider: BREANN BORDEN PA [Primary Care Provider] - Follow up as needed Mode of Arrival: Wheelchair TRAVEL OUTSIDE OF THE [place] IN LAST 30 DAYS: No - HPI Notes: Patient is a 47-year-old female with a history of end-stage renal disease and on dialysis every Friday/Friday/Friday, diabetes, and hypertension who presents the emergency department complaining of small abscesses underneath her pannus bilaterally have developed over the last several days. Patient states that she has other areas that have been looked at by wound clinic before, but does not want them evaluated today. Patient states that she is here only for the 2 areas under her pannus. Patient states that she has had discharge from the abscessed area on the left already. She is otherwise eating and drinking without difficulty. She is urinating normally and having normal bowel movements. No other concerns or complaints. Denies any headache, fever, URI, sore throat, chest pain, palpitations, syncope, cough, shortness of breath, wheeze, dyspnea, abdominal pain, nausea/vomiting/diarrhea. - Related Data Allergies/Adverse Reactions: sulfamethoxazole [From Septra] Allergy (Severe, Verified 04/28/18 08:44) Hives trimethoprim [From Septra] Allergy (Severe, Verified 04/28/18 08:44) Hives adhesive tape [Adhesive Tape] Adverse Reaction (Verified 04/28/18 08:44) Bruising/Rash Past Medical History - General Information source: Patient - Social History Smoking Status: Unknown if Ever Smoked Family History: Reviewed & Not Pertinent, DM, Hypertension - Past Medical History Cardiac Medical History: Reports: Hx Hypercholesterolemia, Hx Hypertension Denies: Hx Atrial Fibrillation, Hx Congestive Heart Failure, Hx Coronary Artery Disease, Hx Heart Attack Pulmonary Medical History: Denies: Hx Asthma, Hx Bronchitis, Hx COPD, Hx Pneumonia, Hx Tuberculosis Neurological Medical History: Denies: Hx Cerebrovascular Accident, Hx Migraine, Hx Seizures Endocrine Medical History: Reports: Hx Diabetes Mellitus Type 1, Hx Diabetes Mellitus Type 2 Renal/ Medical History: Reports: Hx End Stage Renal Disease, Hx Hemodialysis, Hx Renal Insufficiency. Denies: Hx Kidney Stones, Hx Peritoneal Dialysis GI Medical History: Reports: Hx Gastroesophageal Reflux Disease, Hx Ulcer Musculoskeletal Medical History: Denies Hx Arthritis Skin Medical History: Reports Hx MRSA Psychiatric Medical History: Reports: Hx Depression Denies: Hx Attention Deficit Hyperactivity Disorder, Hx Bipolar Disorder, Hx Schizophrenia Traumatic Medical History: Reports: Hx Fractures - Right ankle fracture Infectious Medical History: Reports: Hx MRSA Past Surgical History: Reports: Hx Section, Hx Cholecystectomy, Hx Orthopedic Surgery - ORIF right ankle with subsequent MRSA infection and Right BKA., Hx Tubal Ligation, Hx Vascular Surgery - Right forearm AV fistula. PermCath right subclavian.. Denies: Hx Hysterectomy - Immunizations Hx Diphtheria, Pertussis, Tetanus Vaccination: Yes Hx Pneumococcal Vaccination: 07/04/10 Review of Systems - Review of Systems -: Yes All other systems reviewed and negative Physical Exam - Notes Notes: PHYSICAL EXAMINATION: GENERAL: Well-appearing, well-nourished and in no acute distress. LUNGS: Breath sounds clear to auscultation bilaterally and equal. No wheezes rales or rhonchi. HEART: Regular rate and rhythm without murmurs, rubs, gallops. ABDOMEN: Soft, nontender, nondistended abdomen. No guarding, no rebound. No masses appreciated. Normal bowel sounds present. No CVA tenderness bilaterally. Pannus and obese. Musculoskeletal: FROM to passive/active. Strength 5+/5. Extremities: No cyanosis, clubbing, or edema b/l. Peripheral pulses 2+. Capillary refill less than 3 seconds. NEUROLOGICAL: Normal speech, normal gait. PSYCH: Normal mood, normal affect. SKIN: Under her pannus on the left there is a 3cm diameter indurated area with a small central area of fluctuance and mild tenderness. No active purulence but there is an area seen that appears to have drained already. There is a a 1-1.5 cm fluctuant area with minimal induration surrounding to the right side underneath the pannus. No significant erythema, streaks, or purulence. Course - Re-evaluation Re-evalutation: 04/28/18 10:25 Patient is an afebrile, well-hydrated, 47-year-old female who presents emergency department with 2 small abscesses underneath her pannus one on each side. Vitals are acceptable without significant tachycardia, tachypnea, or hypoxia. PE is otherwise unremarkable. Patient is nontoxic-appearing and is tolerating p.o. without difficulty. Incision and drainage was performed to facility without any complications and packing was placed. Patient tolerated procedure well. Wound dressing was placed and wound instructions reviewed. Patient does have a history of end-stage renal disease so I will place her on levaquin with renal adjustment dosing based on her previous wound cultures and sensitivities. I did review with Dr. Lopez who is in agreement. She will be receiving 750mg PO now with 500mg in 48 hours then another 48hrs after that. Further treatment pending response s/p I&D and initial meds. Wound culture was also obtained. No labs or imaging warranted otherwise. Pt has declined me to further look at any other skin area on her body even after report to triage provider. RN Jennifer was in the room with me to witness that she has declined me evaluating those areas. Risk/benefit understood. Low suspicion for any sepsis, meningitis, uremia, or other systemic emergent condition at this time. Patient to monitor symptoms and seek medical attention with any acute changes. Recheck with your PCM in 2-3 days. Return to the ED with any other worsening/concerning symptoms as reviewed. Patient is in agreement. Procedures - Incision and Drainage B/L under pannus Time completed: 10:15 Type: Simple Anesthetic type: 1% Lidocaine mL's of anesthetic: 8 Blade size: 11 I&D procedure: Iodoform packing placed, Sterile dressing applied, Other - chlorhexadine/saline Incision Method: Incision made by scalpel Amount/type of drainage: scant purulent Discharge - Discharge Clinical Impression: Abscess Condition: Stable Disposition: HOME, SELF-CARE Instructions: Abscess ([facility]), Post Incision and Drainage Additional Instructions: Do not shower or bathe for 24 hours. After 24 hours you may shower but no submersion of the wound under water. Keep the original dressing on the wound for 24 hours unless the drainage soaks through. Change the dressing daily thereafter and use a small amount of triple antibiotic ointment over the open wound. See your PCM in 2-3 days for recheck and continue direction for wound packing. Monitor for any signs of worsening pain or redness, streaks, and/or fever. Return to the ED if noticing any of the above symptoms or as needed. Take medications as directed. Prescriptions: Levofloxacin [Levaquin 500 mg Tablet] 500 mg PO ASDIR PRN #2 tablet PRN Reason: Forms: Elevated Blood Pressure Referrals: BREANN BORDEN PA [Primary Care Provider] - Follow up as needed
[2018-04-28] MEDS ORDERED: LEVOFLOXACIN 750 MG TABLET PO ONE (10:02)
[2018-04-28 10:52] VITALS: BP 150/64
== END 2018-04-28 10:51 | disposition home or self-care (01) ==
LOC: ER 08:42
DX: L02.211 Cutaneous abscess of abdominal wall (principal); E11.22 Type 2 diabetes mellitus with diabetic chronic kidney disease; I12.0 Hypertensive chronic kidney disease with stage 5 chronic kidney disease or end stage renal disease; N18.6 End stage renal disease; Z99.2 Dependence on renal dialysis; Z86.14 Personal history of Methicillin resistant Staphylococcus aureus infection; Z90.49 Acquired absence of other specified parts of digestive tract; Z89.511 Acquired absence of right leg below knee; Z98.51 Tubal ligation status
CPT/HCPCS: 99283; 87070; 87205; 87075; 87077; 10061; A6266; A9270 ×2

== ENCOUNTER 2018-05-01 02:29 | Emergency (ER) | payer MEDICARE, MEDICAID ==
[2018-05-01] MEDS ORDERED: MAG HYDROX/AL HYDROX/SIMETH SUSP 30 ML UDCUP PO ONE (03:13)
[2018-05-01] MEDS ORDERED: METOCLOPRAMIDE HCL ORAL SOLN 10 MG/10 ML UDCUP PO ONE (03:13)
[2018-05-01] MEDS ORDERED: LIDOCAINE 2% VISCOUS SOLN 20 ML UDCUP PO ONE (03:13)
--- NOTE | 2018-05-01 03:14 | ER Document Report ---
ED Medical Screen (RME) - General Chief Complaint: Abdominal Pain Stated Complaint: SORE THROAT, SWELLING Time Seen by Provider: 05/01/18 03:09 Primary Care Provider: BREANN BORDEN PA [Primary Care Provider] - Follow up as needed Notes: 47-year-old female with chief complaint of the sensation of a "ball" stuck in the back of her throat. States she can swallow but this is uncomfortable. She also complains of pain in her upper abdomen and diarrhea every time she eats. Seen by gastroenterology, started on glycopyrrolate, states she wonders if this is a side effect of the medication. Denies difficulty breathing, itching, rash, swelling. TRAVEL OUTSIDE OF THE [place] IN LAST 30 DAYS: No - Related Data Allergies/Adverse Reactions: sulfamethoxazole [From Decra] Allergy (Severe, Verified 04/28/18 08:44) Hives trimethoprim [From Septra] Allergy (Severe, Verified 04/28/18 08:44) Hives adhesive tape [Adhesive Tape] Adverse Reaction (Verified 04/28/18 08:44) Bruising/Rash Past Medical History - Past Medical History Cardiac Medical History: Reports: Hx Hypercholesterolemia, Hx Hypertension Denies: Hx Atrial Fibrillation, Hx Congestive Heart Failure, Hx Coronary Artery Disease, Hx Heart Attack Pulmonary Medical History: Denies: Hx Asthma, Hx Bronchitis, Hx COPD, Hx Pneumonia, Hx Tuberculosis Neurological Medical History: Denies: Hx Cerebrovascular Accident, Hx Migraine, Hx Seizures Endocrine Medical History: Reports: Hx Diabetes Mellitus Type 1, Hx Diabetes Mellitus Type 2 Renal/ Medical History: Reports: Hx End Stage Renal Disease, Hx Hemodialysis, Hx Renal Insufficiency. 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 PermCath right subclavian.. Denies: Hx Hysterectomy - Immunizations Hx Diphtheria, Pertussis, Tetanus Vaccination: Yes History of Influenza Vaccine for 01/2017 - 06/2017 Season: Yes Influenza Administration Date for 01/2017 - 06/2017 Season: 01/05/17 Physical Exam - Vital signs Vitals: Temp Pulse Resp BP Pulse Ox 98.1 F 58 L 18 189/95 H 100 05/01/18 02:35 05/01/18 02:35 05/01/18 02:35 05/01/18 02:35 05/01/18 02:35 - HEENT Pharynx: Normal - Uvula unremarkable, airway patent, tongue unremarkable, oral pharyngeal exam unremarkable - Abdominal Tenderness: Tender - Mild upper abdominal tenderness, nonspecific, lower abdomen benign, exam limited by sitting position Course - Vital Signs Vital signs: Temp Pulse Resp BP Pulse Ox 98.1 F 58 L 18 189/95 H 100 05/01/18 02:35 05/01/18 02:35 05/01/18 02:35 05/01/18 02:35 05/01/18 02:35 Doctor's Discharge - Discharge Referrals: BREANN BORDEN PA [Primary Care Provider] - Follow up as needed
[2018-05-01 05:46] LABS: ABSOLUTE BASOPHILS # (AUTO) 0.1 10^3/uL (0.0-0.2); ABSOLUTE EOSINOPHILS # (AUTO) 0.3 10^3/uL (0.0-0.6); ABSOLUTE LYMPHOCYTES (AUTO) 1.7 10^3/uL (0.5-4.7); ABSOLUTE MONOCYTES (AUTO) 0.3 10^3/uL (0.1-1.4); ABSOLUTE NEUT (AUTO) 5.1 10^3/uL (1.7-8.2); EOSINOPHILS % (AUTO) 4.6 % (0-6); HEMATOCRIT 35.5 % (36.0-47.0); HEMOGLOBIN 11.2 g/dL (12.0-15.5); MEAN CORPUSCULAR HEMOGLOBIN 26.2 pg (27.0-33.4); MEAN CORPUSCULAR HGB CONC 31.6 g/dL (32.0-36.0); MEAN CORPUSCULAR VOLUME 83 fl (80-97); MONOCYTES % (AUTO) 4.3 % (3-13); PLATELET COUNT 222 10^3/uL (150-450); RED BLOOD COUNT 4.29 10^6/uL (3.72-5.28); RED CELL DISTRIBUTION WIDTH 17.2 % (11.5-14.0); SEGMENTED NEUTROPHILS % (AUTO) 68.1 % (42-78); TOTAL CELLS COUNTED % (AUTO) 100 %; WHITE BLOOD COUNT 7.5 10^3/uL (4.0-10.5)
[2018-05-01 06:07] LABS: ALANINE AMINOTRANSFERASE 18 U/L (9-52); ALBUMIN 3.8 g/dL (3.5-5.0); ALKALINE PHOSPHATASE 77 U/L (38-126); ANION GAP 12 (5-19); ASPARTATE AMINO TRANSFERASE 9 U/L (14-36); BILIRUBIN,DIRECT 0.3 mg/dL (0.0-0.4); BILIRUBIN,TOTAL 0.3 mg/dL (0.2-1.3); BLOOD UREA NITROGEN 48 mg/dL (7-20); CALCIUM 8.5 mg/dL (8.4-10.2); CARBON DIOXIDE 29 mmol/L (22-30); CHLORIDE 93 mmol/L (98-107); GLUCOSE 303 mg/dL (75-110); LIPASE 300.3 U/L (23-300); POTASSIUM 4.4 mmol/L (3.6-5.0); TOTAL PROTEIN 6.6 g/dL (6.3-8.2)
[2018-05-01 06:13] VITALS: BP 171/90
[2018-05-01] MEDS ORDERED: LANSOPRAZOLE 30 MG TAB.RAP.DR PO ONE (06:40)
--- NOTE | 2018-05-01 06:41 | ER Document Report ---
ED General - General Chief Complaint: Allergic Reaction Stated Complaint: SORE THROAT, SWELLING Time Seen by Provider: 05/01/18 03:09 Primary Care Provider: BREANN BORDEN PA [Primary Care Provider] - Follow up as needed TRAVEL OUTSIDE OF THE [place] IN LAST 30 DAYS: No - HPI Patient complains to provider of: Feeling something in her throat Notes: Patient coming in for evaluation of something feeling stuck in her throat patient states ongoing for the last 48 hours. Patient was seen by nighttime provider in triage. Notes provided below 47-year-old female with chief complaint of the sensation of a "ball" stuck in the back of her throat. States she can swallow but this is uncomfortable. She also complains of pain in her upper abdomen and diarrhea every time she eats. Seen by gastroenterology, started on glycopyrrolate, states she wonders if this is a side effect of the medication. Denies difficulty breathing, itching, rash, swelling. Patient on my evaluation has been given a GI cocktail with she states no improvement. Patient states that she is a end-stage renal disease patient on dialysis and is currently due for her dialysis. Patient otherwise denies any shortness of breath denies any difficulty in swallowing liquids. Patient otherwise looks nontoxic upon my evaluation. - Related Data Allergies/Adverse Reactions: sulfamethoxazole [From Septra] Allergy (Severe, Verified 04/28/18 08:44) Hives trimethoprim [From Septra] Allergy (Severe, Verified 04/28/18 08:44) Hives adhesive tape [Adhesive Tape] Adverse Reaction (Verified 04/28/18 08:44) Bruising/Rash Past Medical History - Social History Smoking Status: Never Smoker Chew tobacco use (# tins/day): No Drug Abuse: None Family History: Reviewed & Not Pertinent, DM, Hypertension Patient has suicidal ideation: No Patient has homicidal ideation: No - Past Medical History Cardiac Medical History: Reports: Hx Hypercholesterolemia, Hx Hypertension Denies: Hx Atrial Fibrillation, Hx Congestive Heart Failure, Hx Coronary Artery Disease, Hx Heart Attack Pulmonary Medical History: Denies: Hx Asthma, Hx Bronchitis, Hx COPD, Hx Pneumonia, Hx Tuberculosis Neurological Medical History: Denies: Hx Cerebrovascular Accident, Hx Migraine, Hx Seizures Endocrine Medical History: Reports: Hx Diabetes Mellitus Type 1, Hx Diabetes Mellitus Type 2 Renal/ Medical History: Reports: Hx End Stage Renal Disease, Hx Hemodialysis, Hx Renal Insufficiency. Denies: Hx Kidney Stones, Hx Peritoneal Dialysis GI Medical History: Reports: Hx Gastroesophageal Reflux Disease, Hx Ulcer Musculoskeletal Medical History: Denies Hx Arthritis Skin Medical History: Reports Hx MRSA Psychiatric Medical History: Reports: Hx Depression Denies: Hx Attention Deficit Hyperactivity Disorder, Hx Bipolar Disorder, Hx Schizophrenia Traumatic Medical History: Reports: Hx Fractures - Right ankle fracture Infectious Medical History: Reports: Hx MRSA Past Surgical History: Reports: Hx Section, Hx Cholecystectomy, Hx Orthopedic Surgery - ORIF right ankle with subsequent MRSA infection and Right BKA., Hx Tubal Ligation, Hx Vascular Surgery - Right forearm AV fistula. PermCath right subclavian.. Denies: Hx Hysterectomy - Immunizations Hx Diphtheria, Pertussis, Tetanus Vaccination: Yes Hx Pneumococcal Vaccination: 07/04/10 Review of Systems - Review of Systems Constitutional: No symptoms reported EENT: Other - Something stuck in throat Cardiovascular: No symptoms reported Respiratory: No symptoms reported Gastrointestinal: No symptoms reported Genitourinary: No symptoms reported Female Genitourinary: No symptoms reported Musculoskeletal: No symptoms reported Skin: No symptoms reported Hematologic/Lymphatic: No symptoms reported Neurological/Psychological: No symptoms reported Physical Exam - Vital signs Vitals: Temp Pulse Resp BP Pulse Ox 98.1 F 58 L 18 189/95 H 100 05/01/18 02:35 05/01/18 02:35 05/01/18 02:35 05/01/18 02:35 05/01/18 02:35 Interpretation: Normal - General General appearance: Appears well, Alert - HEENT Head: Normocephalic, Atraumatic Eyes: Normal Conjunctiva: Normal Cornea: Normal Pupils: PERRL External canal: Normal Tympanic membrane: Normal Sinus: Normal Nasal: Normal Mouth/Lips: Normal Pharynx: Normal - Respiratory Respiratory status: No respiratory distress Chest status: Nontender Breath sounds: Normal Chest palpation: Normal - Cardiovascular Rhythm: Regular Heart sounds: Normal auscultation Murmur: No - Abdominal Inspection: Normal Distension: No distension Bowel sounds: Normal Tenderness: Nontender Organomegaly: No organomegaly - Back Back: Normal, Nontender - Extremities General upper extremity: Normal inspection, Nontender, Normal color, Normal ROM, Normal temperature General lower extremity: Normal inspection, Nontender, Normal color, Normal ROM, Normal temperature, Normal weight bearing. No: German's sign - Neurological Neuro grossly intact: Yes Cognition: Normal Orientation: AAOx4 [place] Coma Scale Eye Opening: Spontaneous Alondra Coma Scale Verbal: Oriented Alondra Coma Scale Motor: Obeys Commands [place] Coma Scale Total: 15 Speech: Normal Motor strength normal: LUE, RUE, LLE, RLE Sensory: Normal - Psychological Associated symptoms: Normal affect, Normal mood - Skin Skin Temperature: Warm Skin Moisture: Dry Skin Color: Normal Course - Re-evaluation Re-evalutation: 05/01/18 14:45 The patient presents with throat pain without signs of peritonitis or other life-threatening or serious etiology. The patient appears stable for discharge and has been instructed to return immediately if the symptoms worsen in any way, or in 8-12hr if not improved for re-evaluation. The patient has been instructed to return if the symptoms worsen or change in any way. More likely patient has a globus hystericus or significant acid reflux. Recommend patient be started on a PPI patient also recommend follow-up with her wool carder. Patient discharged home after tolerating p.o. - Vital Signs Vital signs: Temp Pulse Resp BP Pulse Ox 98.3 F 80 19 171/90 H 99 05/01/18 06:10 05/01/18 06:10 05/01/18 06:10 05/01/18 06:10 05/01/18 06:10 - Laboratory Result Diagrams: 05/01/18 05:20 05/01/18 05:20 Laboratory results interpreted by me: 05/01/18 05/01/18 05:20 05:20 Hgb 11.2 L Hct 35.5 L MCH 26.2 L MCHC 31.6 L RDW 17.2 H Sodium 134.0 L Chloride 93 L BUN 48 H Creatinine 9.28 H Est GFR ( Amer) 6 L Est GFR (Non-Af Amer) 5 L Glucose 303 H AST 9 L Lipase 300.3 H Discharge - Discharge Clinical Impression: Globus hystericus, ESRD (end stage renal disease), healing abscess Condition: Good Disposition: HOME, SELF-CARE Instructions: Gastritis ([facility]), Reflux Disease (GERD) ([facility]) Additional Instructions: Your evaluation today is consistent with globus hystericus or inflammation of the esophagus causing the feeling of something stuck in her throat treatment is to decrease acid production with medication such as omeprazole. I would highly recommend following up with your primary care physician for continued evaluation by GI specialist please go to your dialysis today Prescriptions: Omeprazole 20 mg PO DAILY #30 capsule.dr Referrals: BREANN BORDEN PA [Primary Care Provider] - Follow up as needed
== END 2018-05-01 06:51 | disposition home or self-care (01) ==
LOC: ER 02:29
DX: F45.8 Other somatoform disorders (principal); I12.0 Hypertensive chronic kidney disease with stage 5 chronic kidney disease or end stage renal disease; E11.22 Type 2 diabetes mellitus with diabetic chronic kidney disease; N18.6 End stage renal disease; Z99.2 Dependence on renal dialysis; L02.91 Cutaneous abscess, unspecified; R10.10 Upper abdominal pain, unspecified; R19.7 Diarrhea, unspecified; Z86.14 Personal history of Methicillin resistant Staphylococcus aureus infection; Z88.1 Allergy status to other antibiotic agents
CPT/HCPCS: 99283; 36415; 83690; 84703; 85025; 80053; A9270 ×2; J3490

== ENCOUNTER 2018-07-13 18:31 | Emergency (ER) | payer MEDICARE, MEDICAID ==
--- NOTE | 2018-07-13 19:26 | ER Document Report ---
ED Medical Screen (RME) - General Chief Complaint: Rectal Pain Stated Complaint: RECTAL PAIN Time Seen by Provider: 07/13/18 19:25 Primary Care Provider: BREANN BORDEN PA [Primary Care Provider] - Follow up as needed Mode of Arrival: Wheelchair Information source: Patient Notes: Patient is a 48-year-old female who presents the emergency department with complaints of abscess near her rectum as well as a hemorrhoid that has "popped out". Patient reports significant pain to the area. Unable to assess as we are in the lobby at time of triage. Patient is alert, oriented answering all questions without difficulty. Patient does appear to be in moderate discomfort. I have greeted and performed a rapid initial assessment of this patient. A comprehensive ED assessment and evaluation of the patient, analysis of test results and completion of the medical decision making process will be conducted by additional ED providers. Dictation of this chart was performed using voice recognition software; therefore, there may be some unintended grammatical errors. TRAVEL OUTSIDE OF THE [place] IN LAST 30 DAYS: No - Related Data Allergies/Adverse Reactions: sulfamethoxazole [From Septra] Allergy (Severe, Verified 04/28/18 08:44) Hives trimethoprim [From Septra] Allergy (Severe, Verified 04/28/18 08:44) Hives adhesive tape [Adhesive Tape] Adverse Reaction (Verified 04/28/18 08:44) Bruising/Rash Past Medical History - Past Medical History Cardiac Medical History: Reports: Hx Hypercholesterolemia, Hx Hypertension Denies: Hx Atrial Fibrillation, Hx Congestive Heart Failure, Hx Coronary Artery Disease, Hx Heart Attack Pulmonary Medical History: Denies: Hx Asthma, Hx Bronchitis, Hx COPD, Hx Pneumonia, Hx Tuberculosis Neurological Medical History: Denies: Hx Cerebrovascular Accident, Hx Migraine, Hx Seizures Endocrine Medical History: Reports: Hx Diabetes Mellitus Type 1, Hx Diabetes Mellitus Type 2 Renal/ Medical History: Reports: Hx End Stage Renal Disease, Hx Hemodialysis, Hx Renal Insufficiency. 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 PermCath right subclavian.. Denies: Hx Hysterectomy - Immunizations Hx Diphtheria, Pertussis, Tetanus Vaccination: Yes History of Influenza Vaccine for 01/2017 - 06/2017 Season: Yes Influenza Administration Date for 01/2017 - 06/2017 Season: 01/05/17 Physical Exam - Vital signs Vitals: Temp Pulse Resp BP Pulse Ox 98.4 F 86 16 189/94 H 97 07/13/18 18:49 07/13/18 18:49 07/13/18 18:49 07/13/18 18:49 07/13/18 18:49 Course - Vital Signs Vital signs: Temp Pulse Resp BP Pulse Ox 98.4 F 86 16 189/94 H 97 07/13/18 18:49 07/13/18 18:49 07/13/18 18:49 07/13/18 18:49 07/13/18 18:49 Doctor's Discharge - Discharge Referrals: BREANN BORDEN PA [Primary Care Provider] - Follow up as needed
[2018-07-13] MEDS ORDERED: HYDROCODONE/ACETAMINOPHEN 10-325 MG TABLET PO ONE (20:47)
[2018-07-13] MEDS ORDERED: LIDOCAINE 1% INJ-PF (10 MG/ML) 30 ML SDV INJ ONE (20:47)
--- NOTE | 2018-07-13 22:15 | ER Document Report ---
ED General - General Chief Complaint: Rectal Pain Stated Complaint: RECTAL PAIN Time Seen by Provider: 07/13/18 19:25 Primary Care Provider: LESLIE KIRKLAND MD [[facility]] - Follow up as needed BREANN BORDEN PA [PHYSICIAN SOLID WASTE ENGINEER] - Follow up as needed Mode of Arrival: Wheelchair Notes: Patient is a 48-year-old female presents to the emergency department for pain in her rectum. Patient states she was recently diagnosed with external hemorrhoids. States her primary care provider gave her "some medication." States she has been using that external cream as prescribed. Patient states today she noticed some redness and swelling "above my butt crack" which is why she presents to the emergency room. States she does have a history of pilonidal cyst. Is denying any follow-up with surgery. Past medical history: Dialysis dependent kidney disease, hypertension, hyperlipidemia, diabetes Medications: Multiple Allergies: Sulfa TRAVEL OUTSIDE OF THE [place] IN LAST 30 DAYS: No - Related Data Allergies/Adverse Reactions: sulfamethoxazole [From Septra] Allergy (Severe, Verified 04/28/18 08:44) Hives trimethoprim [From Septra] Allergy (Severe, Verified 04/28/18 08:44) Hives adhesive tape [Adhesive Tape] Adverse Reaction (Verified 04/28/18 08:44) Bruising/Rash Past Medical History - General Information source: Patient - Social History Smoking Status: Unknown if Ever Smoked Family History: Reviewed & Not Pertinent, DM, Hypertension - Past Medical History Cardiac Medical History: Reports: Hx Hypercholesterolemia, Hx Hypertension Denies: Hx Atrial Fibrillation, Hx Congestive Heart Failure, Hx Coronary Artery Disease, Hx Heart Attack Pulmonary Medical History: Denies: Hx Asthma, Hx Bronchitis, Hx COPD, Hx Pneumonia, Hx Tuberculosis Neurological Medical History: Denies: Hx Cerebrovascular Accident, Hx Migraine, Hx Seizures Endocrine Medical History: Reports: Hx Diabetes Mellitus Type 1, Hx Diabetes Mellitus Type 2 Renal/ Medical History: Reports: Hx End Stage Renal Disease, Hx Hemodialysis, Hx Renal Insufficiency. Denies: Hx Kidney Stones, Hx Peritoneal Dialysis GI Medical History: Reports: Hx Gastroesophageal Reflux Disease, Hx Ulcer Musculoskeletal Medical History: Denies Hx Arthritis Skin Medical History: Reports Hx MRSA Psychiatric Medical History: Reports: Hx Depression Denies: Hx Attention Deficit Hyperactivity Disorder, Hx Bipolar Disorder, Hx Schizophrenia Traumatic Medical History: Reports: Hx Fractures - Right ankle fracture Infectious Medical History: Reports: Hx MRSA Past Surgical History: Reports: Hx Section, Hx Cholecystectomy, Hx Orthopedic Surgery - ORIF right ankle with subsequent MRSA infection and Right B KA., Hx Tubal Ligation, Hx Vascular Surgery - Right forearm AV fistula. PermCath right subclavian.. Denies: Hx Hysterectomy - Immunizations Hx Diphtheria, Pertussis, Tetanus Vaccination: Yes Hx Pneumococcal Vaccination: 07/04/10 Review of Systems - Review of Systems Constitutional: denies: Fever EENT: No symptoms reported Cardiovascular: No symptoms reported Respiratory: No symptoms reported Gastrointestinal: No symptoms reported Genitourinary: No symptoms reported Female Genitourinary: No symptoms reported Musculoskeletal: No symptoms reported Skin: See HPI Hematologic/Lymphatic: No symptoms reported Neurological/Psychological: No symptoms reported Physical Exam - Vital signs Vitals: Temp Pulse Resp BP Pulse Ox 98.4 F 86 16 189/94 H 97 07/13/18 18:49 07/13/18 18:49 07/13/18 18:49 07/13/18 18:49 07/13/18 18:49 - Notes Notes: GENERAL: Alert, interacts well. No acute distress. HEAD: Normocephalic, atraumatic. EYES: Pupils equal, round, and reactive to light. Extraocular movements intact. ENT: Oral mucosa moist, tongue midline. NECK: Full range of motion. Supple. Trachea midline. LUNGS: Clear to auscultation bilaterally, no wheezes, rales, or rhonchi. No respiratory distress. HEART: Regular rate and rhythm. No murmur ABDOMEN: Soft, non-tender. Non-distended. Bowel sounds present in all 4 quadrants. EXTREMITIES: Moves all 4 extremities spontaneously. No edema, normal radial and dorsalis pedis pulses bilaterally. No cyanosis. 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 BACK: no cervical, thoracic, lumbar midline tenderness. No saddle anesthesia, normal distal neurovascular exam. NEUROLOGICAL: Alert and oriented x3. Normal speech. . PSYCH: Normal affect, normal mood. SKIN: Warm, dry, normal turgor. No rashes or lesions noted. Genitalia: [employer] Sherry PCT obvious external hemorrhoid is noted, nonthrombosed. Fluctuant pilonidal cyst measuring 3 cm x 3 cm noted with very minor surrounding cellulitic tissue.. Course - Re-evaluation Re-evalutation: Patient states she has not been using SITZ baths because she is "too big to fit in the bathtub." Discussed that those will help with her pilonidal cyst and with her hemorrhoids. Patient states her primary care provider gave her "a bunch of medications to try" for her hemorrhoid. Patient states her main complaint is her pilonidal abscess. Abscess drained, see procedure note, patient tolerated well, no complications. Patient was placed on Keflex due to very superficial surrounding cellulitic tissue. Discussed close follow-up with primary care provider and follow-up with surgery for continued care. - Vital Signs Vital signs: Temp Pulse Resp BP Pulse Ox 98.5 F 85 18 176/66 H 99 07/13/18 22:28 07/13/18 22:28 07/13/18 22:28 07/13/18 22:28 07/13/18 22:28 Procedures - Incision and Drainage Pilonidal Type: Simple Anesthetic type: 1% Lidocaine mL's of anesthetic: 5 Blade size: 11 I&D procedure: Betadine prep applied, Chlorprep applied, Shurclens applied, Sterile dressing applied Incision Method: Incision made by scalpel Amount/type of drainage: Copious purulent Discharge - Discharge Clinical Impression: Pilonidal abscess, External hemorrhoids Condition: Stable Disposition: HOME, SELF-CARE Instructions: Abscess ([facility]), Hemorrhoids ([facility]), Oral Narcotic Medication ([facility]), Post Incision and Drainage Additional Instructions: As we discussed you have been seen and treated in the emergency department for a pilonidal abscess and your hemorrhoids. Please make sure you continue use the medication given to by her primary care provider for your hemorrhoids. Also as we discussed SITZ baths are helpful in treating pain. Your pilonidal cyst may also have to be fully removed by a surgeon. Please make sure you take antibiotics as prescribed and follow-up with the phone number provided in this packet. Also as we discussed at SITZ baths will also be helpful in treating her pilonidal cyst. Please return to the emergency room should you have any other concerning symptoms. Prescriptions: RX: Doxycycline Hyclate 100 mg PO BID #14 capsule Hydrocodone/Acetaminophen [[place] 10-325 Tablet] 1 each PO Q6 PRN #10 tablet PRN Reason: Referrals: BREANN BORDEN PA [PHYSICIAN SOLID WASTE ENGINEER] - Follow up as needed LESLIE KIRKLAND MD [[facility]] - Follow up as needed
[2018-07-13 22:29] VITALS: BP 176/66
== END 2018-07-13 22:38 | disposition home or self-care (01) ==
LOC: ER 18:31
DX: L05.01 Pilonidal cyst with abscess (principal); L03.317 Cellulitis of buttock; K64.4 Residual hemorrhoidal skin tags; I12.0 Hypertensive chronic kidney disease with stage 5 chronic kidney disease or end stage renal disease; E11.22 Type 2 diabetes mellitus with diabetic chronic kidney disease; N18.6 End stage renal disease; Z99.2 Dependence on renal dialysis; Z79.899 Other long term (current) drug therapy; Z88.2 Allergy status to sulfonamides; Z88.1 Allergy status to other antibiotic agents
CPT/HCPCS: 99283; 10080; J3490; A9270

== ENCOUNTER 2018-07-14 18:09 | Emergency (ER) | payer MEDICARE, MEDICAID ==
[2018-07-14] MEDS ORDERED: ONDANSETRON HCL INJ/PF 4 MG/2 ML SDV IV ONE (19:49)
--- NOTE | 2018-07-14 19:53 | ER Document Report ---
ED Medical Screen (RME) - General Chief Complaint: Nausea/Vomiting Stated Complaint: FEVER,CHILLS,VOMITING Time Seen by Provider: 07/14/18 19:48 Primary Care Provider: NICKY BARBOZA MD [Primary Care Provider] - Follow up as needed Notes: 48-year-old female with end-stage renal disease on dialysis M/W/F who states she makes very little urine in the morning seen here last night for incision and drainage of a gluteal abscess presents in the emergency department for fever, chills, nausea and "feeling faint". T-max at home 101 Fahrenheit. Patient mildly tachycardic at 101 bpm with temp of 100.6 here in the emergency department. TRAVEL OUTSIDE OF THE [place] IN LAST 30 DAYS: No - Related Data Allergies/Adverse Reactions: sulfamethoxazole [From Decra] Allergy (Severe, Verified 07/14/18 18:11) Hives trimethoprim [From Decra] Allergy (Severe, Verified 07/14/18 18:11) Hives adhesive tape [Adhesive Tape] Adverse Reaction (Verified 07/14/18 18:11) Bruising/Rash Past Medical History - Past Medical History Cardiac Medical History: Reports: Hx Hypercholesterolemia, Hx Hypertension Denies: Hx Atrial Fibrillation, Hx Congestive Heart Failure, Hx Coronary Artery Disease, Hx Heart Attack Pulmonary Medical History: Denies: Hx Asthma, Hx Bronchitis, Hx COPD, Hx Pneumonia, Hx Tuberculosis Neurological Medical History: Denies: Hx Cerebrovascular Accident, Hx Migraine, Hx Seizures Endocrine Medical History: Reports: Hx Diabetes Mellitus Type 1, Hx Diabetes Mellitus Type 2 Renal/ Medical History: Reports: Hx End Stage Renal Disease, Hx Hemodialysis, Hx Peritoneal Dialysis, Hx Renal Insufficiency. Denies: Hx Kidney Stones GI Medical History: Reports: Hx Gastroesophageal Reflux Disease, Hx Ulcer Musculoskeltal Medical History: Denies Hx Arthritis Skin Medical History: Reports Hx MRSA Psychiatric Medical History: Reports: Hx Depression Denies: Hx Attention Deficit Hyperactivity Disorder, Hx Bipolar Disorder, Hx Schizophrenia Traumatic Medical History: Reports: Hx Fractures - Right ankle fracture Infectious Medical History: Reports: Hx MRSA Past Surgical History: Reports: Hx Section, Hx Cholecystectomy, Hx Orthopedic Surgery - ORIF right ankle with subsequent MRSA infection and Right BKA., Hx Tubal Ligation, Hx Vascular Surgery - Right forearm AV fistula. PermCath right subclavian.. Denies: Hx Hysterectomy - Immunizations Hx Diphtheria, Pertussis, Tetanus Vaccination: Yes History of Influenza Vaccine for 01/2017 - 06/2017 Season: Yes Influenza Administration Date for 01/2017 - 06/2017 Season: 01/05/17 Physical Exam - Vital signs Vitals: Temp Pulse Resp BP Pulse Ox 100.6 F H 101 H 18 195/73 H 94 07/14/18 18:31 07/14/18 18:31 07/14/18 18:31 07/14/18 18:31 07/14/18 18:31 - Skin Skin Temperature: Warm Skin Moisture: Dry Skin irregularity: Abscess - Left gluteal cheek Course - Vital Signs Vital signs: Temp Pulse Resp BP Pulse Ox 100.6 F H 101 H 18 195/73 H 94 07/14/18 18:31 07/14/18 18:31 07/14/18 18:31 07/14/18 18:31 07/14/18 18:31 Doctor's Discharge - Discharge Referrals: NICKY BARBOZA MD [Primary Care Provider] - Follow up as needed
[2018-07-14 22:41] LABS: ABSOLUTE EOSINOPHILS # (AUTO) 0.1 10^3/uL (0.0-0.6); ABSOLUTE LYMPHOCYTES (AUTO) 0.7 10^3/uL (0.5-4.7); ABSOLUTE MONOCYTES (AUTO) 0.4 10^3/uL (0.1-1.4); ABSOLUTE NEUT (AUTO) 5.8 10^3/uL (1.7-8.2); BASOPHILS % (AUTO) 0.4 % (0-2); HEMOGLOBIN 10.6 g/dL (12.0-15.5); LYMPHOCYTES % (AUTO) 9.5 % (13-45); MEAN CORPUSCULAR HEMOGLOBIN 27.2 pg (27.0-33.4); MEAN CORPUSCULAR HGB CONC 32.2 g/dL (32.0-36.0); MEAN CORPUSCULAR VOLUME 84 fl (80-97); MONOCYTES % (AUTO) 5.4 % (3-13); PLATELET COUNT 206 10^3/uL (150-450); RED BLOOD COUNT 3.91 10^6/uL (3.72-5.28); RED CELL DISTRIBUTION WIDTH 15.8 % (11.5-14.0); SEGMENTED NEUTROPHILS % (AUTO) 83.7 % (42-78); TOTAL CELLS COUNTED % (AUTO) 100 %
[2018-07-14 23:00] LABS: ALANINE AMINOTRANSFERASE 16 U/L (9-52); ALBUMIN 3.4 g/dL (3.5-5.0); ALKALINE PHOSPHATASE 73 U/L (38-126); ANION GAP 11 (5-19); ASPARTATE AMINO TRANSFERASE 8 U/L (14-36); BILIRUBIN,DIRECT 0.4 mg/dL (0.0-0.4); BILIRUBIN,TOTAL 0.5 mg/dL (0.2-1.3); BLOOD UREA NITROGEN 34 mg/dL (7-20); CALCIUM 8.4 mg/dL (8.4-10.2); CARBON DIOXIDE 26 mmol/L (22-30); CHLORIDE 100 mmol/L (98-107); GLUCOSE 200 mg/dL (75-110); SODIUM 136.5 mmol/L (137-145); TOTAL PROTEIN 7.1 g/dL (6.3-8.2)
--- NOTE | 2018-07-15 00:07 | EKG REPORT ---
SEVERITY:- OTHERWISE NORMAL ECG - SINUS TACHYCARDIA : Confirmed by: Jah Reed 15-Jul-2018 00:07:11
[2018-07-15 01:41] VITALS: BP 183/95
--- NOTE | 2018-07-15 02:00 | ER Document Report ---
ED General - General Chief Complaint: Nausea/Vomiting Stated Complaint: FEVER,CHILLS,VOMITING Time Seen by Provider: 07/15/18 02:00 Primary Care Provider: NICKY BARBOZA MD [Primary Care Provider] - Follow up as needed Mode of Arrival: Wheelchair Information source: Patient Notes: HISTORY OF PRESENT ILLNESS: Patient is a 48-year-old female with a past medical history of end-stage renal disease on Friday/Friday/Friday dialysis who presents with fever and pain a ssociated with a gluteal abscess. Patient presented for similar symptoms 1 day ago and had an incision/drainage performed, was given oral doxycycline with pain medications. Location: Gluteal Onset: 2 days ago Provocation: Movement Quality: Aching, fever Radiation: None Severity: Mild Timing: Constant Associated symptoms: Mild fever but no chills or weakness, no discharge, no bleeding REVIEW OF SYSTEMS: CONSTITUTIONAL : Positive for mild fever none chills or sweats. Denies recent illness. EENT: Denies eye, ear, throat, or mouth pain or symptoms. Denies nasal or sinus congestion. CARDIOVASCULAR: Denies chest pain. RESPIRATORY: Denies cough, cold, or chest congestion. Denies shortness of breath, difficulty breathing, or wheezing. GASTROINTESTINAL: Denies abdominal pain. Denies nausea, vomiting, or diarrhea. Denies constipation. GENITOURINARY: Denies difficulty urinating, painful urination, burning, frequency, or blood in urine. Denies vaginal bleeding, abnormal or irregular periods. MUSCULOSKELETAL: Denies neck or back pain or joint pain or swelling. SKIN: Denies rash or skin lesions. HEMATOLOGIC : Denies easy bruising or bleeding. LYMPHATIC: Denies swollen, enlarged glands. NEUROLOGICAL: Denies altered mental status or loss of consciousness. Denies headache. Denies weakness or paralysis or loss of use of either side. Denies problems with gait or speech. Denies sensory or motor loss. PSYCHIATRIC: Denies anxiety or stress or depression. All other systems reviewed and negative. PHYSICAL EXAMINATION: GENERAL: Well-appearing, morbidly obese, well-nourished and in no acute distress. HEAD: Atraumatic, normocephalic. No scalp deformity, depression, or crepitance. EYES: Pupils are 3 mm and equal/round/reactive to light, extraocular movements intact, sclera anicteric, conjunctiva are normal. ENT: Nares patent bilaterally, oropharynx clear without exudates or palatal petechia. Moist mucous membranes. No tonsil hypertrophy. NECK: Normal range of motion, supple without lymphadenopathy. LUNGS: Breath sounds present, equal, and clear to auscultation bilaterally. No wheezes, rales, or rhonchi. HEART: Regular rate and rhythm without murmurs, rubs, or gallops. 2+ peripheral pulses. Normal capillary refill. ABDOMEN: Soft, nontender, nondistended. Normoactive bowel sounds. No guarding, no rebound. No masses appreciated. BACK: Normal contour, no midline tenderness. Rectal exam deferred. PELVC: Deferred. EXTREMITIES: Normal range of motion, no pitting or edema. No cyanosis. NEUROLOGICAL: No focal neurological deficits. Moves all extremities spontaneously and on command. PSYCH: Normal mood, normal affect. No suicidal thoughts/ideations. No homicidal thoughts/ideations. No hallucinations. SKIN: Warm, dry, normal turgor, no rashes or lesions noted. ASSESSMENT AND PLAN: This patient is a 48-year-old female who presents with mild fever and pain associated with a recent abscess incision with drainage. Patient is nontoxic-appearing. 1. Will obtain labs, give oral Tylenol, and reassess. 2. Will likely discharge if workup is negative. TRAVEL OUTSIDE OF THE [place] IN LAST 30 DAYS: No - Related Data Allergies/Adverse Reactions: sulfamethoxazole [From Septra] Allergy (Severe, Verified 07/14/18 18:11) Hives trimethoprim [From Septra] Allergy (Severe, Verified 07/14/18 18:11) Hives adhesive tape [Adhesive Tape] Adverse Reaction (Verified 07/14/18 18:11) Bruising/Rash Past Medical History - General Information source: Patient - Social History Smoking Status: Never Smoker Chew tobacco use (# tins/day): No Frequency of alcohol use: None Drug Abuse: None Lives with: Family Family History: Reviewed & Not Pertinent, DM, Hypertension Patient has suicidal ideation: No Patient has homicidal ideation: No - Past Medical History Cardiac Medical History: Reports: Hx Hypercholesterolemia, Hx Hypertension Denies: Hx Atrial Fibrillation, Hx Congestive Heart Failure, Hx Coronary Artery Disease, Hx Heart Attack Pulmonary Medical History: Reports: None Denies: Hx Asthma, Hx Bronchitis, Hx COPD, Hx Pneumonia, Hx Tuberculosis EENT Medical History: Reports: None Neurological Medical History: Reports: None. Denies: Hx Cerebrovascular Accident, Hx Migraine, Hx Seizures Endocrine Medical History: Reports: Hx Diabetes Mellitus Type 1, Hx Diabetes Mellitus Type 2 Renal/ Medical History: Reports: Hx End Stage Renal Disease, Hx Hemodialysis, Hx Peritoneal Dialysis, Hx Renal Insufficiency. Denies: Hx Kidney Stones Malignancy Medical History: Reports: None GI Medical History: Reports: Hx Gastroesophageal Reflux Disease, Hx Ulcer Musculoskeletal Medical History: Reports None, Denies Hx Arthritis Skin Medical History: Reports Hx MRSA Psychiatric Medical History: Reports: Hx Depression Denies: Hx Attention Deficit Hyperactivity Disorder, Hx Bipolar Disorder, Hx Schizophrenia Traumatic Medical History: Reports: Hx Fractures - Right ankle fracture Infectious Medical History: Reports: Hx MRSA Past Surgical History: Reports: Hx Section, Hx Cholecystectomy, Hx Orthopedic Surgery - ORIF right ankle with subsequent MRSA infection and Right BKA., Hx Tubal Ligation, Hx Vascular Surgery - Right forearm AV fistula. PermCath right subclavian.. Denies: Hx Hysterectomy - Immunizations Hx Diphtheria, Pertussis, Tetanus Vaccination: Yes Hx Pneumococcal Vaccination: 07/04/10 Physical Exam - Vital signs Vitals: Temp Pulse Resp BP Pulse Ox 100.6 F H 101 H 18 195/73 H 94 07/14/18 18:31 07/14/18 18:31 07/14/18 18:31 07/14/18 18:31 07/14/18 18:31 Course - Re-evaluation Re-evalutation: 07/15/18 02:38 Blood work shows normal white blood cell count. Patient was given oral doxycycline and will be discharged home with return precautions and follow-up. Patient voices both understanding and agreeing with the plan. - Vital Signs Vital signs: Temp Pulse Resp BP Pulse Ox 98.7 F 88 18 183/95 H 100 07/15/18 01:40 07/15/18 01:40 07/15/18 01:40 07/15/18 01:40 07/15/18 01:40 - Laboratory Result Diagrams: 07/14/18 22:30 07/14/18 22:30 Laboratory results interpreted by me: 07/14/18 07/14/18 22:30 22:30 Hgb 10.6 L Hct 33.0 L RDW 15.8 H Seg Neutrophils % 83.7 H Lymphocytes % 9.5 L Sodium 136.5 L BUN 34 H Creatinine 8.09 H Est GFR ( Amer) 6 L Est GFR (Non-Af Amer) 5 L Glucose 200 H AST 8 L Albumin 3.4 L - EKG Interpretation by Me EKG shows normal: Sinus rhythm Rate: Tachycardia Rhythm: NSR [place]/QRS: No: Right axis deviation, Left axis deviation, RBBB, LBBB, IVCD, LAHB/LAFB, LPHB/LPFB, Bifasicular block Voltage: No: Increased voltage, Consistant with LVH, Decreased voltage, Throughout, Limb leads P Waves: No: SHERRILL, LAE, Absent, AV Dissociation, Other Heart block present: No: 1st Degree, Mobitz 1, Mobitz 2, CHB (3rd degree block) When compared to previous EKG there are: No significant change Discharge - Discharge Clinical Impression: Cellulitis Qualifiers: Site of cellulitis: buttock Qualified Code(s): L03.317 - Cellulitis of buttock Condition: Good Disposition: HOME, SELF-CARE Instructions: MRSA Cellulitis ([facility]) Additional Instructions: You have been evaluated in the Emergency Department for fever related to an infection on your bottom. While here, you had blood work that was normal and were given an oral antibiotic and it is now safe to be discharged home. Please follow-up with your primary physician as instructed in 1 week to be rechecked. Return to the Emergency Department if you experience fevers uncontrolled with Tylenol, chest pain, difficulty breathing, or any other concerning symptoms. Prescriptions: Doxycycline Hyclate 100 mg PO BID #14 capsule Referrals: NICKY BARBOZA MD [Primary Care Provider] - Follow up as needed Print Language: Mohawk
[2018-07-15] MEDS ORDERED: DOXYCYCLINE HYCLATE 100 MG TABLET PO ONE (02:20)
== END 2018-07-15 02:55 | disposition home or self-care (01) ==
LOC: ER 18:09
DX: L03.317 Cellulitis of buttock (principal); R50.9 Fever, unspecified; R00.0 Tachycardia, unspecified; I12.0 Hypertensive chronic kidney disease with stage 5 chronic kidney disease or end stage renal disease; N18.6 End stage renal disease; Z99.2 Dependence on renal dialysis; Z98.890 Other specified postprocedural states; Z88.1 Allergy status to other antibiotic agents; Z86.14 Personal history of Methicillin resistant Staphylococcus aureus infection
CPT/HCPCS: 93005; 99284; 36415; 87070; 87205; 85025; 87077; 80053; 93010; A9270; 87186

== ENCOUNTER → 2018-08-11 | Outpatient (CLI) | payer MEDICARE, MEDICAID ==
--- NOTE | 2018-08-11 09:34 | WOMENS IMAGING REPORT ---
EXAM DESCRIPTION: U/S ABDOMEN LIMITED COMPLETED DATE/TIME: 08/11/2018 8:53 am REASON FOR STUDY: R10.12 LEFT UPPER QUADRANT PAIN R10.12 LEFT UPPER QUADRANT PAIN COMPARISON: None. TECHNIQUE: Dynamic and static grayscale images acquired of the abdomen and recorded on PACS. Additio nal selected color Doppler and spectral images recorded. LIMITATIONS: The examination is limited by the patient's body habitus. FINDINGS: PANCREAS: No masses. Visualized pancreatic duct normal caliber. LIVER: The liver measures 18.8 cm in length, hepatomegaly. No masses. Echotexture normal. LIVER VASCULATURE: Normal directional flow of the main portal vein and hepatic veins. GALLBLADDER: Prior cholecystectomy. ULTRASOUND-DETECTED ZAMORA'S SIGN: Negative. INTRAHEPATIC DUCTS AND COMMON DUCT: CBD measures 3.5 mm in diameter, normal. The intrahepatic ducts normal caliber. No filling defects. INFERIOR VENA CAVA: Normal flow. AORTA: No aneurysm. RIGHT KIDNEY: The right kidney measures 12.4 x 6.5 x 6.0 cm, normal size. Normal echogenicity. No so lid or suspicious masses. No hydronephrosis. No calcifications. PERITONEAL AND RIGHT PLEURAL SPACE: No ascites or effusions. OTHER: The spleen measures 12.5 cm in length, upper limits of normal size. The left kidney measures 10.8 x 6.3 x 5.7 cm. No evidence of hydronephrosis. The patient is on dial ysis. IMPRESSION: 1. The examination is limited by the patient's body habitus. 2. The patient is currently on dialysis. 3. Hepatomegaly. 4. Prior cholecystectomy. TECHNICAL DOCUMENTATION: JOB ID: [id number] [employer]- All Rights Reserved Reading location - IP/workstation name: [email or web address]
== END ==
LOC: WI 08:17
PROVIDERS: ATTEND Physician Assistant Medical
DX: R10.12 Left upper quadrant pain (principal)
CPT/HCPCS: 76705

== ENCOUNTER → 2018-08-12 | Outpatient (CLI) | payer MEDICARE, MEDICAID ==
--- NOTE | 2018-08-13 09:15 | XCELERA REPORT ---
[address] [address] Lower Extremity Venous Evaluation Procedure: Color flow and duplex imaging of the veins of the right lower extremity as well as the left Common Femoral vein. Right Sided Venous Evaluation Not able to fully image distal femoral vein. Normal vessel filling wall to wall, compression and augmentation as well as Colour flow down to the infrageniculate veins. Left Sided Venous Evaluation The left common femoral vein is fully compressible. Spontaneous and phasic flow is present in the left common femoral vein. Interpretation Summary No duplex evidence of DVT or obstruction in the right lower extremity nor in the left Common Femoral vein. Mild study limitations as noted. Name: SEGUN NG Age: 48 yrs Gender: Female : 1970 Patient Status: Outpatient Patient Location: Study Date: 08/12/2018 05:19 PM Reason For Study: RLE PAIN Ordering Physician: BREANN BORDEN Performed By: Leonila Shaw : BREANN BORDEN > Radames Little
== END ==
LOC: SP 16:57
PROVIDERS: ATTEND Physician Assistant
DX: M79.604 Pain in right leg (principal)
CPT/HCPCS: 93971

== ENCOUNTER 2019-01-25 17:12 | Emergency (ER) | payer MEDICARE, MEDICAID ==
[2019-01-25] MEDS ORDERED: CLONIDINE HCL 0.1 MG TABLET PO ONE (17:55)
[2019-01-25] MEDS ORDERED: LOSARTAN POTASSIUM 50 MG TABLET PO ONE (17:56)
[2019-01-25] MEDS ORDERED: CARVEDILOL 12.5 MG TABLET PO ONE (17:56)
[2019-01-25] MEDS ORDERED: HYDRALAZINE HCL 50 MG TABLET PO ONE (18:59)
--- NOTE | 2019-01-25 19:06 | ER Document Report ---
ED Blood Pressure Problem - General Chief Complaint: High Blood Pressure Stated Complaint: BLOOD PRESSURE PROBLEMS Time Seen by Provider: 01/25/19 17:24 Primary Care Provider: NICKY BARBOZA MD [Primary Care Provider] - Follow up as needed Information source: Patient TRAVEL OUTSIDE OF THE [place] IN LAST 30 DAYS: No - HPI Notes: Patient is sent from dialysis for elevated blood pressure. She states she has a mild headache. It is diffuse and throbbing. It is only mild in intensity. Nothing makes it better or worse. It does radiate throughout her head. She states she has no other symptoms other than this. She states she did not want to come to the emergency department but dialysis told her that she had to go. She did do a full run of dialysis. Patient denies any cough cold or congestion. No vomiting or diarrhea. - Related Data Allergies/Adverse Reactions: sulfamethoxazole [From Septra] Allergy (Severe, Verified 07/14/18 18:11) Hives trimethoprim [From Decra] Allergy (Severe, Verified 07/14/18 18:11) Hives adhesive tape [Adhesive Tape] Adverse Reaction (Verified 07/14/18 18:11) Bruising/Rash Past Medical History - General Information source: Patient, Relative - Social History Smoking Status: Never Smoker Frequency of alcohol use: None Drug Abuse: None Family History: Reviewed & Not Pertinent, DM, Hypertension Patient has suicidal ideation: No Patient has homicidal ideation: No - Past Medical History Cardiac Medical History: Reports: Hx Hypercholesterolemia, Hx Hypertension Denies: Hx Atrial Fibrillation, Hx Congestive Heart Failure, Hx Coronary Artery Disease, Hx Heart Attack Pulmonary Medical History: Denies: Hx Asthma, Hx Bronchitis, Hx COPD, Hx Pneumonia, Hx Tuberculosis Neurological Medical History: Denies: Hx Cerebrovascular Accident, Hx Migraine, Hx Seizures Endocrine Medical History: Reports: Hx Diabetes Mellitus Type 1, Hx Diabetes Mellitus Type 2 Renal/ Medical History: Reports: Hx End Stage Renal Disease, Hx Hemodialysis, Hx Peritoneal Dialysis, Hx Renal Insufficiency. Denies: Hx Kidney Stones GI Medical History: Reports: Hx Gastroesophageal Reflux Disease, Hx Ulcer Musculoskeletal Medical History: Denies Hx Arthritis Skin Medical History: Reports Hx MRSA Psychiatric Medical History: Reports: Hx Depression Denies: Hx Attention Deficit Hyperactivity Disorder, Hx Bipolar Disorder, Hx Schizophrenia Traumatic Medical History: Reports: Hx Fractures - Right ankle fracture Infectious Medical History: Reports: Hx MRSA Past Surgical History: Reports: Hx Section, Hx Cholecystectomy, Hx Orthopedic Surgery - ORIF right ankle with subsequent MRSA infection and Right BKA., Hx Tubal Ligation, Hx Vascular Surgery - Right forearm AV fistula. PermCath right subclavian.. Denies: Hx Hysterectomy - Immunizations Hx Diphtheria, Pertussis, Tetanus Vaccination: Yes Hx Pneumococcal Vaccination: 07/04/10 Review of Systems - Review of Systems Constitutional: denies: Chills, Fever Cardiovascular: denies: Chest pain, Palpitations Respiratory: denies: Cough, Short of breath -: Yes All other systems reviewed and negative Physical Exam - Vital signs Vitals: Temp Resp BP Pulse Ox 98.1 F 17 218/90 H 100 01/25/19 17:18 01/25/19 17:18 01/25/19 17:18 01/25/19 17:18 Interpretation: Hypertensive - General General appearance: Appears well, Alert - HEENT Head: Normocephalic, Atraumatic Eyes: Normal Pupils: PERRL - Respiratory Respiratory status: No respiratory distress Chest status: Nontender Breath sounds: Normal Chest palpation: Normal - Cardiovascular Rhythm: Regular Heart sounds: Normal auscultation Murmur: No - Abdominal Inspection: Normal Distension: No distension Bowel sounds: Normal Tenderness: Nontender Organomegaly: No organomegaly - Back Back: Normal, Nontender - Extremities General upper extremity: Normal inspection, Nontender, Normal color, Normal ROM, Normal temperature General lower extremity: Normal inspection, Nontender, Normal color, Normal ROM, Normal temperature, Normal weight bearing. No: German's sign - Neurological Neuro grossly intact: Yes Cognition: Normal Orientation: AAOx4 Alondra Coma Scale Eye Opening: Spontaneous Alondra Coma Scale Verbal: Oriented Alondra Coma Scale Motor: Obeys Commands Wesley Coma Scale Total: 15 Speech: Normal Motor strength normal: LUE, RUE, LLE, RLE Sensory: Normal - Psychological Associated symptoms: Normal affect, Normal mood - Skin Skin Temperature: Warm Skin Moisture: Dry Skin Color: Normal Course - Re-evaluation Re-evalutation: 01/25/19 19:03 Patient was sent from dialysis due to elevated blood pressure. She has essentially no symptoms of than a mild headache. However she has no focal neurological signs and I am not concerned about CVA. Patient states she did not take her medicines today. I have given the patient 1 dose of each of her hypertensive meds. Blood pressures currently approximately 209 systolic. I imagine that is not excessively high for this patient. She is asking if she can go home. Considering that her symptoms are very mild and that this blood pressure is most likely not excessively high for her concerning the fact that she is on for blood pressure medications I think it is reasonable to let her go home and resume her medications as normal. I will have her call her doctor first thing in the morning to discuss her blood pressure control. - Vital Signs Vital signs: Temp Pulse Resp BP Pulse Ox 98.1 F 92 16 218/90 H 97 01/25/19 17:18 01/25/19 17:21 01/25/19 17:21 01/25/19 17:18 01/25/19 17:21 Discharge - Discharge Clinical Impression: Uncontrolled hypertension Headache Qualifiers: Headache type: unspecified Headache chronicity pattern: acute headache Intractability: not intractable Qualified Code(s): R51 - Headache Condition: Stable Disposition: HOME, SELF-CARE Instructions: High Blood Pressure ([facility]), Clonidine ([facility]ap[facility]) ([facility]) Additional Instructions: Please call your kidney doctor first thing in the morning to discuss your blood pressure control. Please let your kidney doctor know that you had to come to the emergency department after dialysis due to elevated blood pressure. Please ask them if you need any type of medication adjustment. Referrals: NICKY BARBOAZ MD [Primary Care Provider] - Follow up as needed
[2019-01-25 19:12] VITALS: BP 189/83
== END 2019-01-25 19:14 | disposition home or self-care (01) ==
LOC: ER 17:12
DX: I12.0 Hypertensive chronic kidney disease with stage 5 chronic kidney disease or end stage renal disease (principal); E11.22 Type 2 diabetes mellitus with diabetic chronic kidney disease; N18.6 End stage renal disease; Z99.2 Dependence on renal dialysis; R51 Headache; Z88.1 Allergy status to other antibiotic agents; Z79.899 Other long term (current) drug therapy
CPT/HCPCS: 99283; A9270 ×3

== ENCOUNTER 2019-03-26 13:39 | Emergency (ER) | payer MEDICARE, MEDICAID ==
[2019-03-26 15:57] LABS: ABSOLUTE EOSINOPHILS # (AUTO) 0.2 10^3/uL (0.0-0.6); ABSOLUTE LYMPHOCYTES (AUTO) 0.9 10^3/uL (0.5-4.7); ABSOLUTE MONOCYTES (AUTO) 0.2 10^3/uL (0.1-1.4); ABSOLUTE NEUT (AUTO) 4.2 10^3/uL (1.7-8.2); BASOPHILS % (AUTO) 0.4 % (0-2); EOSINOPHILS % (AUTO) 4.1 % (0-6); HEMATOCRIT 34.3 % (36.0-47.0); HEMOGLOBIN 10.8 g/dL (12.0-15.5); LYMPHOCYTES % (AUTO) 16.5 % (13-45); MEAN CORPUSCULAR HEMOGLOBIN 25.5 pg (27.0-33.4); MEAN CORPUSCULAR HGB CONC 31.5 g/dL (32.0-36.0); MEAN CORPUSCULAR VOLUME 81 fl (80-97); MONOCYTES % (AUTO) 4.1 % (3-13); PLATELET COUNT 201 10^3/uL (150-450); RED BLOOD COUNT 4.25 10^6/uL (3.72-5.28); RED CELL DISTRIBUTION WIDTH 17.2 % (11.5-14.0); SEGMENTED NEUTROPHILS % (AUTO) 74.9 % (42-78); TOTAL CELLS COUNTED % (AUTO) 100 %; WHITE BLOOD COUNT 5.6 10^3/uL (4.0-10.5)
--- NOTE | 2019-03-26 16:57 | ER Document Report ---
ED Medical Screen (RME) - General Chief Complaint: Chest Pain Stated Complaint: CHEST PAIN Time Seen by Provider: 03/26/19 16:52 Primary Care Provider: NICKY BARBOZA MD [Primary Care Provider] - Follow up as needed Information source: Patient Notes: Patient states she was at dialysis around lunchtime and had nausea. Patient states she woke up with chest discomfort feeling a pressure like something was sitting on her chest. Patient was given aspirin per EMS and given 2 sprays of nitro at dialysis. Patient states her chest pain is presently resolved. Patient denies any cough cold symptoms or shortness of breath. Patient states she only completed half of her dialysis cycle. Patient also states she has a history of diabetes. I have greeted and performed a rapid initial assessment of this patient. A comprehensive ED assessment and evaluation of the patient, analysis of test re sults and completion of the medical decision making process will be conducted by additional ED providers. TRAVEL OUTSIDE OF THE [place] IN LAST 30 DAYS: No - Related Data Allergies/Adverse Reactions: sulfamethoxazole [From Septra] Allergy (Severe, Verified 07/14/18 18:11) Hives trimethoprim [From Septra] Allergy (Severe, Verified 07/14/18 18:11) Hives adhesive tape [Adhesive Tape] Adverse Reaction (Verified 07/14/18 18:11) Bruising/Rash Past Medical History - Social History Chew tobacco use (# tins/day): No Frequency of alcohol use: None Drug Abuse: None - Past Medical History Cardiac Medical History: Reports: Hx Hypercholesterolemia, Hx Hypertension Denies: Hx Atrial Fibrillation, Hx Congestive Heart Failure, Hx Coronary Artery Disease, Hx Heart Attack Pulmonary Medical History: Denies: Hx Asthma, Hx Bronchitis, Hx COPD, Hx Pneumonia, Hx Tuberculosis Neurological Medical History: Denies: Hx Cerebrovascular Accident, Hx Migraine, Hx Seizures Endocrine Medical History: Reports: Hx Diabetes Mellitus Type 1, Hx Diabetes Mellitus Type 2 Renal/ Medical History: Reports: Hx End Stage Renal Disease, Hx Hemodialysis, Hx Peritoneal Dialysis, Hx Renal Insufficiency. Denies: Hx Kidney Stones GI Medical History: Reports: Hx Gastroesophageal Reflux Disease, Hx Ulcer Musculoskeltal Medical History: Denies Hx Arthritis Skin Medical History: Reports Hx MRSA Psychiatric Medical History: Reports: Hx Depression Denies: Hx Attention Deficit Hyperactivity Disorder, Hx Bipolar Disorder, Hx Schizophrenia Traumatic Medical History: Reports: Hx Fractures - Right ankle fracture Infectious Medical History: Reports: Hx MRSA Past Surgical History: Reports: Hx Section, Hx Cholecystectomy, Hx Orthopedic Surgery - ORIF right ankle with subsequent MRSA infection and Right BKA., Hx Tubal Ligation, Hx Vascular Surgery - Right forearm AV fistula. PermCath right subclavian.. Denies: Hx Hysterectomy - Immunizations Hx Diphtheria, Pertussis, Tetanus Vaccination: Yes Physical Exam - Vital signs Vitals: Pulse Ox 100 03/26/19 13:43 - General General appearance: Appears well, Alert - Cardiovascular Rhythm: Regular Heart sounds: S1 appreciated, S2 appreciated Course - Vital Signs Vital signs: Temp Pulse Resp BP Pulse Ox 98.6 F 16 170/96 H 99 03/26/19 13:56 03/26/19 15:00 03/26/19 13:58 03/26/19 15:00 - Laboratory Result Diagrams: 03/26/19 15:44 03/26/19 15:44 Laboratory results interpreted by me: 03/26/19 15:44 Hgb 10.8 L Hct 34.3 L MCH 25.5 L MCHC 31.5 L RDW 17.2 H Doctor's Discharge - Discharge Referrals: NICKY BARBOZA MD [Primary Care Provider] - Follow up as needed
[2019-03-26 17:26] LABS: ALBUMIN 3.7 g/dL (3.5-5.0); ALKALINE PHOSPHATASE 79 U/L (38-126); ANION GAP 14 (5-19); ASPARTATE AMINO TRANSFERASE 13 U/L (14-36); BILIRUBIN,DIRECT 0.3 mg/dL (0.0-0.4); BILIRUBIN,TOTAL 0.5 mg/dL (0.2-1.3); BLOOD UREA NITROGEN 36 mg/dL (7-20); CALCIUM 8.2 mg/dL (8.4-10.2); CARBON DIOXIDE 28 mmol/L (22-30); CHLORIDE 97 mmol/L (98-107); CREATINE KINASE 60 U/L (30-135); GLUCOSE 152 mg/dL (75-110); POTASSIUM 4.1 mmol/L (3.6-5.0); TOTAL PROTEIN 7.4 g/dL (6.3-8.2)
--- NOTE | 2019-03-26 17:33 | RADIOLOGY REPORT (SQ) ---
EXAM DESCRIPTION: CHEST SINGLE VIEW COMPLETED DATE/TIME: 03/26/2019 5:21 pm REASON FOR STUDY: cp COMPARISON: None. EXAM PARAMETERS: NUMBER OF VIEWS: One view. TECHNIQUE: Single frontal radiographic view of the chest acquired. RADIATION DOSE: NA LIMITATIONS: None. FINDINGS: LUNGS AND PLEURA: No opacities, masses or pneumothorax. No pleural effusion. MEDIASTINUM AND HILAR STRUCTURES: No masses. Contour normal. HEART AND VASCULAR STRUCTURES: Heart normal in size. Normal pulmonary vasculature. Left axillary va scular stent. BONES: No acute findings. HARDWARE: None in the chest. OTHER: No other significant finding. IMPRESSION: No evidence of acute cardiopulmonary abnormality. TECHNICAL DOCUMENTATION: JOB ID: [id number] [employer]- All Rights Reserved Reading location - IP/workstation name: [email or web address]
[2019-03-26 17:38] LABS: CREATINE KINASE MB 0.86 ng/mL (<4.55)
[2019-03-26 17:39] LABS: TROPONIN I < 0.012 ng/mL
--- NOTE | 2019-03-26 18:19 | ER Document Report ---
ED Cardiac - General Chief Complaint: Chest Pain Stated Complaint: CHEST PAIN Time Seen by Provider: 03/26/19 16:52 Primary Care Provider: NICKY BARBOZA MD [Primary Care Provider] - Follow up as needed Mode of Arrival: Medic Information source: Patient TRAVEL OUTSIDE OF THE [place] IN LAST 30 DAYS: No - HPI Is the pain a: Chronic problem Chest pain location: Substernal Quality of pain: Heaviness, Sharp Cardiac risk factors: Hypertension, Dyslipidemia Positive cardiac history: No Exacerbated by: Denies Relieved by: Other - Episodic chest pain that comes and goes without necessary exertion or rest periods or movement. Today patient was in the dialysis chair and after a few hours of dialysis noted she had chest pain therefore she was given sublingual nitroglycerin x2 without relief. EMS was called to transport patient to the ED and in route she received 324 mg baby aspirin. Patient continues to say her pain is improved and she is ready to go home however she does have on exam reproducible chest wall pain. I convince patient to remain in the emergency department until we could at least do a second troponin. - Related Data Allergies/Adverse Reactions: sulfamethoxazole [From Septra] Allergy (Severe, Verified 07/14/18 18:11) Hives trimethoprim [From Septra] Allergy (Severe, Verified 07/14/18 18:11) Hives adhesive tape [Adhesive Tape] Adverse Reaction (Verified 07/14/18 18:11) Bruising/Rash Past Medical History - General Information source: Patient - Social History Smoking Status: Never Smoker Chew tobacco use (# tins/day): No Frequency of alcohol use: None Drug Abuse: None Family History: Reviewed & Not Pertinent, DM, Hypertension Patient has suicidal ideation: No Patient has homicidal ideation: No - Past Medical History Cardiac Medical History: Reports: Hx Hypercholesterolemia, Hx Hypertension Denies: Hx Atrial Fibrillation, Hx Congestive Heart Failure, Hx Coronary Artery Disease, Hx Heart Attack Pulmonary Medical History: Denies: Hx Asthma, Hx Bronchitis, Hx COPD, Hx Pneumonia, Hx Tuberculosis Neurological Medical History: Denies: Hx Cerebrovascular Accident, Hx Migraine, Hx Seizures Endocrine Medical History: Reports: Hx Diabetes Mellitus Type 1, Hx Diabetes Mellitus Type 2 Renal/ Medical History: Reports: Hx End Stage Renal Disease, Hx Hemodialysis, Hx Peritoneal Dialysis, Hx Renal Insufficiency. Denies: Hx Kidney Stones GI Medical History: Reports: Hx Gastroesophageal Reflux Disease, Hx Ulcer Musculoskeletal Medical History: Denies Hx Arthritis Skin Medical History: Reports Hx MRSA Psychiatric Medical History: Reports: Hx Depression Denies: Hx Attention Deficit Hyperactivity Disorder, Hx Bipolar Disorder, Hx Schizophrenia Traumatic Medical History: Reports: Hx Fractures - Right ankle fracture Infectious Medical History: Reports: Hx MRSA Past Surgical History: Reports: Hx Section, Hx Cholecystectomy, Hx Orthopedic Surgery - ORIF right ankle with subsequent MRSA infection and Right BKA., Hx Tubal Ligation, Hx Vascular Surgery - Right forearm AV fistula. PermCath right subclavian.. Denies: Hx Hysterectomy - Immunizations Hx Diphtheria, Pertussis, Tetanus Vaccination: Yes Hx Pneumococcal Vaccination: 07/04/10 Review of Systems - Review of Systems Cardiovascular: See HPI - Patient reports that she has had a stress test and a cardiac cath in the past 6 months and there was no intervention necessary at that time. Physical Exam - Vital signs Vitals: Pulse Ox 100 03/26/19 13:43 Interpretation: Normal - Notes Notes: Obese - General General appearance: Appears well, Alert - HEENT Head: Normocephalic, Atraumatic Eyes: Normal Pupils: PERRL - Respiratory Respiratory status: No respiratory distress Chest status: Nontender Breath sounds: Normal Chest palpation: Normal - Cardiovascular Rhythm: Regular - Reproducible left sternal border costal junction chest wall pain sharp in nature. Heart sounds: Normal auscultation Murmur: No - Abdominal Inspection: Normal Distension: No distension Bowel sounds: Normal Tenderness: Nontender Organomegaly: No organomegaly - Back Back: Normal, Nontender - Extremities General upper extremity: Normal inspection, Nontender, Normal color, Normal ROM, Normal temperature General lower extremity: Normal inspection, Nontender, Normal color, Normal ROM, Normal temperature, Normal weight bearing. No: German's sign - Neurological Neuro grossly intact: Yes Cognition: Normal Orientation: AAOx4 [place] Coma Scale Eye Opening: Spontaneous [place] Coma Scale Verbal: Oriented [place] Coma Scale Motor: Obeys Commands Alondra Coma Scale Total: 15 Speech: Normal Motor strength normal: LUE, RUE, LLE, RLE Sensory: Normal - Psychological Associated symptoms: Normal affect, Normal mood - Skin Skin Temperature: Warm Skin Moisture: Dry Skin Color: Normal Course - Vital Signs Vital signs: Temp Pulse Resp BP Pulse Ox 98.6 F 15 117/13 L 100 03/26/19 13:56 03/26/19 21:00 03/26/19 16:05 03/26/19 19:00 - Laboratory Result Diagrams: 03/26/19 15:44 03/26/19 16:49 Laboratory results interpreted by me: 03/26/19 03/26/19 15:44 16:49 Hgb 10.8 L Hct 34.3 L MCH 25.5 L MCHC 31.5 L RDW 17.2 H Chloride 97 L BUN 36 H Creatinine 7.27 H Est GFR ( Amer) 7 L Est GFR (MDRD) Non-Af 6 L Glucose 152 H Calcium 8.2 L AST 13 L - Diagnostic Test Radiology reviewed: Image reviewed, Reports reviewed - Patient's ambulatory in the ED with control of abdominal pain and nausea at this time. CT scan did not disclose any acute process or any complications of her surgery. Patient is a 48-year-old -patient has remained stable throughout the course of the ED visit. Patient shows no distress and denies any chest pain at this time. - EKG Interpretation by Me Additional EKG results interpreted by me: 03/26/19 22:02 EKG does not disclose any acute ST changes. Normal sinus rhythm. Discharge - Discharge Clinical Impression: Chest pain at rest, Chronic chest wall pain Chronic renal failure Qualifiers: Chronic kidney disease stage: stage 5 Qualified Code(s): N18.5 - Chronic kidney disease, stage 5 Condition: Stable Disposition: HOME, SELF-CARE Instructions: Chest Wall Pain ([facility]) Prescriptions: Acetaminophen [Tylenol 325 mg Tablet] 650 mg PO Q6HP PRN #30 tablet PRN Reason: For Pain Scale 4-5 Referrals: NICKY BARBOZA MD [Primary Care Provider] - Follow up as needed
[2019-03-26 22:12] VITALS: BP 190/95
--- NOTE | 2019-03-27 09:30 | EKG REPORT ---
SEVERITY:- ABNORMAL ECG - SINUS RHYTHM RBBB AND LPFB : Confirmed by: Jah Reed 27-Mar-2019 09:29:36
== END 2019-03-26 22:10 | disposition home or self-care (01) ==
LOC: ER 13:39
DX: R07.89 Other chest pain (principal); G89.29 Other chronic pain; I12.0 Hypertensive chronic kidney disease with stage 5 chronic kidney disease or end stage renal disease; E11.22 Type 2 diabetes mellitus with diabetic chronic kidney disease; N18.5 Chronic kidney disease, stage 5; Z99.2 Dependence on renal dialysis; Z88.1 Allergy status to other antibiotic agents
CPT/HCPCS: 36415; 71045; 80053; 82550; 82553; 84484; 85025; 93005; 93010; 99285

== ENCOUNTER 2019-05-04 17:42 | Emergency (ER) | payer MEDICARE, MEDICAID ==
--- NOTE | 2019-05-04 18:05 | ER Document Report ---
ED Medical Screen (RME) - General Chief Complaint: Eye Problem Stated Complaint: EYE IRRITATION,SWELLING Time Seen by Provider: 05/04/19 18:01 Primary Care Provider: NICKY BARBOZA MD [Primary Care Provider] - Follow up as needed Mode of Arrival: Wheelchair Information source: Patient Notes: 48-year-old female presented to ED for complaint of redness and swelling to her right eye with now both eyes are irritated for about a week. She states she is a dialysis patient and she spoke to the dialysis nurse yesterday. She states his home are softer today and does not have a way to go to the doctor except for when her family is home. Patient is alert oriented respirations regular nonlabored speaking in full sentences. She states she was seen at the [facility] about a month ago and had laser treatment to the eye with Dr. Jacobsen but that is been about a month ago. I have greeted and performed a rapid initial assessment of this patient. A comprehensive ED assessment and evaluation of the patient, analysis of test results and completion of medical decision making process will be conducted by an additional ED providers. TRAVEL OUTSIDE OF THE [place] IN LAST 30 DAYS: No - Related Data Allergies/Adverse Reactions: sulfamethoxazole [From Septra] Allergy (Severe, Verified 07/14/18 18:11) Hives trimethoprim [From Septra] Allergy (Severe, Verified 07/14/18 18:11) Hives adhesive tape [Adhesive Tape] Adverse Reaction (Verified 07/14/18 18:11) Bruising/Rash Past Medical History - Past Medical History Cardiac Medical History: Reports: Hx Hypercholesterolemia, Hx Hypertension Denies: Hx Atrial Fibrillation, Hx Congestive Heart Failure, Hx Coronary Artery Disease, Hx Heart Attack Pulmonary Medical History: Denies: Hx Asthma, Hx Bronchitis, Hx COPD, Hx Pneumonia, Hx Tuberculosis Neurological Medical History: Denies: Hx Cerebrovascular Accident, Hx Migraine, Hx Seizures Endocrine Medical History: Reports: Hx Diabetes Mellitus Type 1, Hx Diabetes Mellitus Type 2 Renal/ Medical History: Reports: Hx End Stage Renal Disease, Hx Hemodialysis, Hx Peritoneal Dialysis, Hx Renal Insufficiency. Denies: Hx Kidney Stones GI Medical History: Reports: Hx Gastroesophageal Reflux Disease, Hx Ulcer Musculoskeltal Medical History: Denies Hx Arthritis Skin Medical History: Reports Hx MRSA Psychiatric Medical History: Reports: Hx Depression Denies: Hx Attention Deficit Hyperactivity Disorder, Hx Bipolar Disorder, Hx Schizophrenia Traumatic Medical History: Reports: Hx Fractures - Right ankle fracture Infectious Medical History: Reports: Hx MRSA Past Surgical History: Reports: Hx Section, Hx Cholecystectomy, Hx Orthopedic Surgery - ORIF right ankle with subsequent MRSA infection and Right BKA., Hx Tubal Ligation, Hx Vascular Surgery - Right forearm AV fistula. PermCath right subclavian.. Denies: Hx Hysterectomy - Immunizations Hx Diphtheria, Pertussis, Tetanus Vaccination: Yes Physical Exam - Vital signs Vitals: Temp Pulse Resp BP Pulse Ox 98.1 F 85 18 159/103 H 100 05/04/19 17:55 05/04/19 17:55 05/04/19 17:55 05/04/19 17:55 05/04/19 17:55 Course - Vital Signs Vital signs: Temp Pulse Resp BP Pulse Ox 98.1 F 85 18 159/103 H 100 05/04/19 17:55 05/04/19 17:55 05/04/19 17:55 05/04/19 17:55 05/04/19 17:55 Doctor's Discharge - Discharge Referrals: NICKY BARBOZA MD [Primary Care Provider] - Follow up as needed
[2019-05-04] MEDS ORDERED: TETRACAINE HCL 0.5% OPH SOLN 4 ML ONE (20:54)
[2019-05-04] MEDS ORDERED: CIPROFLOXACIN HCL 0.3% OPH SOLN 2.5 ML OU ONE (21:07)
--- NOTE | 2019-05-04 21:09 | ER Document Report ---
ED Eye Complaint - General Chief Complaint: Eye Pain Stated Complaint: EYE IRRITATION,SWELLING Time Seen by Provider: 05/04/19 18:01 Primary Care Provider: NICKY BARBOZA MD [Primary Care Provider] - Follow up in 3-5 days Mode of Arrival: Wheelchair Notes: 48-year-old female presents with bilateral eye irritation and discharge for 1 week. Patient states it started off in her right eye and is now in her left eye. Patient denies any injury or pain. Patient denies any fever or visual changes. TRAVEL OUTSIDE OF THE [place] IN LAST 30 DAYS: No - Related Data Allergies/Adverse Reactions: sulfamethoxazole [From Septra] Allergy (Severe, Verified 05/04/19 18:02) Hives trimethoprim [From Septra] Allergy (Severe, Verified 05/04/19 18:02) Hives adhesive tape [Adhesive Tape] Adverse Reaction (Verified 05/04/19 18:02) Bruising/Rash Past Medical History - General Information source: Patient - Social History Smoking Status: Never Smoker Family History: Reviewed & Not Pertinent, DM, Hypertension Patient has suicidal ideation: No Patient has homicidal ideation: No - Past Medical History Cardiac Medical History: Reports: Hx Hypercholesterolemia, Hx Hypertension Denies: Hx Atrial Fibrillation, Hx Congestive Heart Failure, Hx Coronary Artery Disease, Hx Heart Attack Pulmonary Medical History: Denies: Hx Asthma, Hx Bronchitis, Hx COPD, Hx Pneumonia, Hx Tuberculosis Neurological Medical History: Denies: Hx Cerebrovascular Accident, Hx Migraine, Hx Seizures Endocrine Medical History: Reports: Hx Diabetes Mellitus Type 1, Hx Diabetes Mellitus Type 2 Renal/ Medical History: Reports: Hx End Stage Renal Disease, Hx Hemodialysis, Hx Peritoneal Dialysis, Hx Renal Insufficiency. Denies: Hx Kidney Stones GI Medical History: Reports: Hx Gastroesophageal Reflux Disease, Hx Ulcer Musculoskeletal Medical History: Denies Hx Arthritis Skin Medical History: Reports Hx MRSA Psychiatric Medical History: Reports: Hx Depression Denies: Hx Attention Deficit Hyperactivity Disorder, Hx Bipolar Disorder, Hx Schizophrenia Traumatic Medical History: Reports: Hx Fractures - Right ankle fracture Infectious Medical History: Reports: Hx MRSA Past Surgical History: Reports: Hx Section, Hx Cholecystectomy, Hx Orthopedic Surgery - ORIF right ankle with subsequent MRSA infection and Right BKA., Hx Tubal Ligation, Hx Vascular Surgery - Right forearm AV fistula. PermCath right subclavian.. Denies: Hx Hysterectomy - Immunizations Hx Diphtheria, Pertussis, Tetanus Vaccination: Yes Hx Pneumococcal Vaccination: 07/04/10 Review of Systems - Review of Systems Notes: Constitutional: Negative for fever. HENT: Negative for sore throat. Eyes: Positive for eye irritation and discharge. Negative for visual changes. Cardiovascular: Negative for chest pain. Respiratory: Negative for shortness of breath. Gastrointestinal: Negative for abdominal pain, vomiting or diarrhea. Genitourinary: Negative for dysuria. Musculoskeletal: Negative for back pain. Skin: Negative for rash. Neurological: Negative for headaches, weakness or numbness. 10 point ROS negative except as marked above and in HPI. Physical Exam - Vital signs Vitals: Temp Pulse Resp BP Pulse Ox 98.1 F 85 18 159/103 H 100 05/04/19 17:55 05/04/19 17:55 05/04/19 17:55 05/04/19 17:55 05/04/19 17:55 - Notes Notes: GENERAL: Well-appearing, well-nourished and in no acute distress. HEAD: Atraumatic, normocephalic. EYES: Mild clear discharge seen bilaterally, worse in right. No erythema. Fluroescin exam reveals no corneal ulcer/dendrites. Pupils equal round and reactive to light, extraocular movements intact, sclera anicteric, conjunctiva are normal. NECK: Normal range of motion, supple without lymphadenopathy or JVD. EXTREMITIES: Normal range of motion, no pitting or edema. No clubbing or cyanosis. NEUROLOGICAL: Cranial nerves II through XII grossly intact. Normal speech, normal gait. PSYCH: Normal mood, normal affect. SKIN: Warm, Dry, normal turgor, no rashes or lesions noted. Course - Re-evaluation Re-evalutation: 05/04/19 Exam consistent with bilateral bacterial conjunctivitis. Mild discharge seen. No erythema, no hyphema. Afebrile, well appearing. Fluroscin exam does not reveal dendrites or corneal ulcer. Pt is refusing visual acuity due to not having her glasses but denies any visual changes. Pt given prescription for antibiotic eye drops. Close follow up with her eye doctor. Strict return precautions. Pt voices understanding and agrees with plan of care. - Vital Signs Vital signs: Temp Pulse Resp BP Pulse Ox 98.1 F 85 18 188/88 H 100 05/04/19 17:55 05/04/19 17:55 05/04/19 17:55 05/04/19 18:08 05/04/19 17:55 Discharge - Discharge Clinical Impression: Conjunctivitis Qualifiers: Conjunctivitis type: acute Acute conjunctivitis type: bacterial Laterality: bilateral Qualified Code(s): H10.33 - Unspecified acute conjunctivitis, bilateral Condition: Stable Disposition: HOME, SELF-CARE Instructions: Antibiotic Therapy ([facility]), Conjunctivitis ([facility]), Eyedrop Use ([facility]) Additional Instructions: Please instill 1-2 drops into eye every 2 hours while awake for 2 days and then 1-2 drops every 4 hours while awake for the next 5 days. Please follow up with Dr. Caal, your eye doctor, in 2-3 days. Return to ER immediately if you start having any worsening symptoms including worsening pain, increased redness, visual changes, fever, increased discharge, fever, or any other symptoms that may be concerning to you. Prescriptions: Ciprofloxacin HCl [Ciloxan 0.3% Oph Soln 2.5 ml] 2 drop OP Q6H #1 bottle Referrals: NICKY BARBOZA MD [Primary Care Provider] - Follow up in 3-5 days
[2019-05-04 22:07] VITALS: BP 198/89
== END 2019-05-04 22:03 | disposition home or self-care (01) ==
LOC: ER 17:42
DX: H10.33 Unspecified acute conjunctivitis, bilateral (principal); H57.11 Ocular pain, right eye; H57.89 Other specified disorders of eye and adnexa; E11.9 Type 2 diabetes mellitus without complications; I10 Essential (primary) hypertension
CPT/HCPCS: 99282; A9270; J3490

== ENCOUNTER 2019-06-07 16:20 | Emergency (ER) | payer MEDICARE, MEDICAID ==
[2019-06-07] MEDS ORDERED: HYDRALAZINE HCL INJ/PF 20 MG/1 ML SDV IV ONE ×2 (16:54→17:59)
[2019-06-07] MEDS ORDERED: ACETAMINOPHEN 325 MG TABLET PO ONE (16:54)
[2019-06-07 17:33] LABS: ABSOLUTE EOSINOPHILS # (AUTO) 0.3 10^3/uL (0.0-0.6); ABSOLUTE LYMPHOCYTES (AUTO) 1.2 10^3/uL (0.5-4.7); ABSOLUTE MONOCYTES (AUTO) 0.4 10^3/uL (0.1-1.4); ABSOLUTE NEUT (AUTO) 5.6 10^3/uL (1.7-8.2); BASOPHILS % (AUTO) 0.4 % (0-2); EOSINOPHILS % (AUTO) 3.4 % (0-6); HEMATOCRIT 36.1 % (36.0-47.0); HEMOGLOBIN 11.5 g/dL (12.0-15.5); LYMPHOCYTES % (AUTO) 15.8 % (13-45); MEAN CORPUSCULAR HEMOGLOBIN 26.5 pg (27.0-33.4); MEAN CORPUSCULAR HGB CONC 31.9 g/dL (32.0-36.0); MEAN CORPUSCULAR VOLUME 83 fl (80-97); MONOCYTES % (AUTO) 4.8 % (3-13); PLATELET COUNT 174 10^3/uL (150-450); RED BLOOD COUNT 4.34 10^6/uL (3.72-5.28); RED CELL DISTRIBUTION WIDTH 18.5 % (11.5-14.0); SEGMENTED NEUTROPHILS % (AUTO) 75.6 % (42-78); TOTAL CELLS COUNTED % (AUTO) 100 %; WHITE BLOOD COUNT 7.5 10^3/uL (4.0-10.5)
--- NOTE | 2019-06-07 18:24 | ER Document Report ---
ED Headache - General Chief Complaint: High Blood Pressure Stated Complaint: HEADACHE Time Seen by Provider: 06/07/19 16:47 Primary Care Provider: NICKY BARBOZA MD [Primary Care Provider] - Follow up as needed TRAVEL OUTSIDE OF THE [place] IN LAST 30 DAYS: No - HPI Patient complains to provider of: Headache - Related Data Allergies/Adverse Reactions: sulfamethoxazole [From Septra] Allergy (Severe, Verified 05/04/19 18:02) Hives trimethoprim [From Septra] Allergy (Severe, Verified 05/04/19 18:02) Hives adhesive tape [Adhesive Tape] Adverse Reaction (Verified 05/04/19 18:02) Bruising/Rash Home Medications: pt cannot recall Past Medical History - Social History Smoking Status: Never Smoker Family History: Reviewed & Not Pertinent, DM, Hypertension Patient has suicidal ideation: No Patient has homicidal ideation: No - Past Medical History Cardiac Medical History: Reports: Hx Hypercholesterolemia, Hx Hypertension Denies: Hx Atrial Fibrillation, Hx Congestive Heart Failure, Hx Coronary Artery Disease, Hx Heart Attack Pulmonary Medical History: Denies: Hx Asthma, Hx Bronchitis, Hx COPD, Hx Pneumonia, Hx Tuberculosis Neurological Medical History: Denies: Hx Cerebrovascular Accident, Hx Migraine, Hx Seizures Endocrine Medical History: Reports: Hx Diabetes Mellitus Type 1, Hx Diabetes Mellitus Type 2 Renal/ Medical History: Reports: Hx End Stage Renal Disease, Hx Hemodialysis, Hx Peritoneal Dialysis, Hx Renal Insufficiency. Denies: Hx Kidney Stones GI Medical History: Reports: Hx Gastroesophageal Reflux Disease, Hx Ulcer Musculoskeletal Medical History: Denies Hx Arthritis Skin Medical History: Reports Hx MRSA Psychiatric Medical History: Reports: Hx Depression Denies: Hx Attention Deficit Hyperactivity Disorder, Hx Bipolar Disorder, Hx Schizophrenia Traumatic Medical History: Reports: Hx Fractures - Right ankle fracture Infectious Medical History: Reports: Hx MRSA Past Surgical History: Reports: Hx Section, Hx Cholecystectomy, Hx Orthopedic Surgery - ORIF right ankle with subsequent MRSA infection and Right BKA., Hx Tubal Ligation, Hx Vascular Surgery - Right forearm AV fistula. PermCath right subclavian.. Denies: Hx Hysterectomy - Immunizations Hx Diphtheria, Pertussis, Tetanus Vaccination: Yes Hx Pneumococcal Vaccination: 07/04/10 Physical Exam - Vital signs Vitals: BP 229/111 H 06/07/19 16:38 Course - Re-evaluation Re-evalutation: 06/07/19 18:21 MDM 48 year old with htn has headache at HD today. Sent directly from HD due to elevated BP. Better after hydralazine and tylenol here. No headache on recheck. - Vital Signs Vital signs: Temp Pulse Resp BP Pulse Ox 97.9 F 81 16 163/58 H 96 06/07/19 16:54 06/07/19 16:54 06/07/19 16:54 06/07/19 18:05 06/07/19 16:54 - Laboratory Result Diagrams: 06/07/19 17:10 06/07/19 17:10 Laboratory results interpreted by me: 06/07/19 17:10 Hgb 11.5 L MCH 26.5 L MCHC 31.9 L RDW 18.5 H Discharge - Discharge Clinical Impression: Gastroparesis Hypertension Qualifiers: Hypertension type: unspecified Qualified Code(s): I10 - Essential (primary) hypertension Headache Qualifiers: Headache type: unspecified Headache chronicity pattern: acute headache Intr actability: not intractable Qualified Code(s): R51 - Headache Condition: Good Disposition: HOME, SELF-CARE Instructions: High Blood Pressure ([facility]), High Blood Pressure, Requiring Treatme nt ([facility]), Headache ([facility]) Additional Instructions: Recheck the blood pressure at home. Follow your regular diet. Please return here for any problems or any concerns. Forms: Elevated Blood Pressure Referrals: NICKY BARBOZA MD [Primary Care Provider] - Follow up as needed
[2019-06-07 18:48] VITALS: BP 157/58
[2019-06-07 19:08] LABS: ALBUMIN 3.9 g/dL (3.5-5.0); ALKALINE PHOSPHATASE 91 U/L (38-126); ANION GAP 11 (5-19); ASPARTATE AMINO TRANSFERASE 16 U/L (14-36); BILIRUBIN,DIRECT 0.1 mg/dL (0.0-0.4); BILIRUBIN,TOTAL 0.5 mg/dL (0.2-1.3); BLOOD UREA NITROGEN 17 mg/dL (7-20); CALCIUM 8.3 mg/dL (8.4-10.2); CARBON DIOXIDE 28 mmol/L (22-30); CHLORIDE 97 mmol/L (98-107); GLUCOSE 229 mg/dL (75-110); POTASSIUM 3.7 mmol/L (3.6-5.0); TOTAL PROTEIN 7.8 g/dL (6.3-8.2)
== END 2019-06-07 18:30 | disposition home or self-care (01) ==
LOC: ER 16:20
DX: K31.84 Gastroparesis (principal); R51 Headache; I10 Essential (primary) hypertension; E78.00 Pure hypercholesterolemia, unspecified; Z88.3 Allergy status to other anti-infective agents; Z86.14 Personal history of Methicillin resistant Staphylococcus aureus infection; Z90.49 Acquired absence of other specified parts of digestive tract; Z89.511 Acquired absence of right leg below knee
CPT/HCPCS: 99283; 96374; 36415; 85025; 80053; A9270; J0360

== ENCOUNTER 2019-08-31 14:42 | Emergency (ER) | payer MEDICARE, MEDICAID ==
--- NOTE | 2019-08-31 15:50 | ER Document Report ---
ED GI/ - General TRAVEL OUTSIDE OF THE [place] IN LAST 30 DAYS: No <GIN WHEELER - Last Filed: 08/31/19 20:16> <CHITO SANCHEZ - Last Filed: 08/31/19 21:17> - General Chief Complaint: Flank Pain Stated Complaint: FLANK PAIN Time Seen by Provider: 08/31/19 14:55 Primary Care Provider: NICKY BARBOZA MD [Primary Care Provider] - Follow up as needed Notes: 49-year-old female presented today to the ER for left-sided flank pain starting this morning. Describes as sharp and constant. States the pain radiates to her lower left quadrant. Patient is a dialysis patient. States she received dialysis yesterday and had no complications during the dialysis. Has dialysis scheduled tomorrow. She does produce some urine, usually she urinates in the morning but was unable to this morning. No fevers, chills, shortness of breath or chest pain. Past medical history includes hypertension, hyperlipidemia, end- stage renal disease. Was given some pain meds in the ambulance but has not provided any relief of her pain. (GIN WHEELER) - Related Data Allergies/Adverse Reactions: sulfamethoxazole [From Septra] Allergy (Severe, Verified 08/31/19 16:06) Hives trimethoprim [From Septra] Allergy (Severe, Verified 08/31/19 16:06) Hives adhesive tape [Adhesive Tape] Adverse Reaction (Verified 08/31/19 16:06) Bruising/Rash Past Medical History - Social History Smoking Status: Unknown if Ever Smoked Family History: Reviewed & Not Pertinent, DM, Hypertension - Past Medical History Cardiac Medical History: Reports: Hx Hypercholesterolemia, Hx Hypertension Denies: Hx Atrial Fibrillation, Hx Congestive Heart Failure, Hx Coronary Artery Disease, Hx Heart Attack Pulmonary Medical History: Denies: Hx Asthma, Hx Bronchitis, Hx COPD, Hx Pneumonia, Hx Tuberculosis Neurological Medical History: Denies: Hx Cerebrovascular Accident, Hx Migraine, Hx Seizures Endocrine Medical History: Reports: Hx Diabetes Mellitus Type 1, Hx Diabetes Mellitus Type 2 Renal/ Medical History: Reports: Hx End Stage Renal Disease, Hx Hemodialysis, Hx Peritoneal Dialysis, Hx Renal Insufficiency. Denies: Hx Kidney Stones GI Medical History: Reports: Hx Gastroesophageal Reflux Disease, Hx Ulcer Musculoskeletal Medical History: Denies Hx Arthritis Skin Medical History: Reports Hx MRSA Psychiatric Medical History: Reports: Hx Depression Denies: Hx Attention Deficit Hyperactivity Disorder, Hx Bipolar Disorder, Hx Schizophrenia Traumatic Medical History: Reports: Hx Fractures - Right ankle fracture Infectious Medical History: Reports: Hx MRSA Past Surgical History: Reports: Hx Section, Hx Cholecystectomy, Hx Orthopedic Surgery - ORIF right ankle with subsequent MRSA infection and Right BKA., Hx Tubal Ligation, Hx Vascular Surgery - Right forearm AV fistula. PermCath right subclavian.. Denies: Hx Hysterectomy - Immunizations Hx Diphtheria, Pertussis, Tetanus Vaccination: Yes Hx Pneumococcal Vaccination: 07/04/10 <GIN WHEELER - Last Filed: 08/31/19 20:16> Review of Systems - Review of Systems Constitutional: No symptoms reported EENT: No symptoms reported Cardiovascular: No symptoms reported Respiratory: No symptoms reported Gastrointestinal: See HPI Genitourinary: See HPI Musculoskeletal: No symptoms reported Skin: No symptoms reported Hematologic/Lymphatic: No symptoms reported Neurological/Psychological: No symptoms reported <GIN WHEELER - Last Filed: 08/31/19 20:16> Physical Exam - Vital signs Interpretation: Hypertensive <GIN WHEELER - Last Filed: 08/31/19 20:16> - Vital signs Vitals: Temp 98.2 F 08/31/19 14:43 - Notes Notes: Adult General: GENERAL: Alert, interacts well. No acute distress HEAD: Normocephalic, atraumatic EYES: Pupils equal, round and reactive to light. Extraocular movements intact. ENT: Oral mucosa moist, tongue midline. Oropharynx unremarkable. Airway patent. NECK: Full range of motion. Supple. LUNGS: Clear to auscultation bilaterally, no wheezes, rales, or rhonchi. No respiratory distress. Nontender chest wall. HEART: Regular rate and rhythm. No murmurs, rubs or gallops. ABDOMEN: Soft, tender to palpation in llq. Nondistended. Bowel sounds present in all 4 quadrants. GENITOURINARY: Deferred EXTREMITIES: Has lle below the knee amputation. No edema, normal radial and dorsal pedis pulses bilaterally. No cyanosis. BACK: Left sided CVA tenderness. No cervical, thoracic, lumbar midline tenderness. No saddle anesthesia NEUROLOGICAL: Alert and oriented x3. Normal speech. PSYCH: Normal affect, normal mood. SKIN: Warm, dry, normal turgor. No rashes or lesions noted. (GIN WHEELER) Course - Laboratory Result Diagrams: 08/31/19 15:20 08/31/19 15:20 <GIN WHEELER - Last Filed: 08/31/19 20:16> - Laboratory Result Diagrams: 08/31/19 15:20 08/31/19 15:20 <CHITO SANCHEZ Miguelito - Last Filed: 08/31/19 21:17> - Re-evaluation Re-evalutation: 08/31/19 17:[address] scan shows no kidney stones shows mild hydronephrosis on the left side with no obstruction. Believe patient may have had a stone that she already passed causing the mild hydronephrosis. Patient's blood sugar is also in the 500s. Her creatinine is at 6.9. She was unable to keep her blood pressure medications down this morning and not take her blood sugar medication due to nausea and vomiting. Blood pressure remains elevated in the ED. At home she takes 0.3 mg of clonidine. She was provided 0.3 mg of clonidine in the ED. Will also start patient on 12 units of insulin due to her elevated blood sugar. Patient reports that she continues to be in pain that the morphine did help a little bit as well. 08/31/19 19:02 Patient blood pressure remains elevated to 234/96 08/31/19 19:11 Repeat sugar was 399. 08/31/19 19:50 Patient states that she typically takes 40 units of Levemir twice daily. Will order 40 units of Lantus patient as Levemir is not in the formulary. Patient was resting peacefully in the bed. No acute distress, breathing unlabored. Blood pressure remains elevated at 225/85. Was given 10 mg of hydralazine. Will repeat blood pressure. Urinalysis shows signs of UTI. Will order 1 g of Rocephin given now and discharge patient on 500 mg of Keflex twice daily for 5 days. 08/31/19 20:08 Patient blood pressure still elevated at 214/79. Denies any headaches, vision changes, will provide patient another 10 mg of hydralazine. Will recheck blood pressure. If her blood pressure is decreased we will go ahead and discharge patient. Patient continues to be in no acute distress and no pain currently. 08/31/19 20:11 08/31/19 20:19 Turnover provided to Chito Sanchez. 08/31/19 20:20 (GIN WHEELER) 08/31/19 20:45 History is received on the patient. Awaiting blood pressure management and disposition 08/31/19 20:53 Patient's Accu-Chek in the 350 range but she just received 40 units of Lantus subcutaneous 30 minutes ago. This will likely continue to improve. She is also received her hydralazine IV, will await blood pressure recheck but if systolic is below 200 will discharge to follow-up with her finish patcher 08/31/19 21:14 Manual blood pressure 188/78. Will discharge home to follow-up with her PCP and nephrology team (CHITO SANCHEZ) - Vital Signs Vital signs: Temp Pulse Resp BP Pulse Ox 98.2 F 83 17 202/73 H 97 08/31/19 15:08 08/31/19 15:08 08/31/19 20:31 08/31/19 21:02 08/31/19 21:02 - Laboratory Laboratory results interpreted by me: 08/31/19 08/31/19 08/31/19 15:20 15:20 16:44 Hgb 11.3 L Hct 35.0 L MCH 26.1 L RDW 15.8 H Lymph % (Auto) 12.4 L Seg Neutrophils % 79.7 H Sodium 133.7 L Chloride 91 L BUN 37 H Creatinine 6.90 H Est GFR ( Amer) 8 L Est GFR (MDRD) Non-Af 6 L Glucose 510 H* POC Glucose Urine Protein >=500 H Urine Glucose (UA) >=500 H Urine Blood SMALL H Ur Leukocyte Esterase MODERATE H 08/31/19 08/31/19 19:02 20:45 Hgb Hct MCH RDW Lymph % (Auto) Seg Neutrophils % Sodium Chloride BUN Creatinine Est GFR ( Amer) Est GFR (MDRD) Non-Af Glucose POC Glucose 399 H 356 H Urine Protein Urine Glucose (UA) Urine Blood Ur Leukocyte Esterase Discharge <GIN WHEELER - Last Filed: 08/31/19 20:16> <CHITO SANCHEZ - Last Filed: 08/31/19 21:17> - Discharge Clinical Impression: Essential hypertension, Flank pain, ESRD (end stage renal disease) Urinary tract infection Qualifiers: Urinary tract infection type: acute cystitis Hematuria presence: with hematuria Qualified Code(s): N30.01 - Acute cystitis with hematuria Diabetes Qualifiers: Diabetes mellitus type: type 2 Diabetes mellitus jail insulin use: with jail use Diabetes mellitus complication status: with hyperglycemia Qualified Code(s): E11.65 - Type 2 diabetes mellitus with hyperglycemia Hydronephrosis Qualifiers: Hydronephrosis type: unspecified Qualified Code(s): N13.30 - Unspecified hydronephrosis Condition: Stable Disposition: HOME, SELF-CARE Instructions: Abdominal Pain ([facility]), Urinary Tract Infection ([facility]) Additional Instructions: Follow-up with both your primary care provider in your nephrology team for further evaluation and treatment. Make sure you are taking your blood pressure medications as previously prescribed. If you continue to have hypertension or elevated blood pressure you need to follow-up with your finish patcher for medica tion management. There was some concern that you have a urinary infection today. Take the Keflex as prescribed to treat this. Prescriptions: Cephalexin Monohydrate [Keflex 500 mg Capsule] 500 mg PO Q12 5 Days #10 capsule Referrals: NICKY BARBOZA MD [Primary Care Provider] - Follow up as needed
[2019-08-31 15:55] LABS: ABSOLUTE BASOPHILS # (AUTO) 0.1 10^3/uL (0.0-0.2); ABSOLUTE EOSINOPHILS # (AUTO) 0.3 10^3/uL (0.0-0.6); ABSOLUTE LYMPHOCYTES (AUTO) 0.9 10^3/uL (0.5-4.7); ABSOLUTE MONOCYTES (AUTO) 0.3 10^3/uL (0.1-1.4); ABSOLUTE NEUT (AUTO) 6.1 10^3/uL (1.7-8.2); BASOPHILS % (AUTO) 0.7 % (0-2); EOSINOPHILS % (AUTO) 3.4 % (0-6); HEMOGLOBIN 11.3 g/dL (12.0-15.5); LYMPHOCYTES % (AUTO) 12.4 % (13-45); MEAN CORPUSCULAR HEMOGLOBIN 26.1 pg (27.0-33.4); MEAN CORPUSCULAR HGB CONC 32.1 g/dL (32.0-36.0); MEAN CORPUSCULAR VOLUME 81 fl (80-97); MONOCYTES % (AUTO) 3.8 % (3-13); PLATELET COUNT 200 10^3/uL (150-450); RED BLOOD COUNT 4.31 10^6/uL (3.72-5.28); RED CELL DISTRIBUTION WIDTH 15.8 % (11.5-14.0); SEGMENTED NEUTROPHILS % (AUTO) 79.7 % (42-78); TOTAL CELLS COUNTED % (AUTO) 100 %; WHITE BLOOD COUNT 7.6 10^3/uL (4.0-10.5)
[2019-08-31 16:14] LABS: ALBUMIN 4.1 g/dL (3.5-5.0); ALKALINE PHOSPHATASE 117 U/L (38-126); ANION GAP 16 (5-19); ASPARTATE AMINO TRANSFERASE 15 U/L (14-36); BILIRUBIN,DIRECT 0.2 mg/dL (0.0-0.4); BILIRUBIN,TOTAL 0.6 mg/dL (0.2-1.3); BLOOD UREA NITROGEN 37 mg/dL (7-20); CALCIUM 8.5 mg/dL (8.4-10.2); CARBON DIOXIDE 27 mmol/L (22-30); CHLORIDE 91 mmol/L (98-107); POTASSIUM 4.4 mmol/L (3.6-5.0); TOTAL PROTEIN 8.1 g/dL (6.3-8.2)
--- NOTE | 2019-08-31 16:18 | RADIOLOGY REPORT (SQ) ---
EXAM DESCRIPTION: CT ABD/PELVIS NO ORAL OR IV IMAGES COMPLETED DATE/TIME: 08/31/2019 3:54 pm REASON FOR STUDY: left flank pain COMPARISON: CT of the abdomen pelvis without contrast from 01/24/2017. TECHNIQUE: CT scan of the abdomen and pelvis performed without intravenous or oral contrast. Images reviewed with lung, soft tissue, and bone windows. Reconstructed coronal and sagittal MPR images revi ewed. All images stored on PACS. All CT scanners at this facility use dose modulation, iterative reconstruction, and/or weight based d osing when appropriate to reduce radiation dose to as low as reasonably achievable (ALARA). [facility]: Dose Right [facility]: CareDose [facility]: Dose Right [facility]: Teradose 4D [facility]: [employer] RADIATION DOSE: CT Rad equipment meets quality standard of care and radiation dose reduction techniq ues were employed. CTDIvol: 19.2 mGy. DLP: 1056 mGy-cm.. LIMITATIONS: None. FINDINGS: LOWER CHEST: Atherosclerotic calcification of the mitral annulus. NON-CONTRASTED LIVER, SPLEEN, ADRENALS: Evaluation is limited due to the absence of intravenous contr ast. There is no evidence of hepatic steatosis. The spleen is borderline enlarged and it measures 1 3.5 cm in AP diameter. 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 PANCREAS: No acute gross abnormality of the pancreas. GALLBLADDER: The gallbladder is surgically absent. RIGHT KIDNEY AND URETER: Evaluation is limited due to the absence of intravenous contrast. There is no hydronephrosis, nephrolithiasis, hydroureter or ureterolithiasis. LEFT KIDNEY AND URETER: Evaluation is limited due to the absence of intravenous contrast. There is m ild hydroureteronephrosis without a definite obstructive ureteral or urinary bladder calculus. There is also no renal calculus. AORTA AND RETROPERITONEUM: No aneurysm of the abdominal aorta. No retroperitoneal adenopathy, hemorr tammy or mass. BOWEL AND PERITONEAL CAVITY: Metallic density within the gastric lumen. There is no bowel obstructio n, bowel wall thickening or pericolonic/ perienteric inflammation. There is no mesenteric adenopathy , free intraperitoneal fluid or mesenteric/ omental inflammation. APPENDIX: Normal. PELVIS, BLADDER, AND ABDOMINAL WALL:No abnormality of the uterus or adnexa that is apparent on CT. T here is no abdominal wall mass or hernia. BONES: No acute fracture or osseous lesion. OTHER: No other finding. IMPRESSION: 1. Mild left-sided hydroureteronephrosis without an identifiable obstructive ureteral c alculus. 2. Other nonemergent findings as detailed above. COMMENT: Quality ID # [id number]: Final reports with documentation of one or more dose reduction techniques (e.g., Automated exposure control, adjustment of the mA and/or kV according to patient size, use of iterative reconstruction technique) TECHNICAL DOCUMENTATION: JOB ID: [id number] 2010 [employer]- All Rights Reserved Reading location - IP/workstation name: [email or web address]
[2019-08-31] MEDS ORDERED: ONDANSETRON 4 MG TAB.RAPDIS PO ONE (16:26)
[2019-08-31 16:27] LABS: GLUCOSE 510 mg/dL (75-110)
[2019-08-31] MEDS ORDERED: CLONIDINE HCL 0.2 MG TABLET PO ONE (16:34)
[2019-08-31] MEDS ORDERED: MORPHINE SULFATE 10 MG/ML INJ IV ONE ×2 (16:34→18:06)
[2019-08-31 17:08] LABS: APPEARANCE,URINE SLIGHTLY-CLOUDY; BILIRUBIN,URINE NEGATIVE (NEGATIVE); COLOR,URINE YELLOW; GLUCOSE, URINE >=500 mg/dL (NEGATIVE); KETONES,URINE NEGATIVE (NEGATIVE); LEUKOCYTE ESTERASE,URINE MODERATE (NEGATIVE); NITRITE,URINE NEGATIVE (NEGATIVE); PROTEIN,URINE >=500 mg/dL (NEGATIVE); URINE SPECIFIC GRAVITY 1.017; UROBILINOGEN,URINE NEGATIVE mg/dL (<2.0)
[2019-08-31] MEDS ORDERED: INSULIN REG, HUMAN 100 UNIT/ML 3 ML VIAL (PYX) IV ONE (17:16)
[2019-08-31] MEDS ORDERED: ONDANSETRON HCL INJ/PF 4 MG/2 ML SDV IV ONE ×2 (18:15→20:29)
[2019-08-31] MEDS ORDERED: HYDRALAZINE HCL INJ/PF 20 MG/1 ML SDV IV ONE ×2 (19:03→20:09)
[2019-08-31] MEDS ORDERED: CEFTRIAXONE INJ 1000 MG VIAL IM ONE (19:14)
[2019-08-31] MEDS ORDERED: INSULIN GLARGINE,HUM.REC.ANLOG 1,000 UNIT/10 ML VIAL SUBCUT ONE (19:26)
[2019-08-31] MEDS ORDERED: PROMETHAZINE HCL INJ 25 MG/1 ML VIAL IV ONE (20:30)
[2019-08-31 21:07] VITALS: BP 202/73
[2019-08-31] MEDS ORDERED: OXYCODONE-ACETAMINOPHEN 5-325 MG TABLET PO ONE (21:16)
== END 2019-08-31 21:44 | disposition home or self-care (01) ==
LOC: ER 14:42
DX: N30.01 Acute cystitis with hematuria (principal); N13.30 Unspecified hydronephrosis; E11.65 Type 2 diabetes mellitus with hyperglycemia; I12.0 Hypertensive chronic kidney disease with stage 5 chronic kidney disease or end stage renal disease; E11.22 Type 2 diabetes mellitus with diabetic chronic kidney disease; N18.6 End stage renal disease; R10.9 Unspecified abdominal pain; R10.32 Left lower quadrant pain; R33.9 Retention of urine, unspecified; Z79.4 Long term (current) use of insulin; Z88.8 Allergy status to other drugs, medicaments and biological substances; Z88.2 Allergy status to sulfonamides; Z88.1 Allergy status to other antibiotic agents; Z99.2 Dependence on renal dialysis
CPT/HCPCS: 96376; 99284; 96372; 96374; 96375; 36415; 87086; 82962; 85025; 80053; 81001; 74176; A9270 ×5; J0360; J2270; J2550; J0696; J2405; J1815; S0119

== ENCOUNTER 2019-09-14 12:09 | Inpatient (IN) | payer MEDICARE, MEDICAID ==
[2019-09-14] MEDS ORDERED: ONDANSETRON HCL INJ/PF 4 MG/2 ML SDV IV ONE ×2 (13:06→15:10)
[2019-09-14] MEDS ORDERED: CLONIDINE HCL 0.2 MG TABLET PO ONE ×2 (13:06→13:08)
[2019-09-14] MEDS ORDERED: MORPHINE SULFATE 10 MG/ML INJ IV ONE ×2 (13:06→15:10)
[2019-09-14 13:44] LABS: APPEARANCE,URINE SLIGHTLY-CLOUDY; BILIRUBIN,URINE NEGATIVE (NEGATIVE); COLOR,URINE YELLOW; GLUCOSE, URINE >=500 mg/dL (NEGATIVE); KETONES,URINE NEGATIVE (NEGATIVE); LEUKOCYTE ESTERASE,URINE MODERATE (NEGATIVE); NITRITE,URINE NEGATIVE (NEGATIVE); PROTEIN,URINE >=500 mg/dL (NEGATIVE); URINE SPECIFIC GRAVITY 1.015; UROBILINOGEN,URINE NEGATIVE mg/dL (<2.0)
[2019-09-14] MEDS ORDERED: CEFTRIAXONE 2 GM/D5W RTU 2 GM/50 ML RTUPB IV ONE (14:03)
--- NOTE | 2019-09-14 14:10 | ER Document Report ---
ED General - General Chief Complaint: Abdominal Pain Stated Complaint: COUGH/ABDOMINAL AND FLANK PAIN Time Seen by Provider: 09/14/19 12:42 Primary Care Provider: NICKY BARBOZA MD [Primary Care Provider] - Follow up as needed Information source: Patient TRAVEL OUTSIDE OF THE [place] IN LAST 30 DAYS: No - HPI Notes: Patient presents complaint of abdominal pain. She states is mainly on the left side and radiates to her flank. It is severe and constant. She states she has had it for over a week. It is worse with movement and better with rest. She s tates she also has pressure like she needs to pee. She states she is on dialysis and makes very little urine however she continues to have pressure in the area where she urinates from. She states she is also been vomiting constantly and unable to keep down her medications. No problems with stool. She states she did not go to dialysis yesterday due to not feeling well. She states she is been very tired and has been unable to get out of bed for several days. She states that her pain is been severe. - Related Data Allergies/Adverse Reactions: sulfamethoxazole [From Septra] Allergy (Severe, Verified 09/14/19 12:37) Hives trimethoprim [From Septra] Allergy (Severe, Verified 09/14/19 12:37) Hives adhesive tape [Adhesive Tape] Adverse Reaction (Verified 09/14/19 12:37) Bruising/Rash Past Medical History - General Information source: Patient - Social History Smoking Status: Never Smoker Chew tobacco use (# tins/day): No Frequency of alcohol use: None Drug Abuse: None Family History: Reviewed & Not Pertinent, DM, Hypertension Patient has homicidal ideation: No - Past Medical History Cardiac Medical History: Reports: Hx Hypercholesterolemia, Hx Hypertension Denies: Hx Atrial Fibrillation, Hx Congestive Heart Failure, Hx Coronary Artery Disease, Hx Heart Attack Pulmonary Medical History: Denies: Hx Asthma, Hx Bronchitis, Hx COPD, Hx Pneumonia, Hx Tuberculosis Neurological Medical History: Denies: Hx Cerebrovascular Accident, Hx Migraine, Hx Seizures Endocrine Medical History: Reports: Hx Diabetes Mellitus Type 1, Hx Diabetes Mellitus Type 2 Renal/ Medical History: Reports: Hx End Stage Renal Disease, Hx Hemodialysis, Hx Peritoneal Dialysis, Hx Renal Insufficiency. Denies: Hx Kidney Stones GI Medical History: Reports: Hx Gastroesophageal Reflux Disease, Hx Ulcer Musculoskeletal Medical History: Denies Hx Arthritis Skin Medical History: Reports Hx MRSA Psychiatric Medical History: Reports: Hx Depression Denies: Hx Attention Deficit Hyperactivity Disorder, Hx Bipolar Disorder, Hx Schizophrenia Traumatic Medical History: Reports: Hx Fractures - Right ankle fracture Infectious Medical History: Reports: Hx MRSA Past Surgical History: Reports: Hx Section, Hx Cholecystectomy, Hx Orthopedic Surgery - ORIF right ankle with subsequent MRSA infection and Right BKA., Hx Tubal Ligation, Hx Vascular Surgery - Right forearm AV fistula. PermCath right subclavian.. Denies: Hx Hysterectomy - Immunizations Hx Diphtheria, Pertussis, Tetanus Vaccination: Yes Hx Pneumococcal Vaccination: 07/04/10 Review of Systems - Review of Systems Constitutional: Malaise, Weakness. denies: Chills, Fever Cardiovascular: denies: Chest pain, Palpitations Respiratory: denies: Cough, Short of breath - About 5 -: Yes All other systems reviewed and negative Physical Exam - Vital signs Vitals: Resp BP Pulse Ox 25 H 228/98 H 98 09/14/19 12:33 09/14/19 12:33 09/14/19 12:33 Interpretation: Hypertensive - General General appearance: Alert In distress: None - HEENT Head: Normocephalic, Atraumatic Eyes: Normal Pupils: PERRL - Respiratory Respiratory status: No respiratory distress Chest status: Nontender Breath sounds: Decreased air movement, Rales Chest palpation: Normal - Cardiovascular Rhythm: Regular Heart sounds: Normal auscultation Murmur: No - Abdominal Inspection: Morbidly Obese Distension: Distended Bowel sounds: Normal Tenderness: Tender - Mild diffuse tenderness to palpation no surgical abdominal signs. Organomegaly: No organomegaly - Back Back: Normal, Nontender - Extremities General upper extremity: Normal inspection, Nontender, Normal color, Normal ROM, Normal temperature General lower extremity: Normal inspection - Inspection is normal although sacha ent does have chronic amputation of the right lower extremity., Nontender, Normal color, Normal ROM, Normal temperature. No: German's sign - Neurological Neuro grossly intact: Yes Cognition: Normal Orientation: AAOx4 [place] Coma Scale Eye Opening: Spontaneous Alondra Coma Scale Verbal: Oriented [place] Coma Scale Motor: Obeys Commands Alondra Coma Scale Total: 15 Speech: Normal Motor strength normal: LUE, RUE, LLE, RLE Sensory: Normal - Psychological Associated symptoms: Normal affect, Normal mood - Skin Skin Temperature: Warm Skin Moisture: Dry Skin Color: Normal Course - Re-evaluation Re-evalutation: 09/14/19 17:28 Patient presents with abdominal pain and left flank pain as well as pressure with urination. Patient does have an infected urine. CT scan shows some hydroureter. She does have some inflammatory changes adjacent. She was recently diagnosed with a urinary tract infection with a similar presentation about 10 days ago but has not gotten better despite outpatient antibiotic therapy. I called and discussed the case with the garden center manager as well as with the primary care physician, Dr. Barboza. We will admit the patient for antibiotic therapy and she can be dialyzed tomorrow per Dr. Fernandez. - Vital Signs Vital signs: Temp Pulse Resp BP Pulse Ox 98.9 F 25 H 186/75 H 97 09/14/19 12:38 09/14/19 12:33 09/14/19 16:01 09/14/19 16:01 - Laboratory Result Diagrams: 09/14/19 15:25 09/14/19 15:25 Laboratory results interpreted by me: 09/14/19 09/14/19 09/14/19 13:29 15:25 15:25 Hgb 10.1 L Hct 30.9 L MCH 26.5 L RDW 16.3 H Lymph % (Auto) 10.7 L Seg Neutrophils % 82.2 H Sodium 134.3 L BUN 47 H Creatinine 9.24 H Est GFR ( Amer) 6 L Est GFR (MDRD) Non-Af 5 L Glucose 287 H Calcium 8.0 L AST 12 L Urine Protein >=500 H Urine Glucose (UA) >=500 H Urine Blood SMALL H Ur Leukocyte Esterase MODERATE H - Diagnostic Test Radiology reviewed: Image reviewed, Reports reviewed Discharge - Discharge Clinical Impression: Pyelonephritis Diabetes Qualifiers: Diabetes mellitus type: type 2 Diabetes mellitus long term care social worker insulin use: with fdc use Diabetes mellitus complication status: with kidney complications Diabetes mellitus complication detail: with chronic kidney disease Chronic kidney disease stage: on chronic dialysis Qualified Code(s): E11.22 - Type 2 diabetes mellitus with diabetic chronic kidney disease; N18.6 - End stage renal disease; Z79.4 - prison (current) use of insulin; Z99.2 - Dependence on renal dialysis Vomiting Qualifiers: Vomiting type: bilious vomiting Nausea presence: with nausea Qualified Code(s): R11.14 - Bilious vomiting Hypertension Qualifiers: Hypertension type: renovascular hypertension Qualified Code(s): I15.0 - Renovascular hypertension Condition: Serious Disposition: ADMITTED INPATIENT Admitting Provider: [facility] Admitted: IMCU Referrals: NICKY BARBOZA MD [Primary Care Provider] - Follow up as needed
--- NOTE | 2019-09-14 14:13 | RADIOLOGY REPORT (SQ) ---
EXAM DESCRIPTION: CT ABD/PELVIS NO ORAL OR IV IMAGES COMPLETED DATE/TIME: 09/14/2019 1:39 pm REASON FOR STUDY: left flank pain COMPARISON: None. TECHNIQUE: CT scan of the abdomen and pelvis performed without intravenous or oral contrast. Images reviewed with lung, soft tissue, and bone windows. Reconstructed coronal and sagittal MPR images revi ewed. All images stored on PACS. All CT scanners at this facility use dose modulation, iterative reconstruction, and/or weight based d osing when appropriate to reduce radiation dose to as low as reasonably achievable (ALARA). [facility]: Dose Right [facility]: CareDose [facility]: Dose Right [facility]: Teradose 4D [facility]: Smart [employer] RADIATION DOSE: CT Rad equipment meets quality standard of care and radiation dose reduction techniq ues were employed. CTDIvol: 19.2 mGy. DLP: 1121 mGy-cm.mGy. LIMITATIONS: None. FINDINGS: LOWER CHEST: No significant findings. No nodules or infiltrates. NON-CONTRASTED LIVER, SPLEEN, ADRENALS: Evaluation limited by lack of IV contrast. No identified sign ificant masses. PANCREAS: No masses. No peripancreatic inflammatory changes. GALLBLADDER: Surgically absent. RIGHT KIDNEY AND URETER: No suspicious masses. Assessment limited by lack of IV contrast. No signif icant calcifications. No hydronephrosis or hydroureter. LEFT KIDNEY AND URETER: No suspicious masses. Assessment limited by lack of IV contrast. No signifi cant calcifications. Mild hydronephrosis and hydroureter with inflammatory changes in the mid and d istal ureter. No ureteral calculus identified. AORTA AND RETROPERITONEUM: No aneurysm. No retroperitoneal masses or adenopathy. BOWEL AND PERITONEAL CAVITY: No obvious masses or inflammatory changes. No free fluid. APPENDIX: Normal. PELVIS, BLADDER, AND ABDOMINAL WALL:No abnormal masses. No free fluid. Bladder normal. BONES: No significant findings. OTHER: No other significant finding. IMPRESSION: Mild left hydroureter and inflammatory changes without visualized urinary tract stones. This could be due to recent stone passage. COMMENT: Quality ID # [id number]: Final reports with documentation of one or more dose reduction techniques (e.g., Automated exposure control, adjustment of the mA and/or kV according to patient size, use of iterative reconstruction technique) TECHNICAL DOCUMENTATION: JOB ID: [id number] [employer]- All Rights Reserved Reading location - IP/workstation name: [email or web address]
[2019-09-14 15:35] LABS: ABSOLUTE EOSINOPHILS # (AUTO) 0.3 10^3/uL (0.0-0.6); ABSOLUTE LYMPHOCYTES (AUTO) 0.9 10^3/uL (0.5-4.7); ABSOLUTE MONOCYTES (AUTO) 0.3 10^3/uL (0.1-1.4); ABSOLUTE NEUT (AUTO) 7.2 10^3/uL (1.7-8.2); BASOPHILS % (AUTO) 0.5 % (0-2); EOSINOPHILS % (AUTO) 3.2 % (0-6); HEMATOCRIT 30.9 % (36.0-47.0); HEMOGLOBIN 10.1 g/dL (12.0-15.5); LYMPHOCYTES % (AUTO) 10.7 % (13-45); MEAN CORPUSCULAR HEMOGLOBIN 26.5 pg (27.0-33.4); MEAN CORPUSCULAR HGB CONC 32.6 g/dL (32.0-36.0); MEAN CORPUSCULAR VOLUME 81 fl (80-97); MONOCYTES % (AUTO) 3.4 % (3-13); PLATELET COUNT 204 10^3/uL (150-450); RED CELL DISTRIBUTION WIDTH 16.3 % (11.5-14.0); SEGMENTED NEUTROPHILS % (AUTO) 82.2 % (42-78); TOTAL CELLS COUNTED % (AUTO) 100 %; WHITE BLOOD COUNT 8.7 10^3/uL (4.0-10.5)
[2019-09-14 15:55] LABS: ALBUMIN 3.5 g/dL (3.5-5.0); ALKALINE PHOSPHATASE 83 U/L (38-126); ANION GAP 13 (5-19); ASPARTATE AMINO TRANSFERASE 12 U/L (14-36); BILIRUBIN,DIRECT 0.1 mg/dL (0.0-0.4); BILIRUBIN,TOTAL 0.5 mg/dL (0.2-1.3); BLOOD UREA NITROGEN 47 mg/dL (7-20); CARBON DIOXIDE 22 mmol/L (22-30); CHLORIDE 99 mmol/L (98-107); GLUCOSE 287 mg/dL (75-110); TOTAL PROTEIN 6.7 g/dL (6.3-8.2)
[2019-09-14] MEDS ORDERED: ACETAMINOPHEN 325 MG TABLET PO PRN (17:31)
[2019-09-14] MEDS ORDERED: MAG HYDROX/AL HYDROX/SIMETH SUSP 30 ML UDCUP PO PRN (17:31)
[2019-09-14] MEDS ORDERED: ONDANSETRON HCL INJ/PF 4 MG/2 ML SDV IV PRN (17:31)
[2019-09-14] MEDS ORDERED: METOCLOPRAMIDE HCL INJ/PF 10 MG/2 ML SDV IV ONE (17:32)
[2019-09-14] MEDS ORDERED: HYDRALAZINE HCL INJ/PF 20 MG/1 ML SDV IV PRN (17:35)
[2019-09-14] MEDS ORDERED: MORPHINE SULFATE 10 MG/ML INJ IV PRN (17:38)
[2019-09-14] MEDS ORDERED: GLUCAGON,HUMAN RECOMB 1 MG INJ IM PRN (17:39)
[2019-09-14] MEDS ORDERED: DEXTROSE 40% GEL 15 GM TUBE PO PRN ×2 (17:39)
[2019-09-14] MEDS ORDERED: DEXTROSE 50%-WATER 25 GM/50 ML DISP.SYRIN IV PRN ×2 (17:39)
[2019-09-14] MEDS ORDERED: HYDROCODONE/ACETAMINOPHEN 5-325 MG TABLET PO PRN (19:15)
[2019-09-14] MEDS: CARVEDILOL 12.5 MG TABLET PO SCH (20:06)
[2019-09-14] MEDS: HYDRALAZINE HCL 50 MG TABLET PO SCH (22:23)
[2019-09-14] MEDS: ATORVASTATIN CALCIUM 20 MG TABLET PO SCH (22:23)
[2019-09-14] MEDS: PANTOPRAZOLE SODIUM 40 MG VIAL IV SCH (22:23)
[2019-09-14] MEDS: CLONIDINE HCL 0.1 MG TABLET PO SCH (22:24)
[2019-09-14] MEDS: HEPARIN SOD (PORCINE) 5,000 UNIT/ML 1 ML VIAL SUBCUT SCH (22:25)
[2019-09-14] MEDS: INSULIN LISPRO 100 UNIT/ML 3 ML VIAL SUBCUT SCH (22:25)
[2019-09-15] MEDS: HYDRALAZINE HCL 50 MG TABLET PO SCH ×3 (06:39→22:48)
[2019-09-15] MEDS: CLONIDINE HCL 0.1 MG TABLET PO SCH ×3 (06:39→22:49)
[2019-09-15] MEDS: HEPARIN SOD (PORCINE) 5,000 UNIT/ML 1 ML VIAL SUBCUT SCH ×3 (06:43→22:51)
[2019-09-15 07:59] LABS: ABSOLUTE BASOPHILS # (AUTO) 0.1 10^3/uL (0.0-0.2); ABSOLUTE EOSINOPHILS # (AUTO) 0.3 10^3/uL (0.0-0.6); ABSOLUTE LYMPHOCYTES (AUTO) 1.5 10^3/uL (0.5-4.7); ABSOLUTE MONOCYTES (AUTO) 0.3 10^3/uL (0.1-1.4); ABSOLUTE NEUT (AUTO) 4.6 10^3/uL (1.7-8.2); BASOPHILS % (AUTO) 0.8 % (0-2); EOSINOPHILS % (AUTO) 3.9 % (0-6); HEMATOCRIT 28.1 % (36.0-47.0); LYMPHOCYTES % (AUTO) 22.1 % (13-45); MEAN CORPUSCULAR HEMOGLOBIN 26.3 pg (27.0-33.4); MEAN CORPUSCULAR VOLUME 82 fl (80-97); MONOCYTES % (AUTO) 4.8 % (3-13); PLATELET COUNT 186 10^3/uL (150-450); RED BLOOD COUNT 3.41 10^6/uL (3.72-5.28); RED CELL DISTRIBUTION WIDTH 15.9 % (11.5-14.0); SEGMENTED NEUTROPHILS % (AUTO) 68.4 % (42-78); TOTAL CELLS COUNTED % (AUTO) 100 %; WHITE BLOOD COUNT 6.8 10^3/uL (4.0-10.5)
[2019-09-15] MEDS ORDERED: (PENDING PHARMACY ID) (Clonidine Hcl [Clonidine Hcl] 0.3 MG) PO SCH (10:00)
[2019-09-15] MEDS: PANTOPRAZOLE SODIUM 40 MG VIAL IV SCH ×2 (10:17→22:47)
[2019-09-15] MEDS: INSULIN LISPRO 100 UNIT/ML 3 ML VIAL SUBCUT SCH ×4 (10:18→22:51)
[2019-09-15] MEDS: ASPIRIN 81 MG TABLET, ENT COATED PO SCH (10:18)
[2019-09-15] MEDS: CARVEDILOL 12.5 MG TABLET PO SCH ×2 (10:18→22:49)
[2019-09-15] MEDS: AMLODIPINE BESYLATE 5 MG TABLET PO SCH (10:18)
--- NOTE | 2019-09-15 12:28 | PDOC H&P ---
History of Present Illness Admission Date/PCP: 09/14/19 17:44 NICKY BARBOZA MD Patient complains of: Abdominal pain flank pain nausea History of Present Illness: SEGUN NG I is a 49 year old female This is a 49-year-old female's with a type 2 diabetes with a chronic kidney disease with the multiple other complications on hemodialysis with a chronic gastro-porosis history of the stroke multiple hospital admissions top of that noncompliance came to the emergency department with a complaining of abdominal pain nausea since last couple of days and patient's missed the dialysis yesterday In the emergency department patient was complaining of a lot of left-sided flank pain which patient is present in the ER last week, CT abdomen and pelvis was done was no acute finding patient was discharged home came today repeat the CT scan of the abdomen pelvis suggest the left ureter hydro-but other than that no stone no other acute abnormalities Patient have a several GI work-up done including the endoscopy and colonoscopy patient had a cardiac cath done last year was all stable Patient's denied any chest pain no short of breath no fever no cough no contact with any COVID In the emergency departments the ER physicians call the nephrology and suggest the patient's possible may be have a left-sided pyelonephritis is to be admitted for IV antibiotic and further evaluations Because of the ongoing pandemic patient have a COVID test was done Patient is currently denied any chest pain no short of breath no abdominal pain no nausea no vomiting Past Medical History Cardiac Medical History: Reports: Congestive Heart Failure, Coronary Artery Disease, Hyperlipidema, Hypertension Denies: Atrial Fibrillation, Myocardial Infarction Pulmonary Medical History: Denies: Asthma, Bronchitis, Chronic Obstructive Pulmonary Disease (COPD), Pneumonia, Tuberculosis Neurological Medical History: Denies: Migraine, Seizures Endocrine Medical History: Reports: Diabetes Mellitus Type 2 Renal/ Medical History: Reports: End Stage Renal Disease GI Medical History: Reports: Gastroesophageal Reflux Disease Musculoskeltal Medical History: Reports: Arthritis Psychiatric Medical History: Reports: Depression Denies: Attention Deficit Hyperactivity Disorder, Bipolar Disorder Hematology: Reports: Anemia Denies: Sickle Cell Disease Infectious Medical History: Reports: Methicillin-Resistant Staph Aureus Past Surgical History Past Surgical History: Reports: Cardiac Catheterization, Section, Cholecystectomy, Orthopedic Surgery - ORIF right ankle with subsequent MRSA infection and Right BKA., Tubal Ligation, Vascular Surgery - Right forearm AV fistula. PermCath right subclavian. Denies: Hysterectomy Social History Information Source: Patient Smoking Status: Never Smoker Electronic Cigarette use?: No Frequency of Alcohol Use: None Hx Recreational Drug Use: No Drugs: None Hx Prescription Drug Abuse: No Family History Family History: Reviewed & Not Pertinent, DM, Hypertension Parental Family History Reviewed: Yes Children Family History Reviewed: Yes Sibling(s) Family History Reviewed.: Yes Medication/Allergy Home Medications: Amlodipine Besylate [Norvasc 5 mg Tablet] 5 mg PO DAILY 09/14/19 Aspirin [Adult Low Dose Aspirin EC] 81 mg PO DAILY 09/14/19 Atorvastatin Calcium [Lipitor 20 mg Tablet] 20 mg PO QHS 09/14/19 Carvedilol 25 mg PO BID 09/14/19 Clonidine HCl 0.3 mg PO TID 09/14/19 Ferric Citrate [Auryxia] 210 mg PO .WITH SNACKS 09/14/19 Ferric Citrate [Auryxia] 420 mg PO AC 09/14/19 Hydralazine HCl [Apresoline 50 mg Tablet] 50 mg PO TID 09/14/19 Hydrocodone/Acetaminophen [[place] 5-325 Tablet] 1 each PO Q6HP PRN 09/14/19 Insulin Detemir [Levemir Insulin 100 units/mL Insulin Pen] 30 units SQ QPM 09/14/19 Insulin Detemir [Levemir Insulin 100 units/mL Insulin Pen] 40 units SQ QAM 09/14/19 Omeprazole 40 mg PO DAILY 09/14/19 Sodium Polystyrene Sulfonate [Kayexalate 15 Gm/60 Ml Susp 60 Ml] 60 ml PO DAILY 09/14/19 Allergies/Adverse Reactions: sulfamethoxazole [From Septra] Allergy (Severe, Verified 09/14/19 12:37) Hives trimethoprim [From Septra] Allergy (Severe, Verified 09/14/19 12:37) Hives adhesive tape [Adhesive Tape] Adverse Reaction (Verified 09/14/19 12:37) Bruising/Rash Review of Systems Constitutional: ABSENT: chills, fever(s), headache(s), weight gain, weight loss Eyes: ABSENT: visual disturbances Ears: ABSENT: hearing changes Cardiovascular: ABSENT: chest pain, dyspnea on exertion, edema, orthropnea, pa lpitations Respiratory: ABSENT: cough, hemoptysis Gastrointestinal: PRESENT: abdominal pain, nausea, vomiting. ABSENT: constipation, diarrhea, hematemesis, hematochezia Genitourinary: ABSENT: dysuria, hematuria Musculoskeletal: PRESENT: back pain. ABSENT: joint swelling Integumentary: ABSENT: rash, wounds Neurological: ABSENT: abnormal gait, abnormal speech, confusion, dizziness, focal weakness, syncope Psychiatric: ABSENT: anxiety, depression, homidical ideation, suicidal ideation Endocrine: ABSENT: cold intolerance, heat intolerance, menstrual abnormalities, polydipsia, polyuria Hematologic/Lymphatic: ABSENT: easy bleeding, easy bruising, lymphadenopathy Physical Exam Vital Signs: Temp Pulse Resp BP Pulse Ox 98.4 F 72 17 171/69 H 95 09/15/19 08:39 09/15/19 08:39 09/15/19 08:39 09/15/19 08:39 09/15/19 08:39 Intake & Output 09/14/19 09/15/19 09/16/19 06:59 06:59 06:59 Intake Total 570 Balance 570 Weight 145 kg General appearance: PRESENT: no acute distress, well-developed, well-nourished Head exam: PRESENT: atraumatic, normocephalic Eye exam: PRESENT: conjunctiva pink, EOMI, PERRLA. ABSENT: scleral icterus Ear exam: PRESENT: normal external ear exam Mouth exam: PRESENT: moist, tongue midline Neck exam: PRESENT: full ROM. ABSENT: carotid bruit, JVD, lymphadenopathy, thyromegaly Respiratory exam: PRESENT: clear to auscultation alexandr Cardiovascular exam: PRESENT: RRR. ABSENT: diastolic murmur, rubs, systolic murmur Vascular exam: PRESENT: normal capillary refill GI/Abdominal exam: PRESENT: normal bowel sounds, soft. ABSENT: distended, guarding, mass, organolmegaly, rebound, tenderness Rectal exam: PRESENT: deferred Extremities exam: PRESENT: right BKA. ABSENT: pedal edema Neurological exam: PRESENT: alert, awake, oriented to person, oriented to place, oriented to time, oriented to situation. ABSENT: motor sensory deficit Psychiatric exam: PRESENT: appropriate affect, normal mood. ABSENT: homicidal ideation, suicidal ideation Skin exam: PRESENT: dry, intact, warm. ABSENT: cyanosis, rash Results Laboratory Results: 09/15/19 06:15 09/14/19 15:25 09/14/19 09/14/19 09/14/19 13:29 15:25 15:25 WBC 8.7 RBC 3.80 Hgb 10.1 L Hct 30.9 L MCV 81 MCH 26.5 L MCHC 32.6 RDW 16.3 H Plt Count 204 Seg Neutrophils % 82.2 H Sodium 134.3 L Potassium 5.0 Chloride 99 Carbon Dioxide 22 Anion Gap 13 BUN 47 H Creatinine 9.24 H Est GFR ( Amer) 6 L Glucose 287 H Lactic Acid Calcium 8.0 L Total Bilirubin 0.5 AST 12 L Alkaline Phosphatase 83 Total Protein 6.7 Albumin 3.5 Lipase 210.4 Urine Color YELLOW Urine Appearance SLIGHTLY-CLOUDY Urine pH 7.0 Ur Specific [place] 1.015 Urine Protein >=500 H Urine Glucose (UA) >=500 H Urine Ketones NEGATIVE Urine Blood SMALL H Urine Nitrite NEGATIVE Ur Leukocyte Esterase MODERATE H Urine WBC (Auto) 64 Urine RBC (Auto) 108 09/14/19 09/15/19 15:25 06:15 WBC 6.8 RBC 3.41 L Hgb 9.0 L Hct 28.1 L MCV 82 MCH 26.3 L MCHC 32.0 RDW 15.9 H Plt Count 186 Seg Neutrophils % 68.4 Sodium Potassium Chloride Carbon Dioxide Anion Gap BUN Creatinine Est GFR ( Amer) Glucose Lactic Acid 0.8 Calcium Total Bilirubin AST Alkaline Phosphatase Total Protein Albumin Lipase Urine Color Urine Appearance Urine pH Ur Specific [place] Urine Protein Urine Glucose (UA) Urine Ketones Urine Blood Urine Nitrite Ur Leukocyte Esterase Urine WBC (Auto) Urine RBC (Auto) Impressions: Abdomen/Pelvis CT 09/14/19 13:06 IMPRESSION: Mild left hydroureter and inflammatory changes without visualized urinary tract stones. This could be due to recent stone passage. Assessment & Plan - Diagnosis (1) Pyelonephritis Is this a current diagnosis for this admission?: Yes Plan: With the patient's complaining of left-sided pain without any stone left hydroureter with the significant history of the chronic urinary tract infections patient's high chance to be a left-sided pyelonephritis will admit the patient's get the ultrasound for the kidney start on IV antibiotic follow-up with the nephrology get the urine culture blood culture (2) Hypertension Qualifiers: Hypertension type: renovascular hypertension Qualified Code(s): I15.0 - Renovascular hypertension Is this a current diagnosis for this admission?: Yes Plan: Patient's blood pressure was elevated in the ER currently all resolved (3) Vomiting Qualifiers: Vomiting type: bilious vomiting Nausea presence: with nausea Qualified Code(s): R11.14 - Bilious vomiting Is this a current diagnosis for this admission?: Yes Plan: And have a persistent gastro-porosis because of the left-sided flank pain triggered the gastroparesis currently all resolved (4) Anemia Qualifiers: Chronic kidney disease stage: on chronic dialysis Is this a current diagnosis for this admission?: Yes (5) Congestive heart failure Qualifiers: Heart failure type: diastolic Heart failure chronicity: chronic Qualified Code(s): I50.32 - Chronic diastolic (congestive) heart failure Is this a current diagnosis for this admission?: Yes (6) ESRD (end stage renal disease) Is this a current diagnosis for this admission?: Yes Plan: Currently on hemodialysis consult the nephrology (7) Gastroparesis Is this a current diagnosis for this admission?: Yes Plan: Continues to PRN Zofran and Protonix (8) Sleep apnea syndrome Qualifiers: Sleep apnea type: unspecified type Is this a current diagnosis for this admission?: Yes (9) Urinary tract infection Qualifiers: Urinary tract infection type: site unspecified Is this a current diagnosis for this admission?: Yes Plan: Will wait for the urine culture (10) Diabetes Qualifiers: Diabetes mellitus type: type 2 Diabetes mellitus terminal operations supervisor insulin use: with terminal operations supervisor use Diabetes mellitus complication status: with kidney complications Diabetes mellitus complication detail: with chronic kidney disease Chronic kidney disease stage: on chronic dialysis Qualified Code(s): E11.22 - Type 2 diabetes mellitus with diabetic chronic kidney disease; N18.6 - End stage renal disease; Z79.4 - watermelon inspector (current) use of insulin; Z99.2 - Dependence on renal dialysis Is this a current diagnosis for this admission?: Yes Plan: Continues a sliding scale - Time Time Spent: 50 to 70 Minutes Medications reviewed and adjusted accordingly: Yes Anticipated discharge: Home Within: Other - Inpatient Certification Based on my medical assessment, after consideration of the patient's comorbidities, presenting symptoms, or acuity I expect that the services needed warrant INPATIENT care.: Yes I certify that my determination is in accordance with my understanding of Medicare's requirements for reasonable and necessary INPATIENT services [42 CFR 412.3e].: Yes Medical Necessity: Significant Comorbidiites Make Outpatient Treatment Too Risky, Need Close Monitoring Due to Risk of Patient Decompensation, Need for IV Antibiotics Post Hospital Care: D/C House Parent Documentation - Plan Summary Plan Summary: Admit the patient in IMCU start on IV antibiotic follow-up with the nephrology
[2019-09-15] MEDS ORDERED: PROMETHAZINE HCL INJ 25 MG/1 ML VIAL ONE (13:17)
[2019-09-15] MEDS ORDERED: PROMETHAZINE HCL INJ 25 MG/1 ML VIAL IV PRN (13:28)
--- NOTE | 2019-09-15 13:33 | PDOC CONSULTATION ---
Consultation Consult Date: 09/15/19 Provider Consulted: Corona WALDEN Consult reason:: ESRD for HD. History of Present Illness Admission Date/PCP: 09/14/19 17:44 NICKY BARBOZA MD History of Present Illness: SEGUN NG I is a 49 year old female is a 49 year old female with history of ESRD on HD in the background of diabetes , Hypertension, history of CVA, morbid obesity was admitted with history of persistent nausea and vomiting for the last couple of days. She says she came to the ER a few days prior to that some vague abdominal pains and apparent dysuria and was diagnosed to have UTI put on antibiotics and discharge. She says the symptoms are persisting. During this admission in the ER she went on to have a CT scan done which shows mild left hydronephrosis with some inflammation around the mid ureter suggestive of also possible stone passage recently. . On the provisional diagnosis of possible left pyelonephritis the patient has been admitted been on antibiotics. Currently she is being seen while undergoing dialysis. She is being tested for COVID as well She is still got persistent nausea and vomiting and unable to keep any food. No history of any fever or chills. Labs and medications were reviewed. Dialysis orders were reviewed with treating dialysis nurse Past Medical History Cardiac Medical History: Reports: Coronary Artery Disease, Hyperlipidemia, Hypertension-primary Denies: Atrial Fibrillation, Myocardial Infarction Pulmonary Medical History: Denies: Asthma, Bronchitis, Chronic Obstructive Pulmonary Disease (COPD), Pneumonia, Tuberculosis Neurological Medical History: Denies: Migraine, Seizures Endocrine Medical History: Reports: Diabetes Mellitus Type 1, Diabetes Mellitus Type 2 Renal/ Medical History: Reports: End Stage Renal Disease, Secondary Hyperparathyroidism GI Medical History: Reports: Gastroesophageal Reflux Disease Musculoskeltal Medical History: Reports: Arthritis Psychiatric Medical History: Reports: Depression Denies: Attention Deficit Hyperactivity Disorder, Bipolar Disorder Infectious Medical History: Reports: Methicillin-resist Staph Aureus Past Surgical History Past Surgical History: Reports: Cardiac Catheterization, Section, Cholecystectomy, Orthopedic Surgery - ORIF right ankle with subsequent MRSA infection and Right BKA., Tubal Ligation, Vascular Surgery - Right forearm AV fistula. PermCath right subclavian. Denies: Hysterectomy Social History Smoking Status: Never Smoker Electronic Cigarette use?: No Frequency of Alcohol Use: None Hx Recreational Drug Use: No Drugs: None Hx Prescription Drug Abuse: No Family History Parental Family History Reviewed: No Children Family History Reviewed: No Sibling(s) Family History Reviewed.: No Medication/Allergy Home Medications: Amlodipine Besylate [Norvasc 5 mg Tablet] 5 mg PO DAILY 09/14/19 Aspirin [Adult Low Dose Aspirin EC] 81 mg PO DAILY 09/14/19 Atorvastatin Calcium [Lipitor 20 mg Tablet] 20 mg PO QHS 09/14/19 Carvedilol 25 mg PO BID 09/14/19 Clonidine HCl 0.3 mg PO TID 09/14/19 Ferric Citrate [Auryxia] 210 mg PO .WITH SNACKS 09/14/19 Ferric Citrate [Auryxia] 420 mg PO AC 09/14/19 Hydralazine HCl [Apresoline 50 mg Tablet] 50 mg PO TID 09/14/19 Hydrocodone/Acetaminophen [[place] 5-325 Tablet] 1 each PO Q6HP PRN 09/14/19 Insulin Detemir [Levemir Insulin 100 units/mL Insulin Pen] 30 units SQ QPM 09/14/19 Insulin Detemir [Levemir Insulin 100 units/mL Insulin Pen] 40 units SQ QAM 09/14/19 Omeprazole 40 mg PO DAILY 09/14/19 Sodium Polystyrene Sulfonate [Kayexalate 15 Gm/60 Ml Susp 60 Ml] 60 ml PO DAILY 09/14/19 Allergies/Adverse Reactions: sulfamethoxazole [From Septra] Allergy (Severe, Verified 09/14/19 12:37) Hives trimethoprim [From Septra] Allergy (Severe, Verified 09/14/19 12:37) Hives adhesive tape [Adhesive Tape] Adverse Reaction (Verified 09/14/19 12:37) Bruising/Rash Review of Systems Constitutional: PRESENT: anorexia, fatigue, weakness. ABSENT: chills, fever(s), headache(s), night sweats Nose, Mouth, and Throat: ABSENT: mouth pain, sore throat Cardiovascular: ABSENT: edema, orthropnea, palpitations Respiratory: ABSENT: cough, dyspnea Gastrointestinal: PRESENT: abdominal pain, nausea, vomiting. ABSENT: coffee ground emesis, hematemesis, hematochezia Genitourinary: PRESENT: dysuria. ABSENT: difficulty urinating, hematuria Musculoskeletal: ABSENT: deformity, joint swelling Integumentary: ABSENT: lesions, pruritus, rash Neurological: ABSENT: abnormal gait, abnormal movements, confusion, focal weakness, frequent falls Hematologic/Lymphatic: ABSENT: easy bruising Physical Exam Vital Signs: Temp Pulse Resp BP Pulse Ox 98.3 F 78 17 152/60 H 99 09/15/19 11:13 09/15/19 11:13 09/15/19 11:13 09/15/19 11:13 09/15/19 11:13 Intake & Output 09/14/19 09/15/19 09/16/19 06:59 06:59 06:59 Intake Total 570 Balance 570 Weight 145 kg General appearance: PRESENT: no acute distress, obese Eye exam: PRESENT: EOMI, PERRLA. ABSENT: scleral icterus Respiratory exam: PRESENT: clear to auscultation alexandr, decreased breath sounds. ABSENT: crackles Cardiovascular exam: PRESENT: +S1, +S2 GI/Abdominal exam: PRESENT: normal bowel sounds, soft. ABSENT: organomegaly Extremities exam: PRESENT: pedal edema Neurological exam: PRESENT: alert, awake, oriented to person, oriented to place Psychiatric exam: PRESENT: appropriate affect Results Laboratory Results: 09/15/19 06:15 09/14/19 15:25 09/14/19 09/14/19 09/14/19 13:29 15:25 15:25 WBC 8.7 RBC 3.80 Hgb 10.1 L Hct 30.9 L MCV 81 MCH 26.5 L MCHC 32.6 RDW 16.3 H Plt Count 204 Seg Neutrophils % 82.2 H Sodium 134.3 L Potassium 5.0 Chloride 99 Carbon Dioxide 22 Anion Gap 13 BUN 47 H Creatinine 9.24 H Est GFR ( Amer) 6 L Glucose 287 H Lactic Acid Calcium 8.0 L Total Bilirubin 0.5 AST 12 L Alkaline Phosphatase 83 Total Protein 6.7 Albumin 3.5 Lipase 210.4 Urine Color YELLOW Urine Appearance SLIGHTLY-CLOUDY Urine pH 7.0 Ur Specific [place] 1.015 Urine Protein >=500 H Urine Glucose (UA) >=500 H Urine Ketones NEGATIVE Urine Blood SMALL H Urine Nitrite NEGATIVE Ur Leukocyte Esterase MODERATE H Urine WBC (Auto) 64 Urine RBC (Auto) 108 09/14/19 09/15/19 15:25 06:15 WBC 6.8 RBC 3.41 L Hgb 9.0 L Hct 28.1 L MCV 82 MCH 26.3 L MCHC 32.0 RDW 15.9 H Plt Count 186 Seg Neutrophils % 68.4 Sodium Potassium Chloride Carbon Dioxide Anion Gap BUN Creatinine Est GFR ( Amer) Glucose Lactic Acid 0.8 Calcium Total Bilirubin AST Alkaline Phosphatase Total Protein Albumin Lipase Urine Color Urine Appearance Urine pH Ur Specific [place] Urine Protein Urine Glucose (UA) Urine Ketones Urine Blood Urine Nitrite Ur Leukocyte Esterase Urine WBC (Auto) Urine RBC (Auto) Impressions: Abdomen/Pelvis CT 09/14/19 13:06 IMPRESSION: Mild left hydroureter and inflammatory changes without visualized urinary tract stones. This could be due to recent stone passage. Assessment & Plan - Diagnosis (1) ESRD (end stage renal disease) Is this a current diagnosis for this admission?: Yes Plan: Patient seen on dialysis. Undergoing dialysis without any issues. Dialysis being supervised to ensure safe and smooth procedure. Labs and medications reviewed. Plan to remove 1-2 L as tolerated. Dialysis orders reviewed with the treating dialysis nurse. (2) Diabetes Qualifiers: Diabetes mellitus type: type 2 Diabetes mellitus long term care phlebotomist insulin use: with long term care phlebotomist use Diabetes mellitus complication status: with kidney complications Diabetes mellitus complication detail: with chronic kidney disease Chronic kidney disease stage: on chronic dialysis Qualified Code(s): E11.22 - Type 2 diabetes mellitus with diabetic chronic kidney disease; N18.6 - End stage renal disease; Z79.4 - tank terminal gauger (current) use of insulin; Z99.2 - Dependence on renal dialysis Is this a current diagnosis for this admission?: Yes Plan: Advised tight control. (3) Hypertension Qualifiers: Hypertension type: renovascular hypertension Qualified Code(s): I15.0 - Renovascular hypertension Is this a current diagnosis for this admission?: Yes Plan: Uncontrolled. See response to dialysis. Advised compliance with diet and medications. (4) Pyelonephritis Is this a current diagnosis for this admission?: Yes Plan: Possible of the left kidney with mild hydronephrosis. She is on antibiotics. Follow-up on cultures.She needs follow-up with urology post discharge. (5) Gastroparesis Is this a current diagnosis for this admission?: Yes Plan: She continues to have vomiting while on dialysis. I will switch her from Zofran to low-dose IV Phenergan as apparently she does not respond very well to Zofran. Monitor. (6) Sleep apnea syndrome Qualifiers: Sleep apnea type: unspecified type Qualified Code(s): G47.30 - Sleep apnea, unspecified Is this a current diagnosis for this admission?: Yes Plan: Advised compliance with CPAP.
[2019-09-15] MEDS ORDERED: INSULIN GLARGINE,HUM.REC.ANLOG 1,000 UNIT/10 ML VIAL (PYX) SUBCUT ONE (17:17)
[2019-09-15] MEDS: INSULIN GLARGINE,HUM.REC.ANLOG 1,000 UNIT/10 ML VIAL SUBCUT SCH (17:19)
[2019-09-15] MEDS: CEFTRIAXONE 2 GM/D5W RTU 2 GM/50 ML RTUPB IV SCH (17:20)
[2019-09-15] MEDS ORDERED: INSULIN DETEMIR 30 UNIT SQ SCH (18:00)
[2019-09-15] MEDS ORDERED: [UNRECOGNIZED DRUG - OTHER] SQ SCH (18:00)
[2019-09-15] MEDS: ATORVASTATIN CALCIUM 20 MG TABLET PO SCH (22:49)
[2019-09-16] MEDS: CLONIDINE HCL 0.1 MG TABLET PO SCH ×3 (06:13→21:35)
[2019-09-16] MEDS: HEPARIN SOD (PORCINE) 5,000 UNIT/ML 1 ML VIAL SUBCUT SCH ×3 (06:15→21:38)
[2019-09-16] MEDS: HYDRALAZINE HCL 50 MG TABLET PO SCH ×3 (06:15→21:37)
[2019-09-16] MEDS ORDERED: ACETAMINOPHEN 325 MG TABLET PO PRN (07:24)
[2019-09-16] MEDS: INSULIN LISPRO 100 UNIT/ML 3 ML VIAL SUBCUT SCH ×4 (08:36→21:39)
[2019-09-16 08:43] LABS: ABSOLUTE EOSINOPHILS # (AUTO) 0.2 10^3/uL (0.0-0.6); ABSOLUTE LYMPHOCYTES (AUTO) 1.4 10^3/uL (0.5-4.7); ABSOLUTE MONOCYTES (AUTO) 0.4 10^3/uL (0.1-1.4); ABSOLUTE NEUT (AUTO) 4.1 10^3/uL (1.7-8.2); BASOPHILS % (AUTO) 0.6 % (0-2); EOSINOPHILS % (AUTO) 3.3 % (0-6); HEMATOCRIT 29.8 % (36.0-47.0); HEMOGLOBIN 9.6 g/dL (12.0-15.5); LYMPHOCYTES % (AUTO) 23.3 % (13-45); MEAN CORPUSCULAR HEMOGLOBIN 25.9 pg (27.0-33.4); MEAN CORPUSCULAR HGB CONC 32.2 g/dL (32.0-36.0); MEAN CORPUSCULAR VOLUME 80 fl (80-97); MONOCYTES % (AUTO) 5.8 % (3-13); PLATELET COUNT 164 10^3/uL (150-450); RED BLOOD COUNT 3.71 10^6/uL (3.72-5.28); TOTAL CELLS COUNTED % (AUTO) 100 %; WHITE BLOOD COUNT 6.2 10^3/uL (4.0-10.5)
[2019-09-16] MEDS: AMLODIPINE BESYLATE 5 MG TABLET PO SCH (10:22)
[2019-09-16] MEDS: CARVEDILOL 12.5 MG TABLET PO SCH ×2 (10:22→21:38)
[2019-09-16] MEDS: ASPIRIN 81 MG TABLET, ENT COATED PO SCH (10:22)
[2019-09-16] MEDS: PANTOPRAZOLE SODIUM 40 MG VIAL IV SCH (10:23)
--- NOTE | 2019-09-16 11:05 | PDOC PROGRESS REPORT ---
Subjective Progress Note for:: 09/16/19 Subjective:: Patient is currently doing well No chest pain no short of breath No abdominal pain Patient's COVID test is still pending Patient urine culture is positive await for culture and sensitivity Reason For Visit: LEFT FLANK PAIN Physical Exam Vital Signs: Temp Pulse Resp BP Pulse Ox 98.5 F 78 12 148/56 H 97 09/16/19 08:11 09/16/19 08:11 09/16/19 08:11 09/16/19 08:11 09/16/19 08:11 Intake & Output 09/15/19 09/16/19 09/17/19 06:59 06:59 06:59 Intake Total 570 310 Output Total 4600 Balance 570 -4290 Weight 145 kg 145 kg General appearance: PRESENT: no acute distress, well-developed, well-nourished Head exam: PRESENT: atraumatic, normocephalic Eye exam: PRESENT: conjunctiva pink, EOMI, PERRLA. ABSENT: scleral icterus Ear exam: PRESENT: normal external ear exam Mouth exam: PRESENT: moist, tongue midline Neck exam: PRESENT: full ROM. ABSENT: carotid bruit, JVD, lymphadenopathy, thyromegaly Respiratory exam: PRESENT: clear to auscultation alexandr Cardiovascular exam: PRESENT: RRR. ABSENT: diastolic murmur, rubs, systolic [place] Vascular exam: PRESENT: normal capillary refill GI/Abdominal exam: PRESENT: normal bowel sounds, soft. ABSENT: distended, guarding, mass, organolmegaly, rebound, tenderness Rectal exam: PRESENT: deferred Neurological exam: PRESENT: alert, awake, oriented to person, oriented to place, oriented to time, oriented to situation. ABSENT: motor sensory deficit Psychiatric exam: PRESENT: appropriate affect, normal mood. ABSENT: homicidal ideation, suicidal ideation Skin exam: PRESENT: dry, intact, warm. ABSENT: cyanosis, rash Results Laboratory Results: 09/16/19 06:40 09/14/19 15:25 09/16/19 06:40 WBC 6.2 RBC 3.71 L Hgb 9.6 L Hct 29.8 L MCV 80 MCH 25.9 L MCHC 32.2 RDW 16.0 H Plt Count 164 Seg Neutrophils % 67.0 Impressions: Abdomen/Pelvis CT 09/14/19 13:06 IMPRESSION: Mild left hydroureter and inflammatory changes without visualized urinary tract stones. This could be due to recent stone passage. Assessment & Plan - Diagnosis (1) Pyelonephritis Is this a current diagnosis for this admission?: Yes Plan: Continues the IV antibiotic wait for the urine culture (2) Hypertension Qualifiers: Qualified Code(s): I15.0 - Renovascular hypertension Is this a current diagnosis for this admission?: Yes Plan: Currently all stable (3) Vomiting Qualifiers: Qualified Code(s): R11.14 - Bilious vomiting Is this a current diagnosis for this admission?: Yes Plan: PRN Zofran (4) Anemia Qualifiers: Qualified Code(s): N18.6 - End stage renal disease; D63.1 - Anemia in chronic kidney disease; Z99.2 - Dependence on renal dialysis Is this a current diagnosis for this admission?: Yes Plan: Currently all stable (5) Congestive heart failure Qualifiers: Qualified Code(s): I50.32 - Chronic diastolic (congestive) heart failure Is this a current diagnosis for this admission?: Yes (6) ESRD (end stage renal disease) Is this a current diagnosis for this admission?: Yes Plan: Patient have a hemodialysis done yesterday (7) Gastroparesis Is this a current diagnosis for this admission?: Yes Plan: PRN Zofran and Protonix (8) Sleep apnea syndrome Qualifiers: Qualified Code(s): G47.30 - Sleep apnea, unspecified Is this a current diagnosis for this admission?: Yes (9) Urinary tract infection Is this a current diagnosis for this admission?: Yes Plan: Continues to IV antibiotic (10) Diabetes Qualifiers: Qualified Code(s): E11.22 - Type 2 diabetes mellitus with diabetic chronic kidney disease; N18.6 - End stage renal disease; Z79.4 - skilled nursing (current) use of insulin; Z99.2 - Dependence on renal dialysis Is this a current diagnosis for this admission?: Yes Plan: Continues to current medications - Time Time Spent with patient: 15-24 minutes Level of Care: IMCU Medications reviewed and adjusted accordingly: Yes Anticipated discharge: Other Within: Other - Plan Summary Plan Summary: Will wait for culture and sensitivity ordered a renal ultrasound
[2019-09-16] MEDS: CEFTRIAXONE 2 GM/D5W RTU 2 GM/50 ML RTUPB IV SCH (17:00)
[2019-09-16] MEDS: INSULIN GLARGINE,HUM.REC.ANLOG 1,000 UNIT/10 ML VIAL SUBCUT SCH (18:24)
[2019-09-16] MEDS: PANTOPRAZOLE SODIUM 40 MG TABLET.DR PO SCH (21:36)
[2019-09-16] MEDS: ATORVASTATIN CALCIUM 20 MG TABLET PO SCH (21:38)
[2019-09-16] MEDS ORDERED: INSULIN GLARGINE,HUM.REC.ANLOG 1,000 UNIT/10 ML VIAL SUBCUT SCH (22:00)
[2019-09-17] MEDS ORDERED: EPOETIN ALFA-EPBX 10,000 UNIT in SYRINGE, DISPOSABLE, 1 EACH IV PRN (05:00)
[2019-09-17] MEDS: HEPARIN SOD (PORCINE) 5,000 UNIT/ML 1 ML VIAL SUBCUT SCH ×2 (06:03→14:37)
[2019-09-17 07:02] LABS: ABSOLUTE EOSINOPHILS # (AUTO) 0.2 10^3/uL (0.0-0.6); ABSOLUTE LYMPHOCYTES (AUTO) 1.3 10^3/uL (0.5-4.7); ABSOLUTE MONOCYTES (AUTO) 0.3 10^3/uL (0.1-1.4); BASOPHILS % (AUTO) 0.6 % (0-2); EOSINOPHILS % (AUTO) 4.1 % (0-6); HEMATOCRIT 30.6 % (36.0-47.0); HEMOGLOBIN 9.8 g/dL (12.0-15.5); LYMPHOCYTES % (AUTO) 21.7 % (13-45); MEAN CORPUSCULAR HGB CONC 32.1 g/dL (32.0-36.0); MEAN CORPUSCULAR VOLUME 81 fl (80-97); MONOCYTES % (AUTO) 5.1 % (3-13); PLATELET COUNT 174 10^3/uL (150-450); RED BLOOD COUNT 3.77 10^6/uL (3.72-5.28); RED CELL DISTRIBUTION WIDTH 16.2 % (11.5-14.0); SEGMENTED NEUTROPHILS % (AUTO) 68.5 % (42-78); TOTAL CELLS COUNTED % (AUTO) 100 %; WHITE BLOOD COUNT 5.8 10^3/uL (4.0-10.5)
[2019-09-17] MEDS: HYDRALAZINE HCL 50 MG TABLET PO SCH ×2 (07:12→13:15)
[2019-09-17] MEDS: CLONIDINE HCL 0.1 MG TABLET PO SCH ×2 (07:13→13:17)
[2019-09-17 07:23] LABS: ANION GAP 13 (5-19); BLOOD UREA NITROGEN 44 mg/dL (7-20); CALCIUM 8.3 mg/dL (8.4-10.2); CARBON DIOXIDE 26 mmol/L (22-30); CHLORIDE 98 mmol/L (98-107); GLUCOSE 220 mg/dL (75-110); POTASSIUM 4.4 mmol/L (3.6-5.0)
[2019-09-17] MEDS: INSULIN LISPRO 100 UNIT/ML 3 ML VIAL SUBCUT SCH ×2 (08:14→13:19)
[2019-09-17] MEDS ORDERED: NYSTATIN CREAM 15 GM TP SCH (10:00)
--- NOTE | 2019-09-17 12:17 | PDOC DISCHARGE SUMMARY ---
Impression - Admit/DC Date/PCP Admission Date/Primary Care Provider: 09/14/19 17:44 NICKY BARBOZA MD Discharge Date: 09/17/19 - Discharge Diagnosis (1) Pyelonephritis Is this a current diagnosis for this admission?: Yes (2) Hypertension Is this a current diagnosis for this admission?: Yes (3) Vomiting Is this a current diagnosis for this admission?: Yes (4) Anemia Is this a current diagnosis for this admission?: Yes (5) Congestive heart failure Is this a current diagnosis for this admission?: Yes (6) ESRD (end stage renal disease) Is this a current diagnosis for this admission?: Yes (7) Gastroparesis Is this a current diagnosis for this admission?: Yes (8) Sleep apnea syndrome Is this a current diagnosis for this admission?: Yes (9) Urinary tract infection Is this a current diagnosis for this admission?: Yes (10) Diabetes Is this a current diagnosis for this admission?: Yes - Additional Information Discharge Diet: Diabetic Discharge Activity: Activity As Tolerated Referrals: [facility] [Outside] (PATIENT WILL BE FOLLOWED BY [facility]. UPON D/C PATIENT SHOULD SELF QUARANTINE UNTIL CLEARED BY HEALTH DEPT. ONCE CLEARED PATIENT MAY THEN SCHEDULE AN APPT. WITH PRIMARY CARE PROVIDER.) NICKY BARBOZA MD [Primary Care Provider] - Follow up as needed Prescriptions: Amoxicillin 1 tab PO BID #14 tab Ondansetron [Zofran Odt 4 mg Tablet] 1 tab PO Q8 #30 tab.rapdis Home Medications: Amlodipine Besylate [Norvasc 5 mg Tablet] 5 mg PO DAILY 09/14/19 Aspirin [Adult Low Dose Aspirin EC] 81 mg PO DAILY 09/14/19 Atorvastatin Calcium [Lipitor 20 mg Tablet] 20 mg PO QHS 09/14/19 Carvedilol 25 mg PO BID 09/14/19 Clonidine HCl 0.3 mg PO TID 09/14/19 Ferric Citrate [Auryxia] 210 mg PO .WITH SNACKS 09/14/19 Ferric Citrate [Auryxia] 420 mg PO AC 09/14/19 Hydralazine HCl [Apresoline 50 mg Tablet] 50 mg PO TID 09/14/19 Hydrocodone/Acetaminophen [[place] 5-325 Tablet] 1 each PO Q6HP PRN 09/14/19 Insulin Detemir [Levemir Insulin 100 units/mL Insulin Pen] 30 units SQ QPM 09/14/19 Insulin Detemir [Levemir Insulin 100 units/mL Insulin Pen] 40 units SQ QAM 09/14/19 Omeprazole 40 mg PO DAILY 09/14/19 Sodium Polystyrene Sulfonate [Kayexalate 15 gm/60 ml Susp 60 ml] 60 ml PO DAILY 09/14/19 Amoxicillin 1 tab PO BID #14 tab 09/17/19 Ondansetron [Zofran Odt 4 mg Tablet] 1 tab PO Q8 #30 tab.rapdis 09/17/19 History of Present Illiness History of Present Illness: SEGUN NG I is a 49 year old female This is a 49-year-old female's with a type 2 diabetes with a chronic kidney disease with the multiple other complications on hemodialysis with a chronic gastro-porosis history of the stroke multiple hospital admissions top of that noncompliance came to the emergency department with a complaining of abdominal pain nausea since last couple of days and patient's missed the dialysis yesterday In the emergency department patient was complaining of a lot of left-sided flank pain which patient is present in the ER last week, CT abdomen and pelvis was done was no acute finding patient was discharged home came today repeat the CT scan of the abdomen pelvis suggest the left ureter hydro-but other than that no stone no other acute abnormalities Patient have a several GI work-up done including the endoscopy and colonoscopy patient had a cardiac cath done last year was all stable Patient's denied any chest pain no short of breath no fever no cough no contact with any COVID In the emergency departments the ER physicians call the nephrology and suggest the patient's possible may be have a left-sided pyelonephritis is to be admitted for IV antibiotic and further evaluations Because of the ongoing pandemic patient have a COVID test was done Patient is currently denied any chest pain no short of breath no abdominal pain no nausea no vomiting Hospital Course Hospital Course: This is a 49-year-old female presented emergency department the left flank pains nausea vomiting and admitting in the hospital for further evaluations As per the nephrology most likely patient having some left-sided pyelonephritis and started on IV Rocephin and underwent with a CT scan of the abdomen and pelvis with so some left hydroureter but no stone Patient have ongoing gastroparesis which would trigger with the pain treat with the IV Protonix and IV Zofran and Phenergan responds very well Due to the ongoing pandemic patient have a COVID test done was negative Today's patient is feeling much better no nausea no vomiting no pain Patient urine cultures grew up enterococcus sensitive to the penicillin and discussed with Dr. Fernandez suggest to put him on amoxicillin 500 twice daily Patient is also make appointment to follow outpatient urology for further evaluations Patient expressed to go home currently underwent for hemodialysis today discussed with the nephrology suggest to follow outpatient Physical Exam Vital Signs: Temp Pulse Resp BP Pulse Ox 97.8 F 76 18 139/67 H 99 09/17/19 08:04 09/17/19 08:04 09/17/19 08:04 09/17/19 08:04 09/17/19 08:04 Intake & Output 09/16/19 09/17/19 09/18/19 06:59 06:59 06:59 Intake Total 310 1360 Output Total 4600 500 Balance -4290 860 Weight 145 kg 144.1 kg General appearance: PRESENT: no acute distress, well-developed, well-nourished Head exam: PRESENT: atraumatic, normocephalic Eye exam: PRESENT: conjunctiva pink, EOMI, PERRLA. ABSENT: scleral icterus Ear exam: PRESENT: normal external ear exam Mouth exam: PRESENT: moist, tongue midline Neck exam: ABSENT: carotid bruit, JVD, lymphadenopathy, thyromegaly Respiratory exam: PRESENT: clear to auscultation alexandr. ABSENT: rales, rhonchi, wheezes Cardiovascular exam: PRESENT: RRR. ABSENT: diastolic murmur, rubs, systolic murmur Pulses: PRESENT: normal dorsalis pedis pul Vascular exam: PRESENT: normal capillary refill GI/Abdominal exam: PRESENT: normal bowel sounds, soft. ABSENT: distended, guarding, mass, organolmegaly, rebound, tenderness Rectal exam: PRESENT: deferred Extremities exam: PRESENT: full ROM. ABSENT: calf tenderness, clubbing, pedal edema Neurological exam: PRESENT: alert, awake, oriented to person, oriented to place, oriented to time, oriented to situation, CN II-XII grossly intact. ABSENT: motor sensory deficit Psychiatric exam: PRESENT: appropriate affect, normal mood. ABSENT: homicidal ideation, suicidal ideation Skin exam: PRESENT: dry, intact, warm. ABSENT: cyanosis, rash Results Laboratory Results: WBC 5.8 10^3/uL (4.0-10.5) 09/17/19 06:14 RBC 3.77 10^6/uL (3.72-5.28) 09/17/19 06:14 Hgb 9.8 g/dL (12.0-15.5) L 09/17/19 06:14 Hct 30.6 % (36.0-47.0) L 09/17/19 06:14 MCV 81 fl (80-97) 09/17/19 06:14 MCH 26.0 pg (27.0-33.4) L 09/17/19 06:14 MCHC 32.1 g/dL (32.0-36.0) 09/17/19 06:14 RDW 16.2 % (11.5-14.0) H 09/17/19 06:14 Plt Count 174 10^3/uL (150-450) 09/17/19 06:14 Lymph % (Auto) 21.7 % (13-45) 09/17/19 06:14 [place] % (Auto) 5.1 % (3-13) 09/17/19 06:14 Eos % (Auto) 4.1 % (0-6) 09/17/19 06:14 Baso % (Auto) 0.6 % (0-2) 09/17/19 06:14 Absolute Neuts (auto) 4.0 10^3/uL (1.7-8.2) 09/17/19 06:14 Absolute Lymphs (auto) 1.3 10^3/uL (0.5-4.7) 09/17/19 06:14 Absolute Monos (auto) 0.3 10^3/uL (0.1-1.4) 09/17/19 06:14 Absolute Eos (auto) 0.2 10^3/uL (0.0-0.6) 09/17/19 06:14 Absolute Basos (auto) 0.0 10^3/uL (0.0-0.2) 09/17/19 06:14 Seg Neutrophils % 68.5 % (42-78) 09/17/19 06:14 Sodium 137.0 mmol/L (137-145) 09/17/19 06:14 Potassium 4.4 mmol/L (3.6-5.0) 09/17/19 06:14 Chloride 98 mmol/L (98-107) 09/17/19 06:14 Carbon Dioxide 26 mmol/L (22-30) 09/17/19 06:14 Anion Gap 13 (5-19) 09/17/19 06:14 BUN 44 mg/dL (7-20) H 09/17/19 06:14 Creatinine 10.12 mg/dL (0.52-1.25) H 09/17/19 06:14 Est GFR ( Amer) 5 (>60) L 09/17/19 06:14 Est GFR (MDRD) Non-Af 4 (>60) L 09/17/19 06:14 Glucose 220 mg/dL (75-110) H 09/17/19 06:14 POC Glucose 302 mg/dL (70-110) H 09/17/19 08:05 Lactic Acid 0.8 mmol/L (0.7-2.1) 09/14/19 15:25 Calcium 8.3 mg/dL (8.4-10.2) L 09/17/19 06:14 Total Bilirubin 0.5 mg/dL (0.2-1.3) 09/14/19 15:25 Direct Bilirubin 0.1 mg/dL (0.0-0.4) 09/14/19 15:25 Neonat Total Bilirubin Not Reportable 09/14/19 15:25 Neonat Direct Bilirubin Not Reportable 09/14/19 15:25 Neonat Indirect Bili Not Reportable 09/14/19 15:25 AST 12 U/L (14-36) L 09/14/19 15:25 ALT 8 U/L (<35) 09/14/19 15:25 Alkaline Phosphatase 83 U/L (38-126) 09/14/19 15:25 Total Protein 6.7 g/dL (6.3-8.2) 09/14/19 15:25 Albumin 3.5 g/dL (3.5-5.0) 09/14/19 15:25 Lipase 210.4 U/L (23-300) 09/14/19 15:25 Urine Color YELLOW 09/14/19 13:29 Urine Appearance SLIGHTLY-CLOUDY 09/14/19 13:29 Urine pH 7.0 (5.0-9.0) 09/14/19 13:29 Ur Specific [place] 1.015 09/14/19 13:29 Urine Protein >=500 mg/dL (NEGATIVE) H 09/14/19 13:29 Urine Glucose (UA) >=500 mg/dL (NEGATIVE) H 09/14/19 13:29 Urine Ketones NEGATIVE mg/dL (NEGATIVE) 09/14/19 13:29 Urine Blood SMALL (NEGATIVE) H 09/14/19 13:29 Urine Nitrite NEGATIVE (NEGATIVE) 09/14/19 13:29 Urine Bilirubin NEGATIVE (NEGATIVE) 09/14/19 13:29 Urine Urobilinogen NEGATIVE mg/dL (<2.0) 09/14/19 13:29 Ur Leukocyte Esterase MODERATE (NEGATIVE) H 09/14/19 13:29 Urine WBC (Auto) 64 /HPF 09/14/19 13:29 Urine RBC (Auto) 108 /HPF 09/14/19 13:29 Urine Bacteria (Auto) 3+ /HPF 09/14/19 13:29 Squamous Epi Cells Auto 9 /HPF 09/14/19 13:29 Urine Mucus (Auto) RARE /LPF 09/14/19 13:29 Urine Ascorbic Acid NEGATIVE (NEGATIVE) 09/14/19 13:29 COVID-19 Source Cancelled 09/14/19 17:42 COVID-19 Source NASOPHARYNGEAL 09/14/19 17:42 COVID-19 (BHARTI) Cancelled 09/14/19 17:42 COVID-19 (BHARTI) NOT DETECTED 09/14/19 17:42 Impressions: Abdomen/Pelvis CT 09/14/19 13:06 IMPRESSION: Mild left hydroureter and inflammatory changes without visualized urinary tract stones. This could be due to recent stone passage. Plan Time Spent: Greater than 30 Minutes - Follow outpatients urology Continues the amoxicillin Stroke Is this a Stroke Patient?: No Acute Heart Failure - Is this a Heart Failure Patient?: No
--- NOTE | 2019-09-17 12:29 | PDOC PROGRESS REPORT ---
Subjective Progress Note for:: 09/17/19 Reason For Visit: Patient seen today on dialysis. She is undergoing dialysis without any issues. Her nausea vomiting has resolved. She is able to keep food in. No complaints of any chest pain or shortness of breath or abdominal pains. Labs and medications were reviewed. Dialysis orders were reviewed with the treating dialysis nurse. Physical Exam Vital Signs: Temp Pulse Resp BP Pulse Ox 97.8 F 76 18 139/67 H 99 09/17/19 08:04 09/17/19 08:04 09/17/19 08:04 09/17/19 08:04 09/17/19 08:04 Intake & Output 09/16/19 09/17/19 09/18/19 06:59 06:59 06:59 Intake Total 310 1360 Output Total 4600 500 Balance -4290 860 Weight 145 kg 144.1 kg General appearance: PRESENT: no acute distress Respiratory exam: PRESENT: clear to auscultation alexandr, decreased breath sounds. ABSENT: crackles Cardiovascular exam: PRESENT: +S1, +S2 GI/Abdominal exam: PRESENT: normal bowel sounds, soft. ABSENT: organomegaly Extremities exam: PRESENT: pedal edema Neurological exam: PRESENT: alert, awake, oriented to person, oriented to place Psychiatric exam: PRESENT: appropriate affect Results Laboratory Results: 09/17/19 06:14 09/17/19 06:14 09/17/19 09/17/19 06:14 06:14 WBC 5.8 RBC 3.77 Hgb 9.8 L Hct 30.6 L MCV 81 MCH 26.0 L MCHC 32.1 RDW 16.2 H Plt Count 174 Seg Neutrophils % 68.5 Sodium 137.0 Potassium 4.4 Chloride 98 Carbon Dioxide 26 Anion Gap 13 BUN 44 H Creatinine 10.12 H Est GFR ( Amer) 5 L Glucose 220 H Calcium 8.3 L Impressions: Abdomen/Pelvis CT 09/14/19 13:06 IMPRESSION: Mild left hydroureter and inflammatory changes without visualized urinary tract stones. This could be due to recent stone passage. Assessment & Plan - Diagnosis (1) ESRD (end stage renal disease) Is this a current diagnosis for this admission?: Yes Plan: Currently undergoing dialysis. Vital signs are stable. Dialysis being supervised to ensure safe and smooth procedure. Plan to remove 1-2 L as tolerated. Dialysis orders were reviewed with the treating dialysis nurse. (2) Diabetes Qualifiers: Diabetes mellitus type: type 2 Diabetes mellitus terminal manager insulin use: with terminal manager use Diabetes mellitus complication status: with kidney complications Diabetes mellitus complication detail: with chronic kidney disease Chronic kidney disease stage: on chronic dialysis Qualified Code(s): E11.22 - Type 2 diabetes mellitus with diabetic chronic kidney disease; N18.6 - End stage renal disease; Z79.4 - alf (current) use of insulin; Z99.2 - Dependence on renal dialysis Is this a current diagnosis for this admission?: Yes Plan: Has not been well controlled which is very unfortunate as it has led to a lot of complications for this lady. We discussed again about proper dietary modifications and strict compliance. (3) Hypertension Qualifiers: Hypertension type: renovascular hypertension Qualified Code(s): I15.0 - Renovascular hypertension Is this a current diagnosis for this admission?: Yes Plan: Controlled and stable. Monitor. (4) Pyelonephritis Is this a current diagnosis for this admission?: Yes Plan: Urine culture growing enterococcus though only 40,[address] Lorenz to switch to ampicillin. Patient scheduled to follow-up with urology post discharge. (5) Gastroparesis Is this a current diagnosis for this admission?: Yes Plan: Resolved. (6) Sleep apnea syndrome Qualifiers: Sleep apnea type: unspecified type Qualified Code(s): G47.30 - Sleep apnea, unspecified Is this a current diagnosis for this admission?: Yes Plan: Advised compliance with CPAP.
[2019-09-17] MEDS: PANTOPRAZOLE SODIUM 40 MG TABLET.DR PO SCH (13:18)
[2019-09-17] MEDS: CARVEDILOL 12.5 MG TABLET PO SCH (13:18)
[2019-09-17] MEDS: ASPIRIN 81 MG TABLET, ENT COATED PO SCH (13:19)
[2019-09-17] MEDS: AMLODIPINE BESYLATE 5 MG TABLET PO SCH (13:19)
[2019-09-17 16:29] VITALS: BP 142/57
--- NOTE | 2019-09-17 16:31 | RADIOLOGY REPORT (SQ) ---
EXAM DESCRIPTION: U/S RETROPERITON (RENAL/AORTA) IMAGES COMPLETED DATE/TIME: 09/17/2019 4:12 pm REASON FOR STUDY: pylonephrtis COMPARISON: None. TECHNIQUE: Dynamic and static grayscale images acquired of the kidneys and bladder and recorded on P ACS. Additional selected color Doppler and spectral images recorded. LIMITATIONS: Limited visualization due to the patient's body habitus. FINDINGS: RIGHT KIDNEY: Normal size. Normal echogenicity. No solid or suspicious masses. No hydronep hrosis. No calcifications. LEFT KIDNEY: Normal size. Normal echogenicity. 2.3 cm cyst. No solid or suspicious masses. No hydr onephrosis. No calcifications. BLADDER: No masses. OTHER FINDINGS: No other significant finding. IMPRESSION: LIMITED STUDY. CYST IN THE LEFT KIDNEY. NO SIGNIFICANT HYDRONEPHROSIS. TECHNICAL DOCUMENTATION: JOB ID: [id number] 2010 [employer]- All Rights Reserved Reading location - IP/workstation name: [email or web address]
== END 2019-09-17 16:58 | disposition home or self-care (01) | DRG 690 ==
LOC: ER 12:09 → EH 17:44 → 5 20:35 → 3S 09-17 02:10
PROVIDERS: ADMIT Family Medicine; ATTEND Family Medicine
PROC: 5A1D70Z Performance of Urinary Filtration, Intermittent, Less than 6 Hours Per Day (ICD-10-PCS; principal; 2019-09-15)
DX: N12 Tubulo-interstitial nephritis, not specified as acute or chronic (principal); I13.2 Hypertensive heart and chronic kidney disease with heart failure and with stage 5 chronic kidney disease, or end stage renal disease; I50.32 Chronic diastolic (congestive) heart failure; N18.6 End stage renal disease; B95.2 Enterococcus as the cause of diseases classified elsewhere; E11.22 Type 2 diabetes mellitus with diabetic chronic kidney disease; N18.9 Chronic kidney disease, unspecified; I25.10 Atherosclerotic heart disease of native coronary artery without angina pectoris; E78.5 Hyperlipidemia, unspecified; K21.9 Gastro-esophageal reflux disease without esophagitis; I15.0 Renovascular hypertension; D63.1 Anemia in chronic kidney disease; E11.43 Type 2 diabetes mellitus with diabetic autonomic (poly)neuropathy; K31.84 Gastroparesis; G47.30 Sleep apnea, unspecified; Z99.2 Dependence on renal dialysis; Z89.511 Acquired absence of right leg below knee; Z79.82 Long term (current) use of aspirin; Z79.4 Long term (current) use of insulin; Z79.899 Other long term (current) drug therapy; Z03.818 Encounter for observation for suspected exposure to other biological agents ruled out
CPT/HCPCS: 36415; 74176; 76770; 80048; 80053; 81001; 82962; 83605; 83690; 85025; 87040; 87077; 87086; 87088; 87150; 87186; 87635; 96365; 96375; 99285; C9113; C9803; J0360; J0696; J1644; J1815; J2270; J2405; J2550; J2765; J3490; Q5105

== ENCOUNTER 2019-10-15 11:26 | Emergency (ER) | payer MEDICARE, MEDICAID ==
--- NOTE | 2019-10-15 11:54 | ER Document Report ---
ED Medical Screen (RME) - General Chief Complaint: Drainage from Breast Stated Complaint: LEFT BREAST PAIN/DRAINAGE Time Seen by Provider: 10/15/19 11:51 Primary Care Provider: NICKY BARBOZA MD [Primary Care Provider] - Follow up as needed Information source: Patient Notes: This is a 49-year-old female who states she is got discomfort across her left chest from the shoulder to the sternum in all likelihood it might be muscular but based on her body habitus I felt it would be very prudent to at least look at an EKG and a troponin she also has drainage coming from her breast in several areas of drainage to her groin and buttocks. TRAVEL OUTSIDE OF THE [place] IN LAST 30 DAYS: No - Related Data Allergies/Adverse Reactions: sulfamethoxazole [From Septra] Allergy (Severe, Verified 09/14/19 12:37) Hives trimethoprim [From Septra] Allergy (Severe, Verified 09/14/19 12:37) Hives adhesive tape [Adhesive Tape] Adverse Reaction (Verified 09/14/19 12:37) Bruising/Rash Past Medical History - Past Medical History Cardiac Medical History: Reports: Hx Congestive Heart Failure, Hx Coronary Artery Disease, Hx Hypercholesterolemia, Hx Hypertension Denies: Hx Atrial Fibrillation, Hx Heart Attack Pulmonary Medical History: Denies: Hx Asthma, Hx Bronchitis, Hx COPD, Hx Pneumonia, Hx Tuberculosis Neurological Medical History: Denies: Hx Cerebrovascular Accident, Hx Migraine, Hx Seizures Endocrine Medical History: Reports: Hx Diabetes Mellitus Type 1, Hx Diabetes Mellitus Type 2 Renal/ Medical History: Reports: Hx End Stage Renal Disease, Hx Hemodialysis, Hx Peritoneal Dialysis, Hx Renal Insufficiency. Denies: Hx Kidney Stones GI Medical History: Reports: Hx Gastroesophageal Reflux Disease, Hx Ulcer Musculoskeltal Medical History: Reports Hx Arthritis Skin Medical History: Reports Hx MRSA Psychiatric Medical History: Reports: Hx Depression Denies: Hx Attention Deficit Hyperactivity Disorder, Hx Bipolar Disorder, Hx Schizophrenia Traumatic Medical History: Reports: Hx Fractures - Right ankle fracture Infectious Medical History: Reports: Hx MRSA Past Surgical History: Reports: Hx Cardiac Catheterization, Hx Section, Hx Cholecystectomy, Hx Orthopedic Surgery - ORIF right ankle with subsequent MRSA infection and Right BKA., Hx Tubal Ligation, Hx Vascular Surgery - Right forearm AV fistula. PermCath right subclavian.. Denies: Hx Hysterectomy - Immunizations Hx Diphtheria, Pertussis, Tetanus Vaccination: Yes Physical Exam - Vital signs Vitals: Temp Pulse Resp BP Pulse Ox 99.6 F 86 22 H 167/73 H 94 10/15/19 11:32 10/15/19 11:32 10/15/19 11:32 10/15/19 11:32 10/15/19 11:32 Course - Vital Signs Vital signs: Temp Pulse Resp BP Pulse Ox 99.6 F 86 22 H 167/73 H 94 10/15/19 11:32 10/15/19 11:32 10/15/19 11:32 10/15/19 11:32 10/15/19 11:32 Doctor's Discharge - Discharge Referrals: NICKY BARBOZA MD [Primary Care Provider] - Follow up as needed
--- NOTE | 2019-10-15 12:26 | RADIOLOGY REPORT (SQ) ---
EXAM DESCRIPTION: CHEST SINGLE VIEW IMAGES COMPLETED DATE/TIME: 10/15/2019 12:17 pm REASON FOR STUDY: pain sp fall COMPARISON: 03/26/2019 EXAM PARAMETERS: NUMBER OF VIEWS: One view. TECHNIQUE: Single frontal radiographic view of the chest acquired. RADIATION DOSE: NA LIMITATIONS: None. FINDINGS: LUNGS AND PLEURA: No opacities, masses or pneumothorax. No pleural effusion. MEDIASTINUM AND HILAR STRUCTURES: No masses. Contour normal. HEART AND VASCULAR STRUCTURES: The heart size is borderline. There is no pulmonary edema. BONES: No acute findings. HARDWARE: Left axillary stent graft. OTHER: No other significant finding. IMPRESSION: Borderline cardiomegaly without pulmonary edema. TECHNICAL DOCUMENTATION: JOB ID: [id number] 2010 [employer]- All Rights Reserved Reading location - IP/workstation name: [email or web address]
[2019-10-15 14:40] LABS: ALBUMIN 4.2 g/dL (3.5-5.0); ALKALINE PHOSPHATASE 85 U/L (38-126); ANION GAP 11 (5-19); ASPARTATE AMINO TRANSFERASE 24 U/L (14-36); BILIRUBIN,DIRECT 0.2 mg/dL (0.0-0.4); BILIRUBIN,TOTAL 0.7 mg/dL (0.2-1.3); BLOOD UREA NITROGEN 11 mg/dL (7-20); CALCIUM 8.4 mg/dL (8.4-10.2); CARBON DIOXIDE 27 mmol/L (22-30); CHLORIDE 98 mmol/L (98-107); GLUCOSE 169 mg/dL (75-110); POTASSIUM 3.8 mmol/L (3.6-5.0); TOTAL PROTEIN 8.4 g/dL (6.3-8.2)
--- NOTE | 2019-10-15 15:12 | ER Document Report ---
ED Breast Problem - General Chief Complaint: Drainage from Breast Stated Complaint: LEFT BREAST PAIN/DRAINAGE Time Seen by Provider: 10/15/19 11:51 Primary Care Provider: NICKY BARBOZA MD [Primary Care Provider] - Follow up as needed Notes: CHIEF COMPLAINT: Left chest wall and breast pain HPI: 49-year-old diabetic female with history of end-stage renal disease presenting with left chest wall and breast pain for 1 day. Patient is a dialysis patient follows with Dr. Fernandez. Did not talk to the forester aide abou t her issue. Did go to dialysis today and came to the emergency department afterwards for evaluation. Hurts to push on the chest wall. Hurts to move the left arm. States that when she squeezed the breast she had some bloody-rg discharge from the left nipple. States that she did get a mammogram a year ago that was not abnormal ROS: See HPI - all other systems were reviewed and are otherwise negative Constitutional: no fever Eyes: no drainage, no blurred vision ENT: no runny nose, no sore throat Cardiovascular: + chest wall pain Resp: no SOB, no cough GI: no vomiting, no diarrhea, no abdominal pain : no dysuria Integumentary: no rash Allergy: no hives Musculoskeletal: no extremity pain or swelling Neurological: no numbness/tingling, no weakness MEDICATIONS: I agree with the patient medications as charted by the RN. ALLERGIES: I agree with the allergies as charted by the RN. PAST MEDICAL HISTORY/PAST SURGICAL HISTORY: Reviewed and agree as charted by RN. SOCIAL HISTORY: Reviewed and agree as charted by RN. FAMILY HISTORY: No significant familial comorbid conditions directly related to patient complaint EXAM: Reviewed vital signs as charted by RN. CONSTITUTIONAL: Alert and oriented and responds appropriately to questions. Well-appearing; well-nourished HEAD: Normocephalic; atraumatic EYES: PERRL; Conjunctivae clear, sclerae non-icteric ENT: normal nose; no rhinorrhea; moist mucous membranes; pharynx without lesions noted, no uvula edema or deviation, no tonsillar hypertrophy, phonation normal NECK: Supple without meningismus; non-tender; no cervical lymphadenopathy, no masses CARD: RRR; no murmurs, no clicks, no rubs, no gallops; symmetric distal pulses RESP: Normal chest excursion without splinting or tachypnea; breath sounds clear and equal bilaterally; no wheezes, no rhonchi, no rales, pulse oximetry 97% on room air not hypoxic 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 pendulous breasts. left breast with lymphatic changes, no coloration change, no nipple discharge, no definitive palpable masses. There is moderate tenderness on palpation of the chest wall on the left of the sternum ABD/GI: Obese, normal bowel sounds; non-distended; soft, non-tender, no rebound, no guarding; no palpable organomegaly or masses. BACK: The back appears normal and is non-tender to palpation, there is no CVA tenderness EXT: Normal ROM in all joints; non-tender to palpation; no cyanosis, no effusions, no edema shunt LUE intact thrill and bruit. SKIN: Normal color for age and race; warm; dry; good turgor; no acute lesions noted NEURO: Moves all extremities equally; Motor and sensory function intact PSYCH: The patient's mood and manner are appropriate. Grooming and personal hygiene are appropriate. MDM: 49-year-old female on dialysis with subjective left nipple discharge and tenderness to the left chest wall. This is likely musculoskeletal. Patient even states that she believes she may have pulled something. Unable to elicit any nipple discharge on breast exam. No palpable masses although there are lymphatic changes. She follows with Dr. Barboza and states he normally orders her mammograms, she will go back there and have a mammogram ordered. We did discuss possibilities which would include cancer for abnormal discharge like this although this may also be from medications or hormones. Initial screening lab work ordered from triage process have not significantly abnormal from baseline will discharge home with pain medication and close follow-up TRAVEL OUTSIDE OF THE [place] IN LAST 30 DAYS: No - Related Data Allergies/Adverse Reactions: sulfamethoxazole [From Septra] Allergy (Severe, Verified 10/15/19 12:55) Hives trimethoprim [From Septra] Allergy (Severe, Verified 10/15/19 12:55) Hives adhesive tape [Adhesive Tape] Adverse Reaction (Verified 10/15/19 12:55) Bruising/Rash Past Medical History - General Information source: Patient - Social History Smoking Status: Former Smoker Chew tobacco use (# tins/day): No Family History: Reviewed & Not Pertinent, DM, Hypertension Patient has homicidal ideation: No - Past Medical History Cardiac Medical History: Reports: Hx Congestive Heart Failure, Hx Coronary Artery Disease, Hx Hypercholesterolemia, Hx Hypertension Denies: Hx Atrial Fibrillation, Hx Heart Attack Pulmonary Medical History: Denies: Hx Asthma, Hx Bronchitis, Hx COPD, Hx Pneumonia, Hx Tuberculosis Neurological Medical History: Denies: Hx Cerebrovascular Accident, Hx Migraine, Hx Seizures Endocrine Medical History: Reports: Hx Diabetes Mellitus Type 1, Hx Diabetes Mellitus Type 2 Renal/ Medical History: Reports: Hx End Stage Renal Disease, Hx Hemodialysis, Hx Peritoneal Dialysis, Hx Renal Insufficiency. Denies: Hx Kidney Stones GI Medical History: Reports: Hx Gastroesophageal Reflux Disease, Hx Ulcer Musculoskeletal Medical History: Reports Hx Arthritis Skin Medical History: Reports Hx MRSA Psychiatric Medical History: Reports: Hx Depression Denies: Hx Attention Deficit Hyperactivity Disorder, Hx Bipolar Disorder, Hx Schizophrenia Traumatic Medical History: Reports: Hx Fractures - Right ankle fracture Infectious Medical History: Reports: Hx MRSA Past Surgical History: Reports: Hx Cardiac Catheterization, Hx Section, Hx Cholecystectomy, Hx Orthopedic Surgery - ORIF right ankle with subsequent MRSA infection and Right BKA., Hx Tubal Ligation, Hx Vascular Surgery - Right forearm AV fistula. PermCath right subclavian.. Denies: Hx Hysterectomy - Immunizations Hx Diphtheria, Pertussis, Tetanus Vaccination: Yes Hx Pneumococcal Vaccination: 07/04/10 Physical Exam - Vital signs Vitals: Temp Pulse Resp BP Pulse Ox 99.6 F 86 22 H 167/73 H 94 10/15/19 11:32 10/15/19 11:32 10/15/19 11:32 10/15/19 11:32 10/15/19 11:32 Course - Re-evaluation Re-evalutation: 10/15/19 16:59 I spoke with the r and d lab technician as there is a delay in getting the patient's hematology studies reported. WBC count is 9, hemoglobin is 10.4. Hematocrit is 34. Plan to discharge home to follow-up with her PCP - Vital Signs Vital signs: Temp Pulse Resp BP Pulse Ox 99.6 F 86 22 H 167/73 H 94 10/15/19 11:32 10/15/19 11:32 10/15/19 11:32 10/15/19 11:32 10/15/19 11:32 - Laboratory Result Diagrams: 10/15/19 14:09 10/15/19 14:09 Laboratory results interpreted by me: 10/15/19 14:09 Sodium 135.8 L Creatinine 3.82 H Est GFR ( Amer) 15 L Est GFR (MDRD) Non-Af 13 L Glucose 169 H Total Protein 8.4 H Discharge - Discharge Clinical Impression: Chest wall pain, Nipple discharge Condition: Stable Disposition: HOME, SELF-CARE Additional Instructions: Follow-up with your primary care provider to schedule outpatient mammogram for further evaluation of the nipple discharge you are having. It appears that your chest discomfort is more in the chest wall as it is reproducible when you move and with palpation. Pain medication as prescribed, follow-up as well with your PCP for further evaluation of this issue Prescriptions: Tramadol HCl [Ultram 50 mg Tablet] 50 mg PO Q4HP PRN #12 tab PRN Reason: Referrals: NICKY BARBOZA MD [Primary Care Provider] - Follow up as needed
[2019-10-15 16:59] LABS: ABSOLUTE BASOPHILS # (AUTO) 0.1 10^3/uL (0.0-0.2); ABSOLUTE EOSINOPHILS # (AUTO) 0.4 10^3/uL (0.0-0.6); ABSOLUTE LYMPHOCYTES (AUTO) 1.9 10^3/uL (0.5-4.7); ABSOLUTE MONOCYTES (AUTO) 0.5 10^3/uL (0.1-1.4); ABSOLUTE NEUT (AUTO) 6.5 10^3/uL (1.7-8.2); EOSINOPHILS % (AUTO) 3.9 % (0-6); HEMOGLOBIN 10.9 g/dL (12.0-15.5); LYMPHOCYTES % (AUTO) 20.6 % (13-45); MEAN CORPUSCULAR HEMOGLOBIN 27.1 pg (27.0-33.4); MEAN CORPUSCULAR HGB CONC 32.1 g/dL (32.0-36.0); MEAN CORPUSCULAR VOLUME 84 fl (80-97); MONOCYTES % (AUTO) 4.9 % (3-13); RED BLOOD COUNT 4.03 10^6/uL (3.72-5.28); RED CELL DISTRIBUTION WIDTH 17.1 % (11.5-14.0); SEGMENTED NEUTROPHILS % (AUTO) 69.6 % (42-78); TOTAL CELLS COUNTED % (AUTO) 100 %; WHITE BLOOD COUNT 9.4 10^3/uL (4.0-10.5)
[2019-10-15 17:09] LABS: PLATELET COUNT 209 10^3/uL (150-450)
[2019-10-15 17:24] VITALS: BP 152/78
--- NOTE | 2019-10-15 18:37 | EKG REPORT ---
SEVERITY:- ABNORMAL ECG - SINUS RHYTHM RIGHT BUNDLE BRANCH BLOCK : Confirmed by: Otilio Lacy MD 15-Oct-2019 18:36:52
== END 2019-10-15 17:22 | disposition home or self-care (01) ==
LOC: ER 11:26
DX: R07.89 Other chest pain (principal); N64.52 Nipple discharge; I12.0 Hypertensive chronic kidney disease with stage 5 chronic kidney disease or end stage renal disease; E11.22 Type 2 diabetes mellitus with diabetic chronic kidney disease; N18.6 End stage renal disease; Z99.2 Dependence on renal dialysis; I25.10 Atherosclerotic heart disease of native coronary artery without angina pectoris; Z87.891 Personal history of nicotine dependence; Z88.1 Allergy status to other antibiotic agents
CPT/HCPCS: 36415; 71045; 80053; 84484; 84703; 85025; 93005; 93010; 99283

== ENCOUNTER 2019-11-10 09:31 | Emergency (ER) | payer MEDICARE, MEDICAID ==
[2019-11-10] MEDS ORDERED: NITROGLYCERIN 2% OINTMENT 1 GM PACKET TP ONE (10:41)
--- NOTE | 2019-11-10 10:41 | EKG REPORT ---
SEVERITY:- ABNORMAL ECG - SINUS RHYTHM RBBB AND LPFB : Confirmed by: Otilio Lacy MD 10-Nov-2019 10:40:22
[2019-11-10 10:50] LABS: ABSOLUTE EOSINOPHILS # (AUTO) 0.3 10^3/uL (0.0-0.6); ABSOLUTE LYMPHOCYTES (AUTO) 1.3 10^3/uL (0.5-4.7); ABSOLUTE MONOCYTES (AUTO) 0.2 10^3/uL (0.1-1.4); ABSOLUTE NEUT (AUTO) 5.1 10^3/uL (1.7-8.2); BASOPHILS % (AUTO) 0.6 % (0-2); EOSINOPHILS % (AUTO) 4.5 % (0-6); HEMATOCRIT 29.7 % (36.0-47.0); HEMOGLOBIN 9.5 g/dL (12.0-15.5); LYMPHOCYTES % (AUTO) 18.5 % (13-45); MEAN CORPUSCULAR HEMOGLOBIN 27.3 pg (27.0-33.4); MEAN CORPUSCULAR HGB CONC 32.1 g/dL (32.0-36.0); MEAN CORPUSCULAR VOLUME 85 fl (80-97); MONOCYTES % (AUTO) 3.3 % (3-13); PLATELET COUNT 192 10^3/uL (150-450); RED CELL DISTRIBUTION WIDTH 16.6 % (11.5-14.0); SEGMENTED NEUTROPHILS % (AUTO) 73.1 % (42-78); TOTAL CELLS COUNTED % (AUTO) 100 %; WHITE BLOOD COUNT 6.9 10^3/uL (4.0-10.5)
[2019-11-10 10:56] LABS: ALBUMIN 3.8 g/dL (3.5-5.0); ALKALINE PHOSPHATASE 80 U/L (38-126); ANION GAP 10 (5-19); ASPARTATE AMINO TRANSFERASE 21 U/L (14-36); BILIRUBIN,DIRECT 0.2 mg/dL (0.0-0.4); BILIRUBIN,TOTAL 0.6 mg/dL (0.2-1.3); BLOOD UREA NITROGEN 28 mg/dL (7-20); CALCIUM 8.4 mg/dL (8.4-10.2); CARBON DIOXIDE 28 mmol/L (22-30); CHLORIDE 98 mmol/L (98-107); CREATINE KINASE 70 U/L (30-135); GLUCOSE 201 mg/dL (75-110); POTASSIUM 4.2 mmol/L (3.6-5.0); TOTAL PROTEIN 7.4 g/dL (6.3-8.2)
[2019-11-10 11:06] LABS: CREATINE KINASE MB 0.67 ng/mL (<4.55)
[2019-11-10 11:15] LABS: TROPONIN I < 0.012 ng/mL
--- NOTE | 2019-11-10 11:24 | ER Document Report ---
ED General - General Chief Complaint: Shortness Of Breath Stated Complaint: CHEST PAIN Time Seen by Provider: 11/10/19 09:51 Primary Care Provider: NICKY BARBOZA MD [Primary Care Provider] - Follow up as needed TRAVEL OUTSIDE OF THE [place] IN LAST 30 DAYS: No - HPI Notes: Chief complaint: Chest pain and dyspnea History of present illness: 49-year-old female with end-stage renal disease on chronic hemodialysis is sent from the dialysis center with increasing shortness of breath and chest discomfort while being dialyzed today. She ran for about 1- 1/2 hours and principally was complaining of having symptoms when she was lying back. She got relief with sitting upright. They also placed her on oxygen. Patient was seen here several months ago with similar symptoms by Dr. Holbrook and had a negative cardiac work-up in the emergency department and was discharged for outpatient follow-up. She has no history of coronary disease. Her geology associate and primary care provider have advised her that she is having problems with chronic fluid overload and also they have made arrangements for her to get an outpatient sleep study for evaluation obstructive sleep apnea syndrome. This study is actually scheduled for this week. She is not currently on CPAP. Her discomfort is described as "soreness" underneath the left breast and radiating to the left scapula. This is aggravated by lying back or turning onto her left side and here is also sore to touch. No skin rash. Patient is diabetic. She does not use tobacco or alcohol. She denies any drug use. She has a history of hypertension. 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 - Related Data Allergies/Adverse Reactions: sulfamethoxazole [From Septra] Allergy (Severe, Verified 10/15/19 12:55) Hives trimethoprim [From Septra] Allergy (Severe, Verified 10/15/19 12:55) Hives adhesive tape [Adhesive Tape] Adverse Reaction (Verified 10/15/19 12:55) Bruising/Rash Past Medical History - General Information source: Patient, [facility] Records - Social History Smoking Status: Never Smoker Chew tobacco use (# tins/day): No Frequency of alcohol use: None Drug Abuse: None Family History: Reviewed & Not Pertinent, DM, Hypertension Patient has homicidal ideation: No - Past Medical History Cardiac Medical History: Reports: Hx Congestive Heart Failure, Hx Coronary Artery Disease, Hx Hypercholesterolemia, Hx Hypertension Denies: Hx Atrial Fibrillation, Hx Heart Attack Pulmonary Medical History: Denies: Hx Asthma, Hx Bronchitis, Hx COPD, Hx Pneumonia, Hx Tuberculosis Neurological Medical History: Denies: Hx Cerebrovascular Accident, Hx Migraine, Hx Seizures Endocrine Medical History: Reports: Hx Diabetes Mellitus Type 1, Hx Diabetes Mellitus Type 2 Renal/ Medical History: Reports: Hx End Stage Renal Disease, Hx Hemodialysis, Hx Peritoneal Dialysis, Hx Renal Insufficiency. Denies: Hx Kidney Stones GI Medical History: Reports: Hx Gastroesophageal Reflux Disease, Hx Ulcer Musculoskeletal Medical History: Reports Hx Arthritis Skin Medical History: Reports Hx MRSA Psychiatric Medical History: Reports: Hx Depression Denies: Hx Attention Deficit Hyperactivity Disorder, Hx Bipolar Disorder, Hx Schizophrenia Traumatic Medical History: Reports: Hx Fractures - Right ankle fracture Infectious Medical History: Reports: Hx MRSA Past Surgical History: Reports: Hx Cardiac Catheterization, Hx Section, Hx Cholecystectomy, Hx Orthopedic Surgery - ORIF right ankle with subsequent MRSA infection and Right BKA., Hx Tubal Ligation, Hx Vascular Surgery - Right forearm AV fistula. PermCath right subclavian.. Denies: Hx Hysterectomy - Immunizations Hx Diphtheria, Pertussis, Tetanus Vaccination: Yes Hx Pneumococcal Vaccination: 07/04/10 Review of Systems - Review of Systems Notes: Constitutional: Negative for fever. HENT: Negative for sore throat. Eyes: Negative for visual changes. Cardiovascular: As per HPI. Respiratory: As per HPI. Gastrointestinal: Negative for abdominal pain, vomiting or diarrhea. Genitourinary: Negative for dysuria. Musculoskeletal: Negative for back pain. Skin: Negative for rash. Neurological: Negative for headaches, weakness or numbness. 10 point ROS negative except as marked above and in HPI. Physical Exam - Vital signs Vitals: Temp 98.3 F 11/10/19 09:31 - Notes Notes: GENERAL: Morbidly obese middle-age female appearing in no acute distress. 98% O2 saturation on 2 L of nasal O2. Repeat blood pressure to bedside by me is 180/90. SKIN: Good turgor no rashes. HEAD: Normocephalic atraumatic. EYES: PERRLA. EOMI. Conjunctivae and sclerae clear. EARS: CANALS AND TMS CLEAR. NOSE: CLEAR. MOUTH: Moist mucosa. Good dentition. No stridor or edema. No drooling. NECK: Supple. No masses or thyromegaly. No adenopathy. Carotids 2+ without bruits. 2 cm's JVD at 45 degrees elevation. BACK: Symmetrical with tenderness over the left flank area. CHEST: Respirations unlabored. Decreased breath sounds at both bases. HEART: Regular rhythm. No murmur gallop or rub. ABDOMEN: Soft nontender without masses, organomegaly or rebound. Bowel sounds normally active. No bruits. GENITALIA: Deferred. EXTREMITIES: AV shunt left upper arm with positive thrill and bruit. Old right AKA. Left lower leg and ankle show 2+ edema. No calf tenderness. Cap refill less than 1.5 seconds. Dorsalis pedis and posterior tibial pulses 3+ and symmetrical. NEUROLOGICAL: GCS 15. Alert and oriented x3. Fluent speech. Cranial nerves II through XII intact. Sensorimotor and cerebellar normal. Normal tone. PSYCHIATRIC: Appropriate affect. Course - Re-evaluation Re-evalutation: 11/10/19 13:52 Patient is hypertensive. She has a moderate left pleural effusion. She has some peripheral edema and clearly is fluid overloaded. She is breathing comfortably now on 2 L of nasal O2. Her EKG shows a right bundle branch block which was present on previous tracing. She has a normal troponin. She has an elevated d-dimer 1.9. Current findings have been discussed with her geology associate Dr. Summers who wants her to go up to dialysis at this time. After she is dialyzed we will get a CTA of the chest. If she has a pulmonary embolus this will of course need to be addressed. If this is negative we should be able to discharge her home with outpatient follow-up with primary care physician and nephrology. We will check a second troponin and EKG prior to final disposition. 11/10/19 17:56 CTA of the chest was negative for PE. Patient has been dialyzed. I have reex amined her at this time and she is pain-free and breathing well with good oxygenation on room air. She wishes to go home at this time and I think this is appropriate. Findings, clinical impression and plan of treatment have been discussed with patient/family. Understanding of current findings and recommendations has been acknowledged by them and there is agreement regarding disposition and follow-up. 11/10/19 17:57 - Vital Signs Vital signs: Temp Pulse Resp BP Pulse Ox 97.8 F 18 187/64 H 100 11/10/19 12:00 11/10/19 12:02 11/10/19 12:02 11/10/19 12:02 - Laboratory Result Diagrams: 11/10/19 10:00 11/10/19 10:00 Laboratory results interpreted by me: 11/10/19 11/10/19 11/10/19 10:00 10:00 10:00 RBC 3.50 L Hgb 9.5 L Hct 29.7 L RDW 16.6 H D-Dimer 1.61 H Sodium 136.3 L BUN 28 H Creatinine 4.94 H Est GFR ( Amer) 11 L Est GFR (MDRD) Non-Af 9 L Glucose 201 H - Diagnostic Test Radiology reviewed: Reports reviewed - Per radiologist chest x-ray showed vascular congestion with a left-sided pleural effusion. CTA of the chest showed no obvious pulmonary embolus. - EKG Interpretation by Me Additional EKG results interpreted by me: 11/10/19 11:25 Twelve-lead EKG from 0940 hrs. is reviewed contemporaneously by me showing normal sinus rhythm with a rate of 93 and pre-existing right bundle branch block . [place] and QT intervals are normal. No acute ST changes are appreciated. No significant interval change compared with prior tracing of 10/15/2019. Indication for current study: Chest pain and dyspnea. Discharge - Discharge Clinical Impression: Dyspnea, End stage renal disease on dialysis, Pleural effusion, left Fluid overload Qualifiers: Hypervolemia type: other Qualified Code(s): E87.79 - Other fluid overload Condition: Stable Disposition: HOME, SELF-CARE Additional Instructions: Continue usual medications. Follow-up for scheduled dialysis and also see your primary care physician within the next 1 week. Return here as needed for new or worsening symptoms. Referrals: NICKY BARBOZA MD [Primary Care Provider] - Follow up as needed
--- NOTE | 2019-11-10 11:35 | RADIOLOGY REPORT (SQ) ---
EXAM DESCRIPTION: CHEST SINGLE VIEW IMAGES COMPLETED DATE/TIME: 11/10/2019 11:20 am REASON FOR STUDY: shortness of breath COMPARISON: 10/15/2019 EXAM PARAMETERS: NUMBER OF VIEWS: One view. TECHNIQUE: Single frontal radiographic view of the chest acquired. RADIATION DOSE: NA LIMITATIONS: None. FINDINGS: LUNGS AND PLEURA: No opacities, masses or pneumothorax. A small left-sided pleural effusi on may be present. MEDIASTINUM AND HILAR STRUCTURES: No masses. Contour normal. HEART AND VASCULAR STRUCTURES: Cardiomegaly without central vascular congestion. BONES: No acute findings. HARDWARE: None in the chest. OTHER: No other significant finding. IMPRESSION: A small left-sided pleural effusion may be present. Stable cardiomegaly without central vascular congestion. TECHNICAL DOCUMENTATION: JOB ID: [id number] 2010 [employer]- All Rights Reserved Reading location - IP/workstation name: [email or web address]
--- NOTE | 2019-11-10 14:30 | RADIOLOGY REPORT (SQ) ---
EXAM DESCRIPTION: CTA CHEST IMAGES COMPLETED DATE/TIME: 11/10/2019 2:12 pm REASON FOR STUDY: Dyspnea, pleuritic pain, elevated d-dimer COMPARISON: 11/10/2019 TECHNIQUE: CT scan of the chest performed using helical scanning technique with dynamic intravenous contrast injection. Images reviewed with lung, soft tissue and bone windows. Reconstructed coronal and sagittal MPR images reviewed. Additional 3 dimensional post-processing performed to develop Maximal Intensity Projection images (OK P). All images stored on PACS. All CT scanners at this facility use dose modulation, iterative reconstruction, and/or weight based d osing when appropriate to reduce radiation dose to as low as reasonably achievable (ALARA). [facility]: Dose Right [facility]: CareDose [facility]: Dose Right [facility]: Teradose 4D [facility]: [employer] CONTRAST TYPE AND DOSE: contrast/concentration: Isovue 350.00 mmol/ml; Total Contrast Delivered: 74. 0 ml; Total Saline Delivered: 55.0 ml Contrast bolus adequate for pulmonary arteries and aorta. RENAL FUNCTION: BUN 28; creatinine 4.9. Patient undergoing dialysis upon completion of this examina tion. RADIATION DOSE: CT Rad equipment meets quality standard of care and radiation dose reduction techniq ues were employed. CTDIvol: 41.8 - 59.5 mGy. DLP: 1686 mGy-cm. . LIMITATIONS: Body habitus and suboptimal contrast bolus timing. FINDINGS: LUNGS AND PLEURA: Diffuse ground-glass opacities suggests an element of pulmonary edema ; however, low lung volumes and patient motion artifact likely contribute to this appearance. No focal consolidation, pleural effusion, or pneumothorax. AORTA AND GREAT VESSELS: No aneurysm. No dissection. HEART: Cardiomegaly. No pericardial effusion. Coronary artery calcifications are demonstrated. PULMONARY ARTERIES: No emboli visualized in the main pulmonary arteries or the segmental branches. HILAR AND MEDIASTINAL STRUCTURES: No identified masses or abnormal nodes. HARDWARE: None in the chest. UPPER ABDOMEN: No significant findings. Limited exam. THYROID AND OTHER SOFT TISSUES: No masses. No adenopathy. BONES: None 3D MIPS: Confirm above findings. OTHER: No other significant finding. IMPRESSION: No central or segmental pulmonary embolus. In the setting of cardiomegaly, diffuse grou nd-glass opacities may represent an element of pulmonary edema. However, the examination protocol is not optimized for the evaluation of this finding. COMMENT: Quality ID # [id number]: Final reports with documentation of one or more dose reduction techniques (e.g., Automated exposure control, adjustment of the mA and/or kV according to patient size, use of iterative reconstruction technique) TECHNICAL DOCUMENTATION: JOB ID: [id number] 2010 [employer]- All Rights Reserved Reading location - IP/workstation name: [email or web address]-
[2019-11-10] MEDS ORDERED: NORMAL SALINE 1000 ML 1,000 ML IV PRN (14:48)
[2019-11-10] MEDS ORDERED: CLONIDINE HCL 0.2 MG TABLET PO ONE (15:05)
[2019-11-10] MEDS ORDERED: ONDANSETRON HCL INJ/PF 4 MG/2 ML SDV IV PRN (16:07)
[2019-11-10 18:20] VITALS: BP 199/95
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
== END 2019-11-10 18:16 | disposition home or self-care (01) ==
LOC: ER 09:31
DX: E87.79 Other fluid overload (principal); R06.00 Dyspnea, unspecified; R06.02 Shortness of breath; R07.9 Chest pain, unspecified; E11.22 Type 2 diabetes mellitus with diabetic chronic kidney disease; I13.2 Hypertensive heart and chronic kidney disease with heart failure and with stage 5 chronic kidney disease, or end stage renal disease; I50.9 Heart failure, unspecified; N18.6 End stage renal disease; E78.00 Pure hypercholesterolemia, unspecified; Z99.2 Dependence on renal dialysis; Z86.14 Personal history of Methicillin resistant Staphylococcus aureus infection
CPT/HCPCS: 93005; 99285; 96374; 36415; 82553; 82550; 85025; 80053; 84484; 85379; 71045; 71275; 93010; A9270 ×2; J2405

== ENCOUNTER → 2019-11-18 | Outpatient (CLI) | payer MEDICARE, MEDICAID ==
--- NOTE | 2019-11-18 12:12 | WOMENS IMAGING REPORT ---
EXAM DESCRIPTION: 3D DX MAMMO BILAT IMAGES COMPLETED DATE/TIME: 11/18/2019 11:51 am REASON FOR STUDY: N64.4 NIPPLE DISCHARGE N64.52 NIPPLE DISCHARGE COMPARISON: 2014, 2015 EXAM PARAMETERS: Standard craniocaudal and mediolateral oblique views of each breast recorded using digital acquisition and breast tomosynthesis. True lateral view left breast. Read with the assistance of CAD: .[facility] Imaging System Administrator Version 9.2 LIMITATIONS: None. FINDINGS: RIGHT BREAST MASSES: No suspicious masses. CALCIFICATIONS: No new or suspicious calcifications. ARCHITECTURAL DISTORTION: None. ASYMMETRY: None noted. OTHER: No other significant findings. LEFT BREAST MASSES: Smooth mass lateral subareolar 2 cm deep to the nipple. CALCIFICATIONS: No new or suspicious calcifications. ARCHITECTURAL DISTORTION: None. ASYMMETRY: None noted. OTHER: No other significant finding. IMPRESSION: Smooth mass left breast. BREAST DENSITY: b. There are scattered areas of fibroglandular density. BIRAD: ASSESSMENT: 0 Incomplete: Needs additional imaging evaluation and/or prior mammograms for co mparison. RECOMMENDATION: RECOMMENDED FOLLOW UP: Ultrasound left breast. SPECIFIC INTERVENTION/IMAGING/CONSULTATION RECOMMENDED:See above. COMMUNICATION:The imaging findings were not discussed with the patient. Her referring provider has be en notified of the findings. COMMENT: The patient has been notified of the results by letter per MQSA requirements. Additional no tification policies are in place for contacting patient with suspicious or incomplete findings. Quality ID #[id number]: The [employer] recommends an annual screening mammogram for women aged 40 years or over. This facility utilizes a reminder system to ensure that all patients receive reminder letters, and/or direct phone calls for appointments. This includes reminders for routine scr eening mammograms, diagnostic mammograms, or other Breast Imaging Interventions when appropriate. Th is patient will be placed in the appropriate reminder system. TECHNICAL DOCUMENTATION: FINDING NUMBER: (1) ASSESSMENT: (1) JOB ID: [id number] 2010 [employer]- All Rights Reserved Reading location - IP/workstation name: [email or web address]
== END ==
LOC: WI 11:20
PROVIDERS: ATTEND Family Medicine
DX: N64.52 Nipple discharge (principal)
CPT/HCPCS: 77066; G0279; 77062

== ENCOUNTER → 2019-11-24 | Outpatient (CLI) | payer MEDICARE, MEDICAID ==
--- NOTE | 2019-11-24 12:53 | WOMENS IMAGING REPORT ---
EXAM DESCRIPTION: U/S BREAST UNILAT LIMITED IMAGES COMPLETED DATE/TIME: 11/24/2019 11:06 am REASON FOR STUDY: N64.52 NIPPLE DISCHARGE N63.20 UNSPECIFIED LUMP IN THE LEFT BREAST, UNSPECIFIED Q UAD COMPARISON: 11/18/2019 and 01/03/2016 TECHNIQUE: Real-time and static grayscale imaging performed of the left breast targeted to the area of clinical/mammographic concern. Selected color Doppler images recorded. LIMITATIONS: None. FINDINGS: MASS: A small retroareolar mass demonstrated on comparison mammogram is revealed to be on the basis of a 9 x 8 x 9 mm predominantly hypoechoic reniform structure with posterior acoustic enhan cement and centrally increased echogenicity/fatty hilum, consistent with a small normal-morphology in tramammary lymph node. OTHER: Incidental note is made of multiple dilated ducts with homogeneous internal debris. IMPRESSION: 1. Normal-morphology intramammary lymph node. 2. Multiple dilated ducts demonstrating homogeneous internal debris without mass or polyp. BIRAD: 2 Benign findings. RECOMMENDATION: RECOMMENDED FOLLOW-UP: Follow-up as clinically indicated. COMMENT: The [employer] (ACR) has developed recommendations for screening MRI of the breasts in certain patient populations, to be used in conjunction with mammography. Breast MRI s urveillance may be appropriate for women with more than 20% lifetime risk of developing breast cancer as determined by genetic testing, significant family history of the disease, or history of mantle r adiation for Hodgkins Disease. ACR Practice Guidelines 2008. TECHNICAL DOCUMENTATION: JOB ID: [id number] 2010 [employer]- All Rights Reserved Reading location - IP/workstation name: [email or web address]
== END ==
LOC: WI 10:43
PROVIDERS: ATTEND Family Medicine
DX: N64.52 Nipple discharge (principal)
CPT/HCPCS: 76642

== ENCOUNTER 2019-12-22 16:34 | Emergency (ER) | payer MEDICARE, MEDICAID ==
[2019-12-22] MEDS ORDERED: OXYCODONE-ACETAMINOPHEN 5-325 MG TABLET PO ONE (17:25)
--- NOTE | 2019-12-22 17:27 | ER Document Report ---
ED Medical Screen (RME) - General Chief Complaint: Back Pain Stated Complaint: BACK PAIN Time Seen by Provider: 12/22/19 17:22 Primary Care Provider: RADHA GERARDO PA [Primary Care Provider] - Follow up as needed Mode of Arrival: Ambulatory Information source: Patient Notes: 49-year-old female presents to ED for complaint of bilateral flank pain. She states she went to [place] last night and they told her that she had an elevated something but she is not sure what. She states they told her she had a UTI but she is not able to urinate because she is on hemodialysis. She states she has not had anything to eat or drink today due to the amount of pain she is here. She is alert oriented respirations regular nonlabored speaking in full sentences. We will treat her with some Percocet at this time. I will order labs and CT abdomen pelvis. She cannot have IV dye because of the dialysis. TRAVEL OUTSIDE OF THE [place] IN LAST 30 DAYS: No - Related Data Allergies/Adverse Reactions: sulfamethoxazole [From Septra] Allergy (Severe, Verified 10/15/19 12:55) Hives trimethoprim [From Septra] Allergy (Severe, Verified 10/15/19 12:55) Hives adhesive tape [Adhesive Tape] Adverse Reaction (Verified 10/15/19 12:55) Bruising/Rash Past Medical History - Past Medical History Cardiac Medical History: Reports: Hx Congestive Heart Failure, Hx Coronary Artery Disease, Hx Hypercholesterolemia, Hx Hypertension Denies: Hx Atrial Fibrillation, Hx Heart Attack Pulmonary Medical History: Denies: Hx Asthma, Hx Bronchitis, Hx COPD, Hx Pneumonia, Hx Tuberculosis Neurological Medical History: Denies: Hx Cerebrovascular Accident, Hx Migraine, Hx Seizures Endocrine Medical History: Reports: Hx Diabetes Mellitus Type 1, Hx Diabetes Mellitus Type 2 Renal/ Medical History: Reports: Hx End Stage Renal Disease, Hx Hemodialysis, Hx Peritoneal Dialysis, Hx Renal Insufficiency. Denies: Hx Kidney Stones GI Medical History: Reports: Hx Gastroesophageal Reflux Disease, Hx Ulcer Musculoskeltal Medical History: Reports Hx Arthritis Skin Medical History: Reports Hx MRSA Psychiatric Medical History: Reports: Hx Depression Denies: Hx Attention Deficit Hyperactivity Disorder, Hx Bipolar Disorder, Hx Schizophrenia Traumatic Medical History: Reports: Hx Fractures - Right ankle fracture Infectious Medical History: Reports: Hx MRSA Past Surgical History: Reports: Hx Cardiac Catheterization, Hx Section, Hx Cholecystectomy, Hx Orthopedic Surgery - ORIF right ankle, right BKA for MRSA, Hx Tubal Ligation, Hx Vascular Surgery - PermCath placement. Denies: Hx Hysterectomy - Immunizations Hx Diphtheria, Pertussis, Tetanus Vaccination: Yes Physical Exam - Vital signs Vitals: Temp Pulse Resp BP Pulse Ox 98.4 F 97 20 164/90 H 96 12/22/19 16:43 12/22/19 16:43 12/22/19 16:43 12/22/19 16:43 12/22/19 16:43 Course - Vital Signs Vital signs: Temp Pulse Resp BP Pulse Ox 98.4 F 97 20 164/90 H 96 12/22/19 16:43 12/22/19 16:43 12/22/19 16:43 12/22/19 16:43 12/22/19 16:43 Doctor's Discharge - Discharge Referrals: RADHA GERARDO PA [Primary Care Provider] - Follow up as needed
[2019-12-22 18:21] LABS: ABSOLUTE EOSINOPHILS # (AUTO) 0.3 10^3/uL (0.0-0.6); ABSOLUTE LYMPHOCYTES (AUTO) 1.2 10^3/uL (0.5-4.7); ABSOLUTE MONOCYTES (AUTO) 0.3 10^3/uL (0.1-1.4); ABSOLUTE NEUT (AUTO) 5.8 10^3/uL (1.7-8.2); BASOPHILS % (AUTO) 0.6 % (0-2); EOSINOPHILS % (AUTO) 4.5 % (0-6); HEMATOCRIT 32.8 % (36.0-47.0); HEMOGLOBIN 10.9 g/dL (12.0-15.5); LYMPHOCYTES % (AUTO) 15.1 % (13-45); MEAN CORPUSCULAR HEMOGLOBIN 28.5 pg (27.0-33.4); MEAN CORPUSCULAR HGB CONC 33.2 g/dL (32.0-36.0); MEAN CORPUSCULAR VOLUME 86 fl (80-97); MONOCYTES % (AUTO) 4.4 % (3-13); PLATELET COUNT 203 10^3/uL (150-450); RED BLOOD COUNT 3.81 10^6/uL (3.72-5.28); RED CELL DISTRIBUTION WIDTH 15.9 % (11.5-14.0); SEGMENTED NEUTROPHILS % (AUTO) 75.4 % (42-78); TOTAL CELLS COUNTED % (AUTO) 100 %; WHITE BLOOD COUNT 7.7 10^3/uL (4.0-10.5)
--- NOTE | 2019-12-22 18:23 | RADIOLOGY REPORT (SQ) ---
EXAM DESCRIPTION: CT ABD/PELVIS NO ORAL OR IV IMAGES COMPLETED DATE/TIME: 12/22/2019 4:38 pm REASON FOR STUDY: Flank pain. Left flank pain. Previous cholecystectomy. COMPARISON: CT abdomen and pelvis, 09/14/2019. TECHNIQUE: CT scan of the abdomen and pelvis performed without intravenous or oral contrast. Images reviewed with lung, soft tissue, and bone windows. Reconstructed coronal and sagittal MPR images revi ewed. All images stored on PACS. All CT scanners at this facility use dose modulation, iterative reconstruction, and/or weight based d osing when appropriate to reduce radiation dose to as low as reasonably achievable (ALARA). [facility]: Dose Right [facility]: CareDose [facility]: Dose Right [facility]: Teradose 4D [facility]: [employer] Technologies RADIATION DOSE: CT Rad equipment meets quality standard of care and radiation dose reduction techniq ues were employed. CTDIvol: 19.2 mGy. DLP: 1037 mGy-cm.mGy. LIMITATIONS: None. FINDINGS: LOWER CHEST: No significant findings. No nodules or infiltrates. NON-CONTRASTED LIVER, SPLEEN, ADRENALS: Evaluation is limited without IV contrast. Liver has normal size and contour. Evaluation the parenchyma is limited. Spleen has normal size. No adrenal mass. PANCREAS: No masses. No peripancreatic inflammatory changes. GALLBLADDER: Surgically absent. RIGHT KIDNEY AND URETER: No suspicious masses. Assessment limited by lack of IV contrast. No signif icant calcifications. No hydronephrosis or hydroureter. LEFT KIDNEY AND URETER: No suspicious masses. Assessment limited by lack of IV contrast. No signifi cant calcifications. No hydronephrosis or hydroureter. AORTA AND RETROPERITONEUM: No aneurysm. No retroperitoneal masses or adenopathy. BOWEL AND PERITONEAL CAVITY: No obvious masses or inflammatory changes. No free fluid. APPENDIX: Normal. PELVIS, BLADDER, AND ABDOMINAL WALL:Uterus and ovaries have normal size. No adnexal mass. Uterine v ascular calcifications are noted unchanged from prior. BONES: No significant findings. OTHER: No other significant finding. IMPRESSION: 1. No acute abnormality in the abdomen or pelvis to explain the patient's symptoms. 2. No renal or ureteral calculi. No hydronephrosis. COMMENT: Quality ID # 436: Final reports with documentation of one or more dose reduction techniques (e.g., Automated exposure control, adjustment of the mA and/or kV according to patient size, use of iterative reconstruction technique) TECHNICAL DOCUMENTATION: JOB ID: [id number] 2010 [employer]- All Rights Reserved Reading location - IP/workstation name: [email or web address]
[2019-12-22 18:48] LABS: ALBUMIN 4.4 g/dL (3.5-5.0); ALKALINE PHOSPHATASE 97 U/L (38-126); ANION GAP 14 (5-19); ASPARTATE AMINO TRANSFERASE 18 U/L (14-36); BILIRUBIN,DIRECT 0.5 mg/dL (0.0-0.4); BILIRUBIN,TOTAL 0.6 mg/dL (0.2-1.3); BLOOD UREA NITROGEN 52 mg/dL (7-20); CALCIUM 8.9 mg/dL (8.4-10.2); CARBON DIOXIDE 25 mmol/L (22-30); CHLORIDE 100 mmol/L (98-107); GLUCOSE 211 mg/dL (75-110); POTASSIUM 5.7 mmol/L (3.6-5.0); TOTAL PROTEIN 7.9 g/dL (6.3-8.2)
[2019-12-22] MEDS ORDERED: ONDANSETRON 4 MG TAB.RAPDIS PO ONE (21:39)
[2019-12-22] MEDS ORDERED: NORMAL SALINE 250 ML IV ONE (21:41)
[2019-12-22 23:15] LABS: APPEARANCE,URINE SLIGHTLY-CLOUDY; BILIRUBIN,URINE NEGATIVE (NEGATIVE); COLOR,URINE YELLOW; GLUCOSE, URINE 150 mg/dL (NEGATIVE); KETONES,URINE NEGATIVE (NEGATIVE); PROTEIN,URINE >=500 mg/dL (NEGATIVE); URINE SPECIFIC GRAVITY 1.016; UROBILINOGEN,URINE NEGATIVE mg/dL (<2.0)
--- NOTE | 2019-12-22 23:29 | ER Document Report ---
ED General - General Chief Complaint: Back Pain Stated Complaint: BACK PAIN Time Seen by Provider: 12/22/19 17:22 Primary Care Provider: RADHA GERARDO PA [NO LOCAL MD] - Follow up in 3-5 days Mode of Arrival: Ambulatory Notes: Patient is a 49-year-old female who presents emergency department with a chief complaint of back pain. Patient states that she has had her back pain for the past couple of days. Patient states that she was seen in [place], but she cannot provide urine. Patient states that she feels like she has a urinary tract infection. She has had urinary tract infections in the past. TRAVEL OUTSIDE OF THE [place] IN LAST 30 DAYS: No - Related Data Allergies/Adverse Reactions: sulfamethoxazole [From Decra] Allergy (Severe, Verified 10/15/19 12:55) Hives trimethoprim [From Decra] Allergy (Severe, Verified 10/15/19 12:55) Hives adhesive tape [Adhesive Tape] Adverse Reaction (Verified 10/15/19 12:55) Bruising/Rash Past Medical History - General Information source: Patient - Social History Smoking Status: Unknown if Ever Smoked Family History: Reviewed & Not Pertinent, DM, Hypertension - Past Medical History Cardiac Medical History: Reports: Hx Congestive Heart Failure, Hx Coronary Artery Disease, Hx Hypercholesterolemia, Hx Hypertension Denies: Hx Atrial Fibrillation, Hx Heart Attack Pulmonary Medical History: Denies: Hx Asthma, Hx Bronchitis, Hx COPD, Hx Pneumonia, Hx Tuberculosis Neurological Medical History: Denies: Hx Cerebrovascular Accident, Hx Migraine, Hx Seizures Endocrine Medical History: Reports: Hx Diabetes Mellitus Type 1, Hx Diabetes Mellitus Type 2 Renal/ Medical History: Reports: Hx End Stage Renal Disease, Hx Hemodialysis, Hx Peritoneal Dialysis, Hx Renal Insufficiency. Denies: Hx Kidney Stones GI Medical History: Reports: Hx Gastroesophageal Reflux Disease, Hx Ulcer Musculoskeletal Medical History: Reports Hx Arthritis Skin Medical History: Reports Hx MRSA Psychiatric Medical History: Reports: Hx Depression Denies: Hx Attention Deficit Hyperactivity Disorder, Hx Bipolar Disorder, Hx Schizophrenia Traumatic Medical History: Reports: Hx Fractures - Right ankle fracture Infectious Medical History: Reports: Hx MRSA Past Surgical History: Reports: Hx Cardiac Catheterization, Hx Section, Hx Cholecystectomy, Hx Orthopedic Surgery - ORIF right ankle, right BKA for MRSA, Hx Tubal Ligation, Hx Vascular Surgery - PermCath placement. Denies: Hx Hysterectomy - Immunizations Hx Diphtheria, Pertussis, Tetanus Vaccination: Yes Hx Pneumococcal Vaccination: 07/04/10 Review of Systems - Review of Systems Notes: REVIEW OF SYSTEMS: CONSTITUTIONAL : Denies recent illness. Denies recent unintentional weight loss. Denies fever. See HPI. EENT: Denies eye, ear, throat, or mouth pain, discharge, or symptoms. Denies nasal or sinus congestion. CARDIOVASCULAR: Denies chest pain. RESPIRATORY: Denies shortness of breath, cough, congestion, difficulty breathing, or wheezing. GASTROINTESTINAL: Denies nausea, vomiting, and diarrhea. Denies abdominal pain. Denies constipation. GENITOURINARY: Denies difficulty urinating, burning, blood in urine, urgency or frequency. MUSCULOSKELETAL: See HPI. Denies joint pain or swelling. SKIN: Denies rash, itchiness, or lesions HEMATOLOGIC : Denies easy bruising or bleeding. LYMPHATIC: Denies swollen, painful, enlarged glands. NEUROLOGICAL: Denies no numbness or tingling denies weakness. Denies headache. Denies altered mental status. Denies alteration in speech. PSYCHIATRIC: Denies stress, anxiety, alteration in sleep patterns, or depression. All other systems reviewed and negative. Physical Exam - Vital signs Vitals: Temp Pulse Resp BP Pulse Ox 98.4 F 97 20 164/90 H 96 12/22/19 16:43 12/22/19 16:43 12/22/19 16:43 12/22/19 16:43 12/22/19 16:43 - Notes Notes: PHYSICAL EXAMINATION: GENERAL: Appears well, healthy, well-nourished, no acute distress. HEAD: Normocephalic, atraumatic. EYES: PERRL, conjunctiva normal, all extraocular movements intact, sclera nonicteric ENT: Moist mucous membranes. NECK: Supple, no noticeable swelling, redness, rash. Normal range of motion. LUNGS: Equal breath sounds bilaterally and clear to auscultation. No wheezes rales or rhonchi. CARDIOVASCULAR: S1-S2, regular rate, regular rhythm. Radial pulses 2+, normal. ABDOMEN: Normoactive bowel sounds. Soft, nontender, no guarding, no rebound tenderness, and no masses palpated. EXTREMITIES: Normal strength and range of motion, no pitting or edema. No cyanosis. NEUROLOGICAL: Moves all extremities upon command. Right amputation noted. PSYCH: Normal mood, normal affect. SKIN: Warm, dry. No rash, lesions, ulcerations noted. Normal skin turgor. BACK: Bilateral CVA tenderness noted. Course - Re-evaluation Re-evalutation: 12/22/19 23:30 Earlier, the patient refused an IV with fluids. She was afraid of getting fluid overloaded. Urine shows large amount of leukocytes and blood in her urine. We will treat the patient with dose of Rocephin here in the emergency department. She will follow-up with her primary care. She also go to dialysis in the morning. CT is normal. Lipase is slightly elevated, but this is most likely not pancreatitis. Follow-up precautions were given. Verbal discharge instructions were given to the patient. They verbalized understanding. They are stable for discharge. 12/23/19 00:45 I was informed that the patient's blood pressure was elevated. Patient states that she has not taken her blood pressure medication. She agrees to take her medication when she gets home. She also was vomiting prior to having her blood pressure taken. Patient received Zofran. She states that she does feel little bit better after receiving the Zofran. - Vital Signs Vital signs: Temp Pulse Resp BP Pulse Ox 98.4 F 97 20 209/91 H 100 12/22/19 16:43 12/22/19 16:43 12/22/19 16:43 12/23/19 00:39 12/23/19 00:39 - Laboratory Result Diagrams: 12/22/19 18:02 12/22/19 18:02 Laboratory results interpreted by me: 12/22/19 12/22/19 12/22/19 18:02 18:02 22:45 Hgb 10.9 L Hct 32.8 L RDW 15.9 H Potassium 5.7 H BUN 52 H Creatinine 9.36 H Est GFR ( Amer) 5 L Est GFR (MDRD) Non-Af 4 L Glucose 211 H Direct Bilirubin 0.5 H Lipase 532.2 H Urine Protein >=500 H Urine Glucose (UA) 150 H Urine Blood MODERATE H Leukocyte Esterase Rfl LARGE H Discharge - Discharge Clinical Impression: Flank pain Urinary tract infection Qualifiers: Urinary tract infection type: acute pyelonephritis Qualified Code(s): N10 - Acute pyelonephritis Condition: Stable Disposition: HOME, SELF-CARE Additional Instructions: You were seen today in the emergency department for back pain. Your CT was normal and did not show any stones. Your urine shows that you have a urinary tract infection. Take your antibiotics as prescribed. Take pain medication as needed. Follow-up with your primary care provider. Call dialysis tomorrow and get an appointment for your dialysis treatment tomorrow afternoon. Prescriptions: Oxycodone HCl/Acetaminophen [Endocet 2.5-325 mg Tablet] 1 each PO Q6HP PRN #6 tablet PRN Reason: Levofloxacin [Levaquin 750 mg Tablet] 750 mg PO DAILY #10 tab Referrals: RADHA GERARDO PA [NO LOCAL MD] - Follow up in 3-5 days
[2019-12-22] MEDS ORDERED: ONDANSETRON ODT 4 MG TAB (6 TAB/ER DISP) PO PRN (23:31)
[2019-12-22] MEDS ORDERED: MORPHINE SULFATE 10 MG/ML INJ IM ONE (23:41)
[2019-12-22] MEDS ORDERED: CEFTRIAXONE INJ 1000 MG VIAL IM ONE (23:41)
[2019-12-22] MEDS ORDERED: LIDOCAINE 1% INJ-PF (10 MG/ML) 30 ML SDV INJ ONE (23:42)
[2019-12-23 00:53] VITALS: BP 209/91
== END 2019-12-23 01:15 | disposition home or self-care (01) ==
LOC: ER 16:34
DX: N10 Acute pyelonephritis (principal); R31.9 Hematuria, unspecified; R10.9 Unspecified abdominal pain; M54.9 Dorsalgia, unspecified; I25.10 Atherosclerotic heart disease of native coronary artery without angina pectoris; I12.0 Hypertensive chronic kidney disease with stage 5 chronic kidney disease or end stage renal disease; E11.22 Type 2 diabetes mellitus with diabetic chronic kidney disease; N18.6 End stage renal disease; Z99.2 Dependence on renal dialysis; Z87.440 Personal history of urinary (tract) infections; Z88.1 Allergy status to other antibiotic agents; Z91.048 Other nonmedicinal substance allergy status; Z90.49 Acquired absence of other specified parts of digestive tract
CPT/HCPCS: 99285; 96372; 36415; 87086; 83690; 85025; 80053; 81001; 74176; A9270 ×3; J2270; J0696; S0119

== ENCOUNTER 2019-12-26 08:51 | Emergency (ER) | payer MEDICARE, MEDICAID ==
[2019-12-26] MEDS ORDERED: BACITRACIN ZINC OINTMENT 15 GM TP ONE (11:25)
--- NOTE | 2019-12-26 11:29 | ER Document Report ---
ED General - General Chief Complaint: Foreign Body in Ear Stated Complaint: FEELS SOMETHING IN RIGHT EAR Time Seen by Provider: 12/26/19 10:49 Primary Care Provider: NICKY BARBOZA MD [Primary Care Provider] - Follow up as needed Notes: HPI: Patient is a 49-year-old female that feels as if she has a "bug crawling in my ear". No tinnitus, lightheadedness or dizziness, weakness or numbness, vomiting, or confusion. No headache or respiratory symptoms. ROS: See HPI Reviewed vital signs and nursing note as charted by RN. PHYSICAL EXAM: CONSTITUTIONAL: Alert and oriented and responds appropriately to questions. Well-appearing; well-nourished HEAD: Normocephalic; atraumatic EYES: PERRL; Conjunctivae clear, sclerae non-icteric ENT: Patient has some excoriations without swelling or induration to the right earlobe. There is no mastoid tenderness or swelling. No obvious external auditory canal lesions. No pain with movement of the pinna. I have a very clear view using the otoscope of the right tympanic membrane and I do not detect any foreign bodies, effusions, or perforations NECK: Supple without meningismus; non-tender; no cervical lymphadenopathy, no masses SKIN: See above NEURO: CN 2-12 intact PSYCH: The patient's mood and manner are appropriate. Grooming and personal hygiene are appropriate. TRAVEL OUTSIDE OF THE [place] IN LAST 30 DAYS: No - Related Data Allergies/Adverse Reactions: sulfamethoxazole [From Septra] Allergy (Severe, Verified 10/15/19 12:55) Hives trimethoprim [From Septra] Allergy (Severe, Verified 10/15/19 12:55) Hives adhesive tape [Adhesive Tape] Adverse Reaction (Verified 10/15/19 12:55) Bruising/Rash Past Medical History - Social History Smoking Status: Unknown if Ever Smoked Family History: Reviewed & Not Pertinent, DM, Hypertension - Past Medical History Cardiac Medical History: Reports: Hx Congestive Heart Failure, Hx Coronary Artery Disease, Hx Hypercholesterolemia, Hx Hypertension Denies: Hx Atrial Fibrillation, Hx Heart Attack Pulmonary Medical History: Denies: Hx Asthma, Hx Bronchitis, Hx COPD, Hx Pneumonia, Hx Tuberculosis Neurological Medical History: Denies: Hx Cerebrovascular Accident, Hx Migraine, Hx Seizures Endocrine Medical History: Reports: Hx Diabetes Mellitus Type 1, Hx Diabetes Mellitus Type 2 Renal/ Medical History: Reports: Hx End Stage Renal Disease, Hx Hemodialysis, Hx Peritoneal Dialysis, Hx Renal Insufficiency. Denies: Hx Kidney Stones GI Medical History: Reports: Hx Gastroesophageal Reflux Disease, Hx Ulcer Musculoskeletal Medical History: Reports Hx Arthritis Skin Medical History: Reports Hx MRSA Psychiatric Medical History: Reports: Hx Depression Denies: Hx Attention Deficit Hyperactivity Disorder, Hx Bipolar Disorder, Hx Schizophrenia Traumatic Medical History: Reports: Hx Fractures - Right ankle fracture Infectious Medical History: Reports: Hx MRSA Past Surgical History: Reports: Hx Cardiac Catheterization, Hx Section, Hx Cholecystectomy, Hx Orthopedic Surgery - ORIF right ankle, right BKA for MRSA, Hx Tubal Ligation, Hx Vascular Surgery - PermCath placement. Denies: Hx Hysterectomy - Immunizations Hx Diphtheria, Pertussis, Tetanus Vaccination: Yes Hx Pneumococcal Vaccination: 07/04/10 Course - Re-evaluation Re-evalutation: 12/26/19 11:29 Given the above history and physical examination, I do not detect any obvious perforation, foreign bodies, mastoid tenderness or swelling, or pain with movement of the pinna. No external auditory canal lesions. Patient does have some excoriations to the earlobe itself with no obvious swelling or erythema. I will apply bacitracin antibiotic ointment and have the patient follow-up with the outpatient ENT and primary care physician. Discharge - Discharge Clinical Impression: Irritation of right ear Condition: Good Disposition: HOME, SELF-CARE Additional Instructions: Come back immediately for any swelling of the ear, loss of hearing, swelling to the side of the head, fevers or vomiting, lightheadedness or dizziness, or any other acute problems. Please follow-up with your primary care physician as well as the ENT that we have provided. You may apply bacitracin ointment to the earlobe twice daily until the excoriation/itching is healed. Referrals: NICKY BARBOZA MD [Primary Care Provider] - Follow up as needed ARI JUAREZ DO [ASSOCIATE] - Follow up as needed
== END 2019-12-26 11:40 | disposition home or self-care (01) ==
LOC: ER 08:51
DX: H93.91 Unspecified disorder of right ear (principal); I25.10 Atherosclerotic heart disease of native coronary artery without angina pectoris; E78.00 Pure hypercholesterolemia, unspecified; E11.22 Type 2 diabetes mellitus with diabetic chronic kidney disease; I13.2 Hypertensive heart and chronic kidney disease with heart failure and with stage 5 chronic kidney disease, or end stage renal disease; I50.9 Heart failure, unspecified; N18.6 End stage renal disease; Z99.2 Dependence on renal dialysis; Z86.14 Personal history of Methicillin resistant Staphylococcus aureus infection
CPT/HCPCS: 99281; J3490

== ENCOUNTER 2020-01-13 05:12 | Emergency (ER) | payer MEDICARE, MEDICAID ==
[2020-01-13 05:22] VITALS: BP 189/95
[2020-01-13 06:51] LABS: ABSOLUTE EOSINOPHILS # (AUTO) 0.4 10^3/uL (0.0-0.6); ABSOLUTE LYMPHOCYTES (AUTO) 1.3 10^3/uL (0.5-4.7); ABSOLUTE MONOCYTES (AUTO) 0.3 10^3/uL (0.1-1.4); ABSOLUTE NEUT (AUTO) 5.4 10^3/uL (1.7-8.2); BASOPHILS % (AUTO) 0.6 % (0-2); EOSINOPHILS % (AUTO) 4.8 % (0-6); HEMATOCRIT 33.8 % (36.0-47.0); HEMOGLOBIN 11.4 g/dL (12.0-15.5); LYMPHOCYTES % (AUTO) 17.6 % (13-45); MEAN CORPUSCULAR HGB CONC 33.7 g/dL (32.0-36.0); MEAN CORPUSCULAR VOLUME 86 fl (80-97); MONOCYTES % (AUTO) 4.4 % (3-13); PLATELET COUNT 175 10^3/uL (150-450); RED BLOOD COUNT 3.92 10^6/uL (3.72-5.28); RED CELL DISTRIBUTION WIDTH 15.6 % (11.5-14.0); SEGMENTED NEUTROPHILS % (AUTO) 72.6 % (42-78); TOTAL CELLS COUNTED % (AUTO) 100 %; WHITE BLOOD COUNT 7.4 10^3/uL (4.0-10.5)
[2020-01-13 06:56] LABS: APPEARANCE,URINE CLOUDY; BILIRUBIN,URINE NEGATIVE (NEGATIVE); COLOR,URINE YELLOW; GLUCOSE, URINE >=500 mg/dL (NEGATIVE); KETONES,URINE NEGATIVE (NEGATIVE); LEUKOCYTE ESTERASE,URINE LARGE (NEGATIVE); NITRITE,URINE NEGATIVE (NEGATIVE); PROTEIN,URINE >=500 mg/dL (NEGATIVE); URINE SPECIFIC GRAVITY 1.015; UROBILINOGEN,URINE NEGATIVE mg/dL (<2.0)
[2020-01-13 07:01] LABS: ALBUMIN 4.2 g/dL (3.5-5.0); ALKALINE PHOSPHATASE 75 U/L (38-126); ANION GAP 17 (5-19); ASPARTATE AMINO TRANSFERASE 18 U/L (14-36); BILIRUBIN,DIRECT 0.5 mg/dL (0.0-0.4); BILIRUBIN,TOTAL 0.6 mg/dL (0.2-1.3); BLOOD UREA NITROGEN 51 mg/dL (7-20); CALCIUM 8.2 mg/dL (8.4-10.2); CARBON DIOXIDE 23 mmol/L (22-30); CHLORIDE 99 mmol/L (98-107); GLUCOSE 255 mg/dL (75-110); POTASSIUM 4.9 mmol/L (3.6-5.0); TOTAL PROTEIN 7.4 g/dL (6.3-8.2)
--- NOTE | 2020-01-13 07:33 | ER Document Report ---
ED GI/ - General Chief Complaint: Urinary Problem Stated Complaint: BACK PAIN,PELVIC PAIN Time Seen by Provider: 01/13/20 07:01 Primary Care Provider: NICKY BARBOZA MD [Primary Care Provider] - Follow up as needed Mode of Arrival: Wheelchair Information source: Patient Notes: This 49-year-old woman history of diabetes mellitus with a left BKA and renal failure on hemodialysis (Friday, Friday, Friday,) presents with current plaint of dysuria, back pain and symptoms of a urinary tract infection. She was seen in the emergency department approximately 2 weeks ago for UTI. She was given Levaquin 750 mg daily. Patient states that the medication has not helped and that her symptoms have not improved. She also has an area on the inside of her right thigh which involves a skin lesion which has bled on a couple occasions. Patient states that it began as a boil she would like to have it looked at also. TRAVEL OUTSIDE OF THE [place] IN LAST 30 DAYS: No - Related Data Allergies/Adverse Reactions: sulfamethoxazole [From Septra] Allergy (Severe, Verified 01/13/20 06:02) Hives trimethoprim [From Septra] Allergy (Severe, Verified 01/13/20 06:02) Hives adhesive tape [Adhesive Tape] Adverse Reaction (Verified 01/13/20 06:02) Bruising/Rash Past Medical History - Social History Smoking Status: Never Smoker Frequency of alcohol use: None Drug Abuse: None Family History: Reviewed & Not Pertinent, DM, Hypertension - Past Medical History Cardiac Medical History: Reports: Hx Congestive Heart Failure, Hx Coronary Artery Disease, Hx Hypercholesterolemia, Hx Hypertension Denies: Hx Atrial Fibrillation, Hx Heart Attack Pulmonary Medical History: Denies: Hx Asthma, Hx Bronchitis, Hx COPD, Hx Pneumonia, Hx Tuberculosis Neurological Medical History: Denies: Hx Cerebrovascular Accident, Hx Migraine, Hx Seizures Endocrine Medical History: Reports: Hx Diabetes Mellitus Type 1, Hx Diabetes Mellitus Type 2 Renal/ Medical History: Reports: Hx End Stage Renal Disease, Hx Hemodialysis, Hx Peritoneal Dialysis, Hx Renal Insufficiency. Denies: Hx Kidney Stones GI Medical History: Reports: Hx Gastroesophageal Reflux Disease, Hx Ulcer Musculoskeletal Medical History: Reports Hx Arthritis Skin Medical History: Reports Hx MRSA Psychiatric Medical History: Reports: Hx Depression Denies: Hx Attention Deficit Hyperactivity Disorder, Hx Bipolar Disorder, Hx Schizophrenia Traumatic Medical History: Reports: Hx Fractures - Right ankle fracture Infectious Medical History: Reports: Hx MRSA Past Surgical History: Reports: Hx Cardiac Catheterization, Hx Section, Hx Cholecystectomy, Hx Orthopedic Surgery - ORIF right ankle, right BKA for MRSA, Hx Tubal Ligation, Hx Vascular Surgery - PermCath placement. Denies: Hx Hysterectomy - Immunizations Hx Diphtheria, Pertussis, Tetanus Vaccination: Yes Hx Pneumococcal Vaccination: 07/04/10 Review of Systems - Review of Systems Notes: Constitutional: Negative for fever. HENT: Negative for sore throat. Eyes: Negative for visual changes. Cardiovascular: Negative for chest pain. Respiratory: Negative for shortness of breath. Gastrointestinal: Negative for abdominal pain, vomiting or diarrhea. Genitourinary: See HPI Musculoskeletal: Negative for back pain. Skin: See HPI Neurological: Negative for headaches, weakness or numbness. 10 point ROS negative except as marked above and in HPI. Physical Exam - Vital signs Vitals: Temp Pulse Resp BP Pulse Ox 98.5 F 91 24 H 189/95 H 97 01/13/20 05:20 01/13/20 05:20 01/13/20 05:20 01/13/20 05:20 01/13/20 05:20 - Notes Notes: PHYSICAL EXAMINATION: Physical Exam: General: Well-nourished well-developed 89-year-old female in no acute distress HEENT: NC/AT, pupils equal round and reactive to light, MM moist,nares clear, oropharynx clear, airway patent Neck: supple, no adenopathy, no masses. Good range of motion Lungs: clear, no wheezing, no rales no rhonchi CVS: Regular rate and rhythm no murmur gallop or rub Abdomen: Soft, active, nontender, no masses, no hepatosplenomegaly Ext: Right BKA Neuro: Alert and responsive, moving all 4 extremities on command, cranial nerves intact, no focal findings Skin: right thigh with a proximal medial thigh area of healing scar with a central area of granulation tissue, no fluctuance, no bleeding. PSYCH: Normal mood, normal affect. Course - Re-evaluation Re-evalutation: 01/13/20 07:49 Reviewed the previous hospitalization patient was treated with Levaquin daily, no organism noted in the microscopy/culture results. Urine today continues to reveal 3+ bacteria and pyuria. Healing skin lesion, suggest follow-up with her primary doctor, dosing of antibiotics will be specific for dialysis. - Vital Signs Vital signs: Temp Pulse Resp BP Pulse Ox 98.5 F 91 24 H 189/95 H 97 01/13/20 05:20 01/13/20 05:20 01/13/20 05:20 01/13/20 05:20 01/13/20 05:20 - Laboratory Result Diagrams: 01/13/20 06:23 01/13/20 06:23 Laboratory results interpreted by me: 01/13/20 01/13/20 01/13/20 06:23 06:23 06:30 Hgb 11.4 L Hct 33.8 L RDW 15.6 H BUN 51 H Creatinine 9.83 H Est GFR ( Amer) 5 L Est GFR (MDRD) Non-Af 4 L Glucose 255 H Calcium 8.2 L Direct Bilirubin 0.5 H Lipase 471.9 H Urine Protein >=500 H Urine Glucose (UA) >=500 H Urine Blood SMALL H Ur Leukocyte Esterase LARGE H Discharge - Discharge Clinical Impression: Back pain Urinary tract infection Qualifiers: Urinary tract infection type: site unspecified Hematuria presence: without hematuria Qualified Code(s): N39.0 - Urinary tract infection, site not specified Condition: Good Disposition: HOME, SELF-CARE Instructions: Urinary Tract Infection ([facility]) Additional Instructions: You were seen in the emergency department today with back pain and urinary tract symptoms. Please take the medications as prescribed cefdinir 300 mg after dialysis for 2 weeks. You may use tramadol for pain, please follow-up with your doctor as needed HOME CARE INSTRUCTIONS & INFORMATION: Thank you for choosing us for your medical needs. We hope you're satisfied with the care you received. After you leave, you must properly care for your problem and, at the same time, observe its progress. Any condition can change. Some illnesses can change rapidly over hours or days. If your condition worsens, return to the Emergency Department or see your physician promptly. ABOUT YOUR X-RAYS AND EKG'S: If you had an EKG or X-rays taken, they have been read by the Emergency Physician. The X-rays and EKG's will also be read by a Radiologist or [employer]aster within 24 hours. If discrepancies are noted, you will be notified by telephone. Please be certain the ED has a correct telephone number & address where you can be reached. Also, realize that some fractures or abnormalities do not show up on initial X-rays. If your symptoms continue, see your physician. ABOUT YOUR LABORATORY TEST: If you had laboratory tests, the results have been reviewed by the Emergency Physician. Some test results (for example cultures) may not be available for several days. You will be contacted if any test result shows you need additional treatment. Please be certain the ED has a correct telephone number and address where you can be reached. ABOUT YOUR MEDICATIONS: You will receive instructions on how to take your medicine on the prescription label you receive. Additional information may be provided by the Pharmacy. If you have questions afterwards, call the ED for clarification or further instructions. Some prescribed medications may cause drowsiness. Do not perform tasks such as driving a car or operating machinery without consulting your Pharmacist. If you feel you need a refill of pain medication, your condition will need re-evaluation. Please do not call for a refill of any medication. ABOUT YOUR SIGNATURE: Signature of this document acknowledges to followin. Understanding that you received emergency treatment and that you may be released before al medical problems are known or treated. Please be certain the ED has a correct phone number & address where you can be reached. 2. Acknowledgement that you will arrange for follow-up care as recommended. 3. Authorization for the Emergency Physician to provide information to your follow-up Physician in order to maximize your care. AT ANY TIME, IF YOUR SYMPTOMS CHANGE SIGNIFICANTLY OR WORSEN OR YOU DEVELOP NEW SYMPTOMS, RETURN TO THE EMERGENCY DEPARTMENT IMMEDIATELY FOR RE-EVALUATION. OUR GOAL IS TO PROVIDE EXCELLENT MEDICAL CARE! WE HOPE THAT WE HAVE MET YOUR EXPECTATIONS DURING YOUR EMERGENCY DEPARTMENT VISIT AND THAT YOU FEEL YOU HAVE RECEIVED EXCELLENT CARE! Prescriptions: Cefdinir 300 mg PO PDIA #7 capsule Tramadol HCl [Ultram 50 mg Tablet] 50 mg PO Q6 PRN #12 tab PRN Reason: For Pain Referrals: NICKY BARBOZA MD [Primary Care Provider] - Follow up as needed
[2020-01-13] MEDS ORDERED: CEFTRIAXONE INJ 1000 MG VIAL IM ONE (07:56)
[2020-01-13] MEDS ORDERED: LIDOCAINE 1% INJ (10 MG/ML) 10 ML MDV INJ ONE (07:57)
[2020-01-13] MEDS ORDERED: TRAMADOL HCL 50 MG TABLET PO ONE (07:58)
== END 2020-01-13 08:30 | disposition home or self-care (01) ==
LOC: ER 05:12
DX: N39.0 Urinary tract infection, site not specified (principal); M54.9 Dorsalgia, unspecified; R10.2 Pelvic and perineal pain; R39.198 Other difficulties with micturition; R30.0 Dysuria; I13.2 Hypertensive heart and chronic kidney disease with heart failure and with stage 5 chronic kidney disease, or end stage renal disease; E11.22 Type 2 diabetes mellitus with diabetic chronic kidney disease; N18.6 End stage renal disease; I50.9 Heart failure, unspecified; Z99.2 Dependence on renal dialysis; I25.10 Atherosclerotic heart disease of native coronary artery without angina pectoris; Z89.512 Acquired absence of left leg below knee; Z88.2 Allergy status to sulfonamides; Z88.8 Allergy status to other drugs, medicaments and biological substances
CPT/HCPCS: 99283; 96372; 36415; 87086; 83690; 85025; 80053; 81001; J0696; A9270

== ENCOUNTER 2020-02-10 10:48 | Emergency (ER) | payer MEDICARE, MEDICAID ==
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
[2020-02-10] MEDS ORDERED: HYDROMORPHONE HCL INJ/PF 2 MG/ML AMPULE IM ONE ×2 (13:05→15:21)
[2020-02-10] MEDS ORDERED: ONDANSETRON 4 MG TAB.RAPDIS PO ONE (13:43)
--- NOTE | 2020-02-10 14:45 | RADIOLOGY REPORT (SQ) ---
EXAM DESCRIPTION: CT PELVIS WITHOUT IMAGES COMPLETED DATE/TIME: 02/10/2020 2:16 pm REASON FOR STUDY: abscess COMPARISON: CT abdomen and pelvis 12/22/2019 CT of the pelvis 10/02/2017 TECHNIQUE: CT scan of the pelvis performed without intravenous or oral contrast. Images reviewed wi th soft tissue and bone windows. Reconstructed coronal and sagittal MPR images reviewed. All images stored on PACS. All CT scanners at this facility use dose modulation, iterative reconstruction, and/or weight based d osing when appropriate to reduce radiation dose to as low as reasonably achievable (ALARA). [facility]: Dose Right [facility]: CareDose [facility]: Dose Right [facility]: Teradose 4D [facility]: Smart Yorder RADIATION DOSE: CT Rad equipment meets quality standard of care and radiation dose reduction techniq ues were employed. CTDIvol: 19.8 mGy. DLP: 811 mGy-cm. mGy. LIMITATIONS: None. FINDINGS: PELVIC BONES: No acute fracture. No worrisome bone lesions. VISUALIZED SPINE: No acute findings. HIP(S): No acute fracture or dislocation. No worrisome bone lesions. PELVIC SOFT TISSUES: No significant findings. EXTRAPELVIC SOFT TISSUES: There is mild adenopathy in the left groin. There are inflammatory changes in the subcutaneous tissues in the left groin. Cannot exclude about a 14 mm small fluid collection within this on image 49 series 3. OTHER: No other significant finding. IMPRESSION: There is mild adenopathy in the left groin. There are inflammatory changes. Cannot exc lude a small abscess. TECHNICAL DOCUMENTATION: JOB ID: [id number] Quality ID # [id number]: Final reports with documentation of one or more dose reduction techniques (e.g., Au tomated exposure control, adjustment of the mA and/or kV according to patient size, use of iterative reconstruction technique) 2010 [employer]- All Rights Reserved Reading location - IP/workstation name: [email or web address]
[2020-02-10] MEDS ORDERED: LIDOCAINE 1% INJ-PF (10 MG/ML) 30 ML SDV INJ ONE (14:58)
--- NOTE | 2020-02-10 15:40 | ER Document Report ---
ED General - General Chief Complaint: Abscess Stated Complaint: CYST ON LEG Time Seen by Provider: 02/10/20 10:58 Primary Care Provider: NICKY BARBOZA MD [Primary Care Provider] - Follow up as needed Mode of Arrival: Wheelchair Information source: Patient TRAVEL OUTSIDE OF THE [place] IN LAST 30 DAYS: No - HPI Notes: Patient presents complaint of left inguinal pain. Patient states she gets frequent abscesses and feels that she has another abscess. She states for 2 to 3 days she has had severe pain in the left inguinal area. It is worse with movement and better without movement. It radiates up into the left lower part of her abdomen. It is a constant burning pain. No fevers sweats or chills. - Related Data Allergies/Adverse Reactions: sulfamethoxazole [From Septra] Allergy (Severe, Verified 02/10/20 10:59) Hives trimethoprim [From Septra] Allergy (Severe, Verified 02/10/20 10:59) Hives adhesive tape [Adhesive Tape] Adverse Reaction (Verified 02/10/20 10:59) Bruising/Rash Past Medical History - General Information source: Patient - Social History Smoking Status: Never Smoker Cigarette use (# per day): No Chew tobacco use (# tins/day): No Frequency of alcohol use: None Drug Abuse: None Lives with: Family Family History: Reviewed & Not Pertinent, DM, Hypertension - Past Medical History Cardiac Medical History: Reports: Hx Congestive Heart Failure, Hx Coronary Arter y Disease, Hx Hypercholesterolemia, Hx Hypertension Pulmonary Medical History: Reports: None EENT Medical History: Reports: None Neurological Medical History: Reports: None Endocrine Medical History: Reports: Hx Diabetes Mellitus Type 2 Renal/ Medical History: Reports: Hx End Stage Renal Disease, Hx Hemodialysis, Hx Renal Insufficiency Malignancy Medical History: Reports: None GI Medical History: Reports: Hx Gastroesophageal Reflux Disease, Hx Ulcer Musculoskeletal Medical History: Reports Hx Arthritis, 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 Denies: Hx Hysterectomy - Immunizations Hx Diphtheria, Pertussis, Tetanus Vaccination: Yes Hx Pneumococcal Vaccination: 07/04/10 Review of Systems - Review of Systems Constitutional: denies: Chills, Fever Cardiovascular: denies: Chest pain, Palpitations Respiratory: denies: Cough, Short of breath -: Yes All other systems reviewed and negative Physical Exam - Vital signs Vitals: Temp Pulse Resp BP Pulse Ox 97.4 F 98 20 151/90 H 97 02/10/20 10:51 02/10/20 10:51 02/10/20 10:51 02/10/20 10:51 02/10/20 10:51 Interpretation: Hypertensive - General General appearance: Appears well, Alert - HEENT Head: Normocephalic, Atraumatic Eyes: Normal Pupils: PERRL - Respiratory Respiratory status: No respiratory distress Chest status: Nontender Breath sounds: Normal Chest palpation: Normal - Cardiovascular Rhythm: Regular Heart sounds: Normal auscultation Murmur: No - Abdominal Inspection: Normal Distension: No distension Bowel sounds: Normal Tenderness: Nontender Organomegaly: No organomegaly - Back Back: Normal, Nontender - Extremities General upper extremity: Normal inspection, Nontender, Normal color, Normal ROM, Normal temperature General lower extremity: Other - Patient's left inguinal area has a firm tender fluctuant mass consistent with an abscess. There is no evidence of surrounding induration erythema or spreading cellulitis. Patient does appear to have hid radenitis. - Neurological Neuro grossly intact: Yes Cognition: Normal Orientation: AAOx4 [place] Coma Scale Eye Opening: Spontaneous [place] Coma Scale Verbal: Oriented [place] Coma Scale Motor: Obeys Commands Alondra Coma Scale Total: 15 Speech: Normal Motor strength normal: LUE, RUE, LLE, RLE Sensory: Normal - Psychological Associated symptoms: Normal affect, Normal mood - Skin Skin Temperature: Warm Skin Moisture: Dry Skin Color: Normal Course - Re-evaluation Re-evalutation: 02/10/20 15:34 Patient presents with an abscess and what appears to be chronic hidradenitis. She states she has never been told that she has hidradenitis. Therefore I will refer her to surgery for further follow-up. Patient is diabetic and has renal failure so obviously concern would be that this abscess was more than just a localized collection of pus. However her vital signs are stable and she appears nontoxic on exam I do not see any evidence that she has spreading infection such as would be seen with Tre's gangrene or necrotizing fasciitis. - Vital Signs Vital signs: Temp Pulse Resp BP Pulse Ox 97.4 F 98 20 151/90 H 97 02/10/20 10:51 02/10/20 10:51 02/10/20 10:51 02/10/20 10:51 02/10/20 10:51 - Diagnostic Test Radiology reviewed: Image reviewed, Reports reviewed Procedures - Incision and Drainage Left Thigh Time completed: 15:35 Type: Simple Anesthetic type: 1% Lidocaine Blade size: 11 I&D procedure: Iodoform packing placed, Sterile dressing applied Incision Method: Incision made by scalpel Amount/type of drainage: 20cc's pus Discharge - Discharge Clinical Impression: Abscess of left groin Condition: Stable Disposition: HOME, SELF-CARE Instructions: Abscess ([facility]), Oral Narcotic Medication ([facility]), Post Incision and Drainage, Cephalexin ([facility]), Trimethoprim-Sulfa ([facility]) Additional Instructions: Have wound checked in 48 hours, sooner if worsening pain, fevers or any concerns. Prescriptions: Amoxicillin/Potassium Clav [Augmentin 500-125 Tablet] 1 each PO DAILY 7 Days #7 tablet Hydrocodone/Acetaminophen [Bagley 5-325 mg Tablet] 1 tab PO BID PRN 3 Days #5 tablet PRN Reason: For Pain Referrals: NICKY BARBOZA MD [Primary Care Provider] - Follow up in 3-5 days
[2020-02-10 15:56] VITALS: BP 191/81
== END 2020-02-10 15:56 | disposition home or self-care (01) ==
LOC: ER 10:48
DX: L02.214 Cutaneous abscess of groin (principal); Z86.14 Personal history of Methicillin resistant Staphylococcus aureus infection
CPT/HCPCS: 99285; 96372; 72192; 10060; A9270; J3490; J1170; S0119

== ENCOUNTER 2020-02-23 01:26 | Emergency (ER) | payer MEDICARE, MEDICAID ==
[2020-02-23 03:07] LABS: ALBUMIN 3.9 g/dL (3.5-5.0); ALKALINE PHOSPHATASE 84 U/L (38-126); ANION GAP 15 (5-19); ASPARTATE AMINO TRANSFERASE 17 U/L (14-36); BILIRUBIN,DIRECT 0.4 mg/dL (0.0-0.4); BILIRUBIN,TOTAL 0.6 mg/dL (0.2-1.3); BLOOD UREA NITROGEN 32 mg/dL (7-20); CALCIUM 8.1 mg/dL (8.4-10.2); CARBON DIOXIDE 25 mmol/L (22-30); CHLORIDE 99 mmol/L (98-107); CREATINE KINASE 88 U/L (30-135); GLUCOSE 242 mg/dL (75-110); POTASSIUM 5.5 mmol/L (3.6-5.0); TOTAL PROTEIN 7.3 g/dL (6.3-8.2)
[2020-02-23 03:14] LABS: HEMATOCRIT 31.1 % (36.0-47.0); HEMOGLOBIN 9.9 g/dL (12.0-15.5); MEAN CORPUSCULAR HEMOGLOBIN 27.4 pg (27.0-33.4); MEAN CORPUSCULAR VOLUME 86 fl (80-97); RED BLOOD COUNT 3.63 10^6/uL (3.72-5.28)
[2020-02-23 03:20] LABS: ABSOLUTE LYMPHOCYTES# (MANUAL) 1.3 10^3/uL (0.5-4.7); ABSOLUTE MONOCYTES # (MANUAL) 0.3 10^3/uL (0.1-1.4); BASOPHILS % (MANUAL) 0 % (0-2); CREATINE KINASE MB 0.62 ng/mL (<4.55); EOSINOPHILS % (MANUAL) 4 % (0-6); LYMPHOCYTES % (MANUAL) 13 % (13-45); MONOCYTES % (MANUAL) 3 % (3-13); NUCLEATED RED BLOOD CELLS 1 /100 WBC (0); SEGMENTED NEUTROPHILS % (MAN) 80 % (42-78); TOTAL CELLS COUNTED 100; TROPONIN I 0.023 ng/mL
[2020-02-23 03:31] LABS: SMUDGE CELLS PRESENT
[2020-02-23 03:33] LABS: ANISOCYTOSIS SLIGHT; PLATELET CLUMPS PRESENT; PLATELET COMMENT ADEQUATE; PLATELET COUNT 194 10^3/uL (150-450); POLYCHROMASIA SLIGHT
--- NOTE | 2020-02-23 05:01 | ER Document Report ---
ED Medical Screen (RME) - General Chief Complaint: Chest Pain Stated Complaint: CHEST PAIN Primary Care Provider: NICKY BARBOZA MD [Primary Care Provider] - Follow up as needed Notes: 49-year-old female chief complaint of shortness of breath. She states that when she lies flat she feels like she cannot catch her breath. Symptoms started last night. She denies chest pain, dizziness, cough, sore throat, fever/chills, nausea/vomiting. She denies any other complaints. Denies current symptoms. Patient has a history of ESRD and is on dialysis, she is due for dialysis at 630 this morning, follows with Dr. Fernandez. TRAVEL OUTSIDE OF THE [place] IN LAST 30 DAYS: No - Related Data Allergies/Adverse Reactions: sulfamethoxazole [From ] Allergy (Severe, Verified 02/10/20 10:59) Hives trimethoprim [From Decra] Allergy (Severe, Verified 02/10/20 10:59) Hives adhesive tape [Adhesive Tape] Adverse Reaction (Verified 02/10/20 10:59) Bruising/Rash Home Medications: vancomycin Past Medical History - Social History Family history: Reviewed & Not Pertinent - Past Medical History Cardiac Medical History: Reports: Hx Congestive Heart Failure, Hx Coronary Artery Disease, Hx Hypercholesterolemia, Hx Hypertension Endocrine Medical History: Reports: Hx Diabetes Mellitus Type 2 Renal/ Medical History: Reports: Hx End Stage Renal Disease, Hx Hemodialysis, Hx Renal Insufficiency GI Medical History: Reports: Hx Gastroesophageal Reflux Disease, Hx Ulcer Musculoskeltal Medical History: Reports Hx Arthritis, Reports Hx Musculoskeletal Trauma - Right BKA Skin Medical History: Reports Hx MRSA Traumatic Medical History: Reports: Hx Fractures - Right ankle fracture Infectious Medical History: Reports: Hx MRSA Past Surgical History: Reports: Hx Cardiac Catheterization, Hx Section, Hx Cholecystectomy, Hx Orthopedic Surgery - ORIF right ankle, right BKA for MRSA, Hx Tubal Ligation, Hx Vascular Surgery - PermCath placement, fistula in the left arm. Denies: Hx Hysterectomy - Immunizations Hx Diphtheria, Pertussis, Tetanus Vaccination: Yes Physical Exam - Vital signs Vitals: Temp Pulse Resp BP Pulse Ox 98.5 F 93 19 151/100 H 96 02/23/20 01:32 02/23/20 01:32 02/23/20 01:32 02/23/20 01:32 02/23/20 01:32 - Respiratory Respiratory status: No respiratory distress Breath sounds: No: Decreased air movement, Stridor, Wheezing Course - Re-evaluation Re-evalutation: I have greeted and performed a rapid initial assessment of this patient. A comprehensive ED assessment and evaluation of the patient, analysis of test results and completion of the medical decision making process will be conducted by additional ED providers. - Vital Signs Vital signs: Temp Pulse Resp BP Pulse Ox 98.5 F 88 19 157/92 H 96 02/23/20 03:08 02/23/20 03:08 02/23/20 01:32 02/23/20 03:08 02/23/20 03:08 - Laboratory Result Diagrams: 02/23/20 02:26 02/23/20 02:26 Laboratory results interpreted by me: 02/23/20 02/23/20 02:26 02:26 RBC 3.63 L Hgb 9.9 L Hct 31.1 L RDW 15.0 H Seg Neuts % (Manual) 80 H Potassium 5.5 H BUN 32 H Creatinine 7.83 H Est GFR ( Amer) 7 L Est GFR (MDRD) Non-Af 6 L Glucose 242 H Calcium 8.1 L Doctor's Discharge - Discharge Referrals: NICKY BARBOZA MD [Primary Care Provider] - Follow up as needed
--- NOTE | 2020-02-23 06:24 | ER Document Report ---
ED General - General Chief Complaint: Chest Pain Stated Complaint: CHEST PAIN Time Seen by Provider: 02/23/20 06:11 Primary Care Provider: NICKY BARBOZA MD [Primary Care Provider] - Follow up as needed Information source: Patient TRAVEL OUTSIDE OF THE [place] IN LAST 30 DAYS: No - HPI Notes: Patient presents with shortness of breath. Patient states is been going on for several days. She apparently stated she had chest pain in triage but for me she denies any pain or history of pain. She denies any cough cold congestion. She states her shortness of breath has been constant and moderate to severe. She states is worse with exertion and better with rest. She states she is due to dialyze this morning at 6 AM. She denies any nausea vomiting or diarrhea. - Related Data Allergies/Adverse Reactions: sulfamethoxazole [From Septra] Allergy (Severe, Verified 02/10/20 10:59) Hives trimethoprim [From Septra] Allergy (Severe, Verified 02/10/20 10:59) Hives adhesive tape [Adhesive Tape] Adverse Reaction (Verified 02/10/20 10:59) Bruising/Rash Home Medications: vancomycin Past Medical History - General Information source: Patient - Social History Smoking Status: Never Smoker Frequency of alcohol use: None Drug Abuse: None Family History: Reviewed & Not Pertinent, DM, Hypertension - Past Medical History Cardiac Medical History: Reports: Hx Congestive Heart Failure, Hx Coronary Artery Disease, Hx Hypercholesterolemia, Hx Hypertension Endocrine Medical History: Reports: Hx Diabetes Mellitus Type 2 Renal/ Medical History: Reports: Hx End Stage Renal Disease, Hx Hemodialysis, Hx Renal Insufficiency GI Medical History: Reports: Hx Gastroesophageal Reflux Disease, Hx Ulcer Musculoskeletal Medical History: Reports Hx Arthritis, Reports Hx Musculoskel etal Trauma - Right BKA Skin Medical History: Reports Hx MRSA Traumatic Medical History: Reports: Hx Fractures - Right ankle fracture Infectious Medical History: Reports: Hx MRSA Past Surgical History: Reports: Hx Cardiac Catheterization, Hx Section, Hx Cholecystectomy, Hx Orthopedic Surgery - ORIF right ankle, right BKA for MRSA, Hx Tubal Ligation, Hx Vascular Surgery - PermCath placement, fistula in the left arm. Denies: Hx Hysterectomy - Immunizations Hx Diphtheria, Pertussis, Tetanus Vaccination: Yes Hx Pneumococcal Vaccination: 07/04/10 Review of Systems - Review of Systems Constitutional: denies: Chills, Fever Cardiovascular: denies: Chest pain, Palpitations Respiratory: Short of breath. denies: Cough -: Yes All other systems reviewed and negative Physical Exam - Vital signs Vitals: Temp Pulse Resp BP Pulse Ox 98.5 F 93 19 151/100 H 96 02/23/20 01:32 02/23/20 01:32 02/23/20 01:32 02/23/20 01:32 02/23/20 01:32 Interpretation: Hypertensive - General General appearance: Appears well, Alert - HEENT Head: Normocephalic, Atraumatic Eyes: Normal Pupils: PERRL - Respiratory Respiratory status: No respiratory distress Chest status: Nontender Breath sounds: Decreased air movement Chest palpation: Normal - Cardiovascular Rhythm: Regular Heart sounds: Normal auscultation Murmur: No - Abdominal Inspection: Normal Distension: No distension Bowel sounds: Normal Tenderness: Nontender Organomegaly: No organomegaly - Back Back: Normal, Nontender - Extremities General upper extremity: Normal inspection, Nontender, Normal color, Normal ROM, Normal temperature General lower extremity: Normal inspection, Nontender, Edema - 2+ bilaterally, Normal color, Normal ROM, Normal temperature. No: German's sign - Neurological Neuro grossly intact: Yes Cognition: Normal Orientation: AAOx4 [place] Coma Scale Eye Opening: Spontaneous [place] Coma Scale Verbal: Oriented [place] Coma Scale Motor: Obeys Commands [place] Coma Scale Total: 15 Speech: Normal Motor strength normal: LUE, RUE, LLE, RLE Sensory: Normal - Psychological Associated symptoms: Normal affect, Normal mood - Skin Skin Temperature: Warm Skin Moisture: Dry Skin Color: Normal Course - Vital Signs Vital signs: Temp Pulse Resp BP Pulse Ox 98.5 F 88 19 157/92 H 96 02/23/20 03:08 02/23/20 03:08 02/23/20 01:32 02/23/20 03:08 02/23/20 03:08 - Laboratory Result Diagrams: 02/23/20 02:26 02/23/20 02:26 Laboratory results interpreted by me: 02/23/20 02/23/20 02:26 02:26 RBC 3.63 L Hgb 9.9 L Hct 31.1 L RDW 15.0 H Seg Neuts % (Manual) 80 H Potassium 5.5 H BUN 32 H Creatinine 7.83 H Est GFR ( Amer) 7 L Est GFR (MDRD) Non-Af 6 L Glucose 242 H Calcium 8.1 L - Diagnostic Test Radiology reviewed: Image reviewed, Reports reviewed - EKG Interpretation by Me EKG shows normal: Sinus rhythm Rate: Normal - 91 Rhythm: NSR [place]/QRS: RBBB Discharge - Discharge Clinical Impression: End stage renal failure on dialysis Dyspnea Qualifiers: Dyspnea type: other forms of dyspnea Qualified Code(s): R06.09 - Other forms of dyspnea Condition: Stable Disposition: HOME, SELF-CARE Additional Instructions: Please go to straight to dialysis Referrals: NICKY BARBOZA MD [Primary Care Provider] - Follow up as needed
--- NOTE | 2020-02-23 06:25 | RADIOLOGY REPORT (SQ) ---
EXAM DESCRIPTION: XR CHEST 1 VIEW COMPLETED DATE/TME: 02/23/2020 05:28 CLINICAL HISTORY: 49 years Female, short of breath COMPARISON: 11/10/19 NUMBER OF VIEWS/TECHNIQUE: 1/AP FINDINGS: Adequate lung volume, pulmonary vascular congestion, normal cardiac silhouette, and intact bony thorax. Vascular grafts at the left axilla, left upper lateral hemithorax, and left upper arm partially imaged. IMPRESSION: Pulmonary vascular congestion.
[2020-02-23] MEDS ORDERED: ONDANSETRON 4 MG TAB.RAPDIS PO ONE (06:38)
[2020-02-23] MEDS ORDERED: CLONIDINE HCL 0.2 MG TABLET PO ONE (06:38)
[2020-02-23 06:44] VITALS: BP 204/99
--- NOTE | 2020-02-23 10:12 | EKG REPORT ---
SEVERITY:- ABNORMAL ECG - SINUS RHYTHM RIGHT BUNDLE BRANCH BLOCK : Confirmed by: Grazyna Kathleen MD 23-Feb-2020 10:11:35
== END 2020-02-23 06:48 | disposition home or self-care (01) ==
LOC: ER 01:26
DX: I25.10 Atherosclerotic heart disease of native coronary artery without angina pectoris (principal); I12.0 Hypertensive chronic kidney disease with stage 5 chronic kidney disease or end stage renal disease; E11.22 Type 2 diabetes mellitus with diabetic chronic kidney disease; N18.6 End stage renal disease; Z99.2 Dependence on renal dialysis; I45.10 Unspecified right bundle-branch block; R06.02 Shortness of breath; Z88.1 Allergy status to other antibiotic agents; Z79.2 Long term (current) use of antibiotics
CPT/HCPCS: 99285; 36415; 82553; 82550; 85025; 80053; 84484; 71045; 93005; 93010; A9270 ×2; S0119